=== PATIENT | male | born 1945 | race Caucasian/White ===

== ENCOUNTER 2019-04-26 12:17 | Emergency (ER) | payer MEDICARE, BC, SELFPAY ==
[2019-04-26] VITALS (32 sets, daily range): BP systolic 103–126; BP diastolic 45–65; PULSE 61–76; RESP 9–29; TEMP 36.5; O2SAT 94–97
--- NOTE | 2019-04-26 12:31 | DI.RAD_ITS ---
SYMPTOMS/DIAGNOSIS: CHILLS, FEVER, ? PNEUMONIA CHEST X-RAY, PA AND LATERAL: No priors. The heart size and pulmonary vasculature are within normal limits. The lungs appear hyperinflated with flattened diaphragms, suggesting underlying COPD. There are increased lung markings in the right mid lung suspicious for an infiltrate. The lungs are otherwise clear. No effusions or pneumothoraces are identified. Degenerative changes are seen in the spine. IMPRESSION: Increased lung markings in the right mid lung. This may represent a developing pneumonia.
--- NOTE | 2019-04-26 12:32 | ED.GENADUL_ITS ---
Discharge Plan Disposition Patient Disposition: HOME Condition: Stable Discharge Details Chief Complaint: Nausea/Vomit/Diar Clinical Impression: Nausea, Hyperglycemia, Pneumonia Primary Care Provider: DONNA MCLEAN ED Provider: Amanda Tamayo Home Meds and New Rx's Prescriptions: New ondansetron HCl [Zofran] 4 mg tablet 4 mg PO Q6H PRN (Reason: nausea and vomiting) Qty: 6 RF: 0 doxycycline hyclate 100 mg tablet 100 mg PO BID 5 Days Qty: 10 RF: 0 Continued aspirin 325 MG tablet 1 tab PO DAILY RF: 0 simvastatin [Zocor] 10 MG tablet 1 tab PO DAILY RF: 0 amlodipine 5 MG tablet 1 tab PO DAILY RF: 0 diazepam [Valium] 10 MG tablet 1 tab PO PRN PRNRF: 0 losartan 100 MG tablet 1 tab PO DAILY RF: 0 multivitamin 1 EACH capsule 1 cap PO DAILY RF: 0 insulin NPH isoph U-100 human [Humulin N NPH U-100 Insulin] 100 UNIT/ML suspension 12 unit SQ .QHS RF: 0 insulin NPH isoph U-100 human [Humulin N NPH U-100 Insulin] 100 UNIT/ML suspension 50 unit SQ .QAM RF: 0 insulin lispro [Humalog U-100 Insulin] 100 UNITS/ML solution SQ RF: 0 digoxin 250 MCG tablet 1 tab PO DAILY RF: 0 tamsulosin 0.4 MG capsule 1 tab PO DAILY RF: 0 cephalexin 500 MG capsule 500 mg PO QID Qty: 40 RF: 0 Discharge Instructions Instructions: Acute Nausea and Vomiting (ED), Pneumonia (ED), Diabetic Hyperglycemia (ED) Additional Instructions: Take the Zofran as needed and directed for any nausea or vomiting. Drink plenty of fluids and get plenty of rest. Continue to check your sugar regularly and take your insulin as directed. If you continue to develop fever or chills or develop shortness of breath or cough, start the antibiotics. Call your primary care doctor tomorrow to schedule a follow-up appointment for reevaluation. Return immediately to the emergency department if you develop any worsening or new concerning signs. Discharge Data Discharge Date/Time-TO BE ENTERED AT DEPARTURE: 04/26/19 17:28 Discharge Physician: Amanda Tamayo Medical Decision Making 73-year-old male with history of diabetes type 1, hypertension, hyperlipidemia who presents with hyperglycemia, nausea, chills, low grade fever ~ 99 and sweats for the past 3 days. Accu-Chek 369. Concern for DKA, electrolyte abnormality, other source of infection such as UTI, pneumonia. Does not appear consistent with ACS. Will place an IV, bolus IV fluids, screening labs, urinalysis, lactate, blood cultures, EKG and chest x-ray. EKG notes a rate of 66, sinus no acute ST-T wave ischemic changes. 1400 --labs reviewed. White blood cell count 3. Platelets 107, which is s lightly lower compared to baseline. Glucose 369. Normal bicarb and anion gap. Sodium 132. Lactate 0.8. Troponin negative. Lipase within normal limits. Recheck glucose 344. Will give another liter IV fluids and give 5 units insulin and recheck. UA pending. 1630 --chest x-ray notes a questionable developing pneumonia in the right midlung. Urinalysis notes trace ketones no obvious infection. Patient feels much better and is requesting to go home. He did admit to some brief chills, and temperature rechecked and within normal limits. Nurse noted possible pause on heart monitor at station, patient appeared comfortable during this, no acute complaints, repeat EKG done and no acute change. Accu-Chek 285. Patient's own Accu-Chek read 244. Will send home with a prescription for Zofran as well as doxycycline for a possible developing pneumonia. Patient would rather hold on antibiotics at this time unless symptoms do not improve or worsen. He is instructed to follow-up with his primary care doctor for reevaluation in the next 2 days and to return here anytime if worse Medical Records Medical records reviewed: Yes I reviewed the patient's medical records. Imaging Data Radiologic Study: Imaging: X-Ray Radiologist's impression: Chest x-ray: Read as possible increased markings in the right midlung, question developing pneumonia. Lab Data Lab results reviewed: Yes I reviewed the patient's lab results. Laboratory Tests Range/Units 04/26/19 04/26/19 04/26/19 12:44 12:44 12:44 WBC (4.4-10.8) k/cumm 3.04 L RBC (4.50-6.00) m/cumm 3.69 L Hgb (13.5-17.5) g/dL 11.7 L Hct (40.0-50.0) % 35.4 L MCV (80-95) fL 95.9 H MCH (27.0-33.0) pg 31.7 MCHC (32.0-36.0) g/dL 33.1 RDW (11.8-14.1) % 13.9 Plt Count (130-400) x1000/uL 107 L MPV (8.0-11.0) fL 9.9 Immature Gran % 0.3 Neutrophils % 70.5 Lymphocytes % 15.1 Monocytes % 13.8 Eosinophils % 0.0 Basophils % 0.3 Absolute Neutrophils (1.2-6.7) k/cumm 2.14 Absolute Lymphocytes (1.2-3.4) k/cumm 0.46 L Absolute Monocytes (0.11-0.7) k/cumm 0.42 Absolute Eosinophils (0.0-0.7) k/cumm 0.00 Absolute Basophils (0.0-0.2) k/cumm 0.01 Sodium (136-145) mmol/L 132 L Potassium (3.5-5.1) mmol/L 4.4 Chloride (98-107) mmol/L 100 Carbon Dioxide (21.0-32.0) mmol/L 23.9 Anion Gap (3-11) mmol/L 8.1 BUN (7-18) mg/dL 33 H Creatinine (0.70-1.30) mg/dL 1.44 H Estimated GFR/1.73 m2 (mL/min/1.73m2) 47.82 Glucose (70-100) mg/dL 369 H Lactate (0.6-1.4) mmol/l 0.8 Calcium (8.5-10.1) mg/dL 8.4 L Magnesium (1.8-2.4) mg/dL 2.1 Total Bilirubin (0.2-1.0) mg/dL 0.3 AST (15-37) U/L 28 ALT (12-78) U/L 39 Alkaline Phosphatase (46-116) U/L 131 H Troponin I (0.00-0.06) ng/mL < 0.05 Total Protein (6.4-8.2) g/dL 6.5 Albumin (3.4-5.0) g/dL 2.7 L Lipase (73-393) U/L 35 L Urine Color (Yellow) Urine Clarity (Clear) Urine pH (5-8) Ur Specific [place] (1.005-1.025) Urine Protein (Negative) mg/dL Urine Ketones (Negative) mg/dL Urine Blood (Negative) Urine Nitrite (Negative) Urine Bilirubin (Negative) Urine Urobilinogen (Up TO 0.2) EU/dL Ur Leukocyte Esterase (Negative) Urine RBC (0-2) Urine WBC (0-5) HPF Ur Epithelial Cells (Negative) HPF Urine Crystals (Negative) HPF Urine Bacteria (Negative) HPF Urine Casts (Negative) LPF Urine Mucus (Negative) Ur Culture Indicated? Urine Glucose (Negative) mg/dL Range/Units 04/26/19 15:15 WBC (4.4-10.8) k/cumm RBC (4.50-6.00) m/cumm Hgb (13.5-17.5) g/dL Hct (40.0-50.0) % MCV (80-95) fL MCH (27.0-33.0) pg MCHC (32.0-36.0) g/dL RDW (11.8-14.1) % Plt Count (130-400) x1000/uL MPV (8.0-11.0) fL Immature Gran % Neutrophils % Lymphocytes % Monocytes % Eosinophils % Basophils % Absolute Neutrophils (1.2-6.7) k/cumm Absolute Lymphocytes (1.2-3.4) k/cumm Absolute Monocytes (0.11-0.7) k/cumm Absolute Eosinophils (0.0-0.7) k/cumm Absolute Basophils (0.0-0.2) k/cumm Sodium (136-145) mmol/L Potassium (3.5-5.1) mmol/L Chloride (98-107) mmol/L Carbon Dioxide (21.0-32.0) mmol/L Anion Gap (3-11) mmol/L BUN (7-18) mg/dL Creatinine (0.70-1.30) mg/dL Estimated GFR/1.73 m2 (mL/min/1.73m2) Glucose (70-100) mg/dL Lactate (0.6-1.4) mmol/l Calcium (8.5-10.1) mg/dL Magnesium (1.8-2.4) mg/dL Total Bilirubin (0.2-1.0) mg/dL AST (15-37) U/L ALT (12-78) U/L Alkaline Phosphatase (46-116) U/L Troponin I (0.00-0.06) ng/mL Total Protein (6.4-8.2) g/dL Albumin (3.4-5.0) g/dL Lipase (73-393) U/L Urine Color (Yellow) Yellow Urine Clarity (Clear) Clear Urine pH (5-8) 5.5 Ur Specific [place] (1.005-1.025) 1.015 Urine Protein (Negative) mg/dL 30 H Urine Ketones (Negative) mg/dL Trace H Urine Blood (Negative) Moderate H Urine Nitrite (Negative) Negative Urine Bilirubin (Negative) Negative Urine Urobilinogen (Up TO 0.2) EU/dL 0.2 Ur Leukocyte Esterase (Negative) Negative Urine RBC (0-2) 3-5 H Urine WBC (0-5) HPF 0-2 Ur Epithelial Cells (Negative) HPF Rare Urine Crystals (Negative) HPF Negative Urine Bacteria (Negative) HPF Rare Urine Casts (Negative) LPF 3-5 hyaline Urine Mucus (Negative) Trace Ur Culture Indicated? No Urine Glucose (Negative) mg/dL 500 H ECG Data Attestation: I personally reviewed and interpreted this ECG (s) as follows: Interpretation: #1 -- Rate of 66, sinus, no acute ST elevation or depression. QTc 430. QRS 104. #2 -- Rate of 64, sinus, no acute ST elevation or depression, QTc 444. QRS 103. HPI General Mode of arrival: ambulatory . Date/Time Provider Initiated Documentation: 04/26/19 12:26 . Limitations to Documentation: no limitations . Information obtained by: patient . HPI Narrative: Patient is a 73-year-old male with history of diabetes type 1, hypertension, hyperlipidemia, anxiety who presents with nausea, chills, sweats and low-grade fever of 99 over the past 3 days. Also admits to mild diffuse dull headache which is 1/10. He denies any chest pain, shortness of breath, cough, sore throat, abdominal pain, urinary symptoms, recent alcohol or neck pain. He also denies any recent antibiotics, recent travel or known sick contacts. He states he usually maintains his glucose under good control, but states he has had two checks in the 350s over the past few days. Related Data Home Medications Medication Instructions Recorded Confirmed amlodipine 1 tab PO DAILY 02/17/14 02/05/17 aspirin 1 tab PO DAILY 02/17/14 02/05/17 diazepam [Valium] 1 tab PO PRN PRN 02/17/14 02/05/17 digoxin 1 tab PO DAILY 02/17/14 02/05/17 insulin NPH isoph U-100 human 12 unit SQ .QHS 02/17/14 02/05/17 [Humulin N NPH U-100 Insulin] insulin NPH isoph U-100 human 50 unit SQ .QAM 02/17/14 02/05/17 [Humulin N NPH U-100 Insulin] insulin lispro [Humalog U-100 SQ 02/17/14 02/17/14 Insulin] losartan 1 tab PO DAILY 02/17/14 02/05/17 multivitamin 1 cap PO DAILY 02/17/14 02/05/17 simvastatin [Zocor] 1 tab PO DAILY 02/17/14 02/05/17 tamsulosin 1 tab PO DAILY 02/17/14 02/05/17 cephalexin 500 mg PO QID #40 cap 02/05/17 doxycycline hyclate 100 mg PO BID 5 Days #10 tab 04/26/19 ondansetron HCl [Zofran] 4 mg PO Q6H PRN #6 tab 04/26/19 Previous Rx's Medication Instructions Recorded cephalexin 500 mg PO QID #40 cap 02/05/17 doxycycline hyclate 100 mg PO BID 5 Days #10 tab 04/26/19 ondansetron HCl [Zofran] 4 mg PO Q6H PRN #6 tab 04/26/19 Allergies Allergy/AdvReac Type Severity Reaction Status Date / Time No Known Allergies Allergy Unverified 02/05/17 09:53 General Stated Complaint: Nausea/Vomit/Diar TIANNA: 3 Review of Systems Review of Systems All systems reviewed & are unremarkable except as noted in HPI and below Constitutional Reports as per HPI, Reports chills, Reports fever(s) (low grade ~ 99) and Reports headache(s) Eyes Denies blurry vision ENT Denies dizziness, Reports headache(s), Denies sore throat and Denies throat swelling Cardiovascular Denies chest pain and Denies dyspnea Respiratory Denies cough and Denies dyspnea Gastrointestinal Denies abdominal pain, Denies diarrhea, Reports nausea and Denies vomiting Genitourinary Denies hematuria and Denies dysuria Musculoskeletal Denies back pain and Denies numbness Integumentary/Breasts Denies lesions and Denies rash Neurologic Denies dizziness, Reports headache(s), Denies focal weakness and Denies numbness Allergic/Immunologic Denies throat swelling [facility] Medical History Anxiety (Chronic) Diabetes (Chronic) HTN (hypertension) (Chronic) Hx of hyperlipidemia (Acute) Surgical History Fingertip amputation (Acute) History of cataract surgery (Chronic) History of tonsillectomy (Chronic) Social History (Updated 04/26/19 @ 12:53 by Amanda Tamayo DO) Smoking/Tobacco Use Status: Current every day Alcohol Intake: never Drug use: Never Do you feel safe in your relationship?: Yes Exam Const General: cooperative, healthy appearing and no acute distress HENMT Head: normal to inspection Ears: hearing grossly normal bilaterally and external ears normal General nose exam: external nose normal Face and sinus: normal facial exam Mouth: oral mucosae normal Throat: posterior oropharynx normal Eyes General: appearance normal, both eyes and all related structures Pupils: PERRL EOM: EOM intact bilaterally Neck Neck: normal visual inspection and No submandibular swelling Lymphatic: no lymphadenopathy noted Chest Chest: normal inspection of the chest and no tenderness Resp Effort & Inspection: normal respiratory effort and able to speak in complete sentences Auscultation: clear to auscultation bilaterally Cardio Rate: regular rate Rhythm: regular rhythm GI Inspection: normal to inspection and scar (Right upper abdomen used for left finger skin graft) Palpation: soft, not firm, not rigid and nontender Auscultation: normal bowel sounds Skin General skin exam: no rashes or lesions noted Neuro General: alert, awake and oriented x3 Cognition: normal cognition Speech: speech normal Motor: muscle tone normal throughout Sensory Exam: no sensory deficits noted Extrem General: normal to inspection, full ROM, normal capillary refill, no calf tenderness bilaterally and no edema Psych Appearance: grossly normal Mental Status: mental status grossly normal Speech and Movement: speech and movement normal Affect: normal affect Course Vital Signs Temperature 97.7 F 04/26/19 12:22 Pulse 70 04/26/19 12:22 Respiratory Rate 14 04/26/19 12:22 Blood Pressure 103/45 L 04/26/19 12:22 Pulse Oximetry 97 04/26/19 12:22 Temperature 97.7 F 04/26/19 12:22 Temperature Source Temporal Artery Scan 04/26/19 12:22 Pulse 70 04/26/19 12:22 Respiratory Rate 14 04/26/19 12:22 Blood Pressure 103/45 L 04/26/19 12:22 Pulse Oximetry 97 04/26/19 12:22 Oxygen Delivery Method Room Air 04/26/19 12:22 Oxygen Flow Rate 0 04/26/19 12:22 Pain Level 0 04/26/19 12:22
[2019-04-26] MEDS: Normal Saline 1,000 ML 1000 ML IV ×2 (13:00→14:00)
[2019-04-26 13:01] LABS: Lactate-non-spesis 0.8 mmol/l (0.6-1.4)
[2019-04-26 13:04] LABS: Abs Immature Grans 0.01 k/cumm (0.0-0.09); Absolute Basophil Count 0.01 k/cumm (0.0-0.2); Absolute Lymphocyte Count 0.46 k/cumm (1.2-3.4); Absolute Monocyte Count 0.42 k/cumm (0.11-0.7); Absolute Neutrophil Count 2.14 k/cumm (1.2-6.7); Basophils % 0.3; HCT 35.4 % (40.0-50.0); HGB 11.7 g/dL (13.5-17.5); Immature Grans % 0.3; Lymphocytes % 15.1; Mean Corp. HGB Concentration 33.1 g/dL (32.0-36.0); Mean Corpuscular Hemoglobin 31.7 pg (27.0-33.0); Mean Corpuscular Volume 95.9 fL (80-95); Mean Platelet Volume 9.9 fL (8.0-11.0); Monocytes % 13.8; Neutrophils % 70.5; Platelet Count 107 x1000/uL (130-400); RBC 3.69 m/cumm (4.50-6.00); RBC Distribution Width 13.9 % (11.8-14.1); White Blood Cell Count 3.04 k/cumm (4.4-10.8)
[2019-04-26 13:25] LABS: ALT 39 U/L (12-78); AST 28 U/L (15-37); Albumin 2.7 g/dL (3.4-5.0); Alkaline Phosphatase 131 U/L (46-116); Anion Gap 8.1 mmol/L (3-11); BUN 33 mg/dL (7-18); Bilirubin, Total 0.3 mg/dL (0.2-1.0); CO2 23.9 mmol/L (21.0-32.0); CREATININE 1.44 mg/dL (0.70-1.30); Calcium 8.4 mg/dL (8.5-10.1); Chloride 100 mmol/L (98-107); Estimated GFR 47.82 (mL/min/1.73m2); Glucose 369 mg/dL (70-100); Lipase 35 U/L (73-393); Magnesium 2.1 mg/dL (1.8-2.4); Potassium 4.4 mmol/L (3.5-5.1); Sodium 132 mmol/L (136-145); Total Protein 6.5 g/dL (6.4-8.2)
[2019-04-26 13:29] LABS: Troponin I < 0.05 ng/mL (0.00-0.06)
[2019-04-26] MEDS: Ondansetron 4 MG/2 ML VIAL IVP (13:40)
[2019-04-26] MEDS: Insulin REGULAR-Human 100 UNITS/ML UNIT IV (14:41)
[2019-04-26 15:23] LABS: Bilirubin Negative (Negative); Blood Moderate (Negative); Clarity Clear (Clear); Glucose 500 mg/dL (Negative); Ketones Trace mg/dL (Negative); Leukocyte Esterase Negative (Negative); Nitrite Negative (Negative); Specific Gravity 1.015 (1.005-1.025); Urobilinogen 0.2 EU/dL (Up TO 0.2); pH 5.5 (5-8)
[2019-04-26 15:36] LABS: Bacteria Rare HPF (Negative); Crystals Negative HPF (Negative); Epithelial Cells Rare HPF (Negative); Mucus Trace (Negative); WBC 0-2 HPF (0-5)
[2019-04-26 15:37] LABS: C & S Indicated? No; Casts 3-5 Hyaline LPF (Negative)
[2019-04-26] MEDS: Normal Saline 500 ML IV (16:00)
== END 2019-04-26 17:28 | disposition home or self-care (01) ==
PROVIDERS: Emergency Provider Physician Assistant; PCP Internal Medicine Endocrinology, Diabetes & Metabolism
DX: R11.0 Nausea (principal); E10.65 Type 1 diabetes mellitus with hyperglycemia; J18.9 Pneumonia, unspecified organism; I10 Essential (primary) hypertension
CPT/HCPCS: 36415; 36416; 80053; 82962; 83690; 87040; 93005; 96361; 96374; 96375; 99285; 71046; 81003; 81015; 83605; 83735; 84484; 85025; 93010; J2405

== ENCOUNTER 2019-06-09 02:51 | Outpatient (CLI) | payer MEDICARE, BC, SELFPAY ==
--- NOTE | 2019-06-09 11:00 | DI.RAD_ITS ---
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 There appear to be changes of COPD and pulmonary scarring. Question area of faint increased radiodensity seen in right upper lung field on recent chest film of 04/26/19 is again noted, no definite mass but the possibility of underlying persistent process is raised with mass not entirely excluded. There appears to be calcific scarring in the left upper lobe. No pleural effusion seen. No pneumothorax. CONCLUSION: Persistent radiodensities which appear to lie in right upper lobe. Additional evaluation with chest CT recommended.
== END 2019-06-09 03:11 ==
PROVIDERS: PCP Internal Medicine Endocrinology, Diabetes & Metabolism; Visit Provider Internal Medicine Endocrinology, Diabetes & Metabolism
DX: J44.9 Chronic obstructive pulmonary disease, unspecified (principal); R91.8 Other nonspecific abnormal finding of lung field; E11.9 Type 2 diabetes mellitus without complications; Z79.4 Long term (current) use of insulin
CPT/HCPCS: 71046

== ENCOUNTER 2019-11-13 11:41 | Emergency (ER) | payer MEDICARE, BC, SELFPAY ==
[2019-11-13 11:49] VITALS: BP 117/53; PULSE 77; RESP 16; TEMP 36.7; O2SAT 97
--- NOTE | 2019-11-13 12:03 | ED.GENADUL_ITS ---
Discharge Plan Disposition Patient Disposition: HOME Condition: Stable Discharge Details Chief Complaint: Nausea/Vomit/Diar Clinical Impression: Diarrhea Primary Care Provider: Marlo Wright ED Provider: Rolo Armenta Home Meds and New Rx's Prescriptions: New diphenoxylate-atropine [Lomotil] 2.5-0.025 mg tablet 1 - 2 tab PO DAILY PRN (Reason: diarrhea) Qty: 10 RF: 0 Continued aspirin 325 MG tablet 1 tab PO DAILY RF: 0 simvastatin [Zocor] 10 MG tablet 1 tab PO HS RF: 0 amlodipine 5 MG tablet 1 tab PO HS RF: 0 diazepam [Valium] 10 MG tablet 1 tab PO PRN PRNRF: 0 losartan 100 MG tablet 1 tab PO DAILY RF: 0 multivitamin 1 EACH capsule 1 cap PO DAILY RF: 0 Humulin N NPH U-100 Insulin 100 UNIT/ML suspension 7 unit SQ .QHS RF: 0 Humulin N NPH U-100 Insulin 100 UNIT/ML suspension 40 unit SQ .QAM RF: 0 insulin lispro [Humalog U-100 Insulin] 100 UNITS/ML solution SQ RF: 0 Discharge Instructions Instructions: Acute Diarrhea (ED) Additional Instructions: Continue small, frequent sips of fluids to maintain hydration. Please begin Lomotil as prescribed, 2 tablets today, then 1 to 2 tablets/day as needed for persistent diarrhea. Return if you develop bloating, vomiting, fever, bloody stool or any other acute concerns. Please follow-up with Dr. Wright in clinic for recheck if not improving in 3 to 5 days time. Medical Decision Making 74-year-old male type I diabetic with 1 week history of daily episodes of loose, watery stool. He is not had a fever, had denies recent antibiotic use. His vital signs are reassuring. He is at risk for dehydration, electrolyte abnormalities, would exclude C. difficile colitis as well. IV placed, patient given fluid bolus, referred for laboratory and stool testing. Labs reveal a white count of 5, hematocrit 36, platelets 191, chemistries with unremarkable electrolytes, BUN 22, creatinine 1.5, glucose is 180. These may represent mild dehydration. X-ray without evidence of free air or obstruction. Patient improved with fluids. His C. difficile testing is negative. Discussed with him ongoing home management and did discuss indications to return for reevaluation. Lab Data Lab results reviewed: Yes I reviewed the patient's lab results. Labs: Laboratory Results - last 24 hr 11/13/19 11/13/19 12:20 12:20 WBC 5.09 RBC 3.80 L Hgb 12.2 L Hct 36.8 L MCV 96.8 H MCH 32.1 MCHC 33.2 RDW 14.2 H Plt Count 191 MPV 9.1 Immature Gran % 1.4 Neutrophils % 59.7 Lymphocytes % 16.7 Monocytes % 21.8 Eosinophils % 0.2 Basophils % 0.2 Absolute Neutrophils 3.04 Absolute Lymphocytes 0.85 L Absolute Monocytes 1.11 H Absolute Eosinophils 0.01 Absolute Basophils 0.01 Sodium 136 Potassium 4.1 Chloride 103 Carbon Dioxide 22.0 Anion Gap 11.0 BUN 22 H Creatinine 1.54 H Estimated GFR/1.73 m2 44.14 Glucose 180 H Calcium 8.0 L Magnesium 1.8 Total Bilirubin 0.4 AST 18 ALT 14 L Alkaline Phosphatase 87 Total Protein 6.7 Albumin 2.9 L HPI General Mode of arrival: ambulatory . Date/Time Provider Initiated Documentation: 11/13/19 11:49 . Limitations to Documentation: no limitations . Information obtained by: patient . History of Present Illness 74 year old M presents to the emergency department with the chief complaint of 1 week of 2-3 times daily watery loose stool. No fever, described as moderate, Quality is described as other (Cramping), and is localized to the abdomen. Patient reports no radiation. Patient started experiencing this day(s) and it has been intermittent. No relieving factors improve symptom(s), No exacerbating factors reported . Patient notes other (No bloody stool. No recent antibiotic use.); denies fever/chills. Patient did receive the following treatments prior to arrival, none Related Data Home Medications Medication Instructions Recorded Confirmed Humulin N NPH U-100 Insulin 7 unit SQ .QHS 02/17/14 11/13/19 Humulin N NPH U-100 Insulin 40 unit SQ .QAM 02/17/14 11/13/19 amlodipine 1 tab PO HS 02/17/14 11/13/19 aspirin 1 tab PO DAILY 02/17/14 11/13/19 diazepam [Valium] 1 tab PO PRN PRN 02/17/14 11/13/19 insulin lispro [Humalog U-100 SQ 05/17/14 05/17/14 Insulin] losartan 1 tab PO DAILY 02/17/14 11/13/19 multivitamin 1 cap PO DAILY 02/17/14 11/13/19 simvastatin [Zocor] 1 tab PO HS 02/17/14 11/13/19 diphenoxylate-atropine [Lomotil] 1 - 2 tab PO DAILY PRN #10 tab 11/13/19 Previous Rx's Medication Instructions Recorded diphenoxylate-atropine [Lomotil] 1 - 2 tab PO DAILY PRN #10 tab 11/13/19 Allergies Allergy/AdvReac Type Severity Reaction Status Date / Time No Known Allergies Allergy Unverified 02/05/17 09:53 General Stated Complaint: Nausea/Vomit/Diar TIANNA: 4 Review of Systems Narrative: 6 systems reviewed and otherwise negative. Denies recent travel, no recent antibiotics. [facility] Medical History Anxiety (Chronic) Diabetes (Chronic) HTN (hypertension) (Chronic) Hx of hyperlipidemia (Acute) Social History (Updated 04/26/19 @ 12:53 by Amanda Tamayo DO) Smoking/Tobacco Use Status: Current every day Tobacco Type: cigarettes Alcohol Intake: current Alcohol Intake frequency: holidays/special occasions only Alcohol type: beer Drug use: Rarely Substance use type: marijuana Do you feel safe at home: Yes Do you feel safe in your relationship?: Yes Exam Narrative Exam Narrative: GEN: awake, alert, oriented 3. Pleasant, well groomed, interactive. HEAD: Normocephalic, atraumatic ENT: Mucous membranes moist, oropharynx unremarkable, External ear exam unremarkable EYES: PERRL, EOMI NECK: Full ROM, no JAMEY, no menigismus CHEST/RESP: Nontender, clear to auscultation bilateral, no wheeze/rhonchi/rales CARDIOVASCULAR: RRR, no murmur, rub yara. 2+ Rad pulse bilateral ABDOMEN: Soft, nontender, no mass. + Increased bowel sounds EXT: Full ROM, no edema, no rash Neuro: Grossly normal neurologic exam, conversant, interactive. Psych: Speech fluent, thoughts congruent, affect normal Course Vital Signs Vital signs: Vital Signs Temperature 36.7 C 11/13/19 11:49 Pulse 77 11/13/19 11:49 Respiratory Rate 16 11/13/19 11:49 Blood Pressure 117/53 L 11/13/19 11:49 Pulse Oximetry 97 11/13/19 11:49 Temperature 36.7 C 11/13/19 11:49 Temperature Source Skin 11/13/19 11:49 Pulse 77 11/13/19 11:49 Respiratory Rate 16 11/13/19 11:49 Blood Pressure 117/53 L 11/13/19 11:49 Blood Pressure Position Sitting 11/13/19 11:49 Pulse Oximetry 97 11/13/19 11:49 Oxygen Delivery Method Room Air 11/13/19 11:49 Oxygen Flow Rate 0 11/13/19 11:49 Pain Level 0 11/13/19 11:49
[2019-11-13] MEDS: Normal Saline 1,000 ML 1000 ML IV (12:26)
[2019-11-13] MEDS: Normal Saline Flush 10 ML SYR IVP (12:27)
[2019-11-13 12:32] LABS: Abs Immature Grans 0.07 k/cumm (0.0-0.09); Absolute Basophil Count 0.01 k/cumm (0.0-0.2); Absolute Eosinophil Count 0.01 k/cumm (0.0-0.7); Absolute Lymphocyte Count 0.85 k/cumm (1.2-3.4); Absolute Monocyte Count 1.11 k/cumm (0.11-0.7); Absolute Neutrophil Count 3.04 k/cumm (1.2-6.7); Basophils % 0.2; Eosinophils % 0.2; HCT 36.8 % (40.0-50.0); HGB 12.2 g/dL (13.5-17.5); Immature Grans % 1.4 %; Lymphocytes % 16.7; Mean Corp. HGB Concentration 33.2 g/dL (32.0-36.0); Mean Corpuscular Hemoglobin 32.1 pg (27.0-33.0); Mean Corpuscular Volume 96.8 fL (80-95); Mean Platelet Volume 9.1 fL (8.0-11.0); Monocytes % 21.8; Neutrophils % 59.7; Platelet Count 191 x1000/uL (130-400); RBC Distribution Width 14.2 % (11.8-14.1); White Blood Cell Count 5.09 k/cumm (4.4-10.8)
--- NOTE | 2019-11-13 12:44 | DI.RAD_ITS ---
EXAM: XR ABDOMEN FLAT UPRIGHT INDICATION: diarrhea, weakness. COMPARISON: No exams were available for comparison TECHNIQUE: 2D digital imaging was performed. FINDINGS: No free air is seen beneath the diaphragm. There is no abnormal bowel dilatation. There are small air-fluid levels in the colon. There is no visible urinary tract calculi or organomegaly. Degenera tive changes are seen in the spine and both hips. IMPRESSION: No acute abnormality.
[2019-11-13 13:33] LABS: ALT 14 U/L (16-63); AST 18 U/L (15-37); Albumin 2.9 g/dL (3.4-5.0); Alkaline Phosphatase 87 U/L (46-116); BUN 22 mg/dL (7-18); Bilirubin, Total 0.4 mg/dL (0.2-1.0); CREATININE 1.54 mg/dL (0.70-1.30); Chloride 103 mmol/L (98-107); Estimated GFR 44.14 (mL/min/1.73m2); Glucose 180 mg/dL (74-106); Magnesium 1.8 mg/dL (1.8-2.4); Potassium 4.1 mmol/L (3.5-5.1); Sodium 136 mmol/L (136-145); Total Protein 6.7 g/dL (6.4-8.2)
[2019-11-13 14:08] VITALS: BP 104/51; PULSE 71; RESP 15; TEMP 37; O2SAT 98
[2019-11-13 14:27] VITALS: BP 104/51; PULSE 71; RESP 16; TEMP 37; O2SAT 98
== END 2019-11-13 14:23 | disposition home or self-care (01) ==
PROVIDERS: Emergency Provider Emergency Medicine; PCP Internal Medicine Endocrinology, Diabetes & Metabolism
DX: R10.84 Generalized abdominal pain (principal); R19.7 Diarrhea, unspecified; E10.9 Type 1 diabetes mellitus without complications; I10 Essential (primary) hypertension
CPT/HCPCS: 36415; 80053; 96360; 99284; 74019; 83735; 85025; 87324

== ENCOUNTER → 2021-04-04 10:27 | Outpatient (BNVA) | payer MEDICARE, BC, SELFPAY | PROVIDERS: Referring Provider Family Medicine; Visit Provider Surgery | DX: K64.8 Other hemorrhoids (principal) | CPT/HCPCS: 46600; 99202; 99213 ==

== ENCOUNTER → 2021-04-22 13:00 | Outpatient (BNVA) | payer MEDICARE, BC, SELFPAY | PROVIDERS: Visit Provider Surgery | DX: K64.9 Unspecified hemorrhoids (principal) | CPT/HCPCS: 99212; 99213 ==

== ENCOUNTER → 2021-05-16 11:18 | Outpatient (BNVA) | payer MEDICARE, BC, SELFPAY | PROVIDERS: Visit Provider Surgery | DX: K64.8 Other hemorrhoids (principal) | CPT/HCPCS: 99212 ==

== ENCOUNTER → 2021-10-21 13:13 | Outpatient (BNVA) | payer MEDICARE, BC, SELFPAY | PROVIDERS: Visit Provider Surgery | DX: K64.8 Other hemorrhoids (principal) | CPT/HCPCS: 46221; 99213 ==

== ENCOUNTER → 2021-10-28 12:50 | Outpatient (BNVA) | payer MEDICARE, BC, SELFPAY | PROVIDERS: Visit Provider Surgery | DX: Z48.815 Encounter for surgical aftercare following surgery on the digestive system (principal); K64.8 Other hemorrhoids | CPT/HCPCS: 46221; 99212 ==

== ENCOUNTER → 2021-11-04 11:20 | Outpatient (BNVA) | payer MEDICARE, BC, SELFPAY | PROVIDERS: Visit Provider Surgery | DX: Z48.816 Encounter for surgical aftercare following surgery on the genitourinary system (principal) | CPT/HCPCS: 99212 ==

== ENCOUNTER 2022-05-21 14:08 | Outpatient (REF) | payer MEDICARE, BC, SELFPAY ==
[2022-05-21 19:16] LABS: ESR 49 mm/hr (0-20); MPV 9.5 fL (8.0-11.0)
[2022-05-21 19:24] LABS: Iron 46 ug/dL (65-175); Total Iron Binding Capacity 233 ug/dL (250-450); Transferrin Sat 20 % (20-55)
[2022-05-21 19:28] LABS: Abs Immature Grans 0.17 10^3/uL (0.0-0.06); HCT 29.3 % (40.0-50.0); HGB 9.5 g/dL (13.5-17.5); MCH 30.8 pg (27.0-33.0); MCHC 32.4 % (32.0-36.0); MCV 95 fL (80-95); Platelet Count 165 10^3/uL (130-400); RBC 3.08 10^6/uL (4.36-5.78); RDW 16.5 % (11.8-14.1); RDW-SD 57.1 fL; Reticulocyte 2.1 % (0.5-2.4); WBC 2.85 10^3/uL (4.4-10.8)
[2022-05-21 19:49] LABS: Vitamin B12 293 pg/mL (193-986)
[2022-05-21 19:57] LABS: Absolute Eosinophil Count 0.09 10^3/uL (0.0-0.7); Absolute Lymphocyte Count 0.74 10^3/uL (1.2-3.4); Absolute Monocyte Count 0.34 10^3/uL (0.1-0.8); Absolute Neutrophil Count 1.68 10^3/uL (1.2-6.7); Diff Comment Manual Differential
[2022-05-21 19:58] LABS: Anisocytosis 1+; Polychromasia Present
[2022-05-21 19:59] LABS: Poikilocytes 1+
== END 2022-05-21 14:09 | disposition home or self-care (01) ==
LOC: NCHCN 14:08
PROVIDERS: Visit Provider Internal Medicine
DX: E10.9 Type 1 diabetes mellitus without complications (principal); I10 Essential (primary) hypertension; E78.5 Hyperlipidemia, unspecified; I73.89 Other specified peripheral vascular diseases; R70.0 Elevated erythrocyte sedimentation rate
CPT/HCPCS: 85045; 85652; 82607; 83540; 83550; 85025

== ENCOUNTER → 2022-06-30 10:36 | Outpatient (BNVA) | payer MEDICARE, BC, SELFPAY | PROVIDERS: Visit Provider Surgery | DX: K64.8 Other hemorrhoids (principal); D64.9 Anemia, unspecified | CPT/HCPCS: 99212; 99214 ==

== ENCOUNTER → 2022-09-21 12:17 | Outpatient (BNVA) | payer MEDICARE, BC, SELFPAY | PROVIDERS: PCP Internal Medicine; Referring Provider Internal Medicine; Visit Provider Surgery | DX: E10.9 Type 1 diabetes mellitus without complications (principal); R19.5 Other fecal abnormalities; D50.0 Iron deficiency anemia secondary to blood loss (chronic); M54.32 Sciatica, left side; R10.32 Left lower quadrant pain; K64.8 Other hemorrhoids; I10 Essential (primary) hypertension; F17.210 Nicotine dependence, cigarettes, uncomplicated | CPT/HCPCS: 36415; 99213 ==

== ENCOUNTER 2022-09-21 13:12 | Outpatient (REF) | payer MEDICARE, BC, SELFPAY ==
[2022-09-21 13:59] LABS: Abs Immature Grans 0.04 10^3/uL (0.0-0.06); Absolute Lymphocyte Count 0.56 10^3/uL (1.2-3.4); Absolute Monocyte Count 0.38 10^3/uL (0.1-0.8); Absolute Neutrophil Count 1.37 10^3/uL (1.2-6.7); HCT 27.2 % (40.0-50.0); HGB 8.4 g/dL (13.5-17.5); Immature Grans % 1.7; Lymphocytes % 23.8; MCH 29.2 pg (27.0-33.0); MCHC 30.9 % (32.0-36.0); MCV 94 fL (80-95); MPV 9.3 fL (8.0-11.0); Monocytes % 16.2; Neutrophils % 58.3; Platelet Count 133 10^3/uL (130-400); RBC 2.88 10^6/uL (4.36-5.78); RDW 17.3 % (11.8-14.1); RDW-SD 60.2 fL; WBC 2.35 10^3/uL (4.4-10.8)
[2022-09-21 14:08] LABS: Iron 46 ug/dL (65-175); Total Iron Binding Capacity 223 ug/dL (250-450); Transferrin Sat 21 % (20-55)
[2022-09-21 14:34] LABS: ALT 19 U/L (16-63); AST 24 U/L (15-37); Albumin 2.8 g/dL (3.4-5.0); Alkaline Phosphatase 86 U/L (46-116); Anion Gap 5.3 mmol/L (3-11); BUN 25 mg/dL (7-18); Bilirubin, Total 0.3 mg/dL (0.2-1.0); CO2 27.7 mmol/L (21.0-32.0); CREATININE 1.3 mg/dL (0.70-1.30); Calcium 8.8 mg/dL (8.5-10.1); Chloride 101 mmol/L (98-107); Estimated GFR 55.88 (mL/min/1.73m2); Ferritin 153 ng/mL (26-388); Folate 11.9 ng/mL (8.6-20.0); Glucose 130 mg/dL (74-106); Potassium 4.6 mmol/L (3.5-5.1); Sodium 134 mmol/L (136-145); TSH (W/Ref FT4) 0.94 uIU/mL (0.36-3.74); Total Protein 7.1 g/dL (6.4-8.2); Vitamin B12 295 pg/mL (193-986)
== END 2022-09-21 13:13 | disposition home or self-care (01) ==
LOC: LBN 13:12
PROVIDERS: PCP Internal Medicine; Visit Provider Surgery
DX: D50.0 Iron deficiency anemia secondary to blood loss (chronic) (principal); D64.9 Anemia, unspecified; R10.32 Left lower quadrant pain; R19.5 Other fecal abnormalities; E10.9 Type 1 diabetes mellitus without complications; I10 Essential (primary) hypertension; R26.81 Unsteadiness on feet; F17.210 Nicotine dependence, cigarettes, uncomplicated; F41.8 Other specified anxiety disorders; G89.29 Other chronic pain; Z86.39 Personal history of other endocrine, nutritional and metabolic disease
CPT/HCPCS: 80053; 82607; 82728; 82746; 83540; 83550; 84443; 85025

== ENCOUNTER 2022-10-29 11:12 | Outpatient (REF) | payer MEDICARE, BC, SELFPAY ==
[2022-10-29 18:50] LABS: HCT 26.9 % (40.0-50.0); HGB 8.3 g/dL (13.5-17.5); MCH 28.8 pg (27.0-33.0); MCHC 30.9 % (32.0-36.0); MCV 93 fL (80-95); MPV 9.9 fL (8.0-11.0); Platelet Count 132 10^3/uL (130-400); RBC 2.88 10^6/uL (4.36-5.78); RDW 17.5 % (11.8-14.1); RDW-SD 59.2 fL; WBC 2.66 10^3/uL (4.4-10.8)
== END 2022-10-29 11:13 | disposition home or self-care (01) ==
LOC: NCHCN 11:12
PROVIDERS: PCP Internal Medicine; Visit Provider Internal Medicine
DX: D64.9 Anemia, unspecified (principal)
CPT/HCPCS: 85027

== ENCOUNTER 2022-12-23 17:16 | Outpatient (REF) | payer MEDICARE, BC, SELFPAY ==
[2022-12-24 11:04] LABS: ESR 37 mm/hr (0-20)
[2022-12-24 11:24] LABS: Anion Gap 4.4 mmol/L (3-11); BUN 34 mg/dL (7-18); C-Reactive Protein 4.21 mg/dL (0.0-0.3); CO2 28.6 mmol/L (21.0-32.0); CREATININE 1.3 mg/dL (0.70-1.30); Calcium 8.9 mg/dL (8.5-10.1); Chloride 103 mmol/L (98-107); Estimated GFR 55.88 (mL/min/1.73m2); Glucose 105 mg/dL (74-106); Potassium 5.6 mmol/L (3.5-5.1); Sodium 136 mmol/L (136-145)
[2022-12-24 19:42] LABS: PSA, Screening 2.9 ng/mL (<=6.5)
== END 2022-12-23 17:17 | disposition home or self-care (01) ==
LOC: NCHCN 17:16
PROVIDERS: PCP Internal Medicine; Visit Provider Internal Medicine
DX: E10.9 Type 1 diabetes mellitus without complications (principal); M35.3 Polymyalgia rheumatica; D46.9 Myelodysplastic syndrome, unspecified; I10 Essential (primary) hypertension; N40.0 Benign prostatic hyperplasia without lower urinary tract symptoms; Z12.5 Encounter for screening for malignant neoplasm of prostate
CPT/HCPCS: 80048; 84153; 85652; 86140

== ENCOUNTER 2023-01-05 16:18 | Outpatient (CLI) | payer MEDICARE, BC, SELFPAY ==
[2023-01-05 13:25] LABS: ALT 19 U/L (16-63); AST 19 U/L (15-37); Alkaline Phosphatase 72 U/L (46-116); Anion Gap 5.7 mmol/L (3-11); BUN 24 mg/dL (7-18); Bilirubin, Total 0.5 mg/dL (0.2-1.0); CO2 32.3 mmol/L (21.0-32.0); CREATININE 1.3 mg/dL (0.70-1.30); Chloride 102 mmol/L (98-107); Estimated GFR 55.88 (mL/min/1.73m2); Ferritin 125 ng/mL (26-388); Glucose 179 mg/dL (74-106); Potassium 4.2 mmol/L (3.5-5.1); Sodium 140 mmol/L (136-145); Total Protein 6.9 g/dL (6.4-8.2)
[2023-01-05 15:01] LABS: Abs Immature Grans 0.09 10^3/uL (0.0-0.06); Absolute Eosinophil Count 0.01 10^3/uL (0.0-0.7); Absolute Lymphocyte Count 0.33 10^3/uL (1.2-3.4); Absolute Monocyte Count 0.32 10^3/uL (0.1-0.8); Absolute Neutrophil Count 2.33 10^3/uL (1.2-6.7); Eosinophils % 0.3; HCT 27.8 % (40.0-50.0); HGB 8.6 g/dL (13.5-17.5); Immature Grans % 2.9; Lymphocytes % 10.7; MCHC 30.9 % (32.0-36.0); MCV 94 fL (80-95); MPV 9.6 fL (8.0-11.0); Monocytes % 10.4; Neutrophils % 75.7; Platelet Count 126 10^3/uL (130-400); RBC 2.97 10^6/uL (4.36-5.78); RDW 19.3 % (11.8-14.1); RDW-SD 63.5 fL; WBC 3.08 10^3/uL (4.4-10.8)
== END 2023-01-05 16:19 | disposition home or self-care (01) ==
LOC: LBO 16:18
PROVIDERS: PCP Internal Medicine; Visit Provider Internal Medicine Hematology & Oncology
DX: D46.9 Myelodysplastic syndrome, unspecified (principal)
CPT/HCPCS: 36415; 80053; 82728; 85025; 85045

== ENCOUNTER 2023-01-15 00:49 | Outpatient (CLI) | payer MEDICARE, BC, SELFPAY ==
--- NOTE | 2023-01-15 | DI.CT_ITS ---
Exam(s) CT CHEST/ABD/PEL W EXAM: CT CHEST/ABD/PEL W CLINICAL HISTORY: ABNL WEIGHT LOSS R63.4. TECHNIQUE: Imaging Protocol: Axial computed tomography images with coronal and sagittal reformatted images were created and reviewed CONTRAST MATERIAL: Intravenous: Omnipaque 350 Contrast volume:100 ml Oral: yes / COMPARISON: CR XR CHEST 2V PA LATERAL from 06/09/2019 CR XR ABDOMEN FLAT UPRIGHT from 11/13/2019 FINDINGS: CHEST: Tracheobronchial tree: Patent where visualized. Pulmonary parenchyma: 4.5 centimeter diameter mass in the inferolateral right upper lobe extending to the pleura. No definite chest wall extension or rib invasion. 7 millimeter nodule posterior left l hedy base. Additional 4 millimeter nodule posterior left lower.. Underlying moderate to severe emphy sematous changes and fibrosis with honeycombing. No infiltrates. Pleura: No effusion or pneumothorax. Lymph nodes: Within normal limits. Aorta: Thoracic portion non-dilated. Atherosclerotic changes. Heart: Mildly dilated. Mitral annular calcifications and coronary artery calcifications noted. Bones: Unremarkable for age. No lytic or blastic lesions.No compression fractures. ABDOMEN: Liver: Normal density. No measurable mass. Gallbladder and biliary tract: Cholelithiasis. No gallbladder wall thickening Pancreas: Normal density, no abnormal calcifications or inflammatory process. Spleen: Normal. Kidneys: Normal size, contour and axis. No radiodense stones or obstructive uropathy. No suspicious m asses seen. Adrenal glands: No masses seen. Aorta: Abdominal portion non-dilated. Severe atherosclerotic changes. Lymph nodes: Within normal limits. Soft tissues: Unremarkable. PELVIS: Bladder: Symmetric distention, no gross wall thickening. Bowel: Large quantity of stool. No obstruction or bowel wall thickening. Peritoneal cavity: No ascites, collection or mesenteric inflammatory response. Bones: Degenerative changes. Reproductive organs: Enlarged prostate. IMPRESSION: 4.5 centimeter right upper lobe mass. Underlying emphysematous and fibrotic changes. No acute abnormality in the abdomen or pelvis.. RADIATION DOSE DELIVERED: 1,231.08mGy.cm Total DLP DATA REPOSITORY: All CT scans at this facility are submitted to the National Radiology Data Registry (NRDR) Dose Index Registry (DIR) with the [employer] (ACR). RADIATION OPTIMIZATION: All CT scans at this facility use at least one of these dose optimization te chniques: automated exposure control; mA and/or kV adjustment per patient size (includes targeted exa ms where dose is matched to clinical indication); or iterative reconstruction.
[2023-01-15] MEDS: Barium Sulfate 2% W/V-Creamy Vanilla Smoothie 450 ML BTL PO (08:37)
[2023-01-15] MEDS: Omnipaque 350 MG/ML 100 ML BTL IJ (11:17)
== END 2023-01-15 01:09 ==
LOC: DI 00:50
PROVIDERS: PCP Internal Medicine; Visit Provider Internal Medicine
DX: R63.4 Abnormal weight loss (principal)
CPT/HCPCS: 74177; 71260; J3490

== ENCOUNTER 2023-01-19 13:14 | Outpatient (CLI) | payer MEDICARE, BC, SELFPAY ==
[2023-01-19 12:02] LABS: Abs Immature Grans 0.06 10^3/uL (0.0-0.06); Absolute Eosinophil Count 0.02 10^3/uL (0.0-0.7); Absolute Lymphocyte Count 0.48 10^3/uL (1.2-3.4); Absolute Monocyte Count 0.65 10^3/uL (0.1-0.8); Absolute Neutrophil Count 2.38 10^3/uL (1.2-6.7); Eosinophils % 0.6; HCT 31.5 % (40.0-50.0); HGB 9.7 g/dL (13.5-17.5); Immature Grans % 1.7; Lymphocytes % 13.4; MCH 29.3 pg (27.0-33.0); MCHC 30.8 % (32.0-36.0); MCV 95 fL (80-95); MPV 8.5 fL (8.0-11.0); Monocytes % 18.1; Neutrophils % 66.2; RBC 3.31 10^6/uL (4.36-5.78); RDW 21.2 % (11.8-14.1); RDW-SD 75.2 fL; Reticulocyte 4.8 % (0.5-2.4); WBC 3.59 10^3/uL (4.4-10.8)
[2023-01-19 12:15] LABS: PTT Activated 24.1 sec (21.5-31.9); Prothrombin Time 9.8 sec (9.3-11.0)
[2023-01-19 12:18] LABS: Anisocytosis 2+; Diff Comment Diff Reviewed; Platelet Count 89 10^3/uL (130-400)
[2023-01-19 12:29] LABS: ALT 20 U/L (16-63); AST 19 U/L (15-37); Albumin 2.9 g/dL (3.4-5.0); Alkaline Phosphatase 65 U/L (46-116); BUN 20 mg/dL (7-18); Bilirubin, Total 0.4 mg/dL (0.2-1.0); CREATININE 1.2 mg/dL (0.70-1.30); Calcium 8.6 mg/dL (8.5-10.1); Chloride 103 mmol/L (98-107); Estimated GFR 61.52 (mL/min/1.73m2); Ferritin 73 ng/mL (26-388); Glucose 54 mg/dL (74-106); Potassium 3.8 mmol/L (3.5-5.1); Sodium 138 mmol/L (136-145); Total Protein 6.6 g/dL (6.4-8.2)
== END 2023-01-19 13:15 | disposition home or self-care (01) ==
LOC: LBO 13:14
PROVIDERS: Internal Medicine Hematology & Oncology; PCP Internal Medicine; Visit Provider Internal Medicine
DX: D46.9 Myelodysplastic syndrome, unspecified (principal); R91.1 Solitary pulmonary nodule
CPT/HCPCS: 36415; 80053; 82728; 85025; 85045; 85610; 85730

== ENCOUNTER 2023-02-02 14:05 | Outpatient (CLI) | payer MEDICARE, BC, SELFPAY ==
[2023-02-02 12:52] LABS: Abs Immature Grans 0.07 10^3/uL (0.0-0.06); Absolute Lymphocyte Count 0.39 10^3/uL (1.2-3.4); Absolute Monocyte Count 0.68 10^3/uL (0.1-0.8); Absolute Neutrophil Count 1.83 10^3/uL (1.2-6.7); HCT 31.7 % (40.0-50.0); HGB 9.7 g/dL (13.5-17.5); Immature Grans % 2.4; Lymphocytes % 13.1; MCH 28.6 pg (27.0-33.0); MCHC 30.6 % (32.0-36.0); MCV 94 fL (80-95); MPV 7.9 fL (8.0-11.0); Monocytes % 22.9; Neutrophils % 61.6; Platelet Count 108 10^3/uL (130-400); RBC 3.39 10^6/uL (4.36-5.78); RDW 20.3 % (11.8-14.1); RDW-SD 70.6 fL; Reticulocyte 2.6 % (0.5-2.4); WBC 2.97 10^3/uL (4.4-10.8)
[2023-02-02 13:02] LABS: Anisocytosis 2+; Diff Comment RBC Morph Reviewed; Poikilocytes 1+
[2023-02-02 13:19] LABS: ALT 21 U/L (16-63); AST 18 U/L (15-37); Alkaline Phosphatase 65 U/L (46-116); Anion Gap 6.7 mmol/L (3-11); BUN 21 mg/dL (7-18); Bilirubin, Total 0.4 mg/dL (0.2-1.0); CO2 31.3 mmol/L (21.0-32.0); CREATININE 1.1 mg/dL (0.70-1.30); Chloride 100 mmol/L (98-107); Estimated GFR 68.29 (mL/min/1.73m2); Ferritin 110 ng/mL (26-388); Glucose 92 mg/dL (74-106); Potassium 4.2 mmol/L (3.5-5.1); Sodium 138 mmol/L (136-145)
== END 2023-02-02 14:06 | disposition home or self-care (01) ==
LOC: LBO 14:08
PROVIDERS: PCP Internal Medicine; Visit Provider Internal Medicine Hematology & Oncology
DX: D46.9 Myelodysplastic syndrome, unspecified (principal)
CPT/HCPCS: 36415; 80053; 82728; 85025; 85045

== ENCOUNTER 2023-03-02 03:50 | Outpatient (CLI) | payer MEDICARE, BC, SELFPAY ==
[2023-03-02 13:35] LABS: Abs Immature Grans 0.06 10^3/uL (0.0-0.06); Absolute Lymphocyte Count 0.46 10^3/uL (1.2-3.4); Absolute Monocyte Count 0.44 10^3/uL (0.1-0.8); Absolute Neutrophil Count 2.66 10^3/uL (1.2-6.7); HCT 29.8 % (40.0-50.0); HGB 9.1 g/dL (13.5-17.5); Immature Grans % 1.7; Lymphocytes % 12.7; MCH 28.5 pg (27.0-33.0); MCHC 30.5 % (32.0-36.0); MCV 93 fL (80-95); MPV 8.6 fL (8.0-11.0); Monocytes % 12.2; Neutrophils % 73.4; Platelet Count 138 10^3/uL (130-400); RBC 3.19 10^6/uL (4.36-5.78); RDW 19.8 % (11.8-14.1); RDW-SD 68.4 fL; Reticulocyte 2.4 % (0.5-2.4); WBC 3.62 10^3/uL (4.4-10.8)
[2023-03-02 13:54] LABS: Diff Comment RBC Morph Reviewed; Poikilocytes 1+
[2023-03-02 14:05] LABS: ALT 20 U/L (16-63); AST 21 U/L (15-37); Albumin 2.7 g/dL (3.4-5.0); Alkaline Phosphatase 65 U/L (46-116); Anion Gap 2.6 mmol/L (3-11); BUN 20 mg/dL (7-18); Bilirubin, Total 0.3 mg/dL (0.2-1.0); CO2 30.4 mmol/L (21.0-32.0); CREATININE 1.2 mg/dL (0.70-1.30); Calcium 8.5 mg/dL (8.5-10.1); Chloride 101 mmol/L (98-107); Estimated GFR 61.52 (mL/min/1.73m2); Ferritin 99 ng/mL (26-388); Glucose 130 mg/dL (74-106); Potassium 4.8 mmol/L (3.5-5.1); Sodium 134 mmol/L (136-145); Total Protein 6.5 g/dL (6.4-8.2)
== END 2023-03-02 03:51 | disposition home or self-care (01) ==
LOC: LBO 03:50
PROVIDERS: PCP Internal Medicine; Visit Provider Internal Medicine Hematology & Oncology
DX: D46.9 Myelodysplastic syndrome, unspecified (principal)
CPT/HCPCS: 36415; 80053; 82728; 85025; 85045

== ENCOUNTER 2023-03-15 05:07 | Outpatient (CLI) | payer MEDICARE, BC, SELFPAY ==
--- NOTE | 2023-03-19 12:43 | W.PFT ---
Date of service: 03/15/23 Time of Service: 13:01 Pulmonary Function Test Result Indications: Lung Mass Interpretation Diffusion Capacity: There is decreased diffusion (47%) Impression Decreased corrected diffusion. Clinical Correlation therefore is recommended.
== END 2023-03-15 05:08 | disposition home or self-care (01) ==
LOC: RT 05:07
PROVIDERS: PCP Internal Medicine; Visit Provider Internal Medicine Pulmonary Disease
DX: R91.8 Other nonspecific abnormal finding of lung field (principal)
CPT/HCPCS: 94729

== ENCOUNTER 2023-03-16 01:56 | Outpatient (CLI) | payer MEDICARE, BC, SELFPAY ==
[2023-03-16 13:08] LABS: Abs Immature Grans 0.12 10^3/uL (0.0-0.06); Absolute Basophil Count 0.01 10^3/uL (0.0-0.2); Absolute Eosinophil Count 0.01 10^3/uL (0.0-0.7); Absolute Lymphocyte Count 0.43 10^3/uL (1.2-3.4); Absolute Neutrophil Count 2.48 10^3/uL (1.2-6.7); Basophils % 0.3; Eosinophils % 0.3; HCT 32.2 % (40.0-50.0); HGB 9.9 g/dL (13.5-17.5); Immature Grans % 3.4; Lymphocytes % 12.1; MCHC 30.7 % (32.0-36.0); MCV 94 fL (80-95); MPV 8.8 fL (8.0-11.0); Monocytes % 14.1; Neutrophils % 69.8; Platelet Count 104 10^3/uL (130-400); RBC 3.41 10^6/uL (4.36-5.78); RDW 20.1 % (11.8-14.1); RDW-SD 69.4 fL; Reticulocyte 2.8 % (0.5-2.4); WBC 3.55 10^3/uL (4.4-10.8)
[2023-03-16 13:38] LABS: Anisocytosis 3+; Basophilic Stippling 1+; Diff Comment RBC Morph Reviewed; Hypochromasia 1+; Poikilocytes 1+; Polychromasia Present
[2023-03-16 13:42] LABS: ALT 18 U/L (16-63); AST 19 U/L (15-37); Albumin 2.8 g/dL (3.4-5.0); Alkaline Phosphatase 67 U/L (46-116); Anion Gap 5.7 mmol/L (3-11); BUN 22 mg/dL (7-18); Bilirubin, Total 0.4 mg/dL (0.2-1.0); CO2 28.3 mmol/L (21.0-32.0); CREATININE 1.2 mg/dL (0.70-1.30); Calcium 8.5 mg/dL (8.5-10.1); Chloride 101 mmol/L (98-107); Estimated GFR 61.52 (mL/min/1.73m2); Ferritin 80 ng/mL (26-388); Glucose 159 mg/dL (74-106); Potassium 4.7 mmol/L (3.5-5.1); Sodium 135 mmol/L (136-145); Total Protein 6.7 g/dL (6.4-8.2)
== END 2023-03-16 01:57 | disposition home or self-care (01) ==
LOC: LBO 01:56
PROVIDERS: PCP Internal Medicine; Visit Provider Internal Medicine Hematology & Oncology
DX: D46.9 Myelodysplastic syndrome, unspecified (principal)
CPT/HCPCS: 36415; 80053; 82728; 85025; 85045

== ENCOUNTER 2023-03-30 13:03 | Outpatient (CLI) | payer MEDICARE, BC, SELFPAY ==
[2023-03-30 13:23] LABS: Abs Immature Grans 0.11 10^3/uL (0.0-0.06); Absolute Basophil Count 0.01 10^3/uL (0.0-0.2); Absolute Eosinophil Count 0.01 10^3/uL (0.0-0.7); Absolute Lymphocyte Count 0.35 10^3/uL (1.2-3.4); Absolute Monocyte Count 0.39 10^3/uL (0.1-0.8); Absolute Neutrophil Count 1.52 10^3/uL (1.2-6.7); Basophils % 0.4; Eosinophils % 0.4; HCT 32.2 % (40.0-50.0); HGB 9.9 g/dL (13.5-17.5); Immature Grans % 4.6; Lymphocytes % 14.6; MCH 29.2 pg (27.0-33.0); MCHC 30.7 % (32.0-36.0); MCV 95 fL (80-95); MPV 8.7 fL (8.0-11.0); Monocytes % 16.3; Neutrophils % 63.7; Platelet Count 124 10^3/uL (130-400); RBC 3.39 10^6/uL (4.36-5.78); RDW 20.1 % (11.8-14.1); RDW-SD 70.6 fL; Reticulocyte 3.2 % (0.5-2.4); WBC 2.39 10^3/uL (4.4-10.8)
[2023-03-30 13:50] LABS: ALT 20 U/L (16-63); AST 19 U/L (15-37); Albumin 2.8 g/dL (3.4-5.0); Alkaline Phosphatase 63 U/L (46-116); BUN 18 mg/dL (7-18); Bilirubin, Total 0.4 mg/dL (0.2-1.0); CREATININE 1.1 mg/dL (0.70-1.30); Calcium 8.4 mg/dL (8.5-10.1); Chloride 100 mmol/L (98-107); Estimated GFR 68.29 (mL/min/1.73m2); Ferritin 119 ng/mL (26-388); Glucose 146 mg/dL (74-106); Potassium 4.7 mmol/L (3.5-5.1); Sodium 134 mmol/L (136-145); Total Protein 6.4 g/dL (6.4-8.2)
[2023-03-30 13:58] LABS: Anisocytosis 2+
[2023-03-30 13:59] LABS: Poikilocytes 2+
== END 2023-03-30 13:04 | disposition home or self-care (01) ==
LOC: LBO 13:04
PROVIDERS: PCP Internal Medicine; Visit Provider Internal Medicine Hematology & Oncology
DX: D46.9 Myelodysplastic syndrome, unspecified (principal)
CPT/HCPCS: 36415; 80053; 82728; 85025; 85045

== ENCOUNTER 2023-05-02 17:56 | Emergency (ER) | payer MEDICARE, BC, SELFPAY ==
[2023-05-02 18:05] VITALS: BP 141/53; PULSE 83; RESP 18; TEMP 37.1; O2SAT 97
--- NOTE | 2023-05-02 18:27 | W.ED.GENAD ---
Discharge Plan Disposition Patient Disposition: Eloped Condition: Stable Discharge Details Chief Complaint: Fever Clinical Impression: Fever Primary Care Provider: Sebastián Leach ED Provider: Bradley Mccauley Home Meds and New Rx's Prescriptions: No Action docusate sodium [Colace] 100 mg capsule 100 mg PO DAILY simvastatin 20 mg tablet 10 mg PO DAILY losartan 100 mg tablet 50 mg PO DAILY insulin lispro [Humalog U-100 Insulin] 100 unit/mL solution 6 unit subcut TID PRN (Reason: hyperglycemia) Rx Instructions: patient to use as his blood sugar requires within parameters discussed Humulin N NPH U-100 Insulin 100 unit/mL suspension 34 unit subcut .QAM Glucerna 1 Fermin 0.04-1 gram-kcal/mL liquid 237 ml PO QD-BID PRN (Reason: unintentional weight loss) Qty: 5688 3RF Gvoke HypoPen 2-Pack 1 mg/0.2 mL auto-injector 1 mg subcut ONCE Qty: 0.4 10RF Rx Instructions: as a single dose; may repeat once after 15 minutes if no response prednisone PO Rx Instructions: Per taper instructions calcium polycarbophil [Fiber (calcium polycarbophil)] See Rx Instructions .ROUTE .COMPLEX Rx Instructions: unspecified; amlodipine 10 mg tablet 10 mg PO HS Qty: 30 3RF citalopram 20 mg tablet 20 mg PO DAILY Qty: 90 0RF diazepam [Valium] 10 mg tablet 5 - 10 mg PO QHS PRN (Reason: insomnia) Qty: 30 1RF multivitamin 1 EACH capsule 1 cap PO DAILY Medical Decision Making 77-year-old male referred in for evaluation of low-grade fever in the setting of chemotherapy and radiation for primary lung cancer. Rest comfortably no acute distress lungs clear bilaterally no hypoxia no tachycardia no hypotension. Oral temp on arrival 100.4 at bedside. Consider viral illness versus bacterial infection such as pneumonia or bacteremia. No urinary symptoms. No GI symptoms. Patient adamant that he just wants the blood test no other imaging or intervention at this time. Has close follow-up this week with oncologist 18: 41 patient does not want to wait for labs. Patient has eloped HPI General Date/Time Provider Initiated Documentation: 05/02/23 18:16. HPI Narrative: 77-year-old male, currently undergoing chemotherapy and radiation for lung cancer, referred in for low-grade fever today most recently 100.4 orally, sensation of chills at home, no shortness of breath no cough no other systemic signs of illness. Related Data Home Medications Medication Instructions Recorded Confirmed multivitamin 1 cap PO DAILY 02/17/14 05/02/23 docusate sodium 100 mg capsule 100 mg PO DAILY 03/18/21 02/15/23 (Colace) insulin lispro 100 unit/mL 6 unit subcut TID PRN hyperglycemia 06/30/22 05/02/23 subcutaneous solution (Humalog U-100 Insulin) insulin NPH isoph U-100 human 100 34 unit subcut .QAM 09/14/22 05/02/23 unit/mL subcutaneous suspension (Humulin N NPH U-100 Insulin (isophane susp)) nutrition tx glu 237 ml PO QD-BID PRN unintentional 11/23/22 05/02/23 intol,lac-free,soy-fiber 0.04 weight loss #5,688 mL gram-1 kcal/mL liquid (Glucerna 1 Fermin) losartan 100 mg tablet 50 mg PO DAILY 01/08/23 05/02/23 calcium polycarbophil [Fiber See Rx Instructions .Route .COMPLEX 01/20/23 03/30/23 (calcium polycarbophil)] prednisone PO 01/20/23 02/15/23 glucagon 1 mg/0.2 mL subcutaneous 1 mg (0.2 mL) subcut ONCE #0.4 mL 02/15/23 05/02/23 auto-injector (Gvoke HypoPen 2-Pack) simvastatin 20 mg tablet 10 mg PO DAILY 02/15/23 05/02/23 amlodipine 10 mg tablet 10 mg PO HS #30 tabs 03/13/23 05/02/23 citalopram 20 mg tablet 20 mg PO DAILY #90 tabs 03/25/23 05/02/23 diazepam 10 mg tablet (Valium) 5 - 10 mg PO QHS PRN insomnia #30 03/25/23 05/02/23 tabs Previous Rx's Medication Instructions Recorded nutrition tx glu 237 ml PO QD-BID PRN unintentional 11/23/22 intol,lac-free,soy-fiber 0.04 weight loss #5,688 mL gram-1 kcal/mL liquid (Glucerna 1 Fermin) glucagon 1 mg/0.2 mL subcutaneous 1 mg (0.2 mL) subcut ONCE #0.4 mL 02/15/23 auto-injector (Gvoke HypoPen 2-Pack) amlodipine 10 mg tablet 10 mg PO HS #30 tabs 03/13/23 citalopram 20 mg tablet 20 mg PO DAILY #90 tabs 03/25/23 diazepam 10 mg tablet (Valium) 5 - 10 mg PO QHS PRN insomnia #30 03/25/23 tabs Allergies Allergy/AdvReac Type Severity Reaction Status Date / Time No Known Allergies Allergy Verified 05/02/23 18:08 General Stated Complaint: Fever TIANNA: 3 Review of Systems Narrative: Review of Systems Constitutional: Fever Eyes: negative ENT: negative Cardiovascular: negative Respiratory: negative Gastrointestinal: negative : negative Musculoskeletal: negative Skin: negative Neurologic: negative Psych: negative PFSH All Active Problems (Updated 05/02/23 @ 18:41 by Bradley Mccauley MD) Fever (Acute) Former smoker (Acute) Primary lung cancer of unknown cell type (Acute) 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) Lung mass (Acute) Tobacco use disorder (Acute) Impotence (Acute) of organic origin Constipation (Acute) Insomnia, persistent (Acute) Parotid mass (Acute) Hx of sciatica (Acute) Leg weakness (Acute) Peripheral vascular disease with claudication (Acute) Chronic leg pain (Acute) History of pathological fracture of vertebra (Acute) Depression (Chronic) Weight loss (Acute) Polymyalgia (Acute) Benign prostatic hyperplasia (Chronic) Solitary lung nodule (Acute) MDS (myelodysplastic syndrome) (Acute) Polymyalgia rheumatica (Acute) Palliative care patient (Acute) Positive colorectal cancer screening using Cologuard test (Acute) Iron deficiency anemia due to chronic blood loss (Acute) Left sided sciatica (Acute) Chronic pain of left groin (Acute) Bilateral leg pain (Acute) Right groin pain (Acute) Mild depression (Chronic) Anemia (Chronic) Sciatica of left side (Acute) Unsteady gait when walking (Acute) Internal hemorrhoids (Acute) Benzodiazepine dependence (Acute) Smoker unmotivated to quit (Acute) DNI (do not intubate) (Acute) DNR (do not resuscitate) (Acute) POLST (Physician Orders for Life-Sustaining Treatment) (Acute) signed 03/18/21 Fecal urgency (Acute) History of hemorrhoidectomy (Chronic) GI bleeding (Chronic) Palliative care patient (Acute) Type I diabetes mellitus (Acute) Medical History Anxiety Diabetes Goals of care, counseling/discussion HTN (hypertension) Hx of hyperlipidemia Surgical History Fingertip amputation History of cataract surgery History of tonsillectomy Family History Father , in his early 80s uncertain cause of No problems noted. Mother , age 77 Pancreatic cancer Sister No problems noted. Brother No problems noted. Sister Alcohol abuse Sister No problems noted. Brother Prostate cancer Sister CFIDS (chronic fatigue and immune dysfunction syndrome) Sister , of colon cancer late 50s Colon cancer Sister No problems noted. Sister No problems noted. Son Age: 36 No problems noted. Social History Smoking/Tobacco Use Status: Current every day Tobacco Type: cigarettes Tobacco: How many years used: 60 Quit status: not considering quitting Counseling given: provider counseling Smoking risk assessment performed?: Yes Alcohol Intake: current Alcohol Intake frequency: holidays/special occasions only Alcohol type: beer Drug use: Rarely Substance use type: marijuana Caregiver/Support person: Yes Household members: spouse and children Housing: house Number of Children: 1 number of grandchildren: 0 Communication Needs: Corrective Lenses Education Level: college Do you need help understanding health information?: Rarely 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, 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 Pets and animals: Yes Pets and animals: farm animals Do you think of yourself as: straight/heterosexual What is your relationship status?: How often do you talk on the phone with friends or family?: once per week How often do you get together with friends or relatives?: three or more times per week Panel score (0-1 are the most socially isolated patients): 2 What type of physical activity do you participate in: walking, irregular exercise and additional Details: used to play golf regularly; not since summer 2018 Duration: 15-30 minutes/day Frequency: 1-2 times per week Special li needs: No Seatbelt use: always Working smoke detector in home: Yes Fire extinguisher in home: Yes Do you feel safe at home: Yes Do you feel safe in your relationship?: Yes Additional Social history: Marlo lives in a house on land 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 He lives with his , Ngoc; their son, Carlton, lives downstairs. 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 He continues to smoke and is not interested in quitting. He does see Dr Casper for his recurrent hemorrhoids and GI bleeding. If he has colon cancer, he does not want any treatment. He will not have a colonoscopy. Exam Narrative Exam Narrative: Physical Examination General: alert, awake, cooperative, resting comfortably, no acute distress HEENT: normocephalic, atraumatic; PERRL, EOM intact, conjunctiva normal; no nasal discharge; moist mucous membranes, oral and pharyngeal mucosa normal, tolerating secretions Neck: supple, trachea midline; full ROM Chest: normal to inspection Respiratory: normal respiratory effort, speaking in full sentences, clear to auscultation, no wheezing, rales or rhonchi Cardiac: regular rate, regular rhythm, S1S2 intact, no murmurs rubs or gallops GI: abdomen soft, non-tender, non-distended; no palpable mass or hepatosplenomegaly Skin: no lesions, rashes or trauma appreciated Neuro: AAOx3, normal speech, moving all extremities Psych: Appropriate mood and affect Course Vital Signs Vital signs: Vital Signs Temperature 37.1 C 05/02/23 18:05 Pulse 83 05/02/23 18:05 Respiratory Rate 18 05/02/23 18:05 Blood Pressure 141/53 H 05/02/23 18:05 Pulse Oximetry 97 05/02/23 18:05 Temperature 37.1 C 05/02/23 18:05 Temperature Source Oral 05/02/23 18:05 Pulse 83 05/02/23 18:05 Respiratory Rate 18 05/02/23 18:05 Blood Pressure 141/53 H 05/02/23 18:05 Blood Pressure Position Sitting 05/02/23 18:05 Pulse Oximetry 97 05/02/23 18:05 Oxygen Delivery Method Room Air 05/02/23 18:05 Oxygen Flow Rate 0 05/02/23 18:05 Pain Level 0 05/02/23 18:05 Lab/Test Results Lab/Test Results: 05/02/23 18:24 Blood Blood Culture - Pending 05/02/23 18:24 Blood Blood Culture - Pending
== END 2023-05-02 18:35 | disposition left against medical advice (07) ==
PROVIDERS: Emergency Provider Emergency Medicine; PCP Internal Medicine
DX: R50.9 Fever, unspecified (principal); C34.90 Malignant neoplasm of unspecified part of unspecified bronchus or lung; E10.9 Type 1 diabetes mellitus without complications; Z92.21 Personal history of antineoplastic chemotherapy; Z92.3 Personal history of irradiation; Z53.29 Procedure and treatment not carried out because of patient's decision for other reasons
CPT/HCPCS: 80053; 87040; 99282; 85025

== ENCOUNTER 2023-05-05 09:32 | Inpatient (IN) | payer MEDICARE, BC, SELFPAY ==
[2023-05-05] VITALS (29 sets, daily range): BP systolic 120–171; BP diastolic 31–94; PULSE 70–94; RESP 16–32; TEMP 37.2–39.5; O2SAT 73–98
[2023-05-05 10:07] LABS: Lactate 1.3 mmol/L (0.6-1.4)
[2023-05-05 10:09] LABS: HCT 26.5 % (40.0-50.0); HGB 8.5 g/dL (13.5-17.5); MCH 28.4 pg (27.0-33.0); MCHC 32.1 % (32.0-36.0); MCV 89 fL (80-95); MPV 8.6 fL (8.0-11.0); RBC 2.99 10^6/uL (4.36-5.78); RDW 18.8 % (11.8-14.1); RDW-SD 60.6 fL
[2023-05-05 10:25] LABS: Reticulocyte 0.4 % (0.5-2.4)
[2023-05-05 10:31] LABS: ALT 23 U/L (16-63); AST 38 U/L (15-37); Albumin 2.9 g/dL (3.4-5.0); Alkaline Phosphatase 59 U/L (46-116); Anion Gap 6.8 mmol/L (3-11); BUN 28 mg/dL (7-18); Bilirubin, Total 0.7 mg/dL (0.2-1.0); CO2 28.2 mmol/L (21.0-32.0); CREATININE 1.4 mg/dL (0.70-1.30); Calcium 8.6 mg/dL (8.5-10.1); Chloride 93 mmol/L (98-107); Estimated GFR 51.13 (mL/min/1.73m2); Glucose 105 mg/dL (74-106); Potassium 4.3 mmol/L (3.5-5.1); Sodium 128 mmol/L (136-145); Total Protein 7.1 g/dL (6.4-8.2); WBC 0.28 10^3/uL (4.4-10.8)
[2023-05-05 10:37] LABS: BE (Venous) 3 mmol/L (-2-3); HCO3 (Venous) 27 mmol/L (23-28); O2 Sat (Venous) 36 %; TCO2 (Venous) 26 mmol/L (24-29); pCO2 (Venous) 38 mmHg (41-51); pH (Venous) 7.46 (7.31-7.41); pO2 (Venous) 22 mmHg
[2023-05-05] MEDS: Lactated Ringers 1,000 ML 1000 ML IV (10:42)
[2023-05-05] MEDS: Metoclopramide 10 MG/2 ML VIAL IVP (10:43)
[2023-05-05 10:44] LABS: Ferritin 762 ng/mL (26-388); Magnesium 1.6 mg/dL (1.8-2.4)
[2023-05-05] MEDS: Normal Saline Flush 10 ML SYR IVP ×3 (10:44→20:36)
[2023-05-05 10:54] LABS: Platelet Count 42 10^3/uL (130-400)
[2023-05-05 10:55] LABS: Absolute Basophil Count 0.01 10^3/uL (0.0-0.2); Absolute Lymphocyte Count 0.06 10^3/uL (1.2-3.4); Absolute Monocyte Count 0.01 10^3/uL (0.1-0.8); Bands % 12
[2023-05-05 10:56] LABS: Anisocytosis 1+; Diff Comment Manual Differential; Poikilocytes 1+
[2023-05-05 10:57] LABS: Absolute Neutrophil Count 0.21 10^3/uL (1.2-6.7)
[2023-05-05] MEDS: CEFEPIME 2 GM in Normal Saline 100 ML IVPB ×2 (11:12→20:52)
[2023-05-05 11:15] LABS: COVID-19 PCR Negative (Negative); Influenza A PCR Negative (Negative); Influenza B PCR Negative (Negative); RSV PCR Negative (Negative)
[2023-05-05 11:16] LABS: Source Nasopharynx
--- NOTE | 2023-05-05 12:11 | DI.RAD_ITS ---
Exam(s) XR PORTABLE CHEST AP EXAM: XR PORTABLE CHEST AP CLINICAL HISTORY: fever. TECHNIQUE: 2D digital imaging was performed. COMPARISON: CR XR CHEST 2V PA LATERAL from 04/26/2019 FINDINGS: Single AP portable view. Heart size is upper normal. The mediastinum is not widened. There is a prominent area of infiltrate in the right upper lobe measuring approximately 6 x 6 cm. No adjacent rib destruction. No pleural effusions. There is some interstitial disease bilaterally, mo re so than previous. Also increased markings in the left lower lobe retrocardiac region. There is a lso a 6 x 4 millimeter density in the left upper lobe which may be a granuloma. IMPRESSION: Large 6 x 6 mm peripheral infiltrate in the right upper lobe which requires imaging follow-up to reso lution to rule out malignancy.No pleural effusions. Findings are superimposed upon some bilateral interstitial disease. Recommend chest CT scan. DATA REPOSITORY: RADIATION DOSE DELIVERED:
--- NOTE | 2023-05-05 12:15 | RT.EKG_ITS ---
APPROVED REPORT Exam: Resting ECG Reason for Exam: weakness Patient Location: E HR:89 bpm ECG Measurements Heart Rate 89 AXIS FL 165 P 62 QRSd 111 QRS -8 QT 364 T 30 QTc 443 Conclusion Sinus rhythm... V-rate 60- [address]. [address] segment or T wave abnormalities to suggest occlusive LA
[2023-05-05 12:27] LABS: Lab Add On Test DONE
--- NOTE | 2023-05-05 12:27 | W.PM.HP.N ---
Date of service: 05/05/23 Time of Service: 12:27 Assessment and Plan Assessment and plan (1) Neutropenic fever: Status: Acute Assessment and plan: Treat with empiric vancomycin/cefepime. Await blood culture results. UA negative. CXR with mass, unclear if also pneumonia. Does not have a port. Filgrastim x 3 days, per oncology recommendations. (2) Hypoxia: Status: Acute Assessment and plan: Suspect this is due to underlying lung disease. Radiation pneumonitis could also be a factor. Encourage pulmonary toilet. (3) Pancytopenia: Status: Acute Assessment and plan: In setting of chemotherapy. Avoid chemical DVT ppx given thrombocytopenia. Neutropenic precautions. Monitor H/H. No indication for transfusion at this time. (4) Elevated troponin: Status: Acute Assessment and plan: In setting of hypoxia and neutropenic sepsis. Suspect this is demand ischemia Continue to trend troponins, monitor on tele. Obtain an echocardiogram in am. 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 Will consult her while in-patient if oxygen requirement persists. (6) Primary lung cancer of unknown cell type: Status: Acute Assessment and plan: On chemo/XRT. C/s palliative care and consider pulmonary consult. (7) Diabetes: Assessment and plan: Continue basal insulin; cover with SSI (8) Hyponatremia: Status: Acute Assessment and plan: ?SIADH, dehydration. Trial IVF. Recheck in am (9) Hypomagnesemia: Status: Acute Assessment and plan: Replete, recheck in am (10) DVT prophylaxis: Status: Acute Assessment and plan: SCDs Hold chemical DVT ppx in setting of thrombocytopenia (11) Discharge planning issues: Status: Acute Assessment and plan: DNR/DNI C/s palliative care, PT. History of Present Illness History of Present Illness Chief Complaint: Sent to the ER by radiation oncologist Narrative: Mr Durán is a 77 year old male with PMHx of RUL mass (inconclusive biopsy), on chemo and XRT, as well as pulmonary fibrosis and emphysema, T1DM, HTN, who was seen in the ED on 05/02/23 for a fever and left AMA, who was sent to [facility] ED today by his radiation oncologist because he was too sick to undergo his treatment today. He started chemotherapy last Wednesday. On his presentation to the ED, he is febrile to 39.1, he is neutropenic with ANC of 210, thrombocytopenic with plt count of 42, hyponatremic with a sodium of 128. His magnesium is 1.6. He is dehydrated with a Cr of 1.4. He was requiring 4 L of O2, titrated down to 2L. He does not normally require O2. He is negative for COVID-19. He was started on vancomycin and cefepime. Hospitalist admission for neutropenic fever was requested. Review of Systems Narrative: Endorses chills, denies fever, denies runny nose, sore throat, cough. Endorses nausea, denies vomiting, endorses constipation. Denies pain, denies urinary symptoms. Has been weak. No falls. All systems reviewed & are unremarkable except as noted in HPI and below PFSH All Active Problems (Updated 05/05/23 @ 19:04 by Wendy Pena MD) Elevated troponin (Acute) Discharge planning issues (Acute) DVT prophylaxis (Acute) Dehydration (Acute) Hypomagnesemia (Acute) Hyponatremia (Acute) Pancytopenia (Acute) Hypoxia (Acute) Neutropenic fever (Acute) Fever (Acute) Former smoker (Acute) Primary lung cancer of unknown cell type (Acute) 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) Lung mass (Acute) Tobacco use disorder (Acute) Impotence (Acute) of organic origin Constipation (Acute) Insomnia, persistent (Acute) Parotid mass (Acute) Hx of sciatica (Acute) Leg weakness (Acute) Peripheral vascular disease with claudication (Acute) Chronic leg pain (Acute) History of pathological fracture of vertebra (Acute) Depression (Chronic) Weight loss (Acute) Polymyalgia (Acute) Benign prostatic hyperplasia (Chronic) Solitary lung nodule (Acute) MDS (myelodysplastic syndrome) (Acute) Polymyalgia rheumatica (Acute) Palliative care patient (Acute) Positive colorectal cancer screening using Cologuard test (Acute) Iron deficiency anemia due to chronic blood loss (Acute) Left sided sciatica (Acute) Chronic pain of left groin (Acute) Bilateral leg pain (Acute) Right groin pain (Acute) Mild depression (Chronic) Anemia (Chronic) Sciatica of left side (Acute) Unsteady gait when walking (Acute) Internal hemorrhoids (Acute) Benzodiazepine dependence (Acute) Smoker unmotivated to quit (Acute) DNI (do not intubate) (Acute) DNR (do not resuscitate) (Acute) POLST (Physician Orders for Life-Sustaining Treatment) (Acute) signed 03/18/21 Fecal urgency (Acute) History of hemorrhoidectomy (Chronic) GI bleeding (Chronic) Palliative care patient (Acute) Type I diabetes mellitus (Acute) Medical History Anxiety Diabetes Goals of care, counseling/discussion HTN (hypertension) Hx of hyperlipidemia Surgical History Fingertip amputation History of cataract surgery History of tonsillectomy Family History Father , in his early 80s uncertain cause of No problems noted. Mother , age 77 Pancreatic cancer Sister No problems noted. Brother No problems noted. Sister Alcohol abuse Sister No problems noted. Brother Prostate cancer Sister CFIDS (chronic fatigue and immune dysfunction syndrome) Sister , of colon cancer late 50s Colon cancer Sister No problems noted. Sister No problems noted. Son Age: 36 No problems noted. Social History Smoking/Tobacco Use Status: Current every day Tobacco Type: cigarettes Tobacco: How many years used: 60 Quit status: not considering quitting Counseling given: provider counseling Smoking risk assessment performed?: Yes Alcohol Intake: current Alcohol Intake frequency: holidays/special occasions only Alcohol type: beer Drug use: Rarely Substance use type: marijuana Caregiver/Support person: Yes Household members: spouse and children Housing: house Number of Children: 1 number of grandchildren: 0 Communication Needs: Corrective Lenses Education Level: college Do you need help understanding health information?: Rarely 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, 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 Pets and animals: Yes Pets and animals: farm animals Do you think of yourself as: straight/heterosexual What is your relationship status?: How often do you talk on the phone with friends or family?: once per week How often do you get together with friends or relatives?: three or more times per week Panel score (0-1 are the most socially isolated patients): 2 What type of physical activity do you participate in: walking, irregular exercise and additional Details: used to play golf regularly; not since summer 2018 Duration: 15-30 minutes/day Frequency: 1-2 times per week Special li needs: No Seatbelt use: always Working smoke detector in home: Yes Fire extinguisher in home: Yes Do you feel safe at home: Yes Do you feel safe in your relationship?: Yes Additional Social history: Marlo lives in a house on land 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 He lives with his , Ngoc; their son, Carlton, lives downstairs. 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 He continues to smoke and is not interested in quitting. He does see Dr Casper for his recurrent hemorrhoids and GI bleeding. If he has colon cancer, he does not want any treatment. He will not have a colonoscopy. Meds Allergies and Home Medications Allergies Allergy/AdvReac Type Severity Reaction Status Date / Time No Known Allergies Allergy Verified 05/05/23 09:43 Home Medications Medication Instructions Recorded Confirmed Type multivitamin 1 cap PO DAILY 02/17/14 05/05/23 History docusate sodium 100 mg capsule 100 mg PO DAILY PRN 03/18/21 05/05/23 History (Colace) insulin lispro 100 unit/mL 6 unit subcut TID PRN hyperglycemia 06/30/22 05/02/23 History subcutaneous solution (Humalog U-100 Insulin) insulin NPH isoph U-100 human 100 2 - 10 unit subcut BID 09/14/22 05/05/23 History unit/mL subcutaneous suspension (Humulin N NPH U-100 Insulin (isophane susp)) nutrition tx glu 237 ml PO QD-BID PRN unintentional 11/23/22 05/02/23 Rx intol,lac-free,soy-fiber 0.04 weight loss #5,688 mL gram-1 kcal/mL liquid (Glucerna 1 Fermin) losartan 100 mg tablet 50 mg PO DAILY 01/08/23 05/05/23 History calcium polycarbophil [Fiber See Rx Instructions .Route .COMPLEX 01/20/23 03/30/23 History (calcium polycarbophil)] prednisone PO 01/20/23 02/15/23 History glucagon 1 mg/0.2 mL subcutaneous 1 mg (0.2 mL) subcut ONCE #0.4 mL 02/15/23 05/05/23 Rx auto-injector (Gvoke HypoPen 2-Pack) simvastatin 20 mg tablet 20 mg PO DAILY 02/15/23 05/05/23 History amlodipine 10 mg tablet 10 mg PO HS #30 tabs 03/13/23 05/05/23 Rx citalopram 20 mg tablet 20 mg PO DAILY #90 tabs 03/25/23 05/05/23 Rx diazepam 10 mg tablet (Valium) 5 - 10 mg PO QHS PRN insomnia #30 03/25/23 05/05/23 Rx tabs diazepam 10 mg tablet 5 - 10 mg PO HS PRN 05/05/23 05/05/23 History ibuprofen 200 mg tablet (Advil) 200 mg PO Q6H PRN 05/05/23 05/05/23 History insulin glargine 100 unit/mL 8 - 12 unit subcut BID 05/05/23 05/05/23 History subcutaneous solution Exam Narrative Exam Narrative: General: Very pleasant ill-appearing elderly male, A&Ox3, sitting up in bed, looks tired Neurological: A&Ox3, no focal deficits Psychiatric: Appropriate speech pattern/content Skin: Chronic venous stasis dermatitis HEENT: Atraumatic, normocephalic, EOMI, MMM, clear oropharynx, no submandibular or cervical lymphadenopathy, no goiter or JVD Cardiovascular: RRR, + STANTON Lungs: Diminished breath sounds B, mildly tachypneic, on 2L of O2 by NC Gastrointestinal: soft, nontender, nondistended Genitourinary: deferred Extremities: no edema BLEs, 1+ pedal pulses B Results Imaging Additional studies: CXR: Large 6 x 6 mm peripheral infiltrate in the right upper lobe which requires imaging follow-up to resolution to rule out malignancy.No pleural effusions. Findings are superimposed upon some bilateral interstitial disease. Recommend chest CT scan. (CT scan is not available in our facility for the next 48 hrs). Labs 05/05/23 10:01 05/05/23 10:01 Labs: Laboratory Results - last 24 hr 05/05/23 05/05/23 05/05/23 10:01 10:01 10:01 WBC 0.28 L* RBC 2.99 L Hgb 8.5 L Hct 26.5 L MCV 89 MCH 28.4 MCHC 32.1 RDW 18.8 H Plt Count 42 L MPV 8.6 Reticulocyte % (Auto) Immature Gran % See Differential Neutrophils % 62.0 Band Neutrophils % 12 Lymphocytes % 20.0 Monocytes % 4.0 Eosinophils % 0.0 Basophils % 2.0 Nucleated RBC % 0.0 Absolute Neutrophils 0.21 L* Absolute Lymphocytes 0.06 L Absolute Monocytes 0.01 L Absolute Eosinophils 0.00 Absolute Basophils 0.01 RBC Morphology See Below Poikilocytosis 1+ Anisocytosis 1+ VBG pH VBG pCO2 VBG pO2 VBG HCO3 VBG Total CO2 VBG O2 Saturation VBG Base Excess VBG Lactate 1.3 Sodium 128 L Potassium 4.3 Chloride 93 L Carbon Dioxide 28.2 Anion Gap 6.8 BUN 28 H Creatinine 1.4 H Est GFR (CKD-EPI 2020) 51.13 Glucose 105 Calcium 8.6 Magnesium Ferritin Total Bilirubin 0.7 AST 38 H ALT 23 Alkaline Phosphatase 59 Total Protein 7.1 Albumin 2.9 L COVID-19 Source SARS-CoV-2 (PCR) Influenza Type A (PCR) Influenza Type B (PCR) RSV (PCR) 05/05/23 05/05/23 05/05/23 10:01 10:01 10:01 WBC RBC Hgb Hct MCV MCH MCHC RDW Plt Count MPV Reticulocyte % (Auto) 0.4 L Immature Gran % Neutrophils % Band Neutrophils % Lymphocytes % Monocytes % Eosinophils % Basophils % Nucleated RBC % Absolute Neutrophils Absolute Lymphocytes Absolute Monocytes Absolute Eosinophils Absolute Basophils RBC Morphology Poikilocytosis Anisocytosis VBG pH 7.46 H VBG pCO2 38 L VBG pO2 22 VBG HCO3 27 VBG Total CO2 26 VBG O2 Saturation 36 VBG Base Excess 3 VBG Lactate Sodium Potassium Chloride Carbon Dioxide Anion Gap BUN Creatinine Est GFR (CKD-EPI 2020) Glucose Calcium Magnesium 1.6 L Ferritin 762 H Total Bilirubin AST ALT Alkaline Phosphatase Total Protein Albumin COVID-19 Source SARS-CoV-2 (PCR) Influenza Type A (PCR) Influenza Type B (PCR) RSV (PCR) 05/05/23 10:15 WBC RBC Hgb Hct MCV MCH MCHC RDW Plt Count MPV Reticulocyte % (Auto) Immature Gran % Neutrophils % Band Neutrophils % Lymphocytes % Monocytes % Eosinophils % Basophils % Nucleated RBC % Absolute Neutrophils Absolute Lymphocytes Absolute Monocytes Absolute Eosinophils Absolute Basophils RBC Morphology Poikilocytosis Anisocytosis VBG pH VBG pCO2 VBG pO2 VBG HCO3 VBG Total CO2 VBG O2 Saturation VBG Base Excess VBG Lactate Sodium Potassium Chloride Carbon Dioxide Anion Gap BUN Creatinine Est GFR (CKD-EPI 2020) Glucose Calcium Magnesium Ferritin Total Bilirubin AST ALT Alkaline Phosphatase Total Protein Albumin COVID-19 Source Nasopharynx SARS-CoV-2 (PCR) Negative Influenza Type A (PCR) Negative Influenza Type B (PCR) Negative RSV (PCR) Negative Last Vital Signs Temp 39.1 C H 05/05/23 09:36 Pulse 82 05/05/23 09:36 Resp 20 05/05/23 09:36 BP 144/31 H 05/05/23 09:36 Pulse Ox 98 05/05/23 09:36 Time Spent Time spent with Patient: 55-74 minutes Time was spent: preparing to see the patient(eg.review tests), obtaining and/or reviewing separately otained hiistory, ordering medications,tests, procedures, referring, communicating with other health chiropractic care, indepentently interpreting results, counseling the patient and care coordination
[2023-05-05 12:58] LABS: NT-proBNP 3752 pg/mL (<300)
[2023-05-05 13:05] LABS: Troponin I 54 ng/L (<or=60)
[2023-05-05] MEDS: Acetaminophen 325 MG TAB PO (14:01)
[2023-05-05] MEDS: MAGNESIUM SULFATE 2 GM/50 ML BAG IVPB (14:03)
--- NOTE | 2023-05-05 15:06 | NT_ITS ---
PT Notes Visit Reasons: Neutropenic Fever, Lung Cancer Per Nurse Brenda, patient is with 103 deg F fever and very low WBC of 0.4 thousand/microliter. Patient is also exhausted and unable to participate in assessment as of this afternoon. Dr. Pena and Nurse Brenda are aware of holding off on eval until tomorrow morning. Thank you for the opportunity to participate in the care of this patient. Nel Cisse PT, DPT, CLT [facility] [place], [place]
--- NOTE | 2023-05-05 15:45 | RT.EKG_ITS ---
APPROVED REPORT Exam: Resting ECG Reason for Exam: elevated troponin Patient Location: I HR:68 bpm ECG Measurements Heart Rate 68 AXIS LA 192 P 56 QRSd 109 QRS 19 QT 409 T 30 QTc 436 Conclusion Sinus rhythm...normal P axis, V-rate 50- 99 Incomplete right bundle branch block
[2023-05-05 15:46] LABS: Bilirubin Negative (Negative); Blood Moderate (Negative); Clarity Clear (Clear); Glucose Negative (Negative); Ketones 15 mg/dL (Negative); Leukocyte Esterase Negative (Negative); Nitrite Negative (Negative); Urobilinogen 0.2 mg/dL (Up to 0.2); pH 7.5 (5-8)
[2023-05-05 15:48] LABS: Troponin I 135 ng/L (<or=60)
[2023-05-05 15:55] LABS: Bacteria Few HPF (Negative); C & S Indicated? No; Casts 3-5 Coarse Granular LPF (Negative); Crystals Negative HPF (Negative); Epithelial Cells Rare HPF (Negative); Mucus Trace (Negative); Other Cells Negative (Negative); RBC 20-50 HPF (0-2)
[2023-05-05] MEDS: VANCOMYCIN/WATER (PEG) 1.75 GM/350 ML BAG IV (16:28)
--- NOTE | 2023-05-05 19:04 | NUR.NOTE ---
Attempted to apply ice packs to patient due to elevated temp & pt refused. Also suggested a cooling blanket as well as cooling pad & he still refused. Charge notified. Nursing Note:
[2023-05-05 20:07] LABS: Troponin I 179 ng/L (<or=60)
[2023-05-05] MEDS: Lactated Ringers 1,000 ML 75 ML IV (20:35)
[2023-05-05] MEDS: ACETAMINOPHEN 1,000 MG/100 ML BTL 400 MG IVPB (20:35)
[2023-05-05] MEDS: Docusate Sodium 100 MG CAP PO (20:36)
[2023-05-05] MEDS: amLODIPine 10 MG TAB PO (21:42)
[2023-05-05] MEDS: Insulin Glargine 300 UNITS/3 ML PEN 8 UNITS SC (21:42)
[2023-05-05] MEDS: Simvastatin 20 MG TAB PO (21:42)
[2023-05-05] MEDS: Insulin Aspart 300 UNITS/3 ML PEN SC (21:47)
[2023-05-06] VITALS (26 sets, daily range): BP systolic 111–142; BP diastolic 50–65; PULSE 65–108; RESP 1–30; TEMP 37.2–40.3; O2SAT 86–100
--- NOTE | 2023-05-06 | DI.US_ITS ---
APPROVED REPORT EXAM: Comprehensive 2D, Doppler, and color-flow Echocardiogram Patient Location: In-Patient Room/Bed: 230 Program Strategist: Kristen Moran RDCS (AE) Indications: Elevated troponin Other Information Study Quality: Good Conclusion Normal left ventricular wall thickness and chamber size. Left ventricular function is hyperdynamic w ith an ejection fraction of 65 to 70%. Wall motion is normal Normal right ventricular size and systolic function Both atria are mildly dilated Aortic valve is sclerotic and trileaflet without stenosis or regurgitation Mitral annular calcification, trace mitral regurgitation Estimated right ventricular systolic pressure is 27 mmHg Mildly dilated aortic root Wall motion Left Ventricle The left ventricle is normal size. The left ventricular systolic function is normal. The left ventric ular ejection fraction is within the normal range. There is normal left ventricular wall thickness. T here is normal LV segmental wall motion. There is no ventricular septal defect visualized. LVEF is 65 -70%. Right Ventricle Right ventricle is grossly normal in size. Right ventricular systolic function is grossly normal. The RVSP is 26.9 mmHg. Atria Left atrium is mildly dilated. Right atrium is mildly dilated. The interatrial septum is intact with no evidence for an atrial septal defect. Aortic Valve The Aortic valve is sclerotic. Aortic valve is trileaflet. There is no aortic valvular stenosis. No a ortic regurgitation is present. Mitral Valve Moderate mitral annular calcification. Trace mitral regurgitation. Tricuspid Valve The tricuspid valve is normal in structure. There is no tricuspid valve stenosis. Trace tricuspid reg urgitation. Pulmonic Valve The pulmonary valve is normal in structure. There is no pulmonic valvular stenosis. Trace pulmonic re gurgitation. Great Vessels Aortic root is mildly dilated. Ascending aorta is not well visualized. IVC is normal in size and col lapses >50% with inspiration. Pericardium There is no pericardial effusion. 2D Dimensions IVSD d PLAX 1.09 cm M: 0.6-1.2 LV Vol A2C d MOD 94.8 mL LVPW d PLAX 1.08 cm M: 0.6 - 1.2 LV Vol A4C d MOD 111.6 mL LVID d PLAX 4.82 cm M: 4.2 - 5.8 LV EF A4C MOD 66.6 % LVDs 2.95 cm M: 2.5 - 4.0 LV EF A2C MOD 70.3 % Ao Root d 3.92 cm M: 3.1 - 3.7 LV EF Biplane MOD 76.5 % LV EF Teichholz 68.1 % LVEF (Moore's) 76.53 % M: 52 - 72 LV Volume 103.46 mL M: 62 - 150 LV Volume Index 48.12 mL/m2 M: 34 - 74 LV Vol Biplane MOD 103.5 mL FS 38.00 % M-Mode TAPSE 3.40 cm (M/F) >1.7 LV Diastology MV E' medial 0.100 (>0.07 m/s) E/A Ratio 1.0 MV E' lateral 0.120 (>0.1 m/s) MV E Vmax 0.97 (0.4-1.3 m/s) MV A Vmax 1.00 (0.4-1.3 m/s) Aortic Valve LVOT Vmax 1.21 m/s LVOT Peak Grad 5.8 mmHg LVOT Mean Grad 3.1 mmHg LVOT Diam s 2.05 cm AoV Vmax 1.52 m/s Velocity Ratio 0.80 AoV Peak Grad 9.3 mmHg LVOT SV 94.90 mL AoV Mean Grad 4.7 mmHg AoV Area VTI 2.93 cm2 Mitral Valve MV DT 187 (160-240 msec) MV Vmax TIPS 1.25 m/s MV Mean Grad 2.5 (<2mmHg) MV VTI 0.380 m Pulmonary Valve PV Mean Grad 3.7 mmHg RVOT Peak Gr. 4.63 mmHg RVOT Mean Gr. 2.50 mmHg RVOT VTI 0.214 m RVOT Vmax 1.06 m/s Tricuspid Valve TR Peak Grad 23.9 mmHg TR Vmax 2.45 m/s RA Pressure 3.00 mmHg RVSP (TR) 26.9 mmHg
--- NOTE | 2023-05-06 | DI.RAD_ITS ---
Exam(s) XR CHEST 2V PA LATERAL EXAM: XR CHEST 2V PA LATERAL CLINICAL HISTORY: acute hypoxic respiratory failure TECHNIQUE: 2D digital imaging was performed. COMPARISON: CT CT CHEST/ABD/PEL W from 01/15/2023 CR XR PORTABLE CHEST AP from 05/05/2023 FINDINGS: Leads and monitoring device overlie the chest. HEART: Normal size. Aorta: Not dilated. PULMONARY VASCULATURE: Normal. LUNGS: Right upper lobe mass again noted. Underlying emphysematous and fibrotic changes. No infiltr ate visible. PLEURAL SPACE: No pleural effusion or pneumothorax. BONE:Unremarkable for age. IMPRESSION: Right upper lobe mass. Underlying emphysematous changes. No superimposed acute abnormality. DATA REPOSITORY: RADIATION DOSE DELIVERED:
[2023-05-06] MEDS: ACETAMINOPHEN 1,000 MG/100 ML BTL 200 MG IVPB ×2 (04:07→11:33)
[2023-05-06] MEDS: CEFEPIME 2 GM in Normal Saline 100 ML IVPB ×3 (04:08→21:25)
--- NOTE | 2023-05-06 04:08 | NUR.NOTE ---
Nursing Note: pt reports sob and noted 84-86% on 2 L. Increased to 3l and notified CC.
--- NOTE | 2023-05-06 04:22 | NUR.NOTE ---
Nursing Note: CC notified of continued hypoxia, dyspnea, and increase to 4L NC
[2023-05-06] MEDS: Albuterol 2.5 MG/3 ML INH SOLN VIAL UPD (04:30)
[2023-05-06 05:44] LABS: Abs Immature Grans 0.03 10^3/uL (0.0-0.06); Absolute Monocyte Count 0.03 10^3/uL (0.1-0.8); HCT 21.5 % (40.0-50.0); MCH 28.9 pg (27.0-33.0); MCHC 32.1 % (32.0-36.0); MCV 90 fL (80-95); RBC 2.39 10^6/uL (4.36-5.78); RDW 18.9 % (11.8-14.1); RDW-SD 62.7 fL
[2023-05-06 05:53] LABS: Anion Gap 8.2 mmol/L (3-11); BUN 29 mg/dL (7-18); CO2 21.8 mmol/L (21.0-32.0); CREATININE 1.4 mg/dL (0.70-1.30); Calcium 7.6 mg/dL (8.5-10.1); Chloride 95 mmol/L (98-107); Estimated GFR 51.13 (mL/min/1.73m2); Glucose 195 mg/dL (74-106); Magnesium 1.8 mg/dL (1.8-2.4); Potassium 3.6 mmol/L (3.5-5.1); Sodium 125 mmol/L (136-145)
[2023-05-06 06:01] LABS: WBC 0.73 10^3/uL (4.4-10.8)
[2023-05-06 06:02] LABS: HGB 6.9 g/dL (13.5-17.5); Platelet Count 20 10^3/uL (130-400)
[2023-05-06 06:04] LABS: Troponin I 351 ng/L (<or=60)
[2023-05-06 06:41] LABS: Absolute Lymphocyte Count 0.06 10^3/uL (1.2-3.4); Bands % 10; Myelocytes % 2
[2023-05-06 06:42] LABS: Metamyelocytes % 8
[2023-05-06 06:43] LABS: Diff Comment Manual Differential; Polychromasia Present
[2023-05-06 06:44] LABS: Poikilocytes 2+
[2023-05-06] MEDS: Multivitamin TAB 1 TAB PO (08:19)
[2023-05-06] MEDS: Citalopram 20 MG TAB PO (08:19)
[2023-05-06] MEDS: Docusate Sodium 100 MG CAP PO ×2 (08:19→19:58)
[2023-05-06] MEDS: Insulin Aspart 300 UNITS/3 ML PEN SC ×4 (08:20→21:28)
[2023-05-06] MEDS: Insulin Glargine 300 UNITS/3 ML PEN 8 UNITS SC ×2 (08:21→21:29)
--- NOTE | 2023-05-06 08:46 | ED.GENADUL_ITS ---
Discharge Plan Disposition Patient Disposition: Admit to [facility] Discharge Details Chief Complaint: Fever Clinical Impression: Neutropenic fever, Hypoxia, Pancytopenia, Hyponatremia, Hypomagnesemia, Dehydration, Type I diabetes mellitus, Primary lung cancer of unknown cell type Admit Date/Time: 05/05/23 12:08 Admit Provider: Wendy Pena Attending Provider: Wendy Pena Primary Care Provider: eSbastián Leach ED Provider: Yamileth Allsion Discharge Data Discharge Date/Time-TO BE ENTERED AT DEPARTURE: 05/05/23 13:16 Medical Decision Making Ill-appearing 77-year-old gentleman with fever and neutropenia and leukopenia, thrombocytopenia, appears weak, EKG does not show evidence of acute abnormality, vitals are initially quite stable, oxygenation 98% on room air, hyponatremia, 128, BUN elevated likely consistent with dehydration mild azotemia No abdominal tenderness, lungs clear to auscultation I did speak with patient's on-call oncologist, Dr. Chaney, [facility] and the recommendation was to administer G-CSF, for neutropenia Cefepime was administered for suspected neutropenic fever for broad-spectrum coverage Chest x-ray does not show acute change from CT which was ordered previously, he has a known right upper lobe mass, this is described as an infiltrate however he has a clearly differentiated mass on his CT from several months prior Cefepime offers broad-spectrum coverage this to be sufficient at this time He was noted to be hypoxic, 88% on room air heart rate at time of reassessment with mild tachypnea, I suspect this is secondary to patient's current illness He did receive 1 L of fluids however he is not wheezing and does not show significant evidence of volume overload, I do not think he is in acute pulmonary edema will place oxygen for comfort, 1 L of oxygen and patient 91 to 92% on room air, baseline reportedly 96% per Low suspicion for PE clinically, not endorsing chest pain or acute shortness of breath, no significant tachycardia Patient agreeable to admission at this time, wishes to be DNR/DNI status, case discussed with Dr. Pena who is agreeable to admission at this time HPI General Date/Time Provider Initiated Documentation: 05/05/23 09:37 . HPI Narrative: This complex 77-year-old gentleman with history of peripheral vascular disease, primary lung cancer, iron deficiency anemia, insulin-dependent diabetes presents with report of fever and weakness with intermittent nausea. He states his symptoms started approximately 4 days prior to arrival. He developed a fever on Wednesday evening and was assessed in this emergency department on Wednesday, the recommendation was for him to be admitted, he did leave AGAINST MEDICAL ADVICE. He states today he was too weak to ambulate and has had persistent fever. He was sent in at the request of his radiation oncologist who did assess him today and did not feel comfortable administering radiation secondary to his weakness and fever. He received chemotherapy last Wednesday and has received radiation x2 this week reportedly. He denies any falls or injuries. Related Data Home Medications Medication Instructions Recorded Confirmed multivitamin 1 cap PO DAILY 02/17/14 05/05/23 docusate sodium 100 mg capsule 100 mg PO DAILY PRN 03/18/21 05/05/23 (Colace) insulin lispro 100 unit/mL 6 unit subcut TID PRN hyperglycemia 06/30/22 05/02/23 subcutaneous solution (Humalog U-100 Insulin) insulin NPH isoph U-100 human 100 2 - 10 unit subcut BID 09/14/22 05/05/23 unit/mL subcutaneous suspension (Humulin N NPH U-100 Insulin (isophane susp)) nutrition tx glu 237 ml PO QD-BID PRN unintentional 11/23/22 05/02/23 intol,lac-free,soy-fiber 0.04 weight loss #5,688 mL gram-1 kcal/mL liquid (Glucerna 1 Fermin) losartan 100 mg tablet 50 mg PO DAILY 01/08/23 05/05/23 calcium polycarbophil [Fiber See Rx Instructions .Route .COMPLEX 01/20/23 03/30/23 (calcium polycarbophil)] prednisone PO 01/20/23 02/15/23 glucagon 1 mg/0.2 mL subcutaneous 1 mg (0.2 mL) subcut ONCE #0.4 mL 02/15/23 05/05/23 auto-injector (Gvoke HypoPen 2-Pack) simvastatin 20 mg tablet 20 mg PO DAILY 02/15/23 05/05/23 amlodipine 10 mg tablet 10 mg PO HS #30 tabs 03/13/23 05/05/23 citalopram 20 mg tablet 20 mg PO DAILY #90 tabs 03/25/23 05/05/23 diazepam 10 mg tablet (Valium) 5 - 10 mg PO QHS PRN insomnia #30 03/25/23 05/05/23 tabs diazepam 10 mg tablet 5 - 10 mg PO HS PRN 05/05/23 05/05/23 ibuprofen 200 mg tablet (Advil) 200 mg PO Q6H PRN 05/05/23 05/05/23 insulin glargine 100 unit/mL 8 - 12 unit subcut BID 05/05/23 05/05/23 subcutaneous solution Previous Rx's Medication Instructions Recorded nutrition tx glu 237 ml PO QD-BID PRN unintentional 11/23/22 intol,lac-free,soy-fiber 0.04 weight loss #5,688 mL gram-1 kcal/mL liquid (Glucerna 1 Fermin) glucagon 1 mg/0.2 mL subcutaneous 1 mg (0.2 mL) subcut ONCE #0.4 mL 02/15/23 auto-injector ([facility] HypoPen 2-Pack) amlodipine 10 mg tablet 10 mg PO HS #30 tabs 03/13/23 citalopram 20 mg tablet 20 mg PO DAILY #90 tabs 03/25/23 diazepam 10 mg tablet (Valium) 5 - 10 mg PO QHS PRN insomnia #30 03/25/23 tabs Allergies Allergy/AdvReac Type Severity Reaction Status Date / Time No Known Allergies Allergy Verified 05/05/23 09:43 General Stated Complaint: Fever TIANNA: 2 PFSH All Active Problems (Updated 05/06/23 @ 08:53 by CRISTAL Whitehead) Elevated troponin (Acute) Discharge planning issues (Acute) DVT prophylaxis (Acute) Dehydration (Acute) Hypomagnesemia (Acute) Hyponatremia (Acute) Pancytopenia (Acute) Hypoxia (Acute) Neutropenic fever (Acute) Fever (Acute) Former smoker (Acute) Primary lung cancer of unknown cell type (Acute) 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) Lung mass (Acute) Tobacco use disorder (Acute) Impotence (Acute) of organic origin Constipation (Acute) Insomnia, persistent (Acute) Parotid mass (Acute) Hx of sciatica (Acute) Leg weakness (Acute) Peripheral vascular disease with claudication (Acute) Chronic leg pain (Acute) History of pathological fracture of vertebra (Acute) Depression (Chronic) Weight loss (Acute) Polymyalgia (Acute) Benign prostatic hyperplasia (Chronic) Solitary lung nodule (Acute) MDS (myelodysplastic syndrome) (Acute) Polymyalgia rheumatica (Acute) Palliative care patient (Acute) Positive colorectal cancer screening using Cologuard test (Acute) Iron deficiency anemia due to chronic blood loss (Acute) Left sided sciatica (Acute) Chronic pain of left groin (Acute) Bilateral leg pain (Acute) Right groin pain (Acute) Mild depression (Chronic) Anemia (Chronic) Sciatica of left side (Acute) Unsteady gait when walking (Acute) Internal hemorrhoids (Acute) Benzodiazepine dependence (Acute) Smoker unmotivated to quit (Acute) DNI (do not intubate) (Acute) DNR (do not resuscitate) (Acute) POLST (Physician Orders for Life-Sustaining Treatment) (Acute) signed 03/18/21 Fecal urgency (Acute) History of hemorrhoidectomy (Chronic) GI bleeding (Chronic) Palliative care patient (Acute) Type I diabetes mellitus (Acute) Medical History Anxiety Diabetes Goals of care, counseling/discussion HTN (hypertension) Hx of hyperlipidemia Surgical History Fingertip amputation History of cataract surgery History of tonsillectomy Family History Father , in his early 80s uncertain cause of No problems noted. Mother , age 77 Pancreatic cancer Sister No problems noted. Brother No problems noted. Sister Alcohol abuse Sister No problems noted. Brother Prostate cancer Sister CFIDS (chronic fatigue and immune dysfunction syndrome) Sister , of colon cancer late 50s Colon cancer Sister No problems noted. Sister No problems noted. Son Age: 36 No problems noted. Social History Smoking/Tobacco Use Status: Current every day Tobacco Type: cigarettes Tobacco: How many years used: 60 Quit status: not considering quitting Counseling given: provider counseling Smoking risk assessment performed?: Yes Alcohol Intake: current Alcohol Intake frequency: holidays/special occasions only Alcohol type: beer Drug use: Rarely Substance use type: marijuana Caregiver/Support person: Yes Household members: spouse and children Housing: house Number of Children: 1 number of grandchildren: 0 Communication Needs: Corrective Lenses Education Level: college Do you need help understanding health information?: Rarely 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, 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 Pets and animals: Yes Pets and animals: farm animals Do you think of yourself as: straight/heterosexual What is your relationship status?: How often do you talk on the phone with friends or family?: once per week How often do you get together with friends or relatives?: three or more times per week Panel score (0-1 are the most socially isolated patients): 2 What type of physical activity do you participate in: walking, irregular exercise and additional Details: used to play golf regularly; not since summer 2018 Duration: 15-30 minutes/day Frequency: 1-2 times per week Special li needs: No Seatbelt use: always Working smoke detector in home: Yes Fire extinguisher in home: Yes Do you feel safe at home: Yes Do you feel safe in your relationship?: Yes Additional Social history: Marlo lives in a house on land owned by a commune he started in the . He lives with his , Ngoc; their son, Carlton, lives d [facility]. 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 He continues to smoke and is not interested in quitting. He does see Dr Casper for his recurrent hemorrhoids and GI bleeding. If he has colon cancer, he does not want any treatment. He will not have a colonoscopy. Course Vital Signs Vital signs: Vital Signs Temperature 39.1 C H 05/05/23 09:36 Pulse 82 05/05/23 09:36 Respiratory Rate 20 05/05/23 09:36 Blood Pressure 144/31 H 05/05/23 09:36 Pulse Oximetry 98 05/05/23 09:36 Temperature 37.7 C H 05/06/23 07:55 Temperature Source Tympanic 05/06/23 07:55 Pulse 71 05/06/23 07:55 Pulse Rhythm Regular 05/05/23 15:00 Pulse 89 05/05/23 12:40 Respiratory Rate 20 05/06/23 07:55 Respiratory Effort Normal, Non-Labored 05/05/23 20:25 Respiratory Depth Normal 05/05/23 20:25 Respiratory Pattern Normal 05/05/23 20:25 Blood Pressure 117/56 L 05/06/23 07:55 Blood Pressure Mean 71 05/05/23 13:01 Blood Pressure Position Sitting 05/05/23 09:36 Pulse Oximetry 96 05/06/23 07:55 Oxygen Delivery Method Nasal Cannula 05/06/23 07:55 Oxygen Flow Rate 4 05/06/23 07:55 Pain Level 0 05/06/23 07:55 Comment albuterol neb started 05/06/23 04:30 Lab/Test Results Lab/Test Results: 05/05/23 10:11 Blood Blood Culture - Pending 05/05/23 10:01 Blood Blood Culture - Pending Laboratory Tests Range/Units 05/05/23 05/05/23 05/05/23 10:01 10:01 10:01 WBC (4.4-10.8) 10^3/uL 0.28 L* RBC (4.36-5.78) 10^6/uL 2.99 L Hgb (13.5-17.5) g/dL 8.5 L Hct (40.0-50.0) % 26.5 L MCV (80-95) fL 89 MCH (27.0-33.0) pg 28.4 MCHC (32.0-36.0) % 32.1 RDW (11.8-14.1) % 18.8 H Plt Count (130-400) 10^3/uL 42 L MPV (8.0-11.0) fL 8.6 Reticulocyte % (Auto) (0.5-2.4) % Immature Gran % See Differential Neutrophils % 62.0 Band Neutrophils % 12 Lymphocytes % 20.0 Monocytes % 4.0 Eosinophils % 0.0 Basophils % 2.0 Nucleated RBC % (0.0-0.3) % 0.0 Absolute Neutrophils (1.2-6.7) 10^3/uL 0.21 L* Absolute Lymphocytes (1.2-3.4) 10^3/uL 0.06 L Absolute Monocytes (0.1-0.8) 10^3/uL 0.01 L Absolute Eosinophils (0.0-0.7) 10^3/uL 0.00 Absolute Basophils (0.0-0.2) 10^3/uL 0.01 RBC Morphology See Below Poikilocytosis 1+ Anisocytosis 1+ VBG pH (7.31-7.41) VBG pCO2 (41-51) mmHg VBG pO2 mmHg VBG HCO3 (23-28) mmol/L VBG Total CO2 (24-29) mmol/L VBG O2 Saturation % VBG Base Excess (-2-3) mmol/L VBG Lactate (0.6-1.4) mmol/L 1.3 Sodium (136-145) mmol/L 128 L Potassium (3.5-5.1) mmol/L 4.3 Chloride (98-107) mmol/L 93 L Carbon Dioxide (21.0-32.0) mmol/L 28.2 Anion Gap (3-11) mmol/L 6.8 BUN (7-18) mg/dL 28 H Creatinine (0.70-1.30) mg/dL 1.4 H Est GFR (CKD-EPI 2020) (mL/min/1.73m2) 51.13 Glucose (74-106) mg/dL 105 Calcium (8.5-10.1) mg/dL 8.6 Magnesium (1.8-2.4) mg/dL Ferritin (26-388) ng/mL Total Bilirubin (0.2-1.0) mg/dL 0.7 AST (15-37) U/L 38 H ALT (16-63) U/L 23 Alkaline Phosphatase (46-116) U/L 59 NT-Pro-B Natriuret Pep (<300) pg/mL Total Protein (6.4-8.2) g/dL 7.1 Albumin (3.4-5.0) g/dL 2.9 L COVID-19 Source SARS-CoV-2 (PCR) (Negative) Influenza Type A (PCR) (Negative) Influenza Type B (PCR) (Negative) RSV (PCR) (Negative) Add-On Test Request Range/Units 05/05/23 05/05/23 05/05/23 10:01 10:01 10:01 WBC (4.4-10.8) 10^3/uL RBC (4.36-5.78) 10^6/uL Hgb (13.5-17.5) g/dL Hct (40.0-50.0) % MCV (80-95) fL MCH (27.0-33.0) pg MCHC (32.0-36.0) % RDW (11.8-14.1) % Plt Count (130-400) 10^3/uL MPV (8.0-11.0) fL Reticulocyte % (Auto) (0.5-2.4) % 0.4 L Immature Gran % Neutrophils % Band Neutrophils % Lymphocytes % Monocytes % Eosinophils % Basophils % Nucleated RBC % (0.0-0.3) % Absolute Neutrophils (1.2-6.7) 10^3/uL Absolute Lymphocytes (1.2-3.4) 10^3/uL Absolute Monocytes (0.1-0.8) 10^3/uL Absolute Eosinophils (0.0-0.7) 10^3/uL Absolute Basophils (0.0-0.2) 10^3/uL RBC Morphology Poikilocytosis Anisocytosis VBG pH (7.31-7.41) 7.46 H VBG pCO2 (41-51) mmHg 38 L VBG pO2 mmHg 22 VBG HCO3 (23-28) mmol/L 27 VBG Total CO2 (24-29) mmol/L 26 VBG O2 Saturation % 36 VBG Base Excess (-2-3) mmol/L 3 VBG Lactate (0.6-1.4) mmol/L Sodium (136-145) mmol/L Potassium (3.5-5.1) mmol/L Chloride (98-107) mmol/L Carbon Dioxide (21.0-32.0) mmol/L Anion Gap (3-11) mmol/L BUN (7-18) mg/dL Creatinine (0.70-1.30) mg/dL Est GFR (CKD-EPI 2020) (mL/min/1.73m2) Glucose (74-106) mg/dL Calcium (8.5-10.1) mg/dL Magnesium (1.8-2.4) mg/dL 1.6 L Ferritin (26-388) ng/mL 762 H Total Bilirubin (0.2-1.0) mg/dL AST (15-37) U/L ALT (16-63) U/L Alkaline Phosphatase (46-116) U/L NT-Pro-B Natriuret Pep (<300) pg/mL Total Protein (6.4-8.2) g/dL Albumin (3.4-5.0) g/dL COVID-19 Source SARS-CoV-2 (PCR) (Negative) Influenza Type A (PCR) (Negative) Influenza Type B (PCR) (Negative) RSV (PCR) (Negative) Add-On Test Request Range/Units 05/05/23 05/05/23 05/05/23 10:01 10:01 10:15 WBC (4.4-10.8) 10^3/uL RBC (4.36-5.78) 10^6/uL Hgb (13.5-17.5) g/dL Hct (40.0-50.0) % MCV (80-95) fL MCH (27.0-33.0) pg MCHC (32.0-36.0) % RDW (11.8-14.1) % Plt Count (130-400) 10^3/uL MPV (8.0-11.0) fL Reticulocyte % (Auto) (0.5-2.4) % Immature Gran % Neutrophils % Band Neutrophils % Lymphocytes % Monocytes % Eosinophils % Basophils % Nucleated RBC % (0.0-0.3) % Absolute Neutrophils (1.2-6.7) 10^3/uL Absolute Lymphocytes (1.2-3.4) 10^3/uL Absolute Monocytes (0.1-0.8) 10^3/uL Absolute Eosinophils (0.0-0.7) 10^3/uL Absolute Basophils (0.0-0.2) 10^3/uL RBC Morphology Poikilocytosis Anisocytosis VBG pH (7.31-7.41) VBG pCO2 (41-51) mmHg VBG pO2 mmHg VBG HCO3 (23-28) mmol/L VBG Total CO2 (24-29) mmol/L VBG O2 Saturation % VBG Base Excess (-2-3) mmol/L VBG Lactate (0.6-1.4) mmol/L Sodium (136-145) mmol/L Potassium (3.5-5.1) mmol/L Chloride (98-107) mmol/L Carbon Dioxide (21.0-32.0) mmol/L Anion Gap (3-11) mmol/L BUN (7-18) mg/dL Creatinine (0.70-1.30) mg/dL Est GFR (CKD-EPI 2020) (mL/min/1.73m2) Glucose (74-106) mg/dL Calcium (8.5-10.1) mg/dL Magnesium (1.8-2.4) mg/dL Ferritin (26-388) ng/mL Total Bilirubin (0.2-1.0) mg/dL AST (15-37) U/L ALT (16-63) U/L Alkaline Phosphatase (46-116) U/L NT-Pro-B Natriuret Pep (<300) pg/mL 3752 H Total Protein (6.4-8.2) g/dL Albumin (3.4-5.0) g/dL COVID-19 Source Nasopharynx SARS-CoV-2 (PCR) (Negative) Negative Influenza Type A (PCR) (Negative) Negative Influenza Type B (PCR) (Negative) Negative RSV (PCR) (Negative) Negative Add-On Test Request DONE Critical Care Time Critical Care Time Attestation: Approximately 45 minutes of critical care time secondary to neutropenic fever, telemetry monitoring, magnesium supplementation, oxygen supplementation for acute respiratory failure
[2023-05-06] MEDS: Polyethylene Glycol 3350 17 GM PACKET PO (08:58)
--- NOTE | 2023-05-06 10:12 | PGE_ITS ---
Date of Service Date of service: 05/06/23 Time of Service: 10:12 Assessment and Plan Assessment and plan (1) Neutropenic fever: Status: Acute Assessment and plan: Continue empiric vancomycin/cefepime. Add doxy. Discussed with Dr Villanueva, who will see the patient. Since there is no CT availability, will get a CXR PA and lateral. May benefit from a bronchoscopy. We might have to have platelets in-house if we were to pursue it. Await blood culture results. UA negative. CXR with mass, unclear if also pneumonia. Does not have a port. Continue Filgrastim x 3 days, per oncology recommendations. (2) Hypoxia: Status: Acute Assessment and plan: Suspect this is due to underlying lung disease. Radiation pneumonitis could also be a factor. As above: could benefit from bronchoscopy. Pulmonology is consulted. Consider steroids. Encourage pulmonary toilet. (3) Pancytopenia: Status: Acute Assessment and plan: In setting of chemotherapy. Avoid chemical DVT ppx given thrombocytopenia. Neutropenic precautions. Will receive 1 unit pRBCs today. No active bleeding, but may benefit from having platelets in house if does develop bleeding, especially since we are thinking about bronchoscopy. Continue to monitor CBC. (4) Elevated troponin: Status: Acute Assessment and plan: In setting of hypoxia and neutropenic sepsis. Suspect this is demand ischemia. Repeating troponin now. Monitor on tele. Await echocardiogram read. Transfusing blood today, which will help decrease the demand. Will not give KARLA given thrombocytopenia and lack of definitive indication. 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 As above (6) Primary lung cancer of unknown cell type: Status: Acute Assessment and plan: On chemo/XRT. C/s palliative care and pulmonology (7) Diabetes: Assessment and plan: Continue basal insulin; cover with SSI (8) Hyponatremia: Status: Acute Assessment and plan: ?SIADH, dehydration. Relax salt restriction. Consider mild adrenal insufficiency as well. Hydrate IV. Recheck in am (9) Hypomagnesemia: Status: Resolved Assessment and plan: Recheck in am (10) DVT prophylaxis: Status: Acute Assessment and plan: SCDs Hold chemical DVT ppx in setting of thrombocytopenia (11) Discharge planning issues: Status: Acute Assessment and plan: DNR/DNI Palliative care, PT consulted. Discussed with Dr Villanueva. Subjective Subjective Interval history since last seen: O2 requirement up to 4L overnight. T max 40.3. Plts 20 this am - no bleeding. Agrees to a blood transfusion. We reviewed risks/benefits. Has a slight headache, denies dizziness, CP, SOB, has a slight cough, endorses slight nausea, no vomiting. States he cannot eat food without salt on it. States he had not been on steroids since starting chemo. Exam Narrative Exam Narrative: General: Very pleasant ill-appearing elderly male, A&Ox3, looks a little better, pale, having an echo at the time of my exam HEENT: EOMI, MMM Cardiovascular: RRR, - m/r/g Lungs: Diminished breath sounds B anteriorly, on 4L of O2 by NC, no dyspnea/tachypnea/cyanosis/coughing Gastrointestinal: soft, nontender, nondistended Extremities: no edema BLEs, 1+ pedal pulses B, chronic venous stasis dermatitis Objective Last Vital Signs Temp 37.7 C H 05/06/23 07:55 Pulse 71 05/06/23 07:55 Resp 20 05/06/23 07:55 BP 117/56 L 05/06/23 07:55 Pulse Ox 96 05/06/23 07:55 Laboratory Results - last 24 hr 05/05/23 05/05/23 05/05/23 10:01 10:01 10:01 WBC 0.28 L* RBC 2.99 L Hgb 8.5 L Hct 26.5 L MCV 89 MCH 28.4 MCHC 32.1 RDW 18.8 H Plt Count 42 L MPV 8.6 Reticulocyte % (Auto) Immature Gran % See Differential Neutrophils % 62.0 Band Neutrophils % 12 Lymphocytes % 20.0 Monocytes % 4.0 Eosinophils % 0.0 Basophils % 2.0 Metamyelocytes % Myelocytes % Nucleated RBC % 0.0 Absolute Neutrophils 0.21 L* Absolute Lymphocytes 0.06 L Absolute Monocytes 0.01 L Absolute Eosinophils 0.00 Absolute Basophils 0.01 RBC Morphology See Below Polychromasia Poikilocytosis 1+ Anisocytosis 1+ VBG pH VBG pCO2 VBG pO2 VBG HCO3 VBG Total CO2 VBG O2 Saturation VBG Base Excess VBG Lactate 1.3 Sodium 128 L Potassium 4.3 Chloride 93 L Carbon Dioxide 28.2 Anion Gap 6.8 BUN 28 H Creatinine 1.4 H Est GFR (CKD-EPI 2020) 51.13 Glucose 105 Calcium 8.6 Magnesium Ferritin Total Bilirubin 0.7 AST 38 H ALT 23 Alkaline Phosphatase 59 Troponin I NT-Pro-B Natriuret Pep Total Protein 7.1 Albumin 2.9 L Urine Color Urine Clarity Urine pH Ur Specific [place] Urine Protein Urine Ketones Urine Blood Urine Nitrite Urine Bilirubin Urine Urobilinogen Ur Leukocyte Esterase Urine RBC Urine WBC Ur Epithelial Cells Urine Crystals Urine Bacteria Urine Casts Urine Mucus Urine Other Ur Culture Indicated? Urine Glucose COVID-19 Source SARS-CoV-2 (PCR) Influenza Type A (PCR) Influenza Type B (PCR) RSV (PCR) Add-On Test Request Patient ABO/Rh Antibody Screen Crossmatch 05/05/23 05/05/23 05/05/23 10:01 10:01 10:01 WBC RBC Hgb Hct MCV MCH MCHC RDW Plt Count MPV Reticulocyte % (Auto) 0.4 L Immature Gran % Neutrophils % Band Neutrophils % Lymphocytes % Monocytes % Eosinophils % Basophils % Metamyelocytes % Myelocytes % Nucleated RBC % Absolute Neutrophils Absolute Lymphocytes Absolute Monocytes Absolute Eosinophils Absolute Basophils RBC Morphology Polychromasia Poikilocytosis Anisocytosis VBG pH 7.46 H VBG pCO2 38 L VBG pO2 22 VBG HCO3 27 VBG Total CO2 26 VBG O2 Saturation 36 VBG Base Excess 3 VBG Lactate Sodium Potassium Chloride Carbon Dioxide Anion Gap BUN Creatinine Est GFR (CKD-EPI 2020) Glucose Calcium Magnesium 1.6 L Ferritin 762 H Total Bilirubin AST ALT Alkaline Phosphatase Troponin I NT-Pro-B Natriuret Pep Total Protein Albumin Urine Color Urine Clarity Urine pH Ur Specific [place] Urine Protein Urine Ketones Urine Blood Urine Nitrite Urine Bilirubin Urine Urobilinogen Ur Leukocyte Esterase Urine RBC Urine WBC Ur Epithelial Cells Urine Crystals Urine Bacteria Urine Casts Urine Mucus Urine Other Ur Culture Indicated? Urine Glucose COVID-19 Source SARS-CoV-2 (PCR) Influenza Type A (PCR) Influenza Type B (PCR) RSV (PCR) Add-On Test Request Patient ABO/Rh Antibody Screen Crossmatch 05/05/23 05/05/23 05/05/23 10:01 10:01 10:15 WBC RBC Hgb Hct MCV MCH MCHC RDW Plt Count MPV Reticulocyte % (Auto) Immature Gran % Neutrophils % Band Neutrophils % Lymphocytes % Monocytes % Eosinophils % Basophils % Metamyelocytes % Myelocytes % Nucleated RBC % Absolute Neutrophils Absolute Lymphocytes Absolute Monocytes Absolute Eosinophils Absolute Basophils RBC Morphology Polychromasia Poikilocytosis Anisocytosis VBG pH VBG pCO2 VBG pO2 VBG HCO3 VBG Total CO2 VBG O2 Saturation VBG Base Excess VBG Lactate Sodium Potassium Chloride Carbon Dioxide Anion Gap BUN Creatinine Est GFR (CKD-EPI 2020) Glucose Calcium Magnesium Ferritin Total Bilirubin AST ALT Alkaline Phosphatase Troponin I NT-Pro-B Natriuret Pep 3752 H Total Protein Albumin Urine Color Urine Clarity Urine pH Ur Specific [place] Urine Protein Urine Ketones Urine Blood Urine Nitrite Urine Bilirubin Urine Urobilinogen Ur Leukocyte Esterase Urine RBC Urine WBC Ur Epithelial Cells Urine Crystals Urine Bacteria Urine Casts Urine Mucus Urine Other Ur Culture Indicated? Urine Glucose COVID-19 Source Nasopharynx SARS-CoV-2 (PCR) Negative Influenza Type A (PCR) Negative Influenza Type B (PCR) Negative RSV (PCR) Negative Add-On Test Request DONE Patient ABO/Rh Antibody Screen Crossmatch 05/05/23 05/05/23 05/05/23 12:27 14:00 15:23 WBC RBC Hgb Hct MCV MCH MCHC RDW Plt Count MPV Reticulocyte % (Auto) Immature Gran % Neutrophils % Band Neutrophils % Lymphocytes % Monocytes % Eosinophils % Basophils % Metamyelocytes % Myelocytes % Nucleated RBC % Absolute Neutrophils Absolute Lymphocytes Absolute Monocytes Absolute Eosinophils Absolute Basophils RBC Morphology Polychromasia Poikilocytosis Anisocytosis VBG pH VBG pCO2 VBG pO2 VBG HCO3 VBG Total CO2 VBG O2 Saturation VBG Base Excess VBG Lactate Sodium Potassium Chloride Carbon Dioxide Anion Gap BUN Creatinine Est GFR (CKD-EPI 2020) Glucose Calcium Magnesium Ferritin Total Bilirubin AST ALT Alkaline Phosphatase Troponin I 54 135 H* NT-Pro-B Natriuret Pep Total Protein Albumin Urine Color Yellow Urine Clarity Clear Urine pH 7.5 Ur Specific [place] 1.020 Urine Protein >=300 H Urine Ketones 15 H Urine Blood Moderate H Urine Nitrite Negative Urine Bilirubin Negative Urine Urobilinogen 0.2 Ur Leukocyte Esterase Negative Urine RBC 20-50 H Urine WBC 3-5 Ur Epithelial Cells Rare Urine Crystals Negative Urine Bacteria Few Urine Casts 3-5 Coarse Granular Urine Mucus Trace Urine Other Negative Ur Culture Indicated? No Urine Glucose Negative COVID-19 Source SARS-CoV-2 (PCR) Influenza Type A (PCR) Influenza Type B (PCR) RSV (PCR) Add-On Test Request Patient ABO/Rh Antibody Screen Crossmatch 05/05/23 05/06/23 05/06/23 19:40 05:25 05:25 WBC RBC Hgb Hct MCV MCH MCHC RDW Plt Count MPV Reticulocyte % (Auto) Immature Gran % Neutrophils % Band Neutrophils % Lymphocytes % Monocytes % Eosinophils % Basophils % Metamyelocytes % Myelocytes % Nucleated RBC % Absolute Neutrophils Absolute Lymphocytes Absolute Monocytes Absolute Eosinophils Absolute Basophils RBC Morphology Polychromasia Poikilocytosis Anisocytosis VBG pH VBG pCO2 VBG pO2 VBG HCO3 VBG Total CO2 VBG O2 Saturation VBG Base Excess VBG Lactate Sodium 125 L Potassium 3.6 Chloride 95 L Carbon Dioxide 21.8 Anion Gap 8.2 BUN 29 H Creatinine 1.4 H Est GFR (CKD-EPI 2020) 51.13 Glucose 195 H Calcium 7.6 L Magnesium 1.8 Ferritin Total Bilirubin AST ALT Alkaline Phosphatase Troponin I 179 H* 351 H* NT-Pro-B Natriuret Pep Total Protein Albumin Urine Color Urine Clarity Urine pH Ur Specific [place] Urine Protein Urine Ketones Urine Blood Urine Nitrite Urine Bilirubin Urine Urobilinogen Ur Leukocyte Esterase Urine RBC Urine WBC Ur Epithelial Cells Urine Crystals Urine Bacteria Urine Casts Urine Mucus Urine Other Ur Culture Indicated? Urine Glucose COVID-19 Source SARS-CoV-2 (PCR) Influenza Type A (PCR) Influenza Type B (PCR) RSV (PCR) Add-On Test Request Patient ABO/Rh Antibody Screen Crossmatch 05/06/23 05/06/23 05:35 08:50 WBC 0.73 L* RBC 2.39 L Hgb 6.9 L* Hct 21.5 L MCV 90 MCH 28.9 MCHC 32.1 RDW 18.9 H Plt Count 20 L* D MPV Reticulocyte % (Auto) Immature Gran % 0.0 Neutrophils % 68.0 Band Neutrophils % 10 Lymphocytes % 8.0 Monocytes % 4.0 Eosinophils % 0.0 Basophils % 0.0 Metamyelocytes % 8 Myelocytes % 2 Nucleated RBC % 4.0 H Absolute Neutrophils 0.50 L Absolute Lymphocytes 0.06 L Absolute Monocytes 0.03 L Absolute Eosinophils 0.00 Absolute Basophils 0.00 RBC Morphology See Below Polychromasia Present Poikilocytosis 2+ Anisocytosis VBG pH VBG pCO2 VBG pO2 VBG HCO3 VBG Total CO2 VBG O2 Saturation VBG Base Excess VBG Lactate Sodium Potassium Chloride Carbon Dioxide Anion Gap BUN Creatinine Est GFR (CKD-EPI 2020) Glucose Calcium Magnesium Ferritin Total Bilirubin AST ALT Alkaline Phosphatase Troponin I NT-Pro-B Natriuret Pep Total Protein Albumin Urine Color Urine Clarity Urine pH Ur Specific [place] Urine Protein Urine Ketones Urine Blood Urine Nitrite Urine Bilirubin Urine Urobilinogen Ur Leukocyte Esterase Urine RBC Urine WBC Ur Epithelial Cells Urine Crystals Urine Bacteria Urine Casts Urine Mucus Urine Other Ur Culture Indicated? Urine Glucose COVID-19 Source SARS-CoV-2 (PCR) Influenza Type A (PCR) Influenza Type B (PCR) RSV (PCR) Add-On Test Request Patient ABO/Rh O Positive Antibody Screen NEGATIVE Crossmatch See Detail Time Spent with Patient Time Spent with Patient: 35-49 minutes Time was spent: preparing to see the patient(eg.review tests), obtaining and/or reviewing separately otained hiistory, ordering medications,tests, procedures, referring, communicating with other health child day care center worker, indepentently interpreting results, counseling the patient and care coordination
--- NOTE | 2023-05-06 10:35 | W.PULMCON ---
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 He is hypoxic and is on broad spectrum antibiotics. He does not have an identifiable pneumonia or infiltrate on CXR (CT scan is down). The RUL mass does look stable, but I do not have a way to tell if there is a post obstruction infection or not. His POCUS was revealing for diffuse B-lines both anteriorly and posteriorly with no pleural effusions. I will non-invasively test for viral and fungal organisms as I do think he is too sick to perform a bronchoscopy at our facility currently. If he clinically does not improve (neutropenia, fevers) within the next 24 hours, I would recommend transfer to [facility] oncology floor for the potential for more invasive work up (bronchoscopy) that cannot be performed here. I agree with broad spectrum antibiotic coverage on him. He notes bleeding from his rectum over night that he attritbutes to hemorroids, but I did mention this to the hospitalist given his thrombocytopenia. we will have to keep an eye on the bleeding. Neutropenic fever - maintain euthermia - cefepime, doxy and vanc - blood cultures - bacterial urine cultures ordered - fungitell, expanded viral panel, urine antigens for blasto and histo added - recommend restarting prednisone Abnormal chest Xray - B-line on POCUS point to fluid versus viral pattern - recommend some Lasix with transfusion of blood products CPFE - recommend ICS/LABA/LAMA coverage as he is on Trelegy as an outpatient (ordered) History of Present Illness Narrative: This is a 77 yo whom I know from pulmonary clinic as who has combined pulmonary fibrosis and emphysema (on Trelegy) and a RUL lung cancer. He follows with [facility] radiation oncology and oncology and is receiving XRT and chemo. He is being admitted for neutropenic fever. In addition to fevers he has been found to have hypoxia, hyponatremia, DARLENE. [facility] oncology was contacted and they recommended G-CSF due to neutropenia. He was started on cefepime and today vanc and doxy were added. He had a CXR (CT is down) that finds the RUL lung cancer and interstitial infiltrates. I did ask for a CXR PA/LAT to be completed. The PA and LAT again shows some interstitial infiltrates and the RUL mass. Today, he has chills and rigors, nausea and cough. He does not feel particularly short of breath. He also had blood in his underwear this morning that he attributes to hemorrhoids. Review of Systems All systems reviewed & are unremarkable except as noted in HPI and below 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) Lung mass (Acute) Tobacco use disorder (Acute) Impotence (Acute) of organic origin Constipation (Acute) Insomnia, persistent (Acute) Parotid mass (Acute) Hx of sciatica (Acute) Leg weakness (Acute) Peripheral vascular disease with claudication (Acute) Chronic leg pain (Acute) History of pathological fracture of vertebra (Acute) Depression (Chronic) Weight loss (Acute) Polymyalgia (Acute) Benign prostatic hyperplasia (Chronic) Solitary lung nodule (Acute) MDS (myelodysplastic syndrome) (Acute) Polymyalgia rheumatica (Acute) Palliative care patient (Acute) Positive colorectal cancer screening using Cologuard test (Acute) Iron deficiency anemia due to chronic blood loss (Acute) Left sided sciatica (Acute) Chronic pain of left groin (Acute) Bilateral leg pain (Acute) Right groin pain (Acute) Mild depression (Chronic) Anemia (Chronic) Sciatica of left side (Acute) Unsteady gait when walking (Acute) Internal hemorrhoids (Acute) Benzodiazepine dependence (Acute) Smoker unmotivated to quit (Acute) DNI (do not intubate) (Acute) DNR (do not resuscitate) (Acute) POLST (Physician Orders for Life-Sustaining Treatment) (Acute) signed 03/18/21 Fecal urgency (Acute) History of hemorrhoidectomy (Chronic) GI bleeding (Chronic) Palliative care patient (Acute) Type I diabetes mellitus (Acute) Medical History Anxiety Diabetes Goals of care, counseling/discussion HTN (hypertension) Hx of hyperlipidemia Surgical History Fingertip amputation History of cataract surgery History of tonsillectomy Family History Father , in his early 80s uncertain cause of No problems noted. Mother , age 77 Pancreatic cancer Sister No problems noted. Brother No problems noted. Sister Alcohol abuse Sister No problems noted. Brother Prostate cancer Sister CFIDS (chronic fatigue and immune dysfunction syndrome) Sister , of colon cancer late 50s Colon cancer Sister No problems noted. Sister No problems noted. Son Age: 36 No problems noted. Social History Smoking/Tobacco Use Status: Current every day Tobacco Type: cigarettes Tobacco: How many years used: 60 Quit status: not considering quitting Counseling given: provider counseling Smoking risk assessment performed?: Yes Alcohol Intake: current Alcohol Intake frequency: holidays/special occasions only Alcohol type: beer Drug use: Rarely Substance use type: marijuana Caregiver/Support person: Yes Household members: spouse and children Housing: house Number of Children: 1 number of grandchildren: 0 Communication Needs: Corrective Lenses Education Level: college Do you need help understanding health information?: Rarely 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, 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 Pets and animals: Yes Pets and animals: farm animals Do you think of yourself as: straight/heterosexual What is your relationship status?: How often do you talk on the phone with friends or family?: once per week How often do you get together with friends or relatives?: three or more times per week Panel score (0-1 are the most socially isolated patients): 2 What type of physical activity do you participate in: walking, irregular exercise and additional Details: used to play golf regularly; not since summer 2018 Duration: 15-30 minutes/day Frequency: 1-2 times per week Special li needs: No Seatbelt use: always Working smoke detector in home: Yes Fire extinguisher in home: Yes Do you feel safe at home: Yes Do you feel safe in your relationship?: Yes Additional Social history: Marlo lives in a house on land 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 He lives with his , Ngoc; their son, Carlton, lives downstairs. 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 He continues to smoke and is not interested in quitting. He does see Dr Casper for his recurrent hemorrhoids and GI bleeding. If he has colon cancer, he does not want any treatment. He will not have a colonoscopy. Visit Medication and Allergies Active Medications Generic Name Dose Route Start Last Admin Trade Name Freq PRN Reason Stop Dose Admin Acetaminophen 650 mg 05/06/23 09:00 Acetaminophen 325 Mg Tab PO 05/06/23 23:59 TODAY LUIS Al Hydrox/Mg Hydrox/Simethicone 30 ml 05/05/23 12:09 Mylanta Suspension 30 Ml Cup PO Q2H PRN PRN Albuterol Sulfate 2.5 mg 05/05/23 12:09 05/06/23 04:30 Albuterol 2.5 Mg/3 Ml Inh Soln Vial UPD 2.5 mg Q2H PRN PRN Administration Amlodipine Besylate 10 mg 05/05/23 22:00 05/05/23 21:42 Amlodipine 10 Mg Tab PO 10 mg HS LUIS Administration Bisacodyl 5 mg 05/05/23 19:22 Bisacodyl 5 Mg Tabec PO DAILY PRN PRN Citalopram Hydrobromide 20 mg 05/06/23 08:30 05/06/23 08:19 Citalopram 20 Mg Tab PO 20 mg DAILY LUIS Administration Dextrose 0 gm 05/05/23 12:20 Glucose Oral Gel 15 Gm/37.5 Gm Tube PO DIRECTED PRN Dextrose/Water 0 gm 05/05/23 12:20 Dextrose 50%-Water 25 Gm/50 Ml Syr IVP DIRECTED PRN Diazepam 5 - 10 mg 05/05/23 22:00 Diazepam 5 Mg Tab PO HS PRN MAY REPEAT X1 PRN Dimethicone/Zinc Oxide 0 gm 05/05/23 12:07 Davie Protect Cream 142 Gm Tube TP PRN PRN Diphenhydramine HCl 0 mg 05/06/23 08:15 Diphenhydramine 25 Mg Cap PO 05/06/23 23:59 TODAY [facility] Docusate Sodium 100 mg 05/05/23 20:00 05/06/23 08:19 Docusate Sodium 100 Mg Cap PO 100 mg BID LUIS Administration Sodium Chloride 500 mls @ 0 mls/hr 05/05/23 09:44 Saline 500ml Bag IV PRN PRN As Directed Cefepime HCl 2 gm/ Sodium 100 mls @ 200 mls/hr 05/05/23 20:00 05/06/23 04:43 Chloride IVPB Infused Q8H [facility] Infusion Vancomycin/PEG/NADA/Lysine/Water 1 gm in 200 mls @ 100 mls/hr 05/06/23 16:00 Vancocin Injection IV Q24H [facility] Protocol Per Protocol Acetaminophen 1,000 mg in 100 mls @ 400 mls/hr 05/05/23 19:19 05/06/23 04:07 Ofirmev IVPB 200 mls/hr Q8H PRN PRN Administration Doxycycline Hyclate 100 mg/ 100 mls @ 100 mls/hr 05/06/23 10:30 Sodium Chloride IVPB Q12H [facility] IV Miscellaneous Supplies 1 each 05/05/23 09:45 Iv Access IV DIRECTED [facility] Insulin Aspart 0 units 05/05/23 17:00 05/06/23 08:20 Insulin Aspart 300 Units/3 Ml Pen SC 2 units 0800,1200,1700,2200 [facility] Administration Protocol Insulin Glargine 8 units 05/05/23 21:00 05/06/23 08:21 Insulin Glargine 300 Units/3 Ml Pen SC 8 units BID [facility] Administration Magnesium Hydroxide 30 ml 05/05/23 12:09 Milk Of Magnesia 30 Ml Cup PO DAILY PRN PRN Multivitamins 1 tab 05/06/23 08:30 05/06/23 08:19 Multivitamin Tab PO 1 tab DAILY [facility] Administration Ondansetron HCl 4 mg 05/05/23 13:58 Ondansetron 4 Mg/2 Ml Vial IVP Q6H PRN PRN Polyethylene Glycol 17 gm 05/06/23 08:30 05/06/23 08:58 Polyethylene Glycol 3350 17 Gm Packet PO 17 gm DAILY LUIS Administration Simvastatin 20 mg 05/05/23 22:00 05/05/23 21:42 Simvastatin 20 Mg Tab PO 20 mg HS LUIS Administration Sodium Chloride 0 ml 05/05/23 09:44 05/05/23 20:36 Normal Saline Flush 10 Ml Syr IVP 10 ml PRN PRN Administration Tbo-Filgrastim 480 mcg 05/07/23 12:00 Filgrastim-Sndz 480 Mcg/0.8 Ml Syr SC 05/07/23 12:01 ONCE ONE Tbo-Filgrastim 480 mcg 05/06/23 12:00 Filgrastim-Sndz 480 Mcg/0.8 Ml Syr SC 05/06/23 12:01 ONCE ONE Allergies No Known Allergies Allergy (Verified 05/05/23 09:43) Exam Narrative Exam Narrative: Gen: NAD, normal respiratory effort, well-nourished HENT: PERRL Chest: No respiratory distress, normal appearance of chest, deferred auscultation as patient on precautions with no stethescope in room. Heart: deferred as above Abdomen: Non-distended, soft, non tender Extremities: No clubbing, edema, cyanosis, rashes Neuro: AAOx3 , non focal Psych: cooperative, appropriate mental affect Results Last Vital Signs Temp 37.7 C H 05/06/23 07:55 Pulse 71 05/06/23 07:55 Resp 20 05/06/23 07:55 BP 117/56 L 05/06/23 07:55 Pulse Ox 96 05/06/23 07:55 Labs 05/06/23 05:35 05/06/23 05:25 Labs: Laboratory Results - last 24 hr 05/05/23 05/05/23 05/05/23 10:01 10:01 10:01 WBC 0.28 L* RBC 2.99 L Hgb 8.5 L Hct 26.5 L MCV 89 MCH 28.4 MCHC 32.1 RDW 18.8 H Plt Count 42 L MPV 8.6 Immature Gran % See Differential Neutrophils % 62.0 Band Neutrophils % 12 Lymphocytes % 20.0 Monocytes % 4.0 Eosinophils % 0.0 Basophils % 2.0 Metamyelocytes % Myelocytes % Nucleated RBC % 0.0 Absolute Neutrophils 0.21 L* Absolute Lymphocytes 0.06 L Absolute Monocytes 0.01 L Absolute Eosinophils 0.00 Absolute Basophils 0.01 RBC Morphology See Below Polychromasia Poikilocytosis 1+ Anisocytosis 1+ VBG pH 7.46 H VBG pCO2 38 L VBG pO2 22 VBG HCO3 27 VBG Total CO2 26 VBG O2 Saturation 36 VBG Base Excess 3 Sodium Potassium Chloride Carbon Dioxide Anion Gap BUN Creatinine Est GFR (CKD-EPI 2020) Glucose Calcium Magnesium 1.6 L Ferritin 762 H Troponin I NT-Pro-B Natriuret Pep Urine Color Urine Clarity Urine pH Ur Specific Alvo Urine Protein Urine Ketones Urine Blood Urine Nitrite Urine Bilirubin Urine Urobilinogen Ur Leukocyte Esterase Urine RBC Urine WBC Ur Epithelial Cells Urine Crystals Urine Bacteria Urine Casts Urine Mucus Urine Other Ur Culture Indicated? Urine Glucose COVID-19 Source SARS-CoV-2 (PCR) Influenza Type A (PCR) Influenza Type B (PCR) RSV (PCR) Path Cons Comment SEE COMMENT Add-On Test Request Patient ABO/Rh Antibody Screen Crossmatch 05/05/23 05/05/23 05/05/23 10:01 10:01 10:15 WBC RBC Hgb Hct MCV MCH MCHC RDW Plt Count MPV Immature Gran % Neutrophils % Band Neutrophils % Lymphocytes % Monocytes % Eosinophils % Basophils % Metamyelocytes % Myelocytes % Nucleated RBC % Absolute Neutrophils Absolute Lymphocytes Absolute Monocytes Absolute Eosinophils Absolute Basophils RBC Morphology Polychromasia Poikilocytosis Anisocytosis VBG pH VBG pCO2 VBG pO2 VBG HCO3 VBG Total CO2 VBG O2 Saturation VBG Base Excess Sodium Potassium Chloride Carbon Dioxide Anion Gap BUN Creatinine Est GFR (CKD-EPI 2020) Glucose Calcium Magnesium Ferritin Troponin I NT-Pro-B Natriuret Pep 3752 H Urine Color Urine Clarity Urine pH Ur Specific Alvo Urine Protein Urine Ketones Urine Blood Urine Nitrite Urine Bilirubin Urine Urobilinogen Ur Leukocyte Esterase Urine RBC Urine WBC Ur Epithelial Cells Urine Crystals Urine Bacteria Urine Casts Urine Mucus Urine Other Ur Culture Indicated? Urine Glucose COVID-19 Source Nasopharynx SARS-CoV-2 (PCR) Negative Influenza Type A (PCR) Negative Influenza Type B (PCR) Negative RSV (PCR) Negative Path Cons Comment Add-On Test Request DONE Patient ABO/Rh Antibody Screen Crossmatch 05/05/23 05/05/23 05/05/23 12:27 14:00 15:23 WBC RBC Hgb Hct MCV MCH MCHC RDW Plt Count MPV Immature Gran % Neutrophils % Band Neutrophils % Lymphocytes % Monocytes % Eosinophils % Basophils % Metamyelocytes % Myelocytes % Nucleated RBC % Absolute Neutrophils Absolute Lymphocytes Absolute Monocytes Absolute Eosinophils Absolute Basophils RBC Morphology Polychromasia Poikilocytosis Anisocytosis VBG pH VBG pCO2 VBG pO2 VBG HCO3 VBG Total CO2 VBG O2 Saturation VBG Base Excess Sodium Potassium Chloride Carbon Dioxide Anion Gap BUN Creatinine Est GFR (CKD-EPI 2020) Glucose Calcium Magnesium Ferritin Troponin I 54 135 H* NT-Pro-B Natriuret Pep Urine Color Yellow Urine Clarity Clear Urine pH 7.5 Ur Specific Alvo 1.020 Urine Protein >=300 H Urine Ketones 15 H Urine Blood Moderate H Urine Nitrite Negative Urine Bilirubin Negative Urine Urobilinogen 0.2 Ur Leukocyte Esterase Negative Urine RBC 20-50 H Urine WBC 3-5 Ur Epithelial Cells Rare Urine Crystals Negative Urine Bacteria Few Urine Casts 3-5 Coarse Granular Urine Mucus Trace Urine Other Negative Ur Culture Indicated? No Urine Glucose Negative COVID-19 Source SARS-CoV-2 (PCR) Influenza Type A (PCR) Influenza Type B (PCR) RSV (PCR) Path Cons Comment Add-On Test Request Patient ABO/Rh Antibody Screen Crossmatch 05/05/23 05/06/23 05/06/23 19:40 05:25 05:25 WBC RBC Hgb Hct MCV MCH MCHC RDW Plt Count MPV Immature Gran % Neutrophils % Band Neutrophils % Lymphocytes % Monocytes % Eosinophils % Basophils % Metamyelocytes % Myelocytes % Nucleated RBC % Absolute Neutrophils Absolute Lymphocytes Absolute Monocytes Absolute Eosinophils Absolute Basophils RBC Morphology Polychromasia Poikilocytosis Anisocytosis VBG pH VBG pCO2 VBG pO2 VBG HCO3 VBG Total CO2 VBG O2 Saturation VBG Base Excess Sodium 125 L Potassium 3.6 Chloride 95 L Carbon Dioxide 21.8 Anion Gap 8.2 BUN 29 H Creatinine 1.4 H Est GFR (CKD-EPI 2020) 51.13 Glucose 195 H Calcium 7.6 L Magnesium 1.8 Ferritin Troponin I 179 H* 351 H* NT-Pro-B Natriuret Pep Urine Color Urine Clarity Urine pH Ur Specific Alvo Urine Protein Urine Ketones Urine Blood Urine Nitrite Urine Bilirubin Urine Urobilinogen Ur Leukocyte Esterase Urine RBC Urine WBC Ur Epithelial Cells Urine Crystals Urine Bacteria Urine Casts Urine Mucus Urine Other Ur Culture Indicated? Urine Glucose COVID-19 Source SARS-CoV-2 (PCR) Influenza Type A (PCR) Influenza Type B (PCR) RSV (PCR) Path Cons Comment Add-On Test Request Patient ABO/Rh Antibody Screen Crossmatch 05/06/23 05/06/23 05/06/23 05:25 05:35 08:50 WBC 0.73 L* RBC 2.39 L Hgb 6.9 L* Hct 21.5 L MCV 90 MCH 28.9 MCHC 32.1 RDW 18.9 H Plt Count 20 L* D MPV Immature Gran % 0.0 Neutrophils % 68.0 Band Neutrophils % 10 Lymphocytes % 8.0 Monocytes % 4.0 Eosinophils % 0.0 Basophils % 0.0 Metamyelocytes % 8 Myelocytes % 2 Nucleated RBC % 4.0 H Absolute Neutrophils 0.50 L Absolute Lymphocytes 0.06 L Absolute Monocytes 0.03 L Absolute Eosinophils 0.00 Absolute Basophils 0.00 RBC Morphology See Below Polychromasia Present Poikilocytosis 2+ Anisocytosis VBG pH VBG pCO2 VBG pO2 VBG HCO3 VBG Total CO2 VBG O2 Saturation VBG Base Excess Sodium Potassium Chloride Carbon Dioxide Anion Gap BUN Creatinine Est GFR (CKD-EPI 2020) Glucose Calcium Magnesium Ferritin Troponin I NT-Pro-B Natriuret Pep Urine Color Urine Clarity Urine pH Ur Specific Alvo Urine Protein Urine Ketones Urine Blood Urine Nitrite Urine Bilirubin Urine Urobilinogen Ur Leukocyte Esterase Urine RBC Urine WBC Ur Epithelial Cells Urine Crystals Urine Bacteria Urine Casts Urine Mucus Urine Other Ur Culture Indicated? Urine Glucose COVID-19 Source SARS-CoV-2 (PCR) Influenza Type A (PCR) Influenza Type B (PCR) RSV (PCR) Path Cons Comment Add-On Test Request Patient ABO/Rh O Positive O Positive Antibody Screen NEGATIVE Crossmatch See Detail
--- NOTE | 2023-05-06 10:54 | W.NUTRFU ---
Date of service: 05/06/23 Time of Service: 10:54 Nutrition Note NOTE: Assessment: 77yo male pt triggering for routine diabetes consult. Admitted with complications/symptoms of his primary cancer of the lung. intake thus far has been low in the setting of acute illness however has maintained a stable weight over the last year with a normal BMI currently. PMH significant for DMII along with many other chronic conditions. Estimated needs: 1988kcals (MSJx1.2), 86.2g pro (1g/kg), and 1988mL fluid (1mL/kcal). Diagnosis: No nutrition related diagnosis at this time Intervention: will continue to support pt nutrition needs through meal service and any additional supplements as needed. Monitoring: will monitor closely for concerns with intake and weight and plan interventions with nutrition support as needed. Time Spent in Nutritional Counseling and Treatment: 0
[2023-05-06 10:57] LABS: Troponin I 377 ng/L (<or=60)
[2023-05-06] MEDS: predniSONE 20 MG TAB 40 MG PO (12:18)
[2023-05-06] MEDS: Furosemide 20 MG/2 ML VIAL IVP (12:19)
[2023-05-06] MEDS: DOXYCYCLINE 100 MG in Normal Saline 100 ML IVPB ×2 (12:20→21:33)
--- NOTE | 2023-05-06 13:30 | W.POCUS ---
Pocus Exam Limited Thoracic Lung Exam DATE OF EXAM: 05/06/23 TIME OF EXAM: 12:15 PROVIDER THAT PERFORMED THE STUDY: Symone Villanueva IS THIS A REPEAT EXAM DURING THIS ENCOUNTER: No REASON FOR EXAM: Hypoxia VISUALIZED STRUCTURES: right anterior, left anterior, right posterior and left posterior PERTINENT FINDINGS/IMPRESSION: B-lines/left side and B-lines/right side; no pleural effusion on the left and no pleural effusion on the right Exam complete
--- NOTE | 2023-05-06 13:49 | PT.INIE ---
Date of service: 05/06/23 Time of Service: 12:52 PT Notes Visit Reasons: Neutropenic Fever, Lung Cancer Physical Therapy Inpatient Initial Evaluation Date: 05/06/2023 Referring Doctor: Wendy Pena MD PT Orders: PT CONSULT: Limited ability Precautions: Fall. Protective precautions in place, immunocompromised. Activity as tolerated. Patient Profile/Admitting Diagnosis: Patient is a 77-year-old male patient admitted for management of neutropenic fever, hypoxia, pancytopenia, elevated troponin, combined pulmonary fibrosis, primary lung carcinoma of unknown cell type who recently started chemoradiation, diabetes mellitus, hyponatremia, and hypomagnesemia. 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) Lung mass (Acute) Tobacco use disorder (Acute) Impotence (Acute) of organic originConstipation (Acute) Insomnia, persistent (Acute) Parotid mass (Acute) Hx of sciatica (Acute) Leg weakness (Acute) Peripheral vascular disease with claudication (Acute) Chronic leg pain (Acute) History of pathological fracture of vertebra (Acute) Depression (Chronic) Weight loss (Acute) Polymyalgia (Acute) Benign prostatic hyperplasia (Chronic) Solitary lung nodule (Acute) MDS (myelodysplastic syndrome) (Acute) Polymyalgia rheumatica (Acute) Palliative care patient (Acute) Positive colorectal cancer screening using Cologuard test (Acute) Iron deficiency anemia due to chronic blood loss (Acute) Left sided sciatica (Acute) Chronic pain of left groin (Acute) Bilateral leg pain (Acute) Right groin pain (Acute) Mild depression (Chronic) Anemia (Chronic) Sciatica of left side (Acute) Unsteady gait when walking (Acute) Internal hemorrhoids (Acute) Benzodiazepine dependence (Acute) Smoker unmotivated to quit (Acute) DNI (do not intubate) (Acute) DNR (do not resuscitate) (Acute) POLST (Physician Orders for Life-Sustaining Treatment) (Acute) signed 03/18/21 Fecal urgency (Acute) History of hemorrhoidectomy (Chronic) GI bleeding (Chronic) Palliative care patient (Acute) Type I diabetes mellitus (Acute) Medical History? Anxiety Diabetes Goals of care, counseling/discussion HTN (hypertension) Hx of hyperlipidemia Surgical History? Fingertip amputation History of cataract surgery History of tonsillectomy Social History/Home Situation: Lives with and son in a private home. Independent with all aspects of ADLs prior to admission. Still drives. Recently started chemoradiation. 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 Equipment Owned/DME: None Subjective: Exhausted but amenable to doing manual muscle testing. Did agree to get out of bed this afternoon but when SO/ arrived, he decided to stay in bed. States that physical therapy is not his priority right now. Okay however with being checked tomorrow to see how he feels. Dr. Pena did point out that patient is still febrile at 38.2 deg C taken this morning. Objective: General Observation: Resting in bed. IV through the R UE. Oxygen supplementation via NC. /SO showed up midway through evaluation. Hemosiderin staining in B legs but no edema. Appears fatigued and withdrawn. Mental Status: Oriented as to person, place, time, and purpose. Able to pay attention, focus, and respond appropriately. Pain: Generalized Vital Signs: Closely monitored by [facility] staff ROM: Right Upper Extremity: Shoulder Flexion WFL. Shoulder abduction WFL. Elbow flexion WFL. Wrist flexion WFL. Functional opening and closing of hand WFL. Left Upper Extremity: Shoulder Flexion WFL. Shoulder abduction WFL. Elbow flexion WFL. Wrist flexion WFL. Functional opening and closing of hand WFL. Right Lower Extremity: Hip flexion WFL. Hip abduction WFL. Knee flexion WFL. Ankle dorsiflexion WFL. Ankle plantarflexion WFL. Left Lower Extremity: Hip flexion WFL. Hip abduction WFL. Knee flexion WFL. Ankle dorsiflexion WFL. Ankle plantarflexion WFL. Strength: Right Upper Extremity: Shoulder flexors 4/5. Shoulder abductors 4/5. Elbow flexors 5/5. Elbow extensors 5/5. Carousel Operator strong. Left Upper Extremity: Shoulder flexors 4/5. Shoulder abductors 4/5. Elbow flexors 5/5. Elbow extensors 5/5. Carousel Operator strong. Right Lower Extremity: Hip flexors 4-/5. Hip abductors 4-/5. Knee flexors 4/5. Knee extensors 4-/5. Ankle dorsiflexors 4-/5. Ankle plantarflexors 4-/5. Left Lower Extremity: Hip flexors 4-/5. Hip abductors 4-/5. Knee flexors 4/5. Knee extensors 4-/5. Ankle dorsiflexors 4-/5. Ankle plantarflexors 4-/5. Bed Mobility/Transfers: Refused getting out of bed Gait: Refused getting out of bed Balance: Unable to test Special Tests: Mobility Limitations Standardized Measure [facility] AM-PAC 6 clicks Basic Mobility Inpatient Short Form: Raw Score: Unable to test CMS Score: Unable to test% deficit Informed Consent/Education: Patient was instructed in purpose of PT consult and plan of care. Agreeable to being checked in ontomorrow to see if he can do anything. ASSESSMENT: Comfortable bedside recliner was prepared for patient as he was initially agreeable to trying getting out of bed but when /SO arrived, he wanted to wait until tomorrow or when he feels that he is ready. Patient does not have PT as his priority at this time. Will hold off on functional mobility progression/cancer rehabilitation as soon as patient is more ready clinically. Dr Pena agreeable to waiting until patient becomes more stabilized medically. Nurse Gonzalez agreeable to holding off PT. JOAO Mark aware of patient's sentiments. Patient presents with clinical signs and symptoms consistent with current/admitting diagnoses that have resulted to mobility limitations, gait instability, generalized weakness, and overall ADL decline as demonstrated by the following impairment level findings: 1. Decreased strength to B UE/LE major muscle groups 2. Impaired sitting/standing balance 3. Impaired activity tolerance 4. Fatigue Impairments are contributing to the following functional limitations: 1. Decline in bed mobility skills 2. Decline in transfer skills 3. Difficulty with ambulation without assistive device and physical assistance 4. Increased completion time for mobility ADL performance 5. Increased risk for falls Patient is assessed as a [id number] moderate complexity based on the following: History: 77-year-old male with past medical history as indicated above Examination: Demonstrable impairment in strength, balance, and mobility level with underlying impairments and functional limitations as exhibited above Presentation: Evolving Decision Makin moderate complexity Goals: Goals X1 week 1. Supine-Sit independent 2. Sit-Supine independent 3. Sit-Stand independent 4. Stand-Sit independent with no AD 5. Bed-Chair independent with no AD 6. Chair-Bed independent with no AD 7. Independent gait on level surface with use of no AD for at least 50 feet without report of pain nor dyspnea 8. Independent stair negotiation while holding onto B rails for at least 5 steps without report of pain nor dyspnea 9. Independent with home exercise program 10. Good static and dynamic standing balance/tolerance Plan of Care/Treatment Plan: 1x/day, 7 days/week x 1 week. Plan of care has been reviewed with the NEPHROLOGY NURSE providing the service under Physical Therapy direction. Initiate Physical Therapy intervention for pain management as needed, strengthening, bed mobility, transfers, gait, stairs, balance training, and use of assistive device. DISCHARGE RECOMMENDATIONS: [] Home with no services [] [X] Home with services. Patient will benefit from home health PT services in order to progress mobility level using least restrictive assistive ambulatory device, assess home safety, identify additional equipment needs, and establish a functional maintenance program that will increase ability of patient to remain at home. [] Home with outpatient PT [] [] SNF for continued rehabilitation [] [] [facility] Care [] [] SNF versus LTC based on ability to participate and progress [] TREATMENT CODE/TIME: 99532 x 38 minutes beginning at 12:52 PM. Thank you for the opportunity to participate in the care of this patient. Nel Cisse PT, DPT, CLT [facility] [place], [place]
--- NOTE | 2023-05-06 14:09 | PDOC.CMIN ---
Date of service: 05/06/23 Time of Service: 14:09 Care Management Initial Assmt Initial Assessment REASON FOR HOSPITALIZATION:: Neutropenic fever, hypoxia, Pancytopenia PREVIOUS FUNCTIONAL STATUS/SOCIAL/FAMILY SUPPORTS:: Marlo lives in a private home [place] with his Ngoc and son Carlton. 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 Per pt, he drives and is independent with his ADL's at baseline. He is receiving radiation and chemo for lung Cancer and also followed by Palliative Care. CURRENT FUNCTIONAL STATUS:: Marlo was lying in bed when CM met with him. He is awake, and drowsy, conversation is limited. Marlo has no questions or needs at this time. CM is awaiting a return call from his Ngoc. ADVANCE DIRECTIVES:: On file, [facility] is [facility] Has patient been provided with info about the portal/API?: Yes Did the patient sign up for the portal?: Yes (Prior to admission) CODE STATUS:: DNR/DNI (Colst on file) INSURANCE COVERAGE / FINANCIAL ISSUES:: BS Medicare CURRENT HOME/COMMUNITY SERVICES/EQUIPMENT:: None PRIMARY CARE PHYSICIAN:: Rolo Leach POTENTIAL DISCHARGE NEEDS:: Discharge plan of care, evaluations for increased home support PATIENT/FAMILY EDUCATION NEEDS:: Review discharge instructions, limitations, medications and plan to follow up with community providers. Discuss ask me three. TRANSPORTATION:: Via private vehicle with family. PLAN:: Marlo is being closely monitored and treated. Cultures are pending and further medical work up is being done. Dr. Ramon is consulted. PT consult was deferred today per pt request. Discharge plan is unclear at this time. CM will follow. 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) Lung mass (Acute) Tobacco use disorder (Acute) Impotence (Acute) of organic origin Constipation (Acute) Insomnia, persistent (Acute) Parotid mass (Acute) Hx of sciatica (Acute) Leg weakness (Acute) Peripheral vascular disease with claudication (Acute) Chronic leg pain (Acute) History of pathological fracture of vertebra (Acute) Depression (Chronic) Weight loss (Acute) Polymyalgia (Acute) Benign prostatic hyperplasia (Chronic) Solitary lung nodule (Acute) MDS (myelodysplastic syndrome) (Acute) Polymyalgia rheumatica (Acute) Palliative care patient (Acute) Positive colorectal cancer screening using Cologuard test (Acute) Iron deficiency anemia due to chronic blood loss (Acute) Left sided sciatica (Acute) Chronic pain of left groin (Acute) Bilateral leg pain (Acute) Right groin pain (Acute) Mild depression (Chronic) Anemia (Chronic) Sciatica of left side (Acute) Unsteady gait when walking (Acute) Internal hemorrhoids (Acute) Benzodiazepine dependence (Acute) Smoker unmotivated to quit (Acute) DNI (do not intubate) (Acute) DNR (do not resuscitate) (Acute) POLST (Physician Orders for Life-Sustaining Treatment) (Acute) signed 03/18/21 Fecal urgency (Acute) History of hemorrhoidectomy (Chronic) GI bleeding (Chronic) Palliative care patient (Acute) Type I diabetes mellitus (Acute) Medical History Anxiety Diabetes Goals of care, counseling/discussion HTN (hypertension) Hx of hyperlipidemia Surgical History Fingertip amputation History of cataract surgery History of tonsillectomy Family History Father , in his early 80s uncertain cause of No problems noted. Mother , age 77 Pancreatic cancer Sister No problems noted. Brother No problems noted. Sister Alcohol abuse Sister No problems noted. Brother Prostate cancer Sister CFIDS (chronic fatigue and immune dysfunction syndrome) Sister , of colon cancer late 50s Colon cancer Sister No problems noted. Sister No problems noted. Son Age: 36 No problems noted. Social History Smoking/Tobacco Use Status: Current every day Tobacco Type: cigarettes Tobacco: How many years used: 60 Quit status: not considering quitting Counseling given: provider counseling Smoking risk assessment performed?: Yes Alcohol Intake: current Alcohol Intake frequency: holidays/special occasions only Alcohol type: beer Drug use: Rarely Substance use type: marijuana Caregiver/Support person: Yes Household members: spouse and children Housing: house Number of Children: 1 number of grandchildren: 0 Communication Needs: Corrective Lenses Education Level: college Do you need help understanding health information?: Rarely 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, 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 Pets and animals: Yes Pets and animals: farm animals Do you think of yourself as: straight/heterosexual What is your relationship status?: How often do you talk on the phone with friends or family?: once per week How often do you get together with friends or relatives?: three or more times per week Panel score (0-1 are the most socially isolated patients): 2 What type of physical activity do you participate in: walking, irregular exercise and additional Details: used to play golf regularly; not since summer 2018 Duration: 15-30 minutes/day Frequency: 1-2 times per week Special li needs: No Seatbelt use: always Working smoke detector in home: Yes Fire extinguisher in home: Yes Do you feel safe at home: Yes Do you feel safe in your relationship?: Yes Additional Social history: Marlo lives in a house on land 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 He lives with his , Ngoc; their son, Carlton, lives downstairs. 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 He continues to smoke and is not interested in quitting. He does see Dr Casper for his recurrent hemorrhoids and GI bleeding. If he has colon cancer, he does not want any treatment. He will not have a colonoscopy.
--- NOTE | 2023-05-06 14:31 | CHAPLAIN ---
Marlo was resting in bed when I visited. His was with him. I introduced myself and explained my role. Marlo's told me that he's not alevism. They thanked me for checking in, but were not interested in further conversation.
--- NOTE | 2023-05-06 14:42 | NUR.NOTE ---
Nursing Note: Patient temp38.4. aware. Patient received Tylenol @ aprox 1130. Ice packs placed under arms and in groin. Patient currently receiving blood.
[2023-05-06] MEDS: VANCOMYCIN/WATER (PEG) 1 GM/200 ML BAG IV (16:48)
[2023-05-06] MEDS: Budesonide/Formoterol 80/4.5 6.9 GM 60 PUFF INH IH (19:40)
[2023-05-06] MEDS: amLODIPine 10 MG TAB PO (19:58)
[2023-05-06] MEDS: Simvastatin 20 MG TAB PO (19:58)
[2023-05-06] MEDS: diphenhydrAMINE 25 MG CAP PO (19:59)
[2023-05-06 22:16] LABS: Legionella Ag Detection Urine Negative (Negative)
[2023-05-07] VITALS (12 sets, daily range): BP systolic 103–132; BP diastolic 60–65; PULSE 59–79; RESP 16–20; TEMP 36.1–36.5; O2SAT 93–99
[2023-05-07 00:35] LABS: Adenovirus DNA Result Negative (Negative); Metapneumovirus RNA Result Negative (Negative); Parainfluenza Type1 RNA Result Negative (Negative); Parainfluenza Type2 RNA Result Negative (Negative); Parainfluenza Type3 RNA Result Negative (Negative); Parainfluenza Type4 RNA Result Negative (Negative); Rhinovirus RNA Result Negative (Negative)
[2023-05-07] MEDS: CEFEPIME 2 GM in Normal Saline 100 ML IVPB ×3 (04:44→20:12)
[2023-05-07 06:54] LABS: HCT 26.8 % (40.0-50.0); MCH 29.2 pg (27.0-33.0); MCHC 33.6 % (32.0-36.0); MCV 87 fL (80-95); RBC 3.08 10^6/uL (4.36-5.78); RDW 18.2 % (11.8-14.1); RDW-SD 58.4 fL; WBC 2.99 10^3/uL (4.4-10.8)
[2023-05-07 07:04] LABS: Platelet Count 15 10^3/uL (130-400)
[2023-05-07 07:17] LABS: Anion Gap 10.3 mmol/L (3-11); BUN 38 mg/dL (7-18); CO2 21.7 mmol/L (21.0-32.0); CREATININE 1.5 mg/dL (0.70-1.30); Calcium 7.7 mg/dL (8.5-10.1); Chloride 97 mmol/L (98-107); Estimated GFR 47.06 (mL/min/1.73m2); Glucose 281 mg/dL (74-106); Magnesium 2.2 mg/dL (1.8-2.4); Potassium 4.1 mmol/L (3.5-5.1); Sodium 129 mmol/L (136-145)
[2023-05-07 07:22] LABS: Absolute Lymphocyte Count 0.21 10^3/uL (1.2-3.4); Absolute Neutrophil Count 2.48 10^3/uL (1.2-6.7); Atypical Lymphocytes % 2; Bands % 54
[2023-05-07 07:24] LABS: RBC Morphology Normal; Troponin I 265 ng/L (<or=60)
[2023-05-07 07:26] LABS: Diff Comment Diff Reviewed
[2023-05-07] MEDS: Budesonide/Formoterol 80/4.5 6.9 GM 60 PUFF INH IH ×2 (08:14→19:09)
[2023-05-07] MEDS: Tiotropium Bromide-Respimat 10 PUFF INH 2 PUFF IH (08:14)
[2023-05-07] MEDS: predniSONE 20 MG TAB 40 MG PO (08:19)
[2023-05-07] MEDS: Multivitamin TAB 1 TAB PO (08:20)
[2023-05-07] MEDS: Polyethylene Glycol 3350 17 GM PACKET PO (08:20)
[2023-05-07] MEDS: Citalopram 20 MG TAB PO (08:20)
[2023-05-07] MEDS: Omeprazole 20 MG CAPCR PO (08:20)
[2023-05-07] MEDS: Insulin Glargine 300 UNITS/3 ML PEN 8 UNITS SC (08:21)
[2023-05-07] MEDS: Insulin Aspart 300 UNITS/3 ML PEN SC ×4 (08:21→21:18)
--- NOTE | 2023-05-07 08:28 | W.PM.PROGNOT ---
Date of Service Date of service: 05/07/23 Time of Service: 08:28 Assessment and Plan Assessment and plan (1) Neutropenic fever: Status: Acute Assessment and plan: now afebrile since yesterday afternoon. WBC up to 2.99 and ANC up to 2.48. continue Filgastrim. continue Cefepime, Doxycycline, consider dc Vancomycin particularly if MRSA screen is negative (was not done on admisssion, I have added); urine strep antigen and mycoplasma studies along w/ fungal studies are all pending. Influenza, parainfluenza, rhinovirua and metapnuemovirus all were negative. Sputm gram stain few gpc but many epithelial cells so not acceptable specimen. Clinically he feels better, not dyspneic and no longer requiring oxygen. continue current broad spectrum antibiotics for now for empiric treatment for pneumonia. I will discuss w/ Dr. Villanueva whether or not she still feels that he needs bronchoscopy. (2) Hypoxia: Status: Acute Assessment and plan: resolved. now on room air w/ SPO2 of 98%. Suspect d/t pneumonia superimposed on his COPD and pulmonary fibrosis. (3) Pancytopenia: Status: Acute Assessment and plan: improving. will give another transufsion of platelets. continue Filgastrim until ANC reaches 10,000. (4) Elevated troponin: Status: Acute Assessment and plan: suspect d/t type II demand ischemia from infection/hypoxia. LV function was normal on his echocardiogram. Patient was not candidate for DAPT anyway d/t his pancytopenia (5) Combined pulmonary fibrosis and emphysema (CPFE): Status: Chronic Assessment and plan: continue LABA/LAMA/ICS (was on Trelegy at home, now on Symbicort and Spiriva) (6) Primary lung cancer of unknown cell type: Status: Acute Assessment and plan: On chemo/XRT. C/s palliative care and pulmonology (7) Diabetes: Assessment and plan: glucose running high in the 200's to 300 range. I have increased his Lantus but will also increase his novolog scale to high dose. Also add NPH while on prednisone. (dose of 0.5 units per 1 mg prednisone) (8) Hyponatremia: Status: Acute Assessment and plan: improving since given lasix and on fluid restriction. 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 Subjective Subjective Interval history since last seen: Marlo denies any dyspnea, cough is minimal and nonproductive. He is constipated. He complains that his prednisone dose and his subsequent glucose is too high. I explained to him that the prednisone dose was increased in response to the acute pulmonary inflammation but that we would be tapering this down. As for his glucose, I have increased his Lantus and will add NPH to his regimen to cover his prednisone. As for the constipation we will get him on a good bowel regimen. He has not noticed any further bleeding other than the blood on his shorts on admission. Exam Narrative Exam Narrative: Patient is alert/ oriented, eating his breakfast, his phoned him while I was in the room and I answered his and her questions. I explained to them both that his WBC have responded to the Filgrastim and his Hb is up since his transfusion but his platelets are still low at 15,000 Lungs: clear anteriorly and in upper [place] posteriorly but w/ some bibasilar rales; no rhonchi or wheezing Heart: RRR, no appreciable murmur or rub Abdomen: soft, nontender Legs/feet: no edema or cyanosis; he has bilateral chronic venous skin changes w/ darkening pigment Objective Last Vital Signs Temp 36.2 C L 05/07/23 07:57 Pulse 66 05/07/23 07:57 Resp 20 05/07/23 07:57 BP 118/63 05/07/23 07:57 Pulse Ox 98 05/07/23 07:57 Laboratory Results - last 24 hr 05/05/23 05/05/23 05/06/23 10:01 14:00 05:25 WBC RBC Hgb Hct MCV MCH MCHC RDW Plt Count MPV Immature Gran % Neutrophils % Band Neutrophils % Lymphocytes % Atypical Lymphs % Monocytes % Eosinophils % Basophils % Nucleated RBC % Absolute Neutrophils Absolute Lymphocytes Absolute Monocytes Absolute Eosinophils Absolute Basophils RBC Morphology Sodium Potassium Chloride Carbon Dioxide Anion Gap BUN Creatinine Est GFR (CKD-EPI 2020) Glucose Calcium Magnesium Troponin I Adenovirus DNA Human Metapneumovir RNA Urine Legionella Ag Negative Parainfluenza 1 (PCR) Parainfluenza 2 (PCR) Parainfluenza 3 (PCR) Parainfluenza 4 (PCR) Resp Viral Spec Desc Rhinovirus (PCR) Path Cons Comment SEE COMMENT Patient ABO/Rh O Positive Antibody Screen Crossmatch 05/06/23 05/06/23 05/06/23 08:50 10:15 15:50 WBC RBC Hgb Hct MCV MCH MCHC RDW Plt Count MPV Immature Gran % Neutrophils % Band Neutrophils % Lymphocytes % Atypical Lymphs % Monocytes % Eosinophils % Basophils % Nucleated RBC % Absolute Neutrophils Absolute Lymphocytes Absolute Monocytes Absolute Eosinophils Absolute Basophils RBC Morphology Sodium Potassium Chloride Carbon Dioxide Anion Gap BUN Creatinine Est GFR (CKD-EPI 2020) Glucose Calcium Magnesium Troponin I 377 H* Adenovirus DNA Negative Human Metapneumovir RNA Negative Urine Legionella Ag Parainfluenza 1 (PCR) Negative Parainfluenza 2 (PCR) Negative Parainfluenza 3 (PCR) Negative Parainfluenza 4 (PCR) Negative Resp Viral Spec Desc Not Applicable Rhinovirus (PCR) Negative Path Cons Comment Patient ABO/Rh O Positive Antibody Screen NEGATIVE Crossmatch See Detail 05/07/23 05/07/23 06:40 06:40 WBC 2.99 L RBC 3.08 L Hgb 9.0 L D Hct 26.8 L MCV 87 MCH 29.2 MCHC 33.6 RDW 18.2 H Plt Count 15 L* MPV Immature Gran % 0.0 Neutrophils % 29.0 Band Neutrophils % 54 Lymphocytes % 5.0 Atypical Lymphs % 2 Monocytes % 10.0 Eosinophils % 0.0 Basophils % 0.0 Nucleated RBC % 0.0 Absolute Neutrophils 2.48 Absolute Lymphocytes 0.21 L Absolute Monocytes 0.30 Absolute Eosinophils 0.00 Absolute Basophils 0.00 RBC Morphology Normal Sodium 129 L Potassium 4.1 Chloride 97 L Carbon Dioxide 21.7 Anion Gap 10.3 BUN 38 H Creatinine 1.5 H Est GFR (CKD-EPI 2020) 47.06 Glucose 281 H Calcium 7.7 L Magnesium 2.2 Troponin I 265 H* Adenovirus DNA Human Metapneumovir RNA Urine Legionella Ag Parainfluenza 1 (PCR) Parainfluenza 2 (PCR) Parainfluenza 3 (PCR) Parainfluenza 4 (PCR) Resp Viral Spec Desc Rhinovirus (PCR) Path Cons Comment Patient ABO/Rh Antibody Screen Crossmatch Time Spent with Patient Time Spent with Patient: 35-49 minutes Time was spent: preparing to see the patient(eg.review tests), ordering medications,tests, procedures, referring, communicating with other health respiratory care faculty, indepentently interpreting results, counseling the patient (and patient's ) and care coordination
[2023-05-07] MEDS: Docusate Sodium 100 MG CAP PO ×2 (08:51→20:02)
--- NOTE | 2023-05-07 09:20 | W.PALLCONSUL ---
Date of service: 05/07/23 Time of Service: 09:05 History of Present Illness Narrative: Marlo is a 77 year old man with Lung cancer, who is currently admitted to [facility] for neurotpenic fever. He has been seen by Palliative care in the past. He saw Amanda Mason in 02/2023. During that visit, he stated that he would not want to pursue cancer directed treatment. He has since received chemo and radiation. He was quite ill and was being considered for transfer to [facility] [place] Bronch[place] yesterday, if he did not improve in the following 24 hours. Today, he is no longer febrile and his counts are improving, thus, he may not require transfer to [facility]. Palliative was consulted for continuity of care. He states he is questioning if he made the right choice when he chose to pursue chemo and radiation because of how sick he is now. We discussed the idea of going to [facility] for bronchoscopy and he is clear, at this time, that he is not interested in this. He states he would not want to go through that again. He feels he is deconditioning quickly, laying in the hospital bed for days. He wishes to get moving. PT is consulted and it appears they will be working with him. Another concern that he has is that he has not had a BM since prior to admission (4-5 days). He believes moving more would help with his bowels. He feels like he may have a BM soon. We discussed what his goals are at this point. He wishes to continue with chemo and radiation for now. He has previously established that he is a DNR/DNI. He agrees that it will be helpful to have palliative involved in his care. Assessment and Plan Assessment and plan (1) Neutropenic fever: Status: Acute Assessment and plan: Afebrile since yesterday afternoon. WBC and ANC improving. He is feeling better. (2) Hypoxia: Status: Acute Assessment and plan: Resolved. (3) Pancytopenia: Status: Acute Assessment and plan: Improving. (4) Elevated troponin: Status: Acute Assessment and plan: suspect d/t type II demand ischemia from infection/hypoxia. LV function was normal on his echocardiogram. 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 Previously established with Palliative care. (7) Diabetes: (8) Hyponatremia: Status: Acute (9) Hypomagnesemia: Status: Resolved (10) Palliative care patient: Status: Acute Assessment and plan: Previously established with Amanda Mason. He is feeling better, he is no longer afebrile, his WBC and ANC are improving. He would like to get moving. He feels he is deconditioning quickly in bed. He does not want bronchoscopy. He plans to continue with cancer directed treatment with chemo/XRT. He has previously established that he is a DNR/DNI. He will follow up with Palliative either while inpatient or after discharge. Review of Systems Narrative: Feels fatigued. Denies SOB. Denies pain. His appetite is getting better. He was able to eat a small breakfast and tolerate it this morning. PFSH All Active Problems Abnormal chest xray (Acute) Lung cancer (Chronic) Elevated troponin (Acute) Discharge planning issues (Acute) DVT prophylaxis (Acute) Dehydration (Acute) Hyponatremia (Acute) Pancytopenia (Acute) Hypoxia (Acute) Neutropenic fever (Acute) Fever (Acute) Former smoker (Acute) Primary lung cancer of unknown cell type (Acute) 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) Lung mass (Acute) Tobacco use disorder (Acute) Impotence (Acute) of organic origin Constipation (Acute) Insomnia, persistent (Acute) Parotid mass (Acute) Hx of sciatica (Acute) Leg weakness (Acute) Peripheral vascular disease with claudication (Acute) Chronic leg pain (Acute) History of pathological fracture of vertebra (Acute) Depression (Chronic) Weight loss (Acute) Polymyalgia (Acute) Benign prostatic hyperplasia (Chronic) Solitary lung nodule (Acute) MDS (myelodysplastic syndrome) (Acute) Polymyalgia rheumatica (Acute) Palliative care patient (Acute) Positive colorectal cancer screening using Cologuard test (Acute) Iron deficiency anemia due to chronic blood loss (Acute) Left sided sciatica (Acute) Chronic pain of left groin (Acute) Bilateral leg pain (Acute) Right groin pain (Acute) Mild depression (Chronic) Anemia (Chronic) Sciatica of left side (Acute) Unsteady gait when walking (Acute) Internal hemorrhoids (Acute) Benzodiazepine dependence (Acute) Smoker unmotivated to quit (Acute) DNI (do not intubate) (Acute) DNR (do not resuscitate) (Acute) POLST (Physician Orders for Life-Sustaining Treatment) (Acute) signed 03/18/21 Fecal urgency (Acute) History of hemorrhoidectomy (Chronic) GI bleeding (Chronic) Palliative care patient (Acute) Type I diabetes mellitus (Acute) Medical History Anxiety Diabetes Goals of care, counseling/discussion HTN (hypertension) Hx of hyperlipidemia Surgical History Fingertip amputation History of cataract surgery History of tonsillectomy Family History Father , in his early 80s uncertain cause of No problems noted. Mother , age 77 Pancreatic cancer Sister No problems noted. Brother No problems noted. Sister Alcohol abuse Sister No problems noted. Brother Prostate cancer Sister CFIDS (chronic fatigue and immune dysfunction syndrome) Sister , of colon cancer late 50s Colon cancer Sister No problems noted. Sister No problems noted. Son Age: 36 No problems noted. Social History Smoking/Tobacco Use Status: Current every day Tobacco Type: cigarettes Tobacco: How many years used: 60 Quit status: not considering quitting Counseling given: provider counseling Smoking risk assessment performed?: Yes Alcohol Intake: current Alcohol Intake frequency: holidays/special occasions only Alcohol type: beer Drug use: Rarely Substance use type: marijuana Caregiver/Support person: Yes Household members: spouse and children Housing: house Number of Children: 1 number of grandchildren: 0 Communication Needs: Corrective Lenses Education Level: college Do you need help understanding health information?: Rarely 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, 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 Pets and animals: Yes Pets and animals: farm animals Do you think of yourself as: straight/heterosexual What is your relationship status?: How often do you talk on the phone with friends or family?: once per week How often do you get together with friends or relatives?: three or more times per week Panel score (0-1 are the most socially isolated patients): 2 What type of physical activity do you participate in: walking, irregular exercise and additional Details: used to play golf regularly; not since summer 2018 Duration: 15-30 minutes/day Frequency: 1-2 times per week Special li needs: No Seatbelt use: always Working smoke detector in home: Yes Fire extinguisher in home: Yes Do you feel safe at home: Yes Do you feel safe in your relationship?: Yes Additional Social history: Marlo lives in a house on land 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 He lives with his , Ngoc; their son, Carlton, lives downstairs. 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 He continues to smoke and is not interested in quitting. He does see Dr Casper for his recurrent hemorrhoids and GI bleeding. If he has colon cancer, he does not want any treatment. He will not have a colonoscopy. Exam Narrative Exam Narrative: General: very pleasant, older man, sitting up in his hospital bed. Appears fatigued. He was alone at the time of the visit. He engages in the visit. His speech is clear and articulate. HEENT: normocephalic, atraumatic, EOMI, mmm. Neck: supple. Respiratory: Respirations appear even and unlabored. Extremities: Moves all 4 extremities freely. Results Last Vital Signs Temp 36.2 C L 05/07/23 07:57 Pulse 66 05/07/23 07:57 Resp 20 05/07/23 07:57 BP 118/63 05/07/23 07:57 Pulse Ox 98 05/07/23 07:57 Labs 05/09/23 13:30 05/08/23 06:14 Labs: Laboratory Results - last 24 hr 05/05/23 05/05/23 05/06/23 10:01 14:00 05:25 WBC RBC Hgb Hct MCV MCH MCHC RDW Plt Count MPV Immature Gran % Neutrophils % Band Neutrophils % Lymphocytes % Atypical Lymphs % Monocytes % Eosinophils % Basophils % Nucleated RBC % Absolute Neutrophils Absolute Lymphocytes Absolute Monocytes Absolute Eosinophils Absolute Basophils RBC Morphology Sodium Potassium Chloride Carbon Dioxide Anion Gap BUN Creatinine Est GFR (CKD-EPI 2020) Glucose Calcium Magnesium Troponin I Adenovirus DNA Human Metapneumovir RNA Urine Legionella Ag Negative Parainfluenza 1 (PCR) Parainfluenza 2 (PCR) Parainfluenza 3 (PCR) Parainfluenza 4 (PCR) Resp Viral Spec Desc Rhinovirus (PCR) Path Cons Comment SEE COMMENT Patient ABO/Rh O Positive Antibody Screen Crossmatch 05/06/23 05/06/23 05/06/23 08:50 10:15 15:50 WBC RBC Hgb Hct MCV MCH MCHC RDW Plt Count MPV Immature Gran % Neutrophils % Band Neutrophils % Lymphocytes % Atypical Lymphs % Monocytes % Eosinophils % Basophils % Nucleated RBC % Absolute Neutrophils Absolute Lymphocytes Absolute Monocytes Absolute Eosinophils Absolute Basophils RBC Morphology Sodium Potassium Chloride Carbon Dioxide Anion Gap BUN Creatinine Est GFR (CKD-EPI 2020) Glucose Calcium Magnesium Troponin I 377 H* Adenovirus DNA Negative Human Metapneumovir RNA Negative Urine Legionella Ag Parainfluenza 1 (PCR) Negative Parainfluenza 2 (PCR) Negative Parainfluenza 3 (PCR) Negative Parainfluenza 4 (PCR) Negative Resp Viral Spec Desc Not Applicable Rhinovirus (PCR) Negative Path Cons Comment Patient ABO/Rh O Positive Antibody Screen NEGATIVE Crossmatch See Detail 05/07/23 05/07/23 06:40 06:40 WBC 2.99 L RBC 3.08 L Hgb 9.0 L D Hct 26.8 L MCV 87 MCH 29.2 MCHC 33.6 RDW 18.2 H Plt Count 15 L* MPV Immature Gran % 0.0 Neutrophils % 29.0 Band Neutrophils % 54 Lymphocytes % 5.0 Atypical Lymphs % 2 Monocytes % 10.0 Eosinophils % 0.0 Basophils % 0.0 Nucleated RBC % 0.0 Absolute Neutrophils 2.48 Absolute Lymphocytes 0.21 L Absolute Monocytes 0.30 Absolute Eosinophils 0.00 Absolute Basophils 0.00 RBC Morphology Normal Sodium 129 L Potassium 4.1 Chloride 97 L Carbon Dioxide 21.7 Anion Gap 10.3 BUN 38 H Creatinine 1.5 H Est GFR (CKD-EPI 2020) 47.06 Glucose 281 H Calcium 7.7 L Magnesium 2.2 Troponin I 265 H* Adenovirus DNA Human Metapneumovir RNA Urine Legionella Ag Parainfluenza 1 (PCR) Parainfluenza 2 (PCR) Parainfluenza 3 (PCR) Parainfluenza 4 (PCR) Resp Viral Spec Desc Rhinovirus (PCR) Path Cons Comment Patient ABO/Rh Antibody Screen Crossmatch
[2023-05-07] MEDS: DOXYCYCLINE 100 MG in Normal Saline 100 ML IVPB ×2 (10:33→21:17)
[2023-05-07] MEDS: Insulin NPH-Human 300 UNITS/3 ML PEN 20 UNIT SC (10:34)
[2023-05-07] MEDS: Senna TAB 1 TAB PO ×2 (10:34→21:17)
--- NOTE | 2023-05-07 10:42 | CMPROGNOTE_ITS ---
Date of service: 05/07/23 Time of Service: 10:42 Care Management Progress Note Progress Note Text Progress Note Text: S/O: Marlo continues to require close monitoring and treatment with Cefepime and Doxycyclin. Further medical workup is required. Per provider, pt needed more platelets, insulin is being adjusted. Bronchoscopy is being considered. CM is awaiting a return call from patients . A: 77 year old male admitted to [facility] on 05/05/23 for Neutropenic fever, hypoxia, Pancytopenia P: PT recommends [facility] PT on discharge. Anticipate, Marlo will discharge home with New [facility] PT (RN if indicated) when medically ready per Hospitalist. Marlo will need close follow up with Community providers and Oncology. CM will continue to support patient and discharge plan.
[2023-05-07 13:29] LABS: Glucose 394 mg/dL (74-106)
--- NOTE | 2023-05-07 15:48 | PT.INTREAT ---
Date of service: 05/07/23 Time of Service: 14:28 PT Notes Visit Reasons: Neutropenic Fever, Lung Cancer Inpatient Physical Therapy Treatment Note [facility] Date: 05/07/23 PRECAUTIONS: Fall, standard, activity as tolerated, protective precautions, IV access with IV attached. SUBJECTIVE: Patient sitting up in chair, eager to participate in therapy, states he has got to get moving and that he thinks moving his body more will help his bowels move. OBJECTIVE: PAIN: none reported BED MOBILITY/TRANSFERS Sit-stand: SBA Stand-sit: SBA Bed-Chair: CGA Chair-bed: CGA GAIT Assistive Device: none Weight bearing: full Assist: CGA with gait belt Distance: 60 feet within room due to protective precautions in place. Deviation: 1x LOB which patient is able to recover without assistance. May have been due to IV pole. Patient touches foot of bed every time he passes it, unclear if this is for balance or simply comfort. VITALS: monitored by nursing staff. THEREX: 2x5 sit to stands, 2x10 standing heel raises with FWW for balance, 1x10 LAQ's, 1x10 quad sets x3 second hold. Patient does become short of breath with exertion, denies fatigue. Education provided on importance of rest and recovery between exercise sets. NEURO KOMAL: Balance test; patient able to hold comfortable unsupported stance, which is fairly wide, easily for 10 seconds. Narrow LORE (feet together) 10 seconds, half tandem left foot forward 10 seconds, right foot forward <10 seconds, full tandem unable, SLS unable. ASSESSMENT: Patient tolerates therapy well. Reports minimal fatigue at end of session. PLAN: Continue progressing per plan of care until patient is medically cleared for discharge. Per PT Nel Cisse, Patient may ambulate in halls provided patient wears surgical mask, nitrile gloves, gown for patient's safety. TREATMENT CODE/TIME: 53245 Gait 14 minutes, 80892 Ther Ex 14 minutes beginning at 14:28
[2023-05-07] MEDS: VANCOMYCIN/WATER (PEG) 1 GM/200 ML BAG IV (17:05)
[2023-05-07] MEDS: Simvastatin 20 MG TAB PO (20:02)
[2023-05-07] MEDS: amLODIPine 10 MG TAB PO (20:03)
[2023-05-07] MEDS: Insulin Glargine 300 UNITS/3 ML PEN 12 UNITS SC (21:17)
[2023-05-08] VITALS (12 sets, daily range): BP systolic 121–144; BP diastolic 53–71; PULSE 60–70; RESP 16–20; TEMP 35.6–36.6; O2SAT 95–98
[2023-05-08 00:49] LABS: Fungitell Qualitative Negative (Negative); Fungitell Quantitative Value <31 pg/mL (<60 pg/mL)
[2023-05-08] MEDS: CEFEPIME 2 GM in Normal Saline 100 ML IVPB ×3 (05:36→20:31)
[2023-05-08 07:11] LABS: HCT 24.8 % (40.0-50.0); HGB 8.3 g/dL (13.5-17.5); MCHC 33.5 % (32.0-36.0); MCV 87 fL (80-95); RBC 2.86 10^6/uL (4.36-5.78); RDW 18.1 % (11.8-14.1); RDW-SD 57.5 fL; WBC 5.25 10^3/uL (4.4-10.8)
[2023-05-08 07:24] LABS: BUN 50 mg/dL (7-18); CREATININE 1.8 mg/dL (0.70-1.30); Calcium 7.7 mg/dL (8.5-10.1); Chloride 100 mmol/L (98-107); Estimated GFR 37.82 (mL/min/1.73m2); Glucose 109 mg/dL (74-106); Potassium 3.5 mmol/L (3.5-5.1); Sodium 132 mmol/L (136-145)
[2023-05-08] MEDS: Multivitamin TAB 1 TAB PO (07:28)
[2023-05-08] MEDS: predniSONE 20 MG TAB 40 MG PO (07:28)
[2023-05-08] MEDS: Omeprazole 20 MG CAPCR PO (07:29)
[2023-05-08] MEDS: Citalopram 20 MG TAB PO (07:29)
[2023-05-08] MEDS: Docusate Sodium 100 MG CAP PO ×2 (07:29→20:30)
--- NOTE | 2023-05-08 07:30 | PGE_ITS ---
Date of Service Date of service: 05/08/23 Time of Service: 07:31 Assessment and Plan Assessment and plan (1) Neutropenic fever: Status: Acute Assessment and plan: Afebrile since The afternoon of 05/06/2023 Morning labs are pending at this time. However his WBCs and ANC were improving yesterday He is feeling better. I expect he will be able to be discharged later today on oral antibiotics for presumptive treatment of community quired Monia. (2) Hypoxia: Status: Acute Assessment and plan: Resolved. (3) Pancytopenia: Status: Acute Assessment and plan: Improving. (4) Elevated troponin: Status: Acute Assessment and plan: suspect d/t type II demand ischemia from infection/hypoxia. LV function was normal on his echocardiogram. 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 Continue prednisone taper. Currently on prednisone 40 mg daily. Continue this for 7 days then decrease to 30 mg daily for 5 days and 20 mg daily for 5 days then maintain on 10 mg daily and follow-up with Dr. Simeon marroquin. (6) Primary lung cancer of unknown cell type: Status: Acute Assessment and plan: On chemo/XRT. Previously established with Palliative care. (7) Diabetes: (8) Hyponatremia: Status: Acute (9) Hypomagnesemia: Status: Resolved (10) Palliative care patient: Status: Acute Assessment and plan: Previously established with Amanda Mason. He is feeling better, he is no longer afebrile, his WBC and ANC are improving. He would like to get moving. He feels he is deconditioning quickly in bed. He does not want bronchoscopy. He plans to continue with cancer directed treatment with chemo/XRT. He has previously established that he is a DNR/DNI. He will follow up with Palliative either while inpatient or after discharge. Subjective Subjective Interval history since last seen: Marlo is feeling markedly better no shortness of breath no pain. Finally had a bowel movement yesterday. SPO2 is 98% on room air. No cough. We are awaiting his morning lab work.MRSA screen is pending blood cultures remain no growth. Exam Narrative Exam Narrative: Marlo is alert and oriented sitting up in bed awaiting his breakfast. Lungs are clear to auscultation Heart regular rate and rhythm with a faint soft systolic murmur over the apex no thrill or heave or gallop Abdomen normal bowel sounds soft and nontender Objective Last Vital Signs Temp 35.8 C L 05/08/23 06:06 Pulse 65 05/08/23 06:06 Resp 18 05/08/23 06:06 BP 121/67 05/08/23 06:06 Pulse Ox 98 05/08/23 06:06 Laboratory Results - last 24 hr 05/05/23 05/06/23 05/06/23 14:00 08:50 15:50 Glucose Adenovirus DNA Negative Human Metapneumovir RNA Negative Urine Legionella Ag Negative Parainfluenza 1 (PCR) Negative Parainfluenza 2 (PCR) Negative Parainfluenza 3 (PCR) Negative Parainfluenza 4 (PCR) Negative Resp Viral Spec Desc Not Applicable Rhinovirus (PCR) Negative Patient ABO/Rh O Positive Antibody Screen NEGATIVE Crossmatch See Detail 05/07/23 13:08 Glucose 394 H Adenovirus DNA Human Metapneumovir RNA Urine Legionella Ag Parainfluenza 1 (PCR) Parainfluenza 2 (PCR) Parainfluenza 3 (PCR) Parainfluenza 4 (PCR) Resp Viral Spec Desc Rhinovirus (PCR) Patient ABO/Rh Antibody Screen Crossmatch Time Spent with Patient Time Spent with Patient: 25-34 minutes Time was spent: preparing to see the patient(eg.review tests), ordering medications,tests, procedures, indepentently interpreting results, counseling the patient and care coordination
[2023-05-08] MEDS: Insulin Glargine 300 UNITS/3 ML PEN 12 UNITS SC ×2 (07:39→20:33)
[2023-05-08 08:08] LABS: Absolute Lymphocyte Count 0.53 10^3/uL (1.2-3.4); Absolute Monocyte Count 0.21 10^3/uL (0.1-0.8); Absolute Neutrophil Count 4.52 10^3/uL (1.2-6.7); Anisocytosis 1+; Bands % 42; Diff Comment Manual Differential; Platelet Count 13 10^3/uL (130-400)
[2023-05-08 08:09] LABS: Poikilocytes 1+
[2023-05-08] MEDS: Normal Saline Flush 10 ML SYR IVP ×2 (08:44→09:32)
[2023-05-08] MEDS: DOXYCYCLINE 100 MG in Normal Saline 100 ML IVPB ×2 (09:31→20:30)
[2023-05-08] MEDS: Normal Saline 500 ML 30 ML IV (09:32)
--- NOTE | 2023-05-08 10:29 | PT.INNT ---
PT Notes Visit Reasons: Neutropenic Fever, Lung Cancer PT refused therapy services this morning, reports he has been walking inside his room by himself, looking forward to going home today and would like to save his energy for his trip going back home.
[2023-05-08] MEDS: Insulin Aspart 300 UNITS/3 ML PEN SC ×3 (11:44→20:31)
--- NOTE | 2023-05-08 15:12 | PDOC.CMDIS ---
Date of service: 05/08/23 Time of Service: 15:12 Care Management Discharge Plan Reason for Hospitalization: Neutropenic fever, hypoxia, Pancytopenia
[2023-05-08] MEDS: VANCOMYCIN/WATER (PEG) 1 GM/200 ML BAG IV (18:29)
[2023-05-08] MEDS: amLODIPine 10 MG TAB PO (20:29)
[2023-05-08] MEDS: Simvastatin 20 MG TAB PO (20:30)
[2023-05-08] MEDS: Senna TAB 1 TAB PO (20:34)
[2023-05-09] MEDS: Glucose Oral Gel 15 GM/37.5 GM TUBE PO (04:24)
[2023-05-09] MEDS: CEFEPIME 2 GM in Normal Saline 100 ML IVPB ×2 (04:25→12:52)
--- NOTE | 2023-05-09 05:05 | NUR.NOTE ---
Nursing Note: Pt put call light on @ roughly 0410. This nurse answered light and pt reported feeling that his BS was low and that his dexcom had alerted him. FS was 56. [place] juice, apple juice, and 1/2 tube of oral glucose given due to pt refusing other half. 15 minutes later recheck FS 68. Pt encouraged to take other half of oral glucose and he agreed. Recheck FS 105. Pt reported starting to feel better and wished to go back to sleep. WCTM.
[2023-05-09 07:35] VITALS: BP 121/66; PULSE 75; RESP 18; TEMP 36.5; O2SAT 95
[2023-05-09] MEDS: Polyethylene Glycol 3350 17 GM PACKET PO (07:46)
[2023-05-09] MEDS: Docusate Sodium 100 MG CAP PO (07:46)
[2023-05-09] MEDS: Citalopram 20 MG TAB PO (07:46)
[2023-05-09] MEDS: Omeprazole 20 MG CAPCR PO (07:46)
[2023-05-09] MEDS: Multivitamin TAB 1 TAB PO (07:46)
[2023-05-09] MEDS: predniSONE 20 MG TAB 40 MG PO (07:46)
[2023-05-09] MEDS: Insulin Glargine 300 UNITS/3 ML PEN 12 UNITS SC (07:49)
[2023-05-09 07:56] LABS: Abs Immature Grans 0.05 10^3/uL (0.0-0.06); Absolute Basophil Count 0.01 10^3/uL (0.0-0.2); Absolute Neutrophil Count 1.89 10^3/uL (1.2-6.7); Basophils % 0.3; HCT 22.3 % (40.0-50.0); HGB 7.3 g/dL (13.5-17.5); Immature Grans % 1.5; Lymphocytes % 15.4; MCHC 32.7 % (32.0-36.0); MCV 89 fL (80-95); Monocytes % 24.6; Neutrophils % 58.2; Nucleated RBC 0.6 % (0.0-0.3); RBC 2.52 10^6/uL (4.36-5.78); RDW 18.3 % (11.8-14.1); RDW-SD 58.7 fL; WBC 3.25 10^3/uL (4.4-10.8)
--- NOTE | 2023-05-09 08:41 | PT.INNT ---
PT Notes Visit Reasons: Neutropenic Fever, Lung Cancer Pt refused PT session, pt very disappointed that he was not able to go home yesterday, reports he walks all the time and doesn't need assistance for the duration of his stay.
[2023-05-09 08:53] LABS: Anisocytosis 1+; Diff Comment RBC Morph Reviewed; Platelet Count 19 10^3/uL (130-400)
[2023-05-09 08:54] LABS: Poikilocytes 1+
[2023-05-09] MEDS: DOXYCYCLINE 100 MG in Normal Saline 100 ML IVPB (10:05)
[2023-05-09] MEDS: Normal Saline Flush 10 ML SYR IVP (10:08)
[2023-05-09] MEDS: Insulin Aspart 300 UNITS/3 ML PEN SC (11:57)
[2023-05-09 13:37] LABS: HCT 23.6 % (40.0-50.0); HGB 7.7 g/dL (13.5-17.5)
[2023-05-09 13:37] LABS: Vancomycin, Random 12.7 ug/mL
[2023-05-09 14:43] VITALS: BP 134/58; PULSE 69; RESP 14; TEMP 35.9; O2SAT 96
--- NOTE | 2023-05-09 15:02 | CMDISCH_ITS ---
LACE Index Scoring Tool Questions: Length of Stay (in days): 4 - 6 Was the patient admitted via the E.D.?: Yes Comorbidities: Diabetes w/o Complication and Any Tumor E.D. Visits: 1 Answers: Total Score: 11 Risk of Readmission: High Risk Care Management Discharge Plan Reason for Hospitalization: Neutropenic fever, hypoxia, Pancytopenia Discharge Plan: Marlo will discharge [facility] He will follow up with his PCP, Oncology and his plan of care as prescribed. He will transport via private vehicle with family. Patient/Family Education Needs: Review of discharge instructions, discuss Ask Me Three. Services Needed at Discharge: Home Health Care Services
--- NOTE | 2023-05-09 15:44 | DSE_ITS ---
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 (6) Primary lung cancer of unknown cell type: Status: Acute (7) Diabetes: (8) Hyponatremia: Status: Acute (9) Hypomagnesemia: Status: Resolved (10) Palliative care patient: Status: Acute Discharge Plan Disposition Patient Disposition: Home W/Home Health Services Condition: Improving Discharge Details Reason For Visit: Neutropenic Fever, Lung Cancer Admit Date/Time: 05/05/23 12:08 Admit Provider: Wendy Pena Attending Provider: Wendy Pena Primary Care Provider: Sebastián Leach [facility] Hospital Course: 77-year-old male with a history of pulmonary fibrosis emphysema type 1 diabetes mellitus hypertension right upper lobe lung mass with inconclusive biopsy pos sibly neuroendocrine tumor versus lymphoma who was admitted to the hospital for neutropenic fever. He had temp to 39.1 and he was neutropenic with an ANC of 210 and thrombocytopenia with platelet count 42,000. He was also hyponatremic at sodium 128 and hypomagnesemic at 1.6. He was mildly dehydrated with elevated creatinine 1.4. He tested negative for COVID-19. He was started on cefepime and vancomycin and was admitted for presumptive treatment of pneumonia and neutropenic fever. Blood cultures were obtained and came back no growth. Culture from May 05, 2023 and May 06, 2023 came back negative. Sputum culture was ordered but then canceled as the Gram stain showed contamination with many epithelial cells rare white cells and a few gram-positive cocci. MRSA screen was negative for MRSA. Vancomycin was discontinued cefepime was continued at 2 g every 8 hours. Initially he was hypoxic down to a saturation of 73% and he required supplemental oxygen with a simple nasal cannula. Maximum oxygen requirement was 4 L/min per nasal cannula. But by 05/07/2023 he was weaned down to room air and feeling markedly better. However his hospital course was complicated by his anemia and thrombocytopenia. Platelet count reached a shila of 13,000 and he required multiple transfusions of platelets cells. On 05/06/2023 he was transfused 1 unit packed red cells and 1 unit of platelets. But he required subsequent platelet transfusions on 05/07/2023 and 05/08/2023. The time of discharge his platelet count was up to 19,000. At the time of discharge his hemoglobin was 7.7 g. His highest fever was 40.3 on 05/06/2023 but by the evening of 05/06/2023 he had become afebrile and he remained afebrile rest of his hospital course. His hypoxemia resolved. He was treated with a course of prednisone 40 mg daily which will be tapered down. He was seen in consultation by pulmonology. Dr. Symone Villanueva saw him on 05/06/2023 see her note for her recommendations. She recommended treat with cefepime doxycycline and vancomycin. She ordered Fungitell and expanded viral panel and urine antigens for blastomycosis and histoplasmosis and she was Preciado and recommend restarting his prednisone. Reena panchalnt previously been on a daily dose of prednisone 10 mg. She recommended resumption of an inhaled corticosteroid along with the long-acting beta agonist and long-acting muscarinic agent. Patient previously been on Trelegy and we substituted Symbicort and Spiriva while he was hospitalized. Albuterol aerosols ordered as needed. He was treated with IV doxycycline in addition to the vancomycin and cefepime. When his MRSA screen came back negative we will stop the vancomycin. Patient was doing markedly better was no longer dyspneic not having any fever or chills and as his blood cultures came back no growth and he was not bringing up any purulent sputum he was pretty much back to his baseline at this point so he was discharged home for completion of 7 more days of antibiotics with Augmentin 875 mg twice a day and doxycycline 100 mg twice a day. He will be placed on a taper dose of prednisone at 40 mg daily for 5 days then decrease to 30 mg daily for 5 days then 20 mg daily for 5 days and then back to his 10 mg/day. Home Meds and New Rx's Prescriptions: New amoxicillin-pot clavulanate 875-125 mg tablet 1 tab PO BID 7 Days Qty: 14 0RF doxycycline hyclate 100 mg tablet 100 mg PO BID 7 Days Qty: 14 0RF prednisone 20 mg tablet See Rx Instructions .ROUTE .COMPLEX Qty: 23 0RF Rx Instructions: 20 mg tab take 40 mg/d x 5d, 30 mg/d x 5d, 20 mg/d x 5d, then resume 10 mg daily Continued docusate sodium [Colace] 100 mg capsule 100 mg PO DAILY PRN simvastatin 20 mg tablet 20 mg PO DAILY losartan 100 mg tablet 50 mg PO DAILY insulin lispro [Humalog U-100 Insulin] 100 unit/mL solution 6 unit subcut TID PRN (Reason: hyperglycemia) Rx Instructions: patient to use as his blood sugar requires within parameters discussed Humulin N NPH U-100 Insulin 100 unit/mL suspension 2 - 10 unit subcut BID Glucerna 1 Fermin 0.04-1 gram-kcal/mL liquid 237 ml PO QD-BID PRN (Reason: unintentional weight loss) Qty: 5688 3RF Patient Comments: not on med list Gvoke HypoPen 2-Pack 1 mg/0.2 mL auto-injector 1 mg subcut ONCE Qty: 0.4 10RF Rx Instructions: as a single dose; may repeat once after 15 minutes if no response calcium polycarbophil [Fiber (calcium polycarbophil)] See Rx Instructions .ROUTE .COMPLEX Patient Comments: not on med list Rx Instructions: unspecified; amlodipine 10 mg tablet 10 mg PO HS Qty: 30 3RF citalopram 20 mg tablet 20 mg PO DAILY Qty: 90 0RF multivitamin 1 EACH capsule 1 cap PO DAILY insulin glargine 100 unit/mL solution 8 - 12 unit SUBCUT BID Patient Comments: INJECT 8 TO 12 UNITS UNDER THE SKIN TWO TIMES A DAY DIRECTED BY PROVIDER diazepam 10 mg tablet 5 - 10 mg PO HS PRN Patient Comments: TAKE 1/2 TO 1 TABLET BY MOUTH AT BEDTIME NEEDED FOR INSOMNIA Discontinued prednisone PO Patient Comments: not on med list Rx Instructions: Per taper instructions diazepam [Valium] 10 mg tablet 5 - 10 mg PO QHS PRN (Reason: insomnia) Qty: 30 1RF ibuprofen [Advil] 200 mg Tablet 200 mg PO Q6H PRN Discharge Instructions Instructions: Bacterial Pneumonia (DC) Additional Instructions: You were treated for neutropenic fevers. Your blood cultures came back no growth, indicating that there was no blood stream infection. Your sputum culture just showed normal mouth edilberto. Your xray showed mass in the right upper mass and emphysema. You were treated w/ broad spectrum antibiotics including Vancomycin and Cefepime and doxycycline. Your nasal swab for MRSA was negative and therefore vancomycin was not needed. You are being discharged on 7 more days of antibiotics including Augmentin and doxycycline. You were also put on prednisone and should continue on a prednisone taper until you are back down to your usual dose of prednisone 10 mg daily. Start on prednisone 40 mg (two 20 mg) daily for another 5 days then decrease to 30 mg (1 1/2 tabs 20 mg tabs) x 5 days, then 20 mg one tab x 5 days then resume 10 mg daily. You may need to adjust your insulin dosing to cover elevated blood sugars due to your prednisone. Stand Alone Forms: Nursing Discharge Form Referrals: Symone Villanueva MD [ [facility] STAFF PHYSICIAN] - (call the office for follow up in 3 to 4 weeks) Sebastián Leach [Primary Care Provider] - (call the office on Wednesday for follow up in next week) Activity:: Activity as Tolerated Equipment/Supplies:: No Equipment Needed Diet:: Carb Counting Discharge Orders Discharge Orders: Discharge Order (Routine); Ordered 05/09/23 Ordered By: Joo Gagnon Discharge Data Discharge Date/Time-TO BE ENTERED AT DEPARTURE: 05/09/23 16:01 DS: Summary Time Spent with Patient providing and/or coordinating discharge services: Greater than 30 minutes Status at Discharge Functional status at discharge: independent ambulation Overall status at discharge: patient is back to baseline Mental Status: mental status grossly normal Speech and Movement: speech and movement normal Mood: congruent mood Affect: normal affect Exam Narrative Exam Narrative: Marlo states he feels fine he is ready to return home. He denies any dyspnea cough is minimally productive of saliva no purulent sputum. Denies any chest pain. He is ambulating around the room without any supplemental oxygen. I went over the results of his morning labs with him and his son. Platelets counts now up to 19,000. His hemoglobin this morning was down to 7.3 from 8.3 yesterday but we rechecked it at 7.7 this afternoon. I discussed with him and his son to have further conversation with his oncologist about going on iron supplementation. Lungs are clear anteriorly has a prolonged expiratory phase no rhonchi or wheezing Heart is regular rate and rhythm with soft systolic murmur over the apex no thrill heave or gallop Extremities without peripheral cyanosis or edema Psych Mental Status: mental status grossly normal Speech and Movement: speech and movement normal Mood: congruent mood Affect: normal affect DS: Data Vitals/I&O Vitals and I&O: Vital Signs Temperature 35.9 C L 05/09/23 14:43 Temperature Source Tympanic 05/09/23 14:43 Pulse 69 05/09/23 14:43 Pulse Rhythm Regular 05/09/23 08:59 Pulse 89 05/05/23 12:40 Respiratory Rate 14 05/09/23 14:43 Respiratory Effort Normal, Non-Labored 05/09/23 08:59 Respiratory Depth Normal 05/09/23 08:59 Respiratory Pattern Normal 05/09/23 08:59 Blood Pressure 134/58 L 05/09/23 14:43 Blood Pressure Mean 71 05/05/23 13:01 Blood Pressure Position Sitting 05/05/23 09:36 Pulse Oximetry 96 05/09/23 14:43 Oxygen Delivery Method Room Air 05/09/23 14:43 Oxygen Flow Rate 0 05/09/23 14:43 Pain Level 0 05/09/23 14:43 Comment RN notified 05/07/23 03:30 Intake & Output 05/08/23 05/09/23 05/09/23 23:59 11:59 23:59 Intake Total 1770 / 2455.5 680 / 1020 340 / 1020 Balance 1770 / 2055.5 680 / 1020 340 / 1020 Intake: IV 500 / 945.5 200 / 300 100 / 300 Oral 970 / 1210 480 / 720 240 / 720 Blood Product 300 / 300 Apheresis Platelets Unit 300 / 300 [id number] Other: Urine Color Yellow Urine Appearance Clear Clear Urine Odor Normal Comment Pt voiding independently in BR. No issues with GI/ reported. Voiding Methods Toilet Data Completed and Pending Labs on day of discharge: Labs from last 24 hours 05/09/23 05/09/23 05/09/23 13:30 13:00 06:39 WBC 3.25 L RBC 2.52 L Hgb 7.7 L 7.3 L Hct 23.6 L 22.3 L MCV 89 MCH 29.0 MCHC 32.7 RDW 18.3 H Plt Count 19 L* MPV Immature Gran % 1.5 Neutrophils % 58.2 Lymphocytes % 15.4 Monocytes % 24.6 Eosinophils % 0.0 Basophils % 0.3 Nucleated RBC % 0.6 H Absolute Neutrophils 1.89 Absolute Lymphocytes 0.50 L Absolute Monocytes 0.80 Absolute Eosinophils 0.00 Absolute Basophils 0.01 RBC Morphology See Below Poikilocytosis 1+ Anisocytosis 1+ Random Vancomycin 12.7 B-(1,3)-D-Glucan Quant B-(1,3)-D-Glucan Qual 05/06/23 14:35 WBC RBC Hgb Hct MCV MCH MCHC RDW Plt Count MPV Immature Gran % Neutrophils % Lymphocytes % Monocytes % Eosinophils % Basophils % Nucleated RBC % Absolute Neutrophils Absolute Lymphocytes Absolute Monocytes Absolute Eosinophils Absolute Basophils RBC Morphology Poikilocytosis Anisocytosis Random Vancomycin B-(1,3)-D-Glucan Quant <31 B-(1,3)-D-Glucan Qual Negative Preliminary micro results at discharge 05/05/23 10:11 Blood Culture - Preliminary Blood NO GROWTH 96 HOURS 05/05/23 10:01 Blood Culture - Preliminary Blood NO GROWTH 96 HOURS 05/06/23 05:35 Blood Culture - Preliminary Blood NO GROWTH 72 HOURS 05/06/23 05:25 Blood Culture - Preliminary Blood NO GROWTH 72 HOURS PFSH All Active Problems Abnormal chest xray (Acute) Lung cancer (Chronic) Elevated troponin (Acute) Discharge planning issues (Acute) DVT prophylaxis (Acute) Dehydration (Acute) Hyponatremia (Acute) Pancytopenia (Acute) Hypoxia (Acute) Neutropenic fever (Acute) Fever (Acute) Former smoker (Acute) Primary lung cancer of unknown cell type (Acute) 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) Lung mass (Acute) Tobacco use disorder (Acute) Impotence (Acute) of organic origin Constipation (Acute) Insomnia, persistent (Acute) Parotid mass (Acute) Hx of sciatica (Acute) Leg weakness (Acute) Peripheral vascular disease with claudication (Acute) Chronic leg pain (Acute) History of pathological fracture of vertebra (Acute) Depression (Chronic) Weight loss (Acute) Polymyalgia (Acute) Benign prostatic hyperplasia (Chronic) Solitary lung nodule (Acute) MDS (myelodysplastic syndrome) (Acute) Polymyalgia rheumatica (Acute) Palliative care patient (Acute) Positive colorectal cancer screening using Cologuard test (Acute) Iron deficiency anemia due to chronic blood loss (Acute) Left sided sciatica (Acute) Chronic pain of left groin (Acute) Bilateral leg pain (Acute) Right groin pain (Acute) Mild depression (Chronic) Anemia (Chronic) Sciatica of left side (Acute) Unsteady gait when walking (Acute) Internal hemorrhoids (Acute) Benzodiazepine dependence (Acute) Smoker unmotivated to quit (Acute) DNI (do not intubate) (Acute) DNR (do not resuscitate) (Acute) POLST (Physician Orders for Life-Sustaining Treatment) (Acute) signed 03/18/21 Fecal urgency (Acute) History of hemorrhoidectomy (Chronic) GI bleeding (Chronic) Palliative care patient (Acute) Type I diabetes mellitus (Acute) Medical History Anxiety Diabetes Goals of care, counseling/discussion HTN (hypertension) Hx of hyperlipidemia Surgical History Fingertip amputation History of cataract surgery History of tonsillectomy Family History Father , in his early 80s uncertain cause of No problems noted. Mother , age 77 Pancreatic cancer Sister No problems noted. Brother No problems noted. Sister Alcohol abuse Sister No problems noted. Brother Prostate cancer Sister CFIDS (chronic fatigue and immune dysfunction syndrome) Sister , of colon cancer late 50s Colon cancer Sister No problems noted. Sister No problems noted. Son Age: 36 No problems noted. Social History Smoking/Tobacco Use Status: Current every day Tobacco Type: cigarettes Tobacco: How many years used: 60 Quit status: not considering quitting Counseling given: provider counseling Smoking risk assessment performed?: Yes Alcohol Intake: current Alcohol Intake frequency: holidays/special occasions only Alcohol type: beer Drug use: Rarely Substance use type: marijuana Caregiver/Support person: Yes Household members: spouse and children Housing: house Number of Children: 1 number of grandchildren: 0 Communication Needs: Corrective Lenses Education Level: college Do you need help understanding health information?: Rarely 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, 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 Pets and animals: Yes Pets and animals: farm animals Do you think of yourself as: straight/heterosexual What is your relationship status?: How often do you talk on the phone with friends or family?: once per week How often do you get together with friends or relatives?: three or more times per week Panel score (0-1 are the most socially isolated patients): 2 What type of physical activity do you participate in: walking, irregular exercise and additional Details: used to play golf regularly; not since summer 2018 Duration: 15-30 minutes/day Frequency: 1-2 times per week Special li needs: No Seatbelt use: always Working smoke detector in home: Yes Fire extinguisher in home: Yes Do you feel safe at home: Yes Do you feel safe in your relationship?: Yes Additional Social history: Marlo lives in a house on land 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 He lives with his , Ngoc; their son, Carlton, lives downstairs. 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 He continues to smoke and is not interested in quitting. He does see Dr Casper for his recurrent hemorrhoids and GI bleeding. If he has colon cancer, he does not want any treatment. He will not have a colonoscopy. Time Spent with Patient Time Spent with Patient: <45 minutes Time was spent: preparing to see the patient(eg.review tests), ordering medications,tests, procedures, referring, communicating with other health memory care director, indepentently interpreting results, counseling the patient and care coordination
--- NOTE | 2023-05-09 15:46 | PDOC.HHF2F ---
Home Health Referral Home Health Orders Clinical synopsis of why skilled professionals are needed: Home nursing to monitor his anemia as well as his response to treatment for his pneumonia. Nursing to coordinate medication changes with his PCP, his tractor mechanic, and his oncologist. Home nursing to draw follow-up labs including repeat CBC next week. Home physical therapy as needed to improve patient's deconditioning and amatory status. Medical diagnosis necessitation home health referral: Lung cancer, pancytopenia, COPD/ILD Registered Nurse: Check all that apply Instruct on new or changed medication(s)/assess compliance: Ordered Physical Therapist: Check all that apply Increase strength & endurance for safe mobility at home: Ordered To design/establish home maintenance program: Ordered Elementary School Teacher: Assist with community resources: Ordered Home Bound Status Requires the aid of supportive device (check all that apply): Walker Patient has a condition such that leaving home is medically contraindicated (Describe): COPD, interstitial lung disease and lung cancer causing significant dyspnea w/ prolonged trips outside of home Describe why leaving home would require a considerable and taxing effort: Requires frequent rest periods Encounter Date and Reason: I certify that a FTF encounter for this patient was performed on May 09, 2023 and that such encounter was related to the primary reason the patient requires home health services. The encounter was conducted in the following manner: By me as the certifying physician, HEALTH AND WELLNESS DIRECTOR, PA or By an inpatient physician, HEALTH AND WELLNESS DIRECTOR or PA during an inpatient stay who communicated findings to me, Certification And Authentication I certify that I composed the above information based on my clinical judgment relating to this patient's medical condition and, if applicable, clinical findings communicated to me by the NPP or inpatient physician who performed the FTF encounter. Name of Provider that will be monitoring home health services: Sebastián Leach
[2023-05-10 08:06] LABS: Streptococcus Pneumoniae Ag, U Negative (Negative)
[2023-05-10 15:32] LABS: Mycoplasma Pneumoniae PCR Negative; Specimen source sputum
[2023-05-10 21:19] LABS: Blastomyces Ag Result Not Detected; Blastomyces Ag Value Not Detected
--- NOTE | 2023-05-12 15:20 | INDS_ITS ---
Date of service: 05/12/23 PT Notes Visit Reasons: Neutropenic Fever, Lung Cancer Physical Therapy Inpatient Discharge Summary Date: 05/10/2023 Service: 05/06/2023 through 05/09/2023 (Refused PT on 05/08/2023 and 05/09/2023) This is a clinical summary of care provided for the duration of dates listed above. No charge was made in the completion of this documentation. Referring Doctor:? Wendy Pena,? PT Orders: PT CONSULT: Limited ability Precautions: Fall. Protective precautions in place,? immunocompromised.? Activity as tolerated. Patient Profile/Admitting Diagnosis:? Patient is a 77-year-old male patient admitted for management of neutropenic fever,? hypoxia,? pancytopenia,? elevated troponin,? combined pulmonary fibrosis,? primary lung carcinoma of unknown cell type who recently started chemoradiation,? diabetes mellitus,? hyponatremia,? and hypomagnesemia. He was discharged on 05/09/2023 with referrral made for PT for continued rehabilitation efforts to minimize effects of chemotherapy on strength, mobility, and activity tolerance. 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) Lung mass (Acute) Tobacco use disorder (Acute) Impotence (Acute) of organic originConstipation (Acute) Insomnia, persistent (Acute) Parotid mass (Acute) Hx of sciatica (Acute) Leg weakness (Acute) Peripheral vascular disease with claudication (Acute) Chronic leg pain (Acute) History of pathological fracture of vertebra (Acute) Depression (Chronic) Weight loss (Acute) Polymyalgia (Acute) Benign prostatic hyperplasia (Chronic) Solitary lung nodule (Acute) MDS (myelodysplastic syndrome) (Acute) Polymyalgia rheumatica (Acute) Palliative care patient (Acute) Positive colorectal cancer screening using Cologuard test (Acute) Iron deficiency anemia due to chronic blood loss (Acute) Left sided sciatica (Acute) Chronic pain of left groin (Acute) Bilateral leg pain (Acute) Right groin pain (Acute) Mild depression (Chronic) Anemia (Chronic) Sciatica of left side (Acute) Unsteady gait when walking (Acute) Internal hemorrhoids (Acute) Benzodiazepine dependence (Acute) Smoker unmotivated to quit (Acute) DNI (do not intubate) (Acute) DNR (do not resuscitate) (Acute) POLST (Physician Orders for Life-Sustaining Treatment) (Acute) signed 03/18/21 Fecal urgency (Acute) History of hemorrhoidectomy (Chronic) GI bleeding (Chronic) Palliative care patient (Acute) Type I diabetes mellitus (Acute) Medical History? Anxiety Diabetes Goals of care, counseling/discussion HTN (hypertension) Hx of hyperlipidemia Surgical History? Fingertip amputation History of cataract surgery History of tonsillectomy Social History/Home Situation: Lives with and son in a private home.? Independent with all aspects of ADLs prior to admission.? Still drives.? Recently started chemoradiation.? 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 Equipment Owned/DME: None Subjective: NT. See most recent LINK WIRE FABRIC MACHINE TENDER notes. Objective: General Observation: NT. See most recent LINK WIRE FABRIC MACHINE TENDER notes.Hemosiderin staining in B legs but no edema.? Appears fatigued and withdrawn. Mental Status: NT. See most recent LINK WIRE FABRIC MACHINE TENDER notes. Pain: NT. See most recent LINK WIRE FABRIC MACHINE TENDER notes. Vital Signs: NT. See most recent LINK WIRE FABRIC MACHINE TENDER notes. ROM: Right Upper Extremity: ? Shoulder Flexion WFL. Shoulder abduction WFL. Elbow flexion WFL. Wrist flexion WFL. Functional opening and closing of hand WFL. Left Upper Extremity:? Shoulder Flexion WFL. Shoulder abduction WFL. Elbow flexion WFL. Wrist flexion WFL. Functional opening and closing of hand WFL. Right Lower Extremity: Hip flexion WFL. Hip abduction WFL. Knee flexion WFL. Ankle dorsiflexion WFL. Ankle plantarflexion WFL. Left Lower Extremity: Hip flexion WFL. Hip abduction WFL. Knee flexion WFL. Ankle dorsiflexion WFL. Ankle plantarflexion WFL. Strength: Right Upper Extremity: Shoulder flexors 4/5. Shoulder abductors 4/5. Elbow flexors 5/5. Elbow extensors 5/5. Electrical Research Engineer strong. Left Upper Extremity: Shoulder flexors 4/5. Shoulder abductors 4/5. Elbow flexors 5/5. Elbow extensors 5/5. Electrical Research Engineer strong. Right Lower Extremity: Hip flexors 4-/5. Hip abductors 4-/5. Knee flexors 4/5. Knee extensors 4-/5. Ankle dorsiflexors 4-/5. Ankle plantarflexors 4-/5. Left Lower Extremity: Hip flexors 4-/5. Hip abductors 4-/5. Knee flexors 4/5. Knee extensors 4-/5. Ankle dorsiflexors 4-/5. Ankle plantarflexors 4-/5. BED MOBILITY/TRANSFERS? Sit-stand: SBA? Stand-sit: SBA ? Bed-Chair: CGA ? Chair-bed: CGA ? GAIT? Assistive Device: none? Weight bearing: full Assist: CGA with gait belt ? Distance:? 60 feet within room due to protective precautions in place. ? Deviation: 1x LOB which patient is able to recover without assistance. May have been due to IV pole. Patient touches foot of bed every time he passes it, unclear if this is for balance or simply comfort.? VITALS:? monitored by nursing staff. Balance: Unable to test Special Tests: Mobility Limitations Standardized Measure [facility] 6 clicks Basic Mobility Inpatient Short Form: Raw Score: 23 ? CMS Score: 11% deficit? ? ? ASSESSMENT: Patient has agreed to services on days he was up to it as his primary goals was to really rest and recover. He continues to require conditioning program that will minimize the adverse effects of continued chemotherapy at least 2-3 days a week. Patient presents with clinical signs and symptoms consistent with current/admitting diagnoses that have resulted to mobility limitations, gait instability, generalized weakness, and overall ADL decline as demonstrated by the following impairment level findings: 1.? Decreased strength to B UE/LE major muscle groups 2.? Impaired sitting/standing balance 3.? Impaired activity tolerance 4.? Fatigue Impairments are contributing to the following functional limitations: 1.? Decline in bed mobility skills 2.? Decline in transfer skills 3.? Difficulty with ambulation without assistive device and physical assistance 4.? Increased completion time for mobility ADL performance 5.? Increased risk for falls Goals: Goals X1 week 1. Supine-Sit independent NOT MET 2. Sit-Supine independent NOT MET 3. Sit-Stand independent NOT MET 4. Stand-Sit independent with no AD NOT MET 5. Bed-Chair independent with no AD NOT MET 6. Chair-Bed independent with no AD NOT MET 7. Independent gait on level surface with use of no AD for at least 50 feet without report of pain nor dyspnea NOT MET 8. Independent stair negotiation while holding onto B rails for at least 5 steps without report of pain nor dyspnea NOT MET 9. Independent with home exercise program NOT MET 10. Good static and dynamic standing balance/tolerance NOT MET DISCHARGE RECOMMENDATIONS: [] ? Home with no services [] [X] ? Home with services.? Patient will benefit from home health PT services in order to progress mobility level using least restrictive assistive ambulatory device, assess home safety, identify additional equipment needs, and establish a functional maintenance program that will increase ability of patient to remain at home. [] ? Home with outpatient PT [] [] ? SNF for continued rehabilitation [] [] ? Custodial Care [] [] ? SNF versus LTC based on ability to participate and progress [] TREATMENT CODE/TIME: GA Thank you for the opportunity to participate in the care of this patient. Nel Cisse PT, DPT, CLT [facility] [place], [place]
== END 2023-05-09 16:01 | disposition home health service (06) | DRG 809 ==
LOC: ER 12:54 → MS 13:19
PROVIDERS: Hospitalist; Internal Medicine; Nurse Practitioner Family; Student in an Organized Health Care Education/Training Program; Admitting Provider Internal Medicine; Emergency Provider Physician Assistant; PCP Internal Medicine; Visit Provider Internal Medicine
DX: D70.1 Agranulocytosis secondary to cancer chemotherapy (principal); C34.11 Malignant neoplasm of upper lobe, right bronchus or lung; I24.8 Other forms of acute ischemic heart disease; E87.1 Hypo-osmolality and hyponatremia; N17.9 Acute kidney failure, unspecified; D61.810 Antineoplastic chemotherapy induced pancytopenia; T45.1X5A Adverse effect of antineoplastic and immunosuppressive drugs, initial encounter; R50.81 Fever presenting with conditions classified elsewhere; R09.02 Hypoxemia; J43.9 Emphysema, unspecified; J84.10 Pulmonary fibrosis, unspecified; E83.42 Hypomagnesemia; Z66 Do not resuscitate; E86.0 Dehydration; D69.6 Thrombocytopenia, unspecified; K59.00 Constipation, unspecified; G47.09 Other insomnia; F32.A Depression, unspecified; R63.4 Abnormal weight loss; Z68.23 Body mass index [BMI] 23.0-23.9, adult; D64.9 Anemia, unspecified; M54.32 Sciatica, left side; I10 Essential (primary) hypertension; E78.5 Hyperlipidemia, unspecified; F17.210 Nicotine dependence, cigarettes, uncomplicated; E10.9 Type 1 diabetes mellitus without complications
CPT/HCPCS: 36415; 36416; 76604; 80048; 80053; 82805; 82947; 82962; 86850; 86900; 86901; 86920; 86945; 87040; 87081; 87449; 87632; 87637; 93005; 94640; 96365; 96372; 96375; 97110; 97162; 99291; P9073; 71045; 71046; 80202; 81003; 81015; 82728; 83605; 83735; 83880; 84484; 85014; 85018; 85025; 85045; 86644; 87070; 87205; 87385; 87581; 87899; 93010; 93306; 94664; 94668; 94760; 99223; 99232; 99233; 99239; J0131; J1941; J2765; J7512; J7613; P9016; P9035

== ENCOUNTER 2023-05-24 05:01 | Outpatient (CLI) | payer MEDICARE, BC, SELFPAY ==
[2023-05-24 11:26] LABS: ALT 22 U/L (16-63); AST 17 U/L (15-37); Albumin 2.7 g/dL (3.4-5.0); Alkaline Phosphatase 51 U/L (46-116); Anion Gap 6.5 mmol/L (3-11); BUN 25 mg/dL (7-18); Bilirubin, Total 0.5 mg/dL (0.2-1.0); CO2 29.5 mmol/L (21.0-32.0); CREATININE 1.3 mg/dL (0.70-1.30); Calcium 8.6 mg/dL (8.5-10.1); Chloride 98 mmol/L (98-107); Estimated GFR 55.88 (mL/min/1.73m2); Glucose 124 mg/dL (74-106); Magnesium 1.7 mg/dL (1.8-2.4); Potassium 3.8 mmol/L (3.5-5.1); Sodium 134 mmol/L (136-145); Total Protein 5.9 g/dL (6.4-8.2)
== END 2023-05-24 05:02 | disposition home or self-care (01) ==
LOC: LBO 05:01 → LBN 11:13
PROVIDERS: PCP Internal Medicine; Visit Provider Nurse Practitioner Family
DX: C34.11 Malignant neoplasm of upper lobe, right bronchus or lung (principal)
CPT/HCPCS: 80053; 83735

== ENCOUNTER 2023-05-31 10:30 | Outpatient (RCR) | payer MEDICARE, BC, SELFPAY ==
[2023-05-12 08:29] LABS: Abs Immature Grans 0.14 10^3/uL (0.0-0.06); Absolute Basophil Count 0.01 10^3/uL (0.0-0.2); Absolute Lymphocyte Count 0.91 10^3/uL (1.2-3.4); Absolute Monocyte Count 1.01 10^3/uL (0.1-0.8); Absolute Neutrophil Count 1.81 10^3/uL (1.2-6.7); Basophils % 0.3; HCT 24.2 % (40.0-50.0); HGB 7.7 g/dL (13.5-17.5); Immature Grans % 3.6; Lymphocytes % 23.5; MCH 28.5 pg (27.0-33.0); MCHC 31.8 % (32.0-36.0); MCV 90 fL (80-95); Neutrophils % 46.6; Nucleated RBC 0.5 % (0.0-0.3); RDW 17.8 % (11.8-14.1); RDW-SD 58.1 fL; WBC 3.88 10^3/uL (4.4-10.8)
[2023-05-12 08:42] LABS: Diff Comment Diff Reviewed; RBC Morphology Normal
[2023-05-12 08:43] LABS: Platelet Count 22 10^3/uL (130-400)
[2023-05-12 11:13] VITALS: BP 147/67; PULSE 66; RESP 17; TEMP 36.5; O2SAT 97
[2023-05-12 11:30] VITALS: BP 145/63; PULSE 63; RESP 17; TEMP 36.9; O2SAT 98
[2023-05-12 11:49] VITALS: BP 146/65; PULSE 62; RESP 17; TEMP 36.6; O2SAT 98
[2023-05-12 12:20] VITALS: BP 151/72; PULSE 57; RESP 17; TEMP 36.3; O2SAT 99
[2023-05-12 13:20] VITALS: BP 151/69; PULSE 63; RESP 17; TEMP 36.6; O2SAT 99
[2023-05-17 09:05] LABS: HCT 25.8 % (40.0-50.0); HGB 8.2 g/dL (13.5-17.5); MCH 29.1 pg (27.0-33.0); MCHC 31.8 % (32.0-36.0); MCV 92 fL (80-95); RBC 2.82 10^6/uL (4.36-5.78); RDW 17.6 % (11.8-14.1); RDW-SD 57.6 fL; WBC 3.34 10^3/uL (4.4-10.8)
[2023-05-17 09:19] LABS: Absolute Neutrophil Count 1.37 10^3/uL (1.2-6.7); Platelet Count 57 10^3/uL (130-400)
[2023-05-17 09:20] LABS: Absolute Monocyte Count 0.57 10^3/uL (0.1-0.8); Diff Comment Manual Differential; Metamyelocytes % 2; Myelocytes % 1; Other Cells % 3; RBC Morphology Normal
[2023-05-24 10:25] LABS: Abs Immature Grans 0.03 10^3/uL (0.0-0.06); Absolute Eosinophil Count 0.01 10^3/uL (0.0-0.7); Absolute Lymphocyte Count 0.97 10^3/uL (1.2-3.4); Absolute Monocyte Count 0.59 10^3/uL (0.1-0.8); Absolute Neutrophil Count 1.26 10^3/uL (1.2-6.7); Eosinophils % 0.3; HCT 25.4 % (40.0-50.0); HGB 8.1 g/dL (13.5-17.5); Lymphocytes % 33.9; MCH 29.7 pg (27.0-33.0); MCHC 31.9 % (32.0-36.0); MCV 93 fL (80-95); MPV 9.6 fL (8.0-11.0); Monocytes % 20.6; Neutrophils % 44.2; Nucleated RBC 0.7 % (0.0-0.3); Platelet Count 105 10^3/uL (130-400); RBC 2.73 10^6/uL (4.36-5.78); RDW 17.8 % (11.8-14.1); RDW-SD 56.8 fL; WBC 2.86 10^3/uL (4.4-10.8)
[2023-05-31 09:22] LABS: Abs Immature Grans 0.09 10^3/uL (0.0-0.06); Absolute Eosinophil Count 0.01 10^3/uL (0.0-0.7); Absolute Neutrophil Count 1.39 10^3/uL (1.2-6.7); Eosinophils % 0.5; HCT 22.5 % (40.0-50.0); HGB 7.2 g/dL (13.5-17.5); Immature Grans % 4.8; Lymphocytes % 10.6; MCH 29.9 pg (27.0-33.0); MCV 93 fL (80-95); MPV 9.4 fL (8.0-11.0); Monocytes % 10.6; Neutrophils % 73.5; RBC 2.41 10^6/uL (4.36-5.78); RDW 18.5 % (11.8-14.1); RDW-SD 58.8 fL
[2023-05-31 10:02] LABS: Diff Comment Agrees w/ Instrument; Hypochromasia 3+; Polychromasia Present
[2023-05-31 10:03] LABS: Poikilocytes 2+
[2023-05-31 10:04] LABS: Platelet Count 90 10^3/uL (130-400)
[2023-05-31 10:10] LABS: WBC 1.89 10^3/uL (4.4-10.8)
[2023-05-31 10:30] VITALS: BP 121/69; PULSE 69; RESP 17; TEMP 36.2; O2SAT 100
[2023-05-31 11:50] VITALS: BP 125/60; PULSE 57; RESP 17; TEMP 36.7; O2SAT 96
[2023-05-31 12:05] VITALS: BP 119/64; PULSE 56; RESP 17; TEMP 36.5; O2SAT 99
[2023-05-31 12:35] VITALS: BP 128/57; PULSE 56; RESP 16; TEMP 36.7; O2SAT 99
[2023-05-31 13:15] VITALS: BP 146/69; PULSE 60; RESP 17; TEMP 36.7; O2SAT 100
[2023-05-31] MEDS: Normal Saline Flush 10 ML SYR IVP (13:31)
== END 2023-06-03 23:59 | disposition home or self-care (01) ==
LOC: INF 10:30
PROVIDERS: PCP Internal Medicine; Visit Provider Internal Medicine Medical Oncology
DX: C34.11 Malignant neoplasm of upper lobe, right bronchus or lung (principal); D46.9 Myelodysplastic syndrome, unspecified
CPT/HCPCS: 36415; 36430; 86850; 86900; 86901; 86920; 86945; 85025; 86644; P9016

== ENCOUNTER 2023-06-14 13:09 | Outpatient (REF) | payer MEDICARE, BC, SELFPAY ==
[2023-06-14 09:10] LABS: ALT 20 U/L (16-63); AST 19 U/L (15-37); Albumin 2.9 g/dL (3.4-5.0); Alkaline Phosphatase 78 U/L (46-116); Anion Gap 3.7 mmol/L (3-11); BUN 18 mg/dL (7-18); Bilirubin, Total 0.4 mg/dL (0.2-1.0); CO2 29.3 mmol/L (21.0-32.0); CREATININE 1.2 mg/dL (0.70-1.30); Calcium 8.9 mg/dL (8.5-10.1); Chloride 99 mmol/L (98-107); Estimated GFR 61.52 (mL/min/1.73m2); Glucose 182 mg/dL (74-106); Potassium 4.9 mmol/L (3.5-5.1); Sodium 132 mmol/L (136-145); Total Protein 6.4 g/dL (6.4-8.2)
== END 2023-06-14 13:10 | disposition home or self-care (01) ==
LOC: LBN 13:09
PROVIDERS: PCP Internal Medicine; Visit Provider Nurse Practitioner Family
DX: C34.11 Malignant neoplasm of upper lobe, right bronchus or lung (principal)
CPT/HCPCS: 80053; 83735

== ENCOUNTER 2023-06-28 09:00 | Outpatient (RCR) | payer MEDICARE, BC, SELFPAY ==
[2023-06-04 00:09] VITALS: BP 146/69; PULSE 60; RESP 17; TEMP 36.7
[2023-06-08 08:57] LABS: Abs Immature Grans 0.05 10^3/uL (0.0-0.06); Absolute Basophil Count 0.01 10^3/uL (0.0-0.2); Absolute Eosinophil Count 0.03 10^3/uL (0.0-0.7); Absolute Monocyte Count 0.52 10^3/uL (0.1-0.8); Absolute Neutrophil Count 1.72 10^3/uL (1.2-6.7); Basophils % 0.4; Eosinophils % 1.1; HCT 24.9 % (40.0-50.0); HGB 7.8 g/dL (13.5-17.5); Immature Grans % 1.8; Lymphocytes % 14.7; MCH 29.9 pg (27.0-33.0); MCHC 31.3 % (32.0-36.0); MCV 95 fL (80-95); MPV 9.8 fL (8.0-11.0); RBC 2.61 10^6/uL (4.36-5.78); RDW 19.5 % (11.8-14.1); RDW-SD 63.7 fL; WBC 2.73 10^3/uL (4.4-10.8)
[2023-06-08 09:34] LABS: Diff Comment Diff Reviewed; Platelet Count 57 10^3/uL (130-400); RBC Morphology Normal
[2023-06-09] MEDS: Normal Saline Flush 10 ML SYR IVP (07:59)
[2023-06-09 08:07] VITALS: BP 122/69; PULSE 62; RESP 17; TEMP 37.1; O2SAT 100
[2023-06-09 08:22] VITALS: BP 113/68; PULSE 60; RESP 17; TEMP 36.4; O2SAT 99
[2023-06-09 08:37] VITALS: BP 123/51; PULSE 60; RESP 17; TEMP 36.4; O2SAT 99
[2023-06-09 09:07] VITALS: BP 118/46; PULSE 59; RESP 17; TEMP 36.6; O2SAT 99
[2023-06-09 09:52] VITALS: BP 112/52; PULSE 60; RESP 17; TEMP 36.6; O2SAT 99
[2023-06-14 08:23] LABS: Abs Immature Grans 0.07 10^3/uL (0.0-0.06); Absolute Eosinophil Count 0.02 10^3/uL (0.0-0.7); Absolute Lymphocyte Count 0.35 10^3/uL (1.2-3.4); Absolute Monocyte Count 0.54 10^3/uL (0.1-0.8); Absolute Neutrophil Count 1.16 10^3/uL (1.2-6.7); Eosinophils % 0.9; HCT 24.4 % (40.0-50.0); HGB 7.9 g/dL (13.5-17.5); Immature Grans % 3.3; Lymphocytes % 16.4; MCH 30.9 pg (27.0-33.0); MCHC 32.4 % (32.0-36.0); MCV 95 fL (80-95); MPV 10.3 fL (8.0-11.0); Monocytes % 25.2; Neutrophils % 54.2; RBC 2.56 10^6/uL (4.36-5.78); RDW-SD 66.1 fL; WBC 2.14 10^3/uL (4.4-10.8)
[2023-06-14 08:38] LABS: Basophilic Stippling Present; Diff Comment Diff Reviewed; Hypochromasia 2+; Platelet Count 83 10^3/uL (130-400)
[2023-06-14 08:39] LABS: Poikilocytes 2+
[2023-06-14 10:01] VITALS: BP 120/56; PULSE 58; RESP 18; TEMP 36.4; O2SAT 99
[2023-06-14 10:15] VITALS: BP 134/69; PULSE 56; RESP 17; TEMP 36.6; O2SAT 99
[2023-06-14 10:33] VITALS: BP 138/63; PULSE 55; RESP 17; TEMP 36.3; O2SAT 100
[2023-06-14 11:03] VITALS: BP 138/77; PULSE 57; RESP 16; TEMP 36.2; O2SAT 100
[2023-06-14 11:40] VITALS: BP 162/75; PULSE 55; RESP 16; TEMP 36.2; O2SAT 98
[2023-06-14] MEDS: Normal Saline Flush 10 ML SYR IVP (12:21)
[2023-06-23 09:26] LABS: Abs Immature Grans 0.12 10^3/uL (0.0-0.06); Absolute Basophil Count 0.01 10^3/uL (0.0-0.2); Absolute Eosinophil Count 0.04 10^3/uL (0.0-0.7); Absolute Lymphocyte Count 0.31 10^3/uL (1.2-3.4); Absolute Neutrophil Count 1.47 10^3/uL (1.2-6.7); Basophils % 0.4; Eosinophils % 1.6; HCT 26.9 % (40.0-50.0); HGB 8.7 g/dL (13.5-17.5); Immature Grans % 4.9; Lymphocytes % 12.7; MCH 31.1 pg (27.0-33.0); MCHC 32.3 % (32.0-36.0); MCV 96 fL (80-95); Monocytes % 20.4; Platelet Count 104 10^3/uL (130-400); RDW 19.9 % (11.8-14.1); RDW-SD 69.6 fL; WBC 2.45 10^3/uL (4.4-10.8)
[2023-06-23 09:38] LABS: ALT 21 U/L (16-63); AST 21 U/L (15-37); Albumin 2.8 g/dL (3.4-5.0); Alkaline Phosphatase 78 U/L (46-116); Anion Gap 1.7 mmol/L (3-11); BUN 21 mg/dL (7-18); Bilirubin, Total 0.3 mg/dL (0.2-1.0); CO2 30.3 mmol/L (21.0-32.0); CREATININE 1.2 mg/dL (0.70-1.30); Chloride 102 mmol/L (98-107); Estimated GFR 61.13 (mL/min/1.73m2); Glucose 186 mg/dL (74-106); Sodium 134 mmol/L (136-145); Total Protein 6.3 g/dL (6.4-8.2)
[2023-06-23 09:43] LABS: Potassium 5.1 mmol/L (3.5-5.1)
[2023-06-28 11:13] LABS: HCT 25.2 % (40.0-50.0); HGB 8.1 g/dL (13.5-17.5); MCHC 32.1 % (32.0-36.0); MCV 97 fL (80-95); RBC 2.61 10^6/uL (4.36-5.78); RDW 20.1 % (11.8-14.1); RDW-SD 70.3 fL; WBC 2.28 10^3/uL (4.4-10.8)
[2023-06-28 11:25] LABS: Anisocytosis 2+; Platelet Count 93 10^3/uL (130-400)
[2023-06-28 11:26] LABS: Absolute Eosinophil Count 0.02 10^3/uL (0.0-0.7); Absolute Lymphocyte Count 0.27 10^3/uL (1.2-3.4); Absolute Monocyte Count 0.16 10^3/uL (0.1-0.8); Absolute Neutrophil Count 1.82 10^3/uL (1.2-6.7); Diff Comment Manual Differential
== END 2023-07-03 23:59 | disposition home or self-care (01) ==
LOC: INF 09:00
PROVIDERS: Nurse Practitioner Family; PCP Internal Medicine; Visit Provider Internal Medicine Medical Oncology
DX: C34.11 Malignant neoplasm of upper lobe, right bronchus or lung (principal); D46.9 Myelodysplastic syndrome, unspecified
CPT/HCPCS: 36415; 36430; 80053; 86850; 86900; 86901; 86920; 86945; 85025; 86644; P9016

== ENCOUNTER → 2023-07-26 03:08 | Outpatient (CLI) | payer MEDICARE, BC, SELFPAY ==
--- NOTE | 2023-07-26 | DI.CT_ITS ---
Exam(s) CT CHEST W EXAM: CT CHEST W CLINICAL HISTORY: RUL LUNG CANCER C34.11 ASSESS TREATMENT RESPONSE. TECHNIQUE: Multi planar reconstructions were performed. CONTRAST MATERIAL: Omnipaque 350; 75 cc COMPARISON: CT CT CHEST/ABD/PEL W from 01/15/2023 FINDINGS: CHEST: LUNGS: Again noted is the spiculated mass in the right upper lobe. This has decreased in size from January 2023 study. It presently measures 3.5 cm wide by 2.4 cm AP by 3.4 cm cephalocaudal. This m ass exhibits spiculations extending out to the pleural surface and towards the hilum and the subjacen t minor fissure. Underlying COPD emphysematous changes are again noted as is a honeycomb pattern wit hin the lung below the level of the mass. There are no new lesions in the right lung and no pleural effusion. In the opposite-left lung there are no new nodules. A pleural based nodule in the lateral basal segment of the left lower lobe is unchanged, measuring approximately 5 mm size. No pleural ef fusions on either side. No new findings in the trachea and mainstem bronchi. MEDIASTINUM: There is no obvious hilar adenopathy. No mediastinal for adenopathy. No subcarinal jennifer nopathy. Visualized thyroid appears unremarkable. CARDIAC: Heart size is normal. There is no pericardial effusion.Caliber of the thoracic aorta is wit hin normal limits. VISUALIZED UPPER ABDOMEN:There are no significant adrenal masses. Benign cysts in left kidney noted. Cholelithiasis noted. Atherosclerotic abdominal aorta noted. OSSEOUS: No significant osseous lesions.. IMPRESSION: 1. There is a non cavitated malignant appearing spiculated mass in the lateral aspect of the right up per lobe with approximate measurements as above. Measurements are of the main mass component, exclud ing the spiculations. The mass appears to have somewhat decreased in size when compared to 3. 2. Stable appearance of 5 millimeter pleural base nodule in the left lower lobe. 3. No new nodules nor pleural effusions nor intrathoracic adenopathy. Other findings as above. RADIATION DOSE DELIVERED: Total DLP DATA REPOSITORY: All CT scans at this facility are submitted to the National Radiology Data Registry (NRDR) Dose Index Registry (DIR) with the [employer] (A[employer]). RADIATION OPTIMIZATION: All CT scans at this facility use at least one of these dose optimization te chniques: automated exposure control; mA and/or kV adjustment per patient size (includes targeted exa ms where dose is matched to clinical indication); or iterative reconstruction.
[2023-07-26] MEDS: Normal Saline - Diluent 50 ML VIAL IJ (13:38)
[2023-07-26] MEDS: Omnipaque 350 MG/ML 500 ML BTL-Imaging package 100 ML IJ (13:39)
== END ==
PROVIDERS: PCP Internal Medicine; Visit Provider Nurse Practitioner Family
DX: C34.11 Malignant neoplasm of upper lobe, right bronchus or lung (principal); Z08 Encounter for follow-up examination after completed treatment for malignant neoplasm
CPT/HCPCS: 36415; 36430; 86850; 86900; 86901; 86920; 86945; 71260; 85025; 86644; P9016

== ENCOUNTER 2023-08-02 02:56 | Outpatient (RCR) | payer MEDICARE, BC, SELFPAY ==
[2023-07-04 00:04] VITALS: BP 162/75; PULSE 55; RESP 16; TEMP 36.2
[2023-07-05 10:06] LABS: HCT 24.5 % (40.0-50.0); MCH 31.9 pg (27.0-33.0); MCHC 32.7 % (32.0-36.0); MCV 98 fL (80-95); MPV 10.2 fL (8.0-11.0); RBC 2.51 10^6/uL (4.36-5.78); RDW 20.7 % (11.8-14.1); RDW-SD 71.4 fL
[2023-07-05 10:13] LABS: WBC 1.73 10^3/uL (4.4-10.8)
[2023-07-05 10:42] LABS: Absolute Lymphocyte Count 0.29 10^3/uL (1.2-3.4); Absolute Neutrophil Count 1.04 10^3/uL (1.2-6.7); Platelet Count 67 10^3/uL (130-400)
[2023-07-05 10:43] LABS: Anisocytosis 1+; Diff Comment Diff Reviewed; Hypochromasia 2+
[2023-07-12 09:46] LABS: Abs Immature Grans 0.12 10^3/uL (0.0-0.06); HCT 25.6 % (40.0-50.0); HGB 8.3 g/dL (13.5-17.5); MCH 32.3 pg (27.0-33.0); MCHC 32.4 % (32.0-36.0); MCV 100 fL (80-95); MPV 9.5 fL (8.0-11.0); RBC 2.57 10^6/uL (4.36-5.78); RDW-SD 77.1 fL
[2023-07-12 10:00] LABS: ALT 21 U/L (16-63); AST 22 U/L (15-37); Albumin 2.9 g/dL (3.4-5.0); Alkaline Phosphatase 82 U/L (46-116); BUN 22 mg/dL (7-18); Bilirubin, Total 0.3 mg/dL (0.2-1.0); CREATININE 1.3 mg/dL (0.70-1.30); Chloride 102 mmol/L (98-107); Estimated GFR 55.53 (mL/min/1.73m2); Glucose 63 mg/dL (74-106); Magnesium 1.9 mg/dL (1.8-2.4); Potassium 4.4 mmol/L (3.5-5.1); Sodium 137 mmol/L (136-145); Total Protein 6.5 g/dL (6.4-8.2)
[2023-07-12 10:14] LABS: Absolute Lymphocyte Count 0.67 10^3/uL (1.2-3.4); Absolute Neutrophil Count 0.69 10^3/uL (1.2-6.7); Atypical Lymphocytes % 4; Bands % 0; Platelet Count 82 10^3/uL (130-400)
[2023-07-12 10:15] LABS: Absolute Eosinophil Count 0.02 10^3/uL (0.0-0.7); Anisocytosis 1+; Diff Comment Manual Differential; Metamyelocytes % 3; Myelocytes % 1; Polychromasia Present
[2023-07-12 10:16] LABS: Other Cells % 1
[2023-07-12 10:23] LABS: WBC 1.98 10^3/uL (4.4-10.8)
[2023-07-19 09:45] LABS: Abs Immature Grans 0.26 10^3/uL (0.0-0.06); Absolute Basophil Count 0.01 10^3/uL (0.0-0.2); Absolute Eosinophil Count 0.03 10^3/uL (0.0-0.7); Absolute Lymphocyte Count 0.23 10^3/uL (1.2-3.4); Absolute Monocyte Count 0.49 10^3/uL (0.1-0.8); Basophils % 0.4; Eosinophils % 1.1; HCT 24.6 % (40.0-50.0); Immature Grans % 9.2; Lymphocytes % 8.1; MCH 32.9 pg (27.0-33.0); MCHC 32.5 % (32.0-36.0); MCV 101 fL (80-95); MPV 9.3 fL (8.0-11.0); Monocytes % 17.3; Neutrophils % 63.9; RBC 2.43 10^6/uL (4.36-5.78); RDW 21.9 % (11.8-14.1); RDW-SD 79.5 fL; WBC 2.84 10^3/uL (4.4-10.8)
[2023-07-19 09:56] LABS: Absolute Neutrophil Count 1.81 10^3/uL (1.2-6.7)
[2023-07-19 10:02] LABS: ALT 18 U/L (16-63); AST 18 U/L (15-37); Albumin 2.9 g/dL (3.4-5.0); Alkaline Phosphatase 82 U/L (46-116); Anion Gap 6.8 mmol/L (3-11); BUN 23 mg/dL (7-18); Bilirubin, Total 0.4 mg/dL (0.2-1.0); CO2 26.2 mmol/L (21.0-32.0); CREATININE 1.3 mg/dL (0.70-1.30); Calcium 8.9 mg/dL (8.5-10.1); Chloride 101 mmol/L (98-107); Estimated GFR 55.53 (mL/min/1.73m2); Glucose 261 mg/dL (74-106); Magnesium 1.9 mg/dL (1.8-2.4); Potassium 4.6 mmol/L (3.5-5.1); Sodium 134 mmol/L (136-145); Total Protein 6.3 g/dL (6.4-8.2)
[2023-07-19 10:18] LABS: Anisocytosis 2+; Diff Comment Diff Reviewed; Platelet Count 84 10^3/uL (130-400)
[2023-07-26 10:11] LABS: Abs Immature Grans 0.24 10^3/uL (0.0-0.06); Absolute Eosinophil Count 0.04 10^3/uL (0.0-0.7); Absolute Lymphocyte Count 0.18 10^3/uL (1.2-3.4); Absolute Monocyte Count 0.12 10^3/uL (0.1-0.8); Absolute Neutrophil Count 2.05 10^3/uL (1.2-6.7); Eosinophils % 1.5; HCT 23.5 % (40.0-50.0); HGB 7.6 g/dL (13.5-17.5); Immature Grans % 9.1; Lymphocytes % 6.8; MCH 32.9 pg (27.0-33.0); MCHC 32.3 % (32.0-36.0); MCV 102 fL (80-95); MPV 9.9 fL (8.0-11.0); Monocytes % 4.6; RBC 2.31 10^6/uL (4.36-5.78); WBC 2.63 10^3/uL (4.4-10.8)
[2023-07-26 10:32] LABS: Diff Comment Agrees w/ Instrument; Platelet Count 98 10^3/uL (130-400)
[2023-07-26 10:33] LABS: Anisocytosis 2+; Hypochromasia 2+; Poikilocytes 2+; Polychromasia Present
[2023-07-26 11:00] VITALS: BP 146/68; PULSE 60; RESP 17; TEMP 36.3; O2SAT 100
[2023-07-26 11:16] VITALS: BP 129/61; PULSE 61; RESP 17; TEMP 36.3; O2SAT 100
[2023-07-26 11:31] VITALS: BP 135/65; PULSE 59; RESP 17; TEMP 36.4; O2SAT 99
[2023-07-26 12:17] VITALS: BP 150/66; PULSE 55; RESP 17; TEMP 36.4; O2SAT 100
[2023-07-26 13:02] VITALS: BP 153/64; PULSE 63; RESP 17; TEMP 36.7; O2SAT 100
[2023-08-02 11:04] LABS: Abs Immature Grans 0.15 10^3/uL (0.0-0.06); Absolute Basophil Count 0.01 10^3/uL (0.0-0.2); Absolute Eosinophil Count 0.03 10^3/uL (0.0-0.7); Absolute Lymphocyte Count 0.28 10^3/uL (1.2-3.4); Absolute Monocyte Count 0.55 10^3/uL (0.1-0.8); Absolute Neutrophil Count 1.53 10^3/uL (1.2-6.7); Basophils % 0.4; Eosinophils % 1.2; HCT 25.1 % (40.0-50.0); HGB 8.1 g/dL (13.5-17.5); Immature Grans % 5.9; MCH 32.8 pg (27.0-33.0); MCHC 32.3 % (32.0-36.0); MCV 102 fL (80-95); MPV 9.4 fL (8.0-11.0); Monocytes % 21.6; Neutrophils % 59.9; RBC 2.47 10^6/uL (4.36-5.78); RDW 20.2 % (11.8-14.1); WBC 2.55 10^3/uL (4.4-10.8)
[2023-08-02 11:20] LABS: Anisocytosis 2+; Diff Comment Diff Reviewed; Platelet Count 70 10^3/uL (130-400)
[2023-08-02 11:28] LABS: ALT 20 U/L (16-63); AST 20 U/L (15-37); Alkaline Phosphatase 77 U/L (46-116); Anion Gap 9.2 mmol/L (3-11); BUN 20 mg/dL (7-18); Bilirubin, Total 0.3 mg/dL (0.2-1.0); CO2 25.8 mmol/L (21.0-32.0); CREATININE 1.4 mg/dL (0.70-1.30); Calcium 8.9 mg/dL (8.5-10.1); Chloride 103 mmol/L (98-107); Estimated GFR 50.81 (mL/min/1.73m2); Glucose 82 mg/dL (74-106); Magnesium 1.9 mg/dL (1.8-2.4); Potassium 4.4 mmol/L (3.5-5.1); Sodium 138 mmol/L (136-145); Total Protein 6.3 g/dL (6.4-8.2)
== END 2023-08-03 23:59 | disposition home or self-care (01) ==
LOC: INF 02:56
PROVIDERS: Nurse Practitioner Family; PCP Internal Medicine; Visit Provider Internal Medicine Medical Oncology
DX: C34.11 Malignant neoplasm of upper lobe, right bronchus or lung (principal)
CPT/HCPCS: 36415; 36430; 80053; 86850; 86900; 86901; 86920; 86945; 83735; 85025; 86644; P9016

== ENCOUNTER 2023-08-23 09:05 | Outpatient (RCR) | payer MEDICARE, BC, SELFPAY ==
[2023-08-04 00:05] VITALS: BP 162/75; PULSE 55; RESP 16; TEMP 36.2
[2023-08-09 10:10] LABS: HCT 26.2 % (40.0-50.0); HGB 8.5 g/dL (13.5-17.5); MCH 33.2 pg (27.0-33.0); MCHC 32.4 % (32.0-36.0); MCV 102 fL (80-95); MPV 10.1 fL (8.0-11.0); RBC 2.56 10^6/uL (4.36-5.78); RDW 19.9 % (11.8-14.1); RDW-SD 73.7 fL
[2023-08-09 10:17] LABS: WBC 1.88 10^3/uL (4.4-10.8)
[2023-08-09 10:28] LABS: Absolute Monocyte Count 0.34 10^3/uL (0.1-0.8); Absolute Neutrophil Count 1.24 10^3/uL (1.2-6.7); Atypical Lymphocytes % 1; Bands % 1; Diff Comment Manual Differential; Platelet Count 70 10^3/uL (130-400); RBC Morphology Normal
[2023-08-16 09:27] LABS: Abs Immature Grans 0.24 10^3/uL (0.0-0.06); Absolute Eosinophil Count 0.09 10^3/uL (0.0-0.7); HCT 25.7 % (40.0-50.0); HGB 8.3 g/dL (13.5-17.5); MCH 32.9 pg (27.0-33.0); MCHC 32.3 % (32.0-36.0); MCV 102 fL (80-95); MPV 10.6 fL (8.0-11.0); RBC 2.52 10^6/uL (4.36-5.78); RDW 19.3 % (11.8-14.1); RDW-SD 72.7 fL; WBC 2.92 10^3/uL (4.4-10.8)
[2023-08-16 09:51] LABS: Absolute Neutrophil Count 2.07 10^3/uL (1.2-6.7); Bands % 2; Platelet Count 76 10^3/uL (130-400)
[2023-08-16 09:52] LABS: Absolute Lymphocyte Count 0.38 10^3/uL (1.2-3.4); Absolute Monocyte Count 0.38 10^3/uL (0.1-0.8); Anisocytosis 1+; Atypical Lymphocytes % 1; Diff Comment Manual Differential
[2023-08-16 09:53] LABS: Macrocytosis 2+; Poikilocytes 1+
[2023-08-23 09:34] LABS: Abs Immature Grans 0.23 10^3/uL (0.0-0.06); Absolute Basophil Count 0.01 10^3/uL (0.0-0.2); Absolute Eosinophil Count 0.12 10^3/uL (0.0-0.7); Absolute Lymphocyte Count 0.41 10^3/uL (1.2-3.4); Absolute Monocyte Count 0.53 10^3/uL (0.1-0.8); Absolute Neutrophil Count 1.91 10^3/uL (1.2-6.7); Basophils % 0.3; Eosinophils % 3.7; HCT 28.4 % (40.0-50.0); HGB 9.1 g/dL (13.5-17.5); Immature Grans % 7.2; Lymphocytes % 12.8; MCH 33.2 pg (27.0-33.0); MCV 104 fL (80-95); MPV 10.3 fL (8.0-11.0); Monocytes % 16.5; Neutrophils % 59.5; Platelet Count 108 10^3/uL (130-400); RBC 2.74 10^6/uL (4.36-5.78); RDW 18.4 % (11.8-14.1); RDW-SD 69.6 fL; WBC 3.21 10^3/uL (4.4-10.8)
[2023-08-23 09:46] LABS: Diff Comment Diff Reviewed; RBC Morphology Normal
== END 2023-09-02 23:59 | disposition home or self-care (01) ==
LOC: INF 09:05
PROVIDERS: Nurse Practitioner Family; PCP Internal Medicine; Visit Provider Internal Medicine Medical Oncology
DX: C34.11 Malignant neoplasm of upper lobe, right bronchus or lung (principal); D46.9 Myelodysplastic syndrome, unspecified
CPT/HCPCS: 36415; 86900; 86901; 85025

== ENCOUNTER → 2023-09-08 02:07 | Outpatient (CLI) | payer MEDICARE, BC, SELFPAY ==
--- NOTE | 2023-09-08 | DI.MRI_ITS ---
Exam(s) MR BRAIN WO/W EXAM: MR BRAIN WO/W CLINICAL HISTORY: LUNG CANCER C34.11RESTAGING TECHNIQUE: Multiplanar multisequence MRI of the brain was performed. Both noninfused and contrast i nfused sequences were performed. IV Contrast injected was 18 cc Dotarem. COMPARISON: No exams were available for comparison FINDINGS: CEREBRAL PARENCHYMA: No evidence of intracranial hemorrhage, mass effect nor shift of midline structu re. No extraaxial fluid collections. Ventricles are not enlarged nor shifted. There is no significant focal signal abnormality in the cerebellar hemispheres nor within the rico, m idbrain, and thalami. There is no significant signal abnormality in the periventricular white matter. DWI: No areas of restricted diffusion to suggest acute ischemic event. SWI: No microhemorrhages evident. There are no ring enhancing lesions in the brain. There is no abnormal meningeal enhancement. PITUITARY GLAND: No mass nor parasellar abnormality. No obvious abnormality in the cavernous sinuses. FLOW VOIDS: The expected flow void are noted. No evidence of obvious aneurysm nor obvious vascular ma lformation. PARANASAL SINUSES: The visualized paranasal sinuses appear unremarkable. ORBITS: No obvious abnormal findings. IMPRESSION: 1. No significant intracranial findings on this MRI scan of the brain. No evidence of metastatic int racranial disease. 2. No abnormal enhancing intracranial findings. There are no ring enhancing lesions in the brain and there is no abnormal meningeal enhancement. DATA REPOSITORY:
--- NOTE | 2023-09-08 | DI.CT_ITS ---
Exam(s) CT CHEST W EXAM: CT CHEST W CLINICAL HISTORY: LUNG CANCER C34.11 RESTAGING. TECHNIQUE: Multi planar reconstructions were performed. CONTRAST MATERIAL: Omnipaque 350; 75 cc COMPARISON: CT CT CHEST W from 07/26/2023 FINDINGS: CHEST: LUNGS: COPD emphysematous lung valencia again noted. The previously described spiculated malignant rig ht upper lobe mass is essentially unchanged from 07/26/2023 as is the honeycomb interstitial disease around and subjacent to this mass. In addition, there is a new nodular infiltrate in the lateral bas al segment of the right lower lobe which measures approximately 2 x 2 cm and was not evident on the p rior study of 07/26/2023. No other new right lung findings nor pleural effusions. In the opposite-l eft lung the previously described pleural based 5 millimeter nodule in the lateral basal segment are of the left lower lobe is unchanged. No new focal left lung findings. No pleural effusions on eithe r side. MEDIASTINUM: There is no hilar nor mediastinal adenopathy. Visualized thyroid unremarkable. CARDIAC: Heart size is normal. There is no pericardial effusion.Caliber of the thoracic aorta is wit hin normal limits. VISUALIZED UPPER ABDOMEN:There are no significant adrenal masses. Cholelithiasis noted. OSSEOUS: No significant osseous lesions.No fractures. IMPRESSION: 1. The primary lesion in the right upper lobe is unchanged from the CT scan of 07/26/2023. In additi on, there is a new nodular infiltrate in the right lower lobe measuring approximately 2 x 2 cm, not e vident on the prior study. The diffuse honeycomb pattern in the right lung is again noted. Stable p leural based 5 millimeter nodule in the left lung-lower lobe. 2. No pleural effusions. No new intrathoracic adenopathy. 3. Cholelithiasis incidentally noted. RADIATION DOSE DELIVERED: Total DLP DATA REPOSITORY: All CT scans at this facility are submitted to the National Radiology Data Registry (NRDR) Dose Index Registry (DIR) with the [employer] (ACR). RADIATION OPTIMIZATION: All CT scans at this facility use at least one of these dose optimization te chniques: automated exposure control; mA and/or kV adjustment per patient size (includes targeted exa ms where dose is matched to clinical indication); or iterative reconstruction.
[2023-09-08] MEDS: Normal Saline Flush 10 ML SYR IVP (13:19)
[2023-09-08] MEDS: Gadoterate meglumine 20 ML SYRINGE 18 ML IVP (13:20)
[2023-09-08 13:28] LABS: Reticulocyte 3.1 % (0.5-2.4)
[2023-09-08 13:54] LABS: ALT 19 U/L (16-63); AST 21 U/L (15-37); Alkaline Phosphatase 89 U/L (46-116); Anion Gap 7.1 mmol/L (3-11); BUN 21 mg/dL (7-18); Bilirubin, Total 0.4 mg/dL (0.2-1.0); CO2 27.9 mmol/L (21.0-32.0); CREATININE 1.5 mg/dL (0.70-1.30); Chloride 103 mmol/L (98-107); Estimated GFR 46.77 (mL/min/1.73m2); Ferritin 423 ng/mL (26-388); Glucose 139 mg/dL (74-106); Potassium 4.6 mmol/L (3.5-5.1); Sodium 138 mmol/L (136-145); Total Protein 6.5 g/dL (6.4-8.2)
[2023-09-08] MEDS: Omnipaque 350 MG/ML 100 ML BTL IJ (13:58)
[2023-09-08] MEDS: Normal Saline - Diluent 50 ML VIAL IJ (14:00)
[2023-09-08 14:17] LABS: Abs Immature Grans 0.03 10^3/uL (0.0-0.06); Absolute Lymphocyte Count 0.24 10^3/uL (1.2-3.4); HCT 26.4 % (40.0-50.0); HGB 8.4 g/dL (13.5-17.5); MCH 32.9 pg (27.0-33.0); MCHC 31.8 % (32.0-36.0); MCV 104 fL (80-95); MPV 9.4 fL (8.0-11.0); RBC 2.55 10^6/uL (4.36-5.78); RDW 17.3 % (11.8-14.1); RDW-SD 64.9 fL
[2023-09-08 14:19] LABS: Absolute Neutrophil Count 1.21 10^3/uL (1.2-6.7)
[2023-09-08 14:20] LABS: Absolute Eosinophil Count 0.06 10^3/uL (0.0-0.7); Absolute Monocyte Count 0.29 10^3/uL (0.1-0.8)
[2023-09-08 14:22] LABS: Diff Comment Manual Differential; Hypochromasia 2+; Platelet Count 76 10^3/uL (130-400)
[2023-09-08 14:25] LABS: Metamyelocytes % 1; Myelocytes % 1
[2023-09-08 14:28] LABS: WBC 1.84 10^3/uL (4.4-10.8)
== END ==
PROVIDERS: PCP Internal Medicine; Visit Provider Internal Medicine Medical Oncology
DX: D46.9 Myelodysplastic syndrome, unspecified (principal); C34.11 Malignant neoplasm of upper lobe, right bronchus or lung; K80.00 Calculus of gallbladder with acute cholecystitis without obstruction
CPT/HCPCS: 70553; 80053; 86850; 86900; 86901; 71260; 82728; 83735; 85025; 85045; J3490

== ENCOUNTER → 2023-11-08 04:37 | Outpatient (CLI) | payer MEDICARE, BC, SELFPAY ==
--- NOTE | 2023-11-08 | DI.CT_ITS ---
Exam(s) CT CHEST W EXAM: CT CHEST W CLINICAL HISTORY: RUL LUNG CA,C34.11,S/P RX,RESTAGING EXAM,. TECHNIQUE: Multi planar reconstructions were performed. CONTRAST MATERIAL: Omnipaque 350; 75 cc COMPARISON: CT CT CHEST W from 09/08/2023 FINDINGS: CHEST: LUNGS: In the right lung the previously described spiculated malignant appearing right upper lobe mas s remains unchanged from 07/26/2023 and 09/08/2023 CT scans. The honeycomb interstitial pattern in t he right lung is also unchanged. The nodular density described lower down in the lateral basal segme nt of the right lower lobe has significantly decreased-resolved. However slightly higher up below th e primary lesion there is an area of infiltrate now evident which was not previously present (series 2/image 32). No new additional right lung findings and there is no pleural effusion. In the opposite-left lung there is again noted a solitary pleural based nodular density in the latera l basal segment of the left lower lobe which remains 5 mm size, again unchanged. No new focal left l hedy findings and there are no pleural effusions on either side. No new findings in the trachea and m ainstem bronchi. MEDIASTINUM: There is no hilar nor mediastinal adenopathy. Visualized thyroid unremarkable. CARDIAC: Heart size is normal. There is no pericardial effusion.Caliber of the thoracic aorta is wit hin normal limits. VISUALIZED UPPER ABDOMEN:There are no significant adrenal masses. Cholelithiasis again noted.. No a drenal masses.. Benign cyst lateral aspect of the left kidney is unchanged and does not require imag ing follow-up. OSSEOUS: No significant osseous lesions.No fractures.. IMPRESSION: 1. Unchanged stable appearance of the spiculated malignant-appearing mass in the right upper lobe. N o significant lymphadenopathy evident. No pleural effusion. 2. Resolution of previously described right lower lobe infiltrate with some increased markings now ev ident higher up in the right lung below the primary lesion, probably infectious. 3. Solitary 5 millimeter pleural based left lower lobe nodule remains unchanged. No new left lung fi ndings. Other findings as above. RADIATION DOSE DELIVERED: 448.91mGy.cm Total DLP DATA REPOSITORY: All CT scans at this facility are submitted to the National Radiology Data Registry (NRDR) Dose Index Registry (DIR) with the [employer] (A[employer]). RADIATION OPTIMIZATION: All CT scans at this facility use at least one of these dose optimization te chniques: automated exposure control; mA and/or kV adjustment per patient size (includes targeted exa ms where dose is matched to clinical indication); or iterative reconstruction.
[2023-11-08] MEDS: Normal Saline - Diluent 50 ML VIAL IJ (12:40)
[2023-11-08] MEDS: Omnipaque 350 MG/ML 100 ML BTL IJ (12:41)
== END ==
PROVIDERS: PCP Internal Medicine; Visit Provider Internal Medicine Medical Oncology
DX: R91.1 Solitary pulmonary nodule (principal)
CPT/HCPCS: 80053; 71260; 83735; 85025; J3490

== ENCOUNTER 2023-11-08 11:15 | Outpatient (REF) | payer MEDICARE, BC, SELFPAY ==
[2023-11-08 12:13] LABS: Abs Immature Grans 0.08 10^3/uL (0.0-0.06); Absolute Basophil Count 0.01 10^3/uL (0.0-0.2); Absolute Eosinophil Count 0.02 10^3/uL (0.0-0.7); Absolute Lymphocyte Count 0.21 10^3/uL (1.2-3.4); Absolute Monocyte Count 0.44 10^3/uL (0.1-0.8); Absolute Neutrophil Count 2.18 10^3/uL (1.2-6.7); Basophils % 0.3; Eosinophils % 0.7; HCT 25.1 % (40.0-50.0); HGB 7.9 g/dL (13.5-17.5); Immature Grans % 2.7; Lymphocytes % 7.1; MCH 30.2 pg (27.0-33.0); MCHC 31.5 % (32.0-36.0); MCV 96 fL (80-95); MPV 9.4 fL (8.0-11.0); Neutrophils % 74.2; RBC 2.62 10^6/uL (4.36-5.78); RDW 16.5 % (11.8-14.1); RDW-SD 57.8 fL; WBC 2.94 10^3/uL (4.4-10.8)
[2023-11-08 12:26] LABS: ALT 29 U/L (16-63); AST 24 U/L (15-37); Albumin 2.8 g/dL (3.4-5.0); Alkaline Phosphatase 87 U/L (46-116); Anion Gap 6.4 mmol/L (3-11); BUN 28 mg/dL (7-18); Bilirubin, Total 0.5 mg/dL (0.2-1.0); CO2 26.6 mmol/L (21.0-32.0); CREATININE 1.5 mg/dL (0.70-1.30); Calcium 8.8 mg/dL (8.5-10.1); Chloride 101 mmol/L (98-107); Estimated GFR 46.77 (mL/min/1.73m2); Glucose 178 mg/dL (74-106); Magnesium 1.9 mg/dL (1.8-2.4); Potassium 4.7 mmol/L (3.5-5.1); Sodium 134 mmol/L (136-145); Total Protein 6.6 g/dL (6.4-8.2)
[2023-11-08 12:30] LABS: Diff Comment Diff Reviewed; Platelet Count 40 10^3/uL (130-400); RBC Morphology Normal
== END 2023-11-08 11:16 | disposition home or self-care (01) ==
LOC: LBN 11:15
PROVIDERS: Internal Medicine Medical Oncology; PCP Internal Medicine; Visit Provider Nurse Practitioner Family
DX: C34.11 Malignant neoplasm of upper lobe, right bronchus or lung (principal)
CPT/HCPCS: 80053; 83735; 85025

== ENCOUNTER 2023-11-08 12:56 | Emergency (ER) | payer MEDICARE, BC, SELFPAY ==
[2023-11-08 13:00] VITALS: BP 162/73; PULSE 68; RESP 18; O2SAT 95
--- NOTE | 2023-11-08 13:53 | W.ED.GENAD ---
HPI General Mode of arrival: ambulatory. Date/Time Provider Initiated Documentation: 11/08/23 13:18. Limitations to Documentation: no limitations. Information obtained by: patient and RN notes reviewed. History of Present Illness 78 year old M presents to the emergency department with the chief complaint of Left leg laceration, described as moderate, Patient started experiencing this hour(s) (1) and it has been constant. No relieving factors improve symptom(s), No exacerbating factors reported . Patient notes no other symptoms.. Patient did receive the following treatments prior to arrival, none Related Data Home Medications Medication Instructions Recorded Confirmed multivitamin 1 cap PO DAILY 02/17/14 11/08/23 docusate sodium 100 mg capsule 100 mg PO DAILY PRN 03/18/21 11/08/23 (Colace) insulin lispro 100 unit/mL 6 unit subcut TID PRN hyperglycemia 06/30/22 11/08/23 subcutaneous solution (Humalog U-100 Insulin) losartan 100 mg tablet 50 mg PO DAILY 01/08/23 11/08/23 glucagon 1 mg/0.2 mL subcutaneous 1 mg (0.2 mL) subcut ONCE #0.4 mL 02/15/23 08/16/23 auto-injector (Gvoke HypoPen 2-Pack) simvastatin 20 mg tablet 20 mg PO DAILY 02/15/23 11/08/23 amlodipine 10 mg tablet 10 mg PO HS #30 tabs 03/13/23 11/08/23 insulin glargine 100 unit/mL 8 - 12 unit subcut BID 05/05/23 11/08/23 subcutaneous solution nutrition tx glu 237 ml PO QD-BID PRN unintentional 06/09/23 11/08/23 intol,lac-free,soy-fiber 0.04 weight loss #5,688 mL gram-1 kcal/mL liquid (Glucerna 1 Fermin) citalopram 20 mg tablet 20 mg PO DAILY #90 tabs 07/05/23 11/08/23 diazepam 10 mg tablet 5 - 10 mg (0.5 - 1 x 10 mg) PO HS 08/16/23 11/08/23 PRN sleep #30 tabs prednisone 5 mg tablet 5 mg PO DAILY 08/16/23 11/08/23 bupropion HCl 150 mg tablet,12 hr 150 mg PO BID #60 tabs 10/13/23 11/08/23 sustained-release Previous Rx's Medication Instructions Recorded glucagon 1 mg/0.2 mL subcutaneous 1 mg (0.2 mL) subcut ONCE #0.4 mL 02/15/23 auto-injector (Gvoke HypoPen 2-Pack) amlodipine 10 mg tablet 10 mg PO HS #30 tabs 03/13/23 nutrition tx glu 237 ml PO QD-BID PRN unintentional 06/09/23 intol,lac-free,soy-fiber 0.04 weight loss #5,688 mL gram-1 kcal/mL liquid (Glucerna 1 Fermin) citalopram 20 mg tablet 20 mg PO DAILY #90 tabs 07/05/23 diazepam 10 mg tablet 5 - 10 mg (0.5 - 1 x 10 mg) PO HS 08/16/23 PRN sleep #30 tabs bupropion HCl 150 mg tablet,12 hr 150 mg PO BID #60 tabs 10/13/23 sustained-release Allergies Allergy/AdvReac Type Severity Reaction Status Date / Time No Known Allergies Allergy Verified 11/08/23 13:02 General Stated Complaint: Laceration TIANNA: 4 Review of Systems Integumentary/Breasts Skin/Breast: Reports as per HPI and Reports wounds Exam Const General: cooperative and no acute distress Orientation: alert, awake and oriented x3 Limitations: mental status not altered Resp Effort & Inspection: normal respiratory effort and able to speak in complete sentences Neuro General: patient alert, patient awake, patient oriented x3, gait normal, tone normal and moves all extremities Extrem General: normal exam except as noted Left lower extremity: lower leg Details: laceration (4 cm as noted below in picture) Upper/lower leg/hip images: 1. 4 cm skin tear Course Vital Signs Vital signs: Vital Signs Pulse 68 11/08/23 13:00 Respiratory Rate 18 11/08/23 13:00 Blood Pressure 162/73 H 11/08/23 13:00 Pulse Oximetry 95 11/08/23 13:00 Pulse 68 11/08/23 13:00 Respiratory Rate 18 11/08/23 13:00 Respiratory Effort Normal, Non-Labored 11/08/23 13:11 Blood Pressure 162/73 H 11/08/23 13:00 Blood Pressure Position Sitting 11/08/23 13:00 Pulse Oximetry 95 11/08/23 13:00 Oxygen Delivery Method Room Air 11/08/23 13:00 Oxygen Flow Rate 0 11/08/23 13:00 Pain Level 2 11/08/23 13:11 Medical Decision Making 4 cm skin laceration/skin tear to left lower leg to the anterior surface. No other injury or trauma. Wound was thoroughly rinsed and irrigated, approximated with Steri-Strips and skin adhesive. Patient's tetanus updated. Patient advised to monitor for signs of infection and return immediately if these occur otherwise acute wound care was discussed. After discussion of diagnosis and plan of care patient has no further needs, questions, or concerns and states clear understanding to return to the emergency department for any worsening symptoms. This documentation was generated using [employer] system, please disregard any oddities of phrase or misspellings. 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) Lung mass (Acute) Tobacco use disorder (Acute) Impotence (Acute) of organic origin Constipation (Acute) Insomnia, persistent (Acute) Parotid mass (Acute) Hx of sciatica (Acute) Leg weakness (Acute) Peripheral vascular disease with claudication (Acute) Chronic leg pain (Acute) History of pathological fracture of vertebra (Acute) Depression (Chronic) Weight loss (Acute) Polymyalgia (Acute) Benign prostatic hyperplasia (Chronic) Solitary lung nodule (Acute) MDS (myelodysplastic syndrome) (Acute) Polymyalgia rheumatica (Acute) Palliative care patient (Acute) Positive colorectal cancer screening using Cologuard test (Acute) Iron deficiency anemia due to chronic blood loss (Acute) Left sided sciatica (Acute) Chronic pain of left groin (Acute) Bilateral leg pain (Acute) Right groin pain (Acute) Mild depression (Chronic) Anemia (Chronic) Sciatica of left side (Acute) Unsteady gait when walking (Acute) Internal hemorrhoids (Acute) Benzodiazepine dependence (Acute) Smoker unmotivated to quit (Acute) DNI (do not intubate) (Acute) DNR (do not resuscitate) (Acute) POLST (Physician Orders for Life-Sustaining Treatment) (Acute) signed 03/18/21 Fecal urgency (Acute) History of hemorrhoidectomy (Chronic) GI bleeding (Chronic) Palliative care patient (Acute) Type I diabetes mellitus (Acute) Medical History Goals of care, counseling/discussion Hx of hyperlipidemia HTN (hypertension) Diabetes Anxiety Surgical History Fingertip amputation History of tonsillectomy History of cataract surgery Family History Father , in his early 80s uncertain cause of No problems noted. Mother , age 77 Pancreatic cancer Sister No problems noted. Brother No problems noted. Sister Alcohol abuse Sister No problems noted. Brother Prostate cancer Sister CFIDS (chronic fatigue and immune dysfunction syndrome) Sister , of colon cancer late 50s Colon cancer Sister No problems noted. Sister No problems noted. Son Age: 37 No problems noted. Social History Smoking/Tobacco Use Status: Current every day Tobacco Type: cigarettes Tobacco: How many years used: 60 Quit status: not considering quitting Counseling given: provider counseling Smoking risk assessment performed?: Yes Alcohol Intake: current Alcohol Intake frequency: holidays/special occasions only Alcohol type: beer Drug use: Rarely Substance use type: marijuana Caregiver/Support person: Yes Household members: spouse and children Housing: house Number of Children: 1 number of grandchildren: 0 Communication Needs: Corrective Lenses Education Level: college Do you need help understanding health information?: Rarely 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, 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 Pets and animals: Yes Pets and animals: farm animals Do you think of yourself as: straight/heterosexual What is your relationship status?: How often do you talk on the phone with friends or family?: once per week How often do you get together with friends or relatives?: three or more times per week Panel score (0-1 are the most socially isolated patients): 2 What type of physical activity do you participate in: walking, irregular exercise and additional Details: used to play golf regularly; not since summer 2018 Duration: 15-30 minutes/day Frequency: 1-2 times per week Special li needs: No Seatbelt use: always Working smoke detector in home: Yes Fire extinguisher in home: Yes Do you feel safe at home: Yes Do you feel safe in your relationship?: Yes Additional Social history: Marlo lives in a house on land 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 He lives with his , Ngoc; their son, Carlton, lives downstairs. 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 He continues to smoke and is not interested in quitting. He does see Dr Casper for his recurrent hemorrhoids and GI bleeding. If he has colon cancer, he does not want any treatment. He will not have a colonoscopy. PAWSS Have you Been Recently Intoxicated or Drunk Within the Last 30 days?: No Have you Ever Experienced Previous Episodes of Alcohol Withdrawal?: No Have you ever Experienced Withdrawal Seizures?: No Have you ever Experienced Delirium Tremens(DT)s?: No Have you ever undergone Alcohol Rehabilitation Treatment (i.e, inpt ot outpatient treatment programs)?: No Have you ever Experienced Blackouts?: No Have you ever Combined Alcohol with other Downers within the last 90 days?: No Have you ever Combined Alcohol with any other Substance of Abuse during the last 90 days?: No Positive Blood Alcohol level on Presentation? [PCS.BAL]: No Evidence of Increased Autonomic Activity (i.e. HR>120, tremor, sweating, agitation, nausea)?: No Result: 0 Discharge Plan Discharge Details Chief Complaint: Laceration Clinical Impression: Skin tear of left lower leg without complication Primary Care Provider: Sebastián Leach ED Provider: Kwame Mixon Home Meds and New Rx's Prescriptions: No Action docusate sodium [Colace] 100 mg capsule 100 mg PO DAILY PRN simvastatin 20 mg tablet 20 mg PO DAILY losartan 100 mg tablet 50 mg PO DAILY insulin lispro [Humalog U-100 Insulin] 100 unit/mL solution 6 unit subcut TID PRN (Reason: hyperglycemia) Rx Instructions: patient to use as his blood sugar requires within parameters discussed Gvoke HypoPen 2-Pack 1 mg/0.2 mL auto-injector 1 mg subcut ONCE Qty: 0.4 10RF Rx Instructions: as a single dose; may repeat once after 15 minutes if no response diazepam 10 mg tablet 5 - 10 mg PO HS PRN (Reason: sleep) Qty: 30 2RF prednisone 5 mg tablet 5 mg PO DAILY amlodipine 10 mg tablet 10 mg PO HS Qty: 30 3RF Glucerna 1 Fermin 0.04-1 gram-kcal/mL liquid 237 ml PO QD-BID PRN (Reason: unintentional weight loss) Qty: 5688 3RF Patient Comments: not on med list citalopram 20 mg tablet 20 mg PO DAILY Qty: 90 2RF bupropion HCl 150 mg tablet sustained-release 12 hr 150 mg PO BID Qty: 60 1RF Rx Instructions: take 1 tablet once daily for 3 days, if tolerated, increase to 1 tablet twice daily multivitamin 1 EACH capsule 1 cap PO DAILY insulin glargine 100 unit/mL solution 8 - 12 unit SUBCUT BID Patient Comments: INJECT 8 TO 12 UNITS UNDER THE SKIN TWO TIMES A DAY DIRECTED BY PROVIDER Discharge Instructions Instructions: Skin Tear (ED) Additional Instructions: Watch for any signs of infection and return immediately to the emergency department if these occur. Otherwise please keep Steri-Strips in place and clip edges and do not pull these off as this may reopen the wound. Keep wound clean and dry. Follow-up with primary care provider as needed for reassessment Referrals: Sebastián Leach [Primary Care Provider] - (As needed for reassessment) Discharge Data Discharge Date/Time-TO BE ENTERED AT DEPARTURE: 11/08/23 14:03
[2023-11-08 14:01] VITALS: PULSE 65; RESP 16; O2SAT 100
== END 2023-11-08 14:03 ==
LOC: ER 13:22
PROVIDERS: Emergency Provider Nurse Practitioner Family; PCP Internal Medicine
DX: S81.812A Laceration without foreign body, left lower leg, initial encounter (principal); W22.8XXA Striking against or struck by other objects, initial encounter
CPT/HCPCS: 90471; 90715; 99283; 71260; J3490

== ENCOUNTER 2023-11-29 14:00 | Outpatient (RCR) | payer MEDICARE, BC, SELFPAY ==
[2023-11-25 11:14] LABS: Abs Immature Grans 0.07 10^3/uL (0.0-0.06); Absolute Basophil Count 0.01 10^3/uL (0.0-0.2); Absolute Eosinophil Count 0.04 10^3/uL (0.0-0.7); Absolute Lymphocyte Count 0.22 10^3/uL (1.2-3.4); Absolute Monocyte Count 0.48 10^3/uL (0.1-0.8); Absolute Neutrophil Count 1.75 10^3/uL (1.2-6.7); Basophils % 0.4; Eosinophils % 1.6; HCT 26.8 % (40.0-50.0); HGB 8.1 g/dL (13.5-17.5); Immature Grans % 2.7; Lymphocytes % 8.6; MCH 29.3 pg (27.0-33.0); MCHC 30.2 % (32.0-36.0); MCV 97 fL (80-95); MPV 10.7 fL (8.0-11.0); Monocytes % 18.7; RBC 2.76 10^6/uL (4.36-5.78); RDW 17.8 % (11.8-14.1); RDW-SD 61.8 fL; Reticulocyte 4.5 % (0.5-2.4); WBC 2.57 10^3/uL (4.4-10.8)
[2023-11-25 11:39] LABS: Anisocytosis 1+; Diff Comment Diff Reviewed; Platelet Count 35 10^3/uL (130-400)
[2023-11-25 11:40] LABS: Hypochromasia 2+
[2023-11-25 11:47] LABS: ALT 26 U/L (16-63); AST 25 U/L (15-37); Albumin 2.9 g/dL (3.4-5.0); Alkaline Phosphatase 102 U/L (46-116); Anion Gap 4.9 mmol/L (3-11); BUN 29 mg/dL (7-18); Bilirubin, Total 0.5 mg/dL (0.2-1.0); CO2 28.1 mmol/L (21.0-32.0); CREATININE 1.6 mg/dL (0.70-1.30); Chloride 104 mmol/L (98-107); Estimated GFR 43.29 (mL/min/1.73m2); Ferritin 459 ng/mL (26-388); Glucose 84 mg/dL (74-106); Potassium 4.7 mmol/L (3.5-5.1); Sodium 137 mmol/L (136-145); Total Protein 6.9 g/dL (6.4-8.2)
[2023-11-29 14:30] LABS: Absolute Eosinophil Count 0.03 10^3/uL (0.0-0.7); Absolute Lymphocyte Count 0.27 10^3/uL (1.2-3.4); Absolute Monocyte Count 0.39 10^3/uL (0.1-0.8); Absolute Neutrophil Count 1.71 10^3/uL (1.2-6.7); Eosinophils % 1.2; HCT 27.3 % (40.0-50.0); HGB 8.2 g/dL (13.5-17.5); Lymphocytes % 10.8; MCH 29.1 pg (27.0-33.0); MCV 97 fL (80-95); MPV 9.7 fL (8.0-11.0); Monocytes % 15.6; Neutrophils % 68.4; RBC 2.82 10^6/uL (4.36-5.78); RDW 17.8 % (11.8-14.1); RDW-SD 62.2 fL
[2023-11-29 14:45] LABS: Platelet Count 33 10^3/uL (130-400)
== END 2023-12-02 23:59 | disposition home or self-care (01) ==
LOC: INF 14:00
PROVIDERS: Nurse Practitioner Family; PCP Internal Medicine; Visit Provider Internal Medicine Hematology & Oncology
DX: C34.11 Malignant neoplasm of upper lobe, right bronchus or lung (principal); D46.9 Myelodysplastic syndrome, unspecified
CPT/HCPCS: 36415; 80053; 86850; 86900; 86901; 82728; 85025; 85045

== ENCOUNTER → 2023-12-20 11:13 | Outpatient (BNVA) | payer MEDICARE, BC, SELFPAY | PROVIDERS: PCP Internal Medicine; Referring Provider Internal Medicine; Visit Provider Podiatrist | DX: E10.9 Type 1 diabetes mellitus without complications (principal); B35.1 Tinea unguium; L60.3 Nail dystrophy; I87.2 Venous insufficiency (chronic) (peripheral); I73.9 Peripheral vascular disease, unspecified; C34.90 Malignant neoplasm of unspecified part of unspecified bronchus or lung; D50.9 Iron deficiency anemia, unspecified; M35.3 Polymyalgia rheumatica; R09.89 Other specified symptoms and signs involving the circulatory and respiratory systems; R60.0 Localized edema; R23.4 Changes in skin texture | CPT/HCPCS: 11721; 99213 ==

== ENCOUNTER 2023-12-27 04:33 | Outpatient (RCR) | payer MEDICARE, BC, SELFPAY ==
[2023-12-13 14:24] LABS: Abs Immature Grans 0.07 10^3/uL (0.0-0.06); Absolute Basophil Count 0.01 10^3/uL (0.0-0.2); Absolute Eosinophil Count 0.01 10^3/uL (0.0-0.7); Absolute Lymphocyte Count 0.29 10^3/uL (1.2-3.4); Absolute Monocyte Count 0.61 10^3/uL (0.1-0.8); Absolute Neutrophil Count 1.78 10^3/uL (1.2-6.7); Basophils % 0.4; Eosinophils % 0.4; HCT 29.9 % (40.0-50.0); Immature Grans % 2.5; Lymphocytes % 10.5; MCH 28.7 pg (27.0-33.0); MCHC 30.1 % (32.0-36.0); MCV 95 fL (80-95); MPV 8.6 fL (8.0-11.0); Neutrophils % 64.2; RBC 3.14 10^6/uL (4.36-5.78); RDW 18.3 % (11.8-14.1); RDW-SD 63.5 fL; WBC 2.77 10^3/uL (4.4-10.8)
[2023-12-13 14:41] LABS: Diff Comment Diff Reviewed; Platelet Count 52 10^3/uL (130-400); RBC Morphology Normal
[2023-12-13 14:48] LABS: Ferritin 469 ng/mL (26-388)
[2023-12-27 12:50] LABS: Abs Immature Grans 0.07 10^3/uL (0.0-0.06); Absolute Basophil Count 0.01 10^3/uL (0.0-0.2); Absolute Eosinophil Count 0.05 10^3/uL (0.0-0.7); Absolute Lymphocyte Count 0.33 10^3/uL (1.2-3.4); Absolute Monocyte Count 0.66 10^3/uL (0.1-0.8); Absolute Neutrophil Count 2.38 10^3/uL (1.2-6.7); Basophils % 0.3; Eosinophils % 1.4; HCT 30.9 % (40.0-50.0); Lymphocytes % 9.4; MCH 28.2 pg (27.0-33.0); MCHC 29.1 % (32.0-36.0); MCV 97 fL (80-95); MPV 9.8 fL (8.0-11.0); Monocytes % 18.9; RBC 3.19 10^6/uL (4.36-5.78); RDW 18.2 % (11.8-14.1); RDW-SD 64.2 fL
[2023-12-27 12:58] LABS: Diff Comment Diff Reviewed; Platelet Count 52 10^3/uL (130-400); RBC Morphology Normal
== END 2024-01-02 23:59 | disposition home or self-care (01) ==
LOC: INF 04:33
PROVIDERS: Nurse Practitioner Adult Health; Nurse Practitioner Family; PCP Internal Medicine; Visit Provider Internal Medicine Hematology & Oncology
DX: D63.0 Anemia in neoplastic disease (principal); C34.11 Malignant neoplasm of upper lobe, right bronchus or lung
CPT/HCPCS: 36415; 82728; 85025

== ENCOUNTER 2024-01-26 04:49 | Outpatient (RCR) | payer MEDICARE, BC, SELFPAY ==
[2024-01-10 12:24] LABS: Abs Immature Grans 0.09 10^3/uL (0.0-0.06); Absolute Eosinophil Count 0.03 10^3/uL (0.0-0.7); Absolute Lymphocyte Count 0.29 10^3/uL (1.2-3.4); Absolute Neutrophil Count 2.46 10^3/uL (1.2-6.7); Eosinophils % 0.8; HGB 8.9 g/dL (13.5-17.5); Immature Grans % 2.5; Lymphocytes % 8.1; MCH 28.2 pg (27.0-33.0); MCHC 29.7 % (32.0-36.0); MCV 95 fL (80-95); MPV 9.6 fL (8.0-11.0); Monocytes % 19.6; RBC 3.16 10^6/uL (4.36-5.78); RDW 18.2 % (11.8-14.1); RDW-SD 63.3 fL; WBC 3.57 10^3/uL (4.4-10.8)
[2024-01-10 13:10] LABS: Diff Comment Diff Reviewed; Hypochromasia 2+; Platelet Count 65 10^3/uL (130-400)
[2024-01-26 14:18] LABS: Abs Immature Grans 0.08 10^3/uL (0.0-0.06); Absolute Basophil Count 0.01 10^3/uL (0.0-0.2); Absolute Eosinophil Count 0.06 10^3/uL (0.0-0.7); Absolute Monocyte Count 0.58 10^3/uL (0.1-0.8); Absolute Neutrophil Count 2.39 10^3/uL (1.2-6.7); Basophils % 0.3; Eosinophils % 1.8; HCT 32.1 % (40.0-50.0); HGB 9.4 g/dL (13.5-17.5); Immature Grans % 2.3; Lymphocytes % 8.8; MCH 27.4 pg (27.0-33.0); MCHC 29.3 % (32.0-36.0); MCV 94 fL (80-95); MPV 9.6 fL (8.0-11.0); Neutrophils % 69.8; RBC 3.43 10^6/uL (4.36-5.78); RDW 18.1 % (11.8-14.1); RDW-SD 61.9 fL; WBC 3.42 10^3/uL (4.4-10.8)
[2024-01-26 14:38] LABS: Diff Comment Diff Reviewed; Platelet Count 74 10^3/uL (130-400); RBC Morphology Normal
== END 2024-02-01 23:59 | disposition home or self-care (01) ==
LOC: INF 04:49
PROVIDERS: Nurse Practitioner Family; PCP Internal Medicine; Visit Provider Internal Medicine Hematology & Oncology
DX: C34.11 Malignant neoplasm of upper lobe, right bronchus or lung (principal); Z45.2 Encounter for adjustment and management of vascular access device
CPT/HCPCS: 36415; 85025

== ENCOUNTER → 2024-02-22 04:39 | Outpatient (CLI) | payer MEDICARE, BC, SELFPAY ==
[2024-02-22 10:02] LABS: CREATININE 1.5 mg/dL (0.70-1.30); Estimated GFR 46.77 (mL/min/1.73m2)
[2024-02-22] MEDS: Omnipaque 350 MG/ML 100 ML BTL IJ (10:12)
[2024-02-22] MEDS: Normal Saline - Diluent 50 ML VIAL IJ (10:14)
--- NOTE | 2024-02-22 10:30 | DI.CT_ITS ---
Exam(s) CT CHEST PE CTA EXAM: CT CHEST PE CTA CLINICAL HISTORY: PLEURISY,R09.1,DYSPNEA,H/O LUNG CA,ABNL PET SHOWING SAMIR,? PE. TECHNIQUE: Imaging Protocol: Axial CT angiography was performed with multi-slice acquisition and mu lti-planar reconstructions as well as axial, coronal and sagittal MIP reconstructions. CONTRAST MATERIAL: Intravenous: Omnipaque 350 Contrast volume:100 ml COMPARISON: CT CT CHEST W from 11/08/2023 FINDINGS: Pulmonary Arteries: No evidence of filling defect to suggest pulmonary emboli. Tracheobronchial tree: No mucous plugging. Mediastinum and Miley: No dominant adenopathy or fluid collection. Pulmonary parenchyma: Moderate underlying emphysematous and fibrotic changes. Interval worsening of area of right upper lobe consolidation. Right upper and lower lobe interstitial thickening, worsenin g from prior. Stable nodules peripheral left lung base. Pleura: No effusion or pneumothorax. Heart: The heart is mildly dilated. coronary artery calcifications are seen. Aorta: Thoracic aorta non-dilated. No dissection. Moderate to severe atherosclerotic changes. Upper abdomen: No acute findings. Bones: No aggressive lesions. Degenerative changes. Tubes, Catheters, and Lines: None Soft tissues: Unremarkable. IMPRESSION: No evidence of pulmonary embolism. Interval worsening of right upper lobe consolidation and interstitial thickening when compared to Nov. Most recent prior PET CT images from 28 January 2024 are not available. RADIATION DOSE DELIVERED: 421.51mGy.cm Total DLP DATA REPOSITORY: All CT scans at this facility are submitted to the National Radiology Data Registry (NRDR) Dose Index Registry (DIR) with the [employer] (ACR). RADIATION OPTIMIZATION: All CT scans at this facility use at least one of these dose optimization te chniques: automated exposure control; mA and/or kV adjustment per patient size (includes targeted exa ms where dose is matched to clinical indication); or iterative reconstruction.
== END ==
PROVIDERS: PCP Internal Medicine; Visit Provider Internal Medicine
DX: R09.1 Pleurisy (principal)
CPT/HCPCS: 71275; 82565; J3490

== ENCOUNTER 2024-02-23 04:56 | Outpatient (RCR) | payer MEDICARE, BC, SELFPAY ==
[2024-02-09 13:50] LABS: Abs Immature Grans 0.09 10^3/uL (0.0-0.06); Absolute Basophil Count 0.01 10^3/uL (0.0-0.2); Absolute Eosinophil Count 0.04 10^3/uL (0.0-0.7); Absolute Neutrophil Count 2.49 10^3/uL (1.2-6.7); Basophils % 0.3 %; Eosinophils % 1.1 %; HCT 31.6 % (40.0-50.0); HGB 9.5 g/dL (13.5-17.5); Immature Grans % 2.5 %; Lymphocytes % 8.3 %; MCH 27.8 pg (27.0-33.0); MCHC 30.1 % (32.0-36.0); MCV 92 fL (80-95); MPV 9.6 fL (8.0-11.0); Monocytes % 19.3 %; Neutrophils % 68.5 %; RBC 3.42 10^6/uL (4.36-5.78); RDW 17.7 % (11.8-14.1); RDW-SD 59.9 fL; WBC 3.63 10^3/uL (4.4-10.8)
[2024-02-09 14:07] LABS: Diff Comment Diff Reviewed; Platelet Count 82 10^3/uL (130-400); RBC Morphology Normal
[2024-02-23 11:45] LABS: Abs Immature Grans 0.12 10^3/uL (0.0-0.06); Absolute Basophil Count 0.01 10^3/uL (0.0-0.2); Absolute Eosinophil Count 0.05 10^3/uL (0.0-0.7); Absolute Lymphocyte Count 0.36 10^3/uL (1.2-3.4); Absolute Monocyte Count 0.67 10^3/uL (0.1-0.8); Absolute Neutrophil Count 2.11 10^3/uL (1.2-6.7); Basophils % 0.3 %; Eosinophils % 1.5 %; HCT 30.2 % (40.0-50.0); Immature Grans % 3.6 %; Lymphocytes % 10.8 %; MCH 26.7 pg (27.0-33.0); MCHC 29.8 % (32.0-36.0); MCV 90 fL (80-95); MPV 9.6 fL (8.0-11.0); Monocytes % 20.2 %; Neutrophils % 63.6 %; RBC 3.37 10^6/uL (4.36-5.78); RDW 18.1 % (11.8-14.1); RDW-SD 58.9 fL; WBC 3.32 10^3/uL (4.4-10.8)
[2024-02-23 12:45] LABS: Platelet Count 97 10^3/uL (130-400)
== END 2024-03-03 23:59 | disposition home or self-care (01) ==
LOC: INF 04:56
PROVIDERS: PCP Internal Medicine; Visit Provider Internal Medicine Hematology & Oncology
DX: D46.9 Myelodysplastic syndrome, unspecified (principal); C34.11 Malignant neoplasm of upper lobe, right bronchus or lung
CPT/HCPCS: 36415; 85025

== ENCOUNTER 2024-03-22 12:00 | Outpatient (RCR) | payer MEDICARE, BC, SELFPAY ==
[2024-03-08 13:38] LABS: Abs Immature Grans 0.08 10^3/uL (0.0-0.06); Absolute Eosinophil Count 0.02 10^3/uL (0.0-0.7); Absolute Lymphocyte Count 0.42 10^3/uL (1.2-3.4); Absolute Monocyte Count 0.74 10^3/uL (0.1-0.8); Absolute Neutrophil Count 2.87 10^3/uL (1.2-6.7); Eosinophils % 0.5 %; HCT 31.8 % (40.0-50.0); HGB 9.3 g/dL (13.5-17.5); Immature Grans % 1.9 %; Lymphocytes % 10.2 %; MCH 26.1 pg (27.0-33.0); MCHC 29.2 % (32.0-36.0); MCV 89 fL (80-95); MPV 8.8 fL (8.0-11.0); Monocytes % 17.9 %; Neutrophils % 69.5 %; Platelet Count 106 10^3/uL (130-400); RBC 3.56 10^6/uL (4.36-5.78); RDW 18.3 % (11.8-14.1); RDW-SD 59.5 fL; WBC 4.13 10^3/uL (4.4-10.8)
[2024-03-22 12:19] LABS: Abs Immature Grans 0.25 10^3/uL (0.0-0.06); Absolute Basophil Count 0.01 10^3/uL (0.0-0.2); Absolute Eosinophil Count 0.01 10^3/uL (0.0-0.7); Absolute Lymphocyte Count 0.35 10^3/uL (1.2-3.4); Absolute Monocyte Count 0.77 10^3/uL (0.1-0.8); Basophils % 0.2 %; Eosinophils % 0.2 %; HCT 32.7 % (40.0-50.0); HGB 9.3 g/dL (13.5-17.5); Lymphocytes % 5.6 %; MCHC 28.4 % (32.0-36.0); MCV 91 fL (80-95); MPV 9.4 fL (8.0-11.0); Monocytes % 12.2 %; Neutrophils % 77.8 %; Platelet Count 122 10^3/uL (130-400); RBC 3.58 10^6/uL (4.36-5.78); RDW 19.3 % (11.8-14.1); RDW-SD 63.2 fL; WBC 6.29 10^3/uL (4.4-10.8)
== END 2024-04-02 23:59 | disposition home or self-care (01) ==
LOC: INF 12:00
PROVIDERS: Nurse Practitioner Family; PCP Internal Medicine; Visit Provider Internal Medicine Hematology & Oncology
DX: C34.11 Malignant neoplasm of upper lobe, right bronchus or lung (principal)
CPT/HCPCS: 36415; 85025

== ENCOUNTER 2024-04-19 02:36 | Outpatient (RCR) | payer MEDICARE, BC, SELFPAY ==
[2024-04-05 12:10] LABS: Abs Immature Grans 0.09 10^3/uL (0.0-0.06); Absolute Basophil Count 0.01 10^3/uL (0.0-0.2); Absolute Eosinophil Count 0.02 10^3/uL (0.0-0.7); Absolute Lymphocyte Count 0.25 10^3/uL (1.2-3.4); Absolute Monocyte Count 0.63 10^3/uL (0.1-0.8); Absolute Neutrophil Count 4.47 10^3/uL (1.2-6.7); Basophils % 0.2 %; Eosinophils % 0.4 %; HCT 32.4 % (40.0-50.0); HGB 9.4 g/dL (13.5-17.5); Immature Grans % 1.6 %; Lymphocytes % 4.6 %; MCH 26.5 pg (27.0-33.0); MCV 91 fL (80-95); Monocytes % 11.5 %; Neutrophils % 81.7 %; Platelet Count 105 10^3/uL (130-400); RBC 3.55 10^6/uL (4.36-5.78); RDW 20.7 % (11.8-14.1); RDW-SD 69.4 fL; WBC 5.47 10^3/uL (4.4-10.8)
[2024-04-19 11:43] LABS: Absolute Eosinophil Count 0.01 10^3/uL (0.0-0.7); Absolute Lymphocyte Count 0.39 10^3/uL (1.2-3.4); Absolute Monocyte Count 1.19 10^3/uL (0.1-0.8); Absolute Neutrophil Count 4.13 10^3/uL (1.2-6.7); Eosinophils % 0.2 %; HCT 30.9 % (40.0-50.0); HGB 9.3 g/dL (13.5-17.5); Immature Grans % 1.7 %; Lymphocytes % 6.7 %; MCHC 30.1 % (32.0-36.0); MCV 90 fL (80-95); MPV 9.5 fL (8.0-11.0); Monocytes % 20.4 %; Platelet Count 109 10^3/uL (130-400); RBC 3.45 10^6/uL (4.36-5.78); RDW-SD 65.4 fL; WBC 5.82 10^3/uL (4.4-10.8)
== END 2024-05-03 23:59 | disposition home or self-care (01) ==
LOC: INF 02:36
PROVIDERS: Nurse Practitioner Family; PCP Internal Medicine; Visit Provider Internal Medicine Hematology & Oncology
DX: C34.11 Malignant neoplasm of upper lobe, right bronchus or lung (principal)
CPT/HCPCS: 36415; 85025

== ENCOUNTER → 2024-04-24 10:51 | Outpatient (BNVA) | payer MEDICARE, BC, SELFPAY | PROVIDERS: PCP Internal Medicine; Referring Provider Internal Medicine; Visit Provider Podiatrist | DX: B35.1 Tinea unguium (principal); L60.3 Nail dystrophy; I87.2 Venous insufficiency (chronic) (peripheral); E10.9 Type 1 diabetes mellitus without complications; D50.9 Iron deficiency anemia, unspecified; I73.89 Other specified peripheral vascular diseases; M35.3 Polymyalgia rheumatica | CPT/HCPCS: 11719 ==

== ENCOUNTER → 2024-05-03 01:12 | Outpatient (CLI) | payer MEDICARE, BC, SELFPAY ==
--- OUTSIDE RECORDS SUMMARY | 2024-05-03 01:14 | XMS_ITS | Encounter Summary ---
Author Organization [facility] Address [address] [place] [address] Care Team Providers Care Transmission And Coordination Engineer Name Role Phone Unavailable Primary Care Provider Unavailabl e Encounter Details Date Type Department Care Team (Late st Contact Info) Description 12/28/2022 Lab Requisition [facility] Pathology & Laboratory Medicine - [facility] [address] [place] [address] Outr Resulting Lab, Provider Social History Tobacco Use Types Packs/Day Years Used Date Smoking Tobacco: Never Assessed Sex and Gender Information Value Date Recorded Sex Assigned at Not on file Gender Identity Not on file Sexual Orientation Not on file documented as of this encounter Plan of Treatment Not on file documented as of this encounter Procedures Procedure Name Priority Date/Time Associated Diagnosis Comments CORTISOL Routine 12/28/2022 8:30 EDT documented in this encounter Results * CORTISOL (12/28/2022 8:30 EDT) Cortisol 20 See Note ug/dL 12/28/2022 22:53 EDT [facility] Comment: NOTE: Reference Ranges (from [facility] IFU): Collected Before 10:00 AM: ??4 - 23 ug/dL Collected After 5:00 PM: ?2 - 14 ug/dL The results of this assay can be falsely elevated due to the consumption of Biotin. Blood VENOUS BLOOD / Unknown 12/28/2022 8:30 EDT 12/28/2022 21:52 EDT Provider Outr Resulting Lab CHEMISTRY & BLOOD GAS ORDERABLES [facility] [address] [place] [address] documented in this encounter Visit Diagnoses Not on filedocumented in this encounter
--- OUTSIDE RECORDS SUMMARY | 2024-05-03 01:14 | XMS_ITS | Continuity of Care Document ---
Author Organization [place] - [facility], [facility], [facility] Address [address] [place] [address] Care Team Providers Care Steak Tenderizer Machine Name Role Phone ONESIMO WHITLEY Primary Care Provider [phone] Assessment No assessment recorded. Plan of Treatment Reminders Order Date Submit Date Provider Last Modified By Organization Details Last Modified Time Details Appointments Follow Up 30 2023 01:30P M ONESIMO WHITLEY Not available Not available Not available Lab None recorded. Referral None recorded. Procedures None recorded. Surgeries None recorded. Imaging CT, angiogram , chest, w/ contrast - URGENT: for right -sided pleurisy and dyspnea in lung cancer patient. Recent PET showed SAMIR -- Please call with a CPT Code if PA is being requested 2023 024 [facility] (Radiology), [address] [place] [address] , [place], [address], 02/22/2024 10:55:47 electroca rdiogram 2023 024 [facility], [address] [facility], [place], [address], 02/21/2024 18:22:31 Medication Orders doxycycli ne hyclate 100 mg capsule [address], [address], [place], [place], [id number], 03/15/2024 14:12:58 Eliquis 5 mg tablet [address], [address] , [place], [place], [id number], 03/15/2024 14:13:05 Patient TargetsNo targets recorded. Patient Instructions Encounter Date Encounter Id Patient Instructions Last Modified By Organization Details Last Modified Time 02/21/2024 [id number] 1. Get blood devin t at [facility] when you go for CT scan - you have a yellow order sheet 2. You can start the antibiotics, doxycycline 100 mg twice daily for one week taken with food but not with milk 3. Hold on taking blood thinner (Eliquis) until you hear from me. 4. Call me from home with the name of the inhaled medicine, as well as your cell number 5. If you have worsening shortness of breathe or lightheadedness, go to the hospital. Not available 02/21/2024 14:45:19 Reason for Referral Lightout Examiner Referral for Hea ring loss Referring Physician: Emmie Mendez, Family Medicine, Encounter Date: 02/29/2024 Results Created Date Observation Date Name Description Value Unit Range Abnormal Flag LastModifiedBy Organization Detail LastModifiedTime 02/21/20 24 02/22/2024 elect rocar diogr am No observ ation record ed. [email or web address] [facility] [address] [address], [place], [address], 02/23/2024 09:07:48 02/21/20 elect rocar diogr am No observ ation record ed. [email or web address] Not Available 02/22/2024 11:33:11 02/22/20 24 02/22/2024 imagi ng inter preta tion No observ ation record ed. [email or web address] Not Available 02/22/2024 13:45:06 02/22/20 24 02/22/2024 CT, angio gram, chest , w/ contr ast No observ ation record ed. [email or web address] [facility] (Radiology) [address] [facility] , [place], [address], 02/23/2024 09:07:49 02/22/20 24 02/22/2024 CT imagi ng repor t Patien t Name: Marlo Hernandez Unit #: [id number] Loc: DI Orderi ng Provid er: Primea u,Joele rt E Accoun t #: [id number] Status : REG CLI Primar y Care Provid er: Primea u,Robe rt E Date of Exam: Sex: M : 1944 Age: 78 Exam(s ) a CT:CT chest PE CTA Exam(s ) CT CHEST PE CTA EXAM: CT CHEST PE CTA CLINIC AL HISTOR Y: PLEURI SY,R09 .1,DYS PNEA,H /O LUNG CA,ABN L PET SHOWIN G SAMIR,? PE. TECHNI QUE: Imagin g Protoc ol: Axial CT angiog vicki was perfor med with multi- slice acquis ition and multi- planar recons tructi ons as well as axial, badillo l and sagitt al MIP recons tructi ons. CONTRA ST MATERI AL: Intrav enous: Omnipa que [address] volume :100 ml COMPAR DOUG: CT CT CHEST W from 2023 FINDIN GS: Pulmon bert Arteri es: No eviden ce of fillin g defect to sugges t pulmon bert emboli . Trache obronc hial tree: No mucous pluggi ng. Medias tinum and Miley: No domina nt adenop athy or fluid collec tion. Pulmon bert parenc hyma: Modera te underl wilber emphys ematou s and fibrot ic change s. Interv al worsen ing of area of right upper lobe consol idatio n. Right upper and lower lobe inters titial thicke lily, worsen ing from prior. Stable nodule s periph eral left lung base. Pleura : No effusi on or pneumo thorax . Heart: The heart is mildly dilate d. badillo ry artery calcif icatio ns are seen. Aorta: Thorac ic aorta non-di lated. No dissec tion. Modera te to severe athero sclero tic change s. Upper abdome n: No acute findin gs. Bones: No aggres sive lesion s. Degene rative change s. Tubes, Cathet ers, and Lines: None Soft tissue s: Unrema rkable . IMPRES QUAN: No eviden ce of pulmon bert emboli sm. Interv al worsen ing of right upper lobe consol idatio n and inters titial thicke lily when compar ed to 2023. Most recent prior PET CT images from 28 January 2024 are not availa ble. RADIAT ION DOSE DELIVE RED: 421.51 mGy.cm Total DLP DATA REPOSI TORY: All CT scans at this facili ty are submit katelin to the Nation al Radiol ogy Data Regist ry (NRDR) Dose Index Regist ry (DIR) with the [place] of Radiol ogy (ACR). RADIAT ION OPTIMI ZATION : All CT scans at this facili ty use at least one of these dose optimi zation techni ques: automa katelin exposu re contro l; mA and/or kV adjust ment per patien t size (inclu vinay target ed exams where dose is matche d to clinic al indica tion); or iterat jeff recons tructi on. 009: Total DLP = 0.00 mGy-cm Ordere d By: Sergei Yancey rt E CC: ------ ------ ------ ------ ------ ------ ------ ------ ------ ------ ------ ------ ---- Dictat ed By: Daja Brar [id number] Transc ribed By: Janet Freitas 1039 This is privil eged, confid ential inform ation intend ed only for the provid er named. Any use or distri bution by any person other than this provid er is strict ly prohib ited. If you receiv e this report in error, please notify us immedi valentinaly at and return the origin al report to us at the addres s above. Thank- you. [email or web address] [facility] [address] [facility] [address], [address] 02/22/2024 13:46:47 Result Notes None recorded. Problems Name Status Onset Date Resolution Date Notes Provider Name and Address Organization Details Recorded Time Type 1 diabetes mellitus without complication Active 200909/24/2022 - Comments only - Onesimo Whitley MD - Marlo notes that his sugars seem to be a little more labile he has had more lows. I urged him to back off a little more, reduce his Lantus to 32 units and get used to sugars that are little bit higher. A1c of 6.4 is more ambitious than it should be. Problem Code: E10.9; Problem Code Type: ICD-10; Not Available [facility] 3 05:28:34 Nicotine dependence Active 200911/29/2019 - Comments only - Vanda BEE - - pt doesnt want to quit Problem Code: F17.209; Problem Code Type: ICD-10; Not Available [facility] 3 05:28:34 Hyperlipidemi a Active 200905/21/2022 - Comments only - Onesimo Whitley MD - If we come up with no other explanation for his elevated inflammatory markers I will have him stop simvastatin. Problem Code: E78.5; Problem Code Type: ICD-10; Not Available [facility] 3 05:28:34 Essential hypertension Active 200905/21/2022 - Comments only - Onesimo Whitley MD - Good control Problem Code: I10; Problem Code Type: ICD-10; Not Available [facility] 3 05:28:35 Erectile dysfunction Active 2009 Problem Code: N52.9; Problem Code Type: ICD-10; Not Available [facility] 3 05:28:35 Constipation Active 2009 Problem Code: K59.00; Problem Code Type: ICD-10; Not Available [facility] 3 05:28:35 Insomnia Active 200911/29/2019 - Comments only - Vanda BEE - - pt takes diazepam every night for this. has been well controlled for many years Problem Code: F51.09; Problem Code Type: ICD-10; Not Available [facility] 3 05:28:35 Not for resuscitation Active 2011 Problem Code: Z66; Problem Code Type: ICD-10; Not Available [facility] 3 05:28:35 Disorder of salivary gland Active 2012 Problem Code: K11.8; Problem Code Type: ICD-10; Not Available [facility] 3 05:28:35 Cellulitis Completed 201604/09/2017 Problem Code: L03.90; Problem Code Type: ICD-10; Not Available [facility] 3 05:28:36 Adult health examination Active 201906/26/2022 - Comments only - Onesimo Whitley MD - He can get the COVID-vaccine and flu shot in mid July Problem Code: Z00.00; Problem Code Type: ICD-10; Not Available [facility] 3 05:28:36 Nasal congestion Completed 202102/01/2022 Problem Code: R09.81; Problem Code Type: ICD-10; Not Available [facility] 3 05:28:36 Acute frontal sinusitis Completed 202102/27/2022 01/30/2022 - Comments only - Onesimo Whitley MD - Head congestion now present more than 3 weeks with a dull persistent frontal headache and some minor sinus findings. Flu and COVID-negativ e. Because of the duration headache I am going to give him a trial of amoxicillin for a week. His sugar control remains good, he has no signs of pneumonia. Problem Code: J01.10; Problem Code Type: ICD-10; Not Available [facility] 3 05:28:36 Nervous system and sense organ diseases Active 202109/24/2022 - Comments only - Onesimo Whitley MD - Marlo is a mix of referred and localized pain in the RLE. Is bad have to keep them up so I urged him to consider additional remedies. Treating his depression may help with the sleep some and is not eager to start a new med. Discussed gabapentin. He does not want to use opioids. Discussed alternative methods like CBD oil and/or acupuncture. He is ambivalent about any of this and it is hard to get him to move forward with any decision. Not Available [facility] 3 05:28:36 Monoplegia of lower limb Active 202104/16/2022 - Comments only - Vanda BEE - /hx of sciatica - referral to [facility] PT for strengthening /inc mobility - pt declines imaging at this time Problem Code: G83.10; Problem Code Type: ICD-10; Not Available [facility] 3 05:28:36 Peripheral vascular disease Active 2021 Problem Code: I73.9; Problem Code Type: ICD-10; Not Available [facility] 3 05:28:37 Pain in right lower limb Active 202106/26/2022 - Comments only - Onesimo Whitley MD - Improved as long as he does not do the wrong thing. I reviewed the issues regarding his marked increase in inflammatory markers. This could represent PMR which would be a diagnosis of exclusion. He does not have the typical widespread myalgia however. With his diabetes I would be reluctant to do an empiric course of steroids. We will do what ever cancer work-up he is comfortable with. Problem Code: M79.604; Problem Code Type: ICD-10; Not Available [facility] 3 05:28:37 Follow-up orthopedic assessment Active 202105/21/2022 - Comments only - Onesimo Whitley MD - Marlo I had a long discussion regarding appropriatene ss of fall work-up. He is quite clear that he wants end-of-life care to be palliative based without any extraordinary measures or keeping him alive after he is independent. Has pointed out that he is really not at that situation now, and there is clearly something more going on than we have uncovered. Explained why I think she has lumbar compression fractures unlikely to be pathological and why we are focusing on that as the next step. His markedly elevated inflammatory markers and anemia are not explained by any obvious disease process. If MRI is unrevealing next steps could include monitored watching, further imaging, specialist referral. He should consider all of these options. His IEP was negative for. Proteins and PSA was not elevated. Problem Code: Z47.89; Problem Code Type: ICD-10; Not Available [facility] 3 05:28:37 Anemia Active 202109/24/2022 - Comments only - Onesimo Whitley MD - We had a direct discussion about goals. Marlo's goal is not to detect cancer or live longer, therefore the CAT scan recommendatio n makes very little sense. The whole reason for colonoscopy is to try to improve our understanding of the underlying causes so that we can improve treatment. He certainly could have this done without anesthesia if he so chooses and he will let me know if he wants me to refer him for a different provider. In the meantime he should get cracking with iron, response to iron can help us know whether that is the main issue. Pointed out that he can be little more liberal with the instructions, it just means he might not absorb it quite as well. We will plan to check a CBC and recheck in 5 weeks to see if he is responding to the iron. Problem Code: D64.9; Problem Code Type: ICD-10; Not Available [facility] 3 05:28:37 Major depression, single episode Active 202109/24/2022 - Comments only - Onesimo Whitley MD - I do think Marlo is somewhat depressed and it may be bad enough to impair his concentration somewhat, so I think a trial of SSRI is worthwhile. Reviewed side effects with him again. There is a good chance he will need a dose increase and if he does not notice anything within a month he should call myself or the palliative doctor. On the other hand, some of his affect is likely characterolog ical and so it is hard to predict how well he will will respond. 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 Problem Code: D46.9; Problem Code Type: ICD-10; Not Available [facility] 3 05:28:38 Polymyalgia rheumatica Active 202201/18/2023 - Comments only - Onesimo Whitley MD - Dramatic response to moderate dose prednisone. Still feels great on 15 mg. We will recheck inflammatory markers tomorrow, as long as these are coming down significantly I am going to reduce further to 12.5 mg. Problem Code: M35.3; Problem Code Type: ICD-10; Not Available [facility] 3 05:28:38 Benign prostatic hyperplasia Active 2022 Problem Code: N40.0; Problem Code Type: ICD-10; Not Available [facility] 3 05:28:38 Solitary nodule of lung Completed 202210/13/2023 01/18/2023 - Comments only - Onesimo Whitley MD - Because Marlo's quality life has improved so much, he now feels ready to proceed with staging work-up and possibly treatment. We had a long discussion about neck steps and also what potential treatments might look like, including surgery radiation , cytotoxic and targeted therapies as possibilities . I doubt that this peripheral lesion will be adequately accessed by bronchoscopy and I am referring to [facility] at [facility]. We will get brain MRI, PFTs, coags, and refer to Dr. Villanueva as well. Problem Code: R91.1; Problem Code Type: ICD-10; Removal Reason: [facility] ONESIMO WHITLEY MD [address], [place], [address] , [facility] 4 16:13:37 Adrenal cortical hypofunction Completed 202201/13/2023 Problem Code: E27.40; Problem Code Type: ICD-10; Not Available [facility] 3 05:28:44 Angina pectoris Completed 200906/30/2023 Problem Code: 413.9; Problem Code Type: ICD-9; Not Available [facility] 3 05:28:45 Acute upper respiratory infection Completed 201604/16/2022 Problem Code: J06.9; Problem Code Type: ICD-10; Not Available [facility] 3 05:28:45 Impotence of organic origin Completed 200906/30/2023 Problem Code: 607.84; Problem Code Type: ICD-9; Not Available [facility] 3 05:28:46 Tobacco dependence syndrome Completed 200906/30/2023 Problem Code: 305.1; Problem Code Type: ICD-9; Not Available [facility] 3 05:28:46 Mass of parotid gland Completed 201206/30/2023 Not Available [facility] 3 05:28:46 Type 1 diabetes mellitus Completed 200906/30/2023 Problem Code: 250.01; Problem Code Type: ICD-9; Not Available [facility] 3 05:28:48 Persistent insomnia Completed 200906/30/2023 Problem Code: 307.42; Problem Code Type: ICD-9; Not Available [facility] 3 05:28:50 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, good response to Taxol[facility]platinu [facility] [address], [facility] [phone] [place] [address] 4 16:14:18 Pleurisy Active [address], [place] [id number] [place] [address] 4 14:34:26 Hearing loss Active [address], [facility] [address] [place] [address] 4 13:25:44 Dyspnea on exertion Active [address], [facility] [address] [place] [address] 4 16:38:58 Chronic obstructive pulmonary disease Active [address], [facility] [address] [place] [address] 4 16:44:25 Notes:*Problem Name: Dni *IC D-10 Codes: *Problem Status: inactive *Comments: *Note Date: 08/18/2012 *Problem Name: Dni *ICD-10 Codes: *Problem Status: inactive *Comments: *Problem Code Type: CPT *Note Date: 08/18/2012 Problem Notes None recorded. Procedures Surgical History None recorded. Imaging Results Imaging Date Name Status LastModified by Organization Details LastModified Time 02/22/2024 electrocardiogram completed [email or web address] [facility] [address], [place], [address], 02/23/2024 09:07:48 Procedure Notes None recorded. Medical Equipment None Reported. Allergies No known drug allergies Medications Name Sig Start Date Stop Date Status Note LastModified by Organization Details LastModified Time losartan 50 mg tablet TAKE ONE TABLET BY MOUTH DAILY DOSE REDUCTIO N active Not Available Not Available No t Available celecoxib 200 mg capsule TAKE ONE CAPSULE BY MOUTH EVERY DAY active Not Available Not Available No t Available amoxicill in 500 mg capsule Take 2 capsule by mouth twice a day as directed takes 4 tablets prior to dental appointm ent and 4 tablets after dental procedur e for a total of eight tablets 02/06 completed Not Available Not Available Not Available bupropion HCl SR 150 mg tablet,12 hr sustained -release TAKE ONE TABLET BY MOUTH EVERY DAY FOR 3 DAYS IF TOLERATE D INCREASE TO 1 TABLET TWICE DAILY 03/15 completed Not Available Not Available Not Available prednison e 10 mg tablet TAKE ONE TABLET BY MOUTH EVERY DAY 03/15 completed Not Available Not Available Not Available doxycycli ne hyclate 100 mg capsule Take 1 capsule twice a day by oral route for 7 days. 03/15 completed Not Available Not Available Not Available azithromy sunday 250 mg tablet Take 2 by mouth now, then take 1 by mouth daily x 4 days 08/28 completed Not Available Not Available Not Available aspirin 325 mg tablet 1 qd 2009 active Not Available Not Available Not Avai lable Glucagon Emergency Kit 1 mg solution for injection Inject 1 mg subcutan eously single dose as directed E10.90 active Not Available Not Available No t Available citalopra m 10 mg tablet TAKE ONE TABLET BY MOUTH ONCE DAILY 10/13 completed dose change Not Available Not Available Not Available Keflex 500 mg capsule Take 1 tab by mouth four times daily 08/23 completed Not Available Not Available Not Available methylphe nidate 5 mg tablet TAKE ONE TABLET BY MOUTH TWICE A DAY NEEDED DO NOTE TAKE DOSE AFTER 2 IN THE EVENING 03/15 completed Not Available Not Available Not Available prednison e 20 mg tablet Take 1 tablet every day by oral route. 2023 active Not Available Not Available Not Avai lable prednison e 5 mg tablet TAKE ONE TABLET BY MOUTH EVERY DAY, TITRATE DIRECTED active Not Available Not Available No t Available Lantus U-100 Insulin 100 unit/mL subcutane ous solution inject 8-12 units under the skin two times a day as directed by provider . 2023 active Not Available Not Available Not Avyuni aponte Klor-Con 20 mEq oral packet Take 1 tablet by mouth daily 02/15 completed Not Available Not Available Not Available amlodipin e 5 mg tablet 1 TAB daily 2011 active Not Available Not Available Not Avai labdee prochlorp erazine maleate 10 mg tablet TAKE 1 TABLET BY MOUTH EVERY 6 HOURS NEEDED FOR NAUSEA 10/13 completed has not needed Not Available Not Available Not Available Nicotrol 10 mg inhalatio n cartridge INHALE CONTENTS OF 1 CARTRIDG E BY MOUTH NEEDED FOR SMOKING CESSION FOR UP TO 30 DAYS MAXIMUM DAILY DOSE = 16 CARTRIDG E 10/13 completed Not Available Not Available Not Available bupropion HCl 100 mg tablet TAKE ONE TABLET BY MOUTH EVERY DAY 10/13 completed dose change Not Available Not Available Not Available citalopra m 20 mg tablet TAKE ONE HALF TABLET BY MOUTH EVERY DAY 03/15 completed pt decrease d to 10 mg around 01/22/20 24 Not Available Not Available Not Available tamsulosi n 0.4 mg capsule TAKE ONE CAPSULE BY MOUTH EVERY EVENING active Not Available Not Available No t Available prednison e 1 mg tablet TAKE FOUR TABLETS BY MOUTH EVERY DAY 03/15 completed Not Available Not Available Not Available Humalog U-100 Insulin 100 unit/mL subcutane ous solution INJECT SUBCUTAN EOUSLY THREE TIMES A DAY PER SLIDING SCALE, MAXIMUM DAILY DOSE = 30 UNITS active Not Available Not Available No t Available amlodipin e 10 mg tablet TAKE ONE TABLET BY MOUTH AT BEDTIME active Not Available Not Available No t Available simvastat in 20 mg tablet TAKE ONE TABLET BY MOUTH EVERY DAY active Not Available Not Available No t Available Humulin N NPH U-100 Insulin (isophane susp) 100 unit/mL subcutane ous INJECT 42 UNITS SUBCUTAN EOUSLY EVERY MORNING 10/13 completed med change Not Available Not Available Not Available Glucerna Shake oral liquid DRINK 240ML TWO TIMES A DAY active Not Available Not Available No t Available aspirin 81 mg chewable tablet Take 2 tablet by mouth once a day 12/23 completed Not Available Not Available Not Available diazepam 10 mg tablet TAKE 1/2 TO 1 BY MOUTH AT BEDTIME NEEDED FOR SLEEP active Not Available Not Available No t Available Percocet 5 mg-325 mg tablet 1-2 tabs, three times per day for severe sciatic pain 06/26 completed Not Available Not Available Not Available ketoconaz ole 2 % topical cream APPLY TO TOENAILS ONCE A DAY active Not Available Not Available No t Available losartan 100 mg tablet TAKE ONE-HALF TABLET BY MOUTH EVERY DAY 02/20 completed dose decrease d to 50 mg Not Available Not Available Not Available doxycycli ne hyclate 100 mg tablet TAKE 1 TABLET BY MOUTH TWO TIMES A DAY FOR 7 DAYS 10/13 completed Not Available Not Available Not Available diazepam 5 mg tablet 1 every evening 02/15 completed Not Available Not Available Not Available amoxicill in 875 mg-potass ium clavulana te 125 mg tablet TAKE ONE TABLET BY MOUTH TWICE A DAY FOR 7 DAYS 10/13 completed Not Available Not Available Not Available Augmentin 875 mg tablet 1 tab twice daily 04/05 completed Not Available Not Available Not Available Tylenol 650 mg tablet,ex tended release tab q 4 hr 04/05 completed Not Available Not Available Not Available Humalog U-100 Insulin 100 unit/mL subcutane ous cartridge sliding scale TID AC 2009 active Not Available Not Available Not Avai lable Levitra 20 mg tablet 1 05/01 completed Not Available Not Available Not Available Fiber (psyllium husk) 0.52 gram capsule Take 1 tablet by mouth daily 2016 active Not Available Not Available Not Avai lable oxycodone 5-15 mg q4h 04/05 completed Not Available Not Available Not Available Multivita mins 1 qd 2009 active Not Available Not Available Not Avai lable BD Insulin Syringe Ultra-Fin e 0.5 mL 30 gauge x 1/2 USE ONCE NIGHTLY 03/15 completed Not Available Not Available Not Available insulin glargine (U-100) 100 unit/mL (3 mL) subcutane ous pen INJECT 12 UNITS UNDER THE SKIN TWICE DAILY active per pt BID Not Available Not Available Not Available Fiber (calcium polycarbo zeyad) 625 mg tablet stool softner daily 03/15 completed Not Available Not Available Not Available Novofine 32 32 gauge x 1/4 needle USE ONE NEEDLE NEEDED TWO TIMES A DAY 03/15 completed Not Available Not Available Not Available Xarelto 15 mg tablet Take 1 tablet by mouth twice a day For five days 05/29 completed Not Available Not Available Not Available Eliquis 5 mg tablet Take 2 tablets twice a day by oral route for 3 days. 03/15 completed Not Available Not Available Not Available BD Insulin Syringe Ultra-Fin e 0.5 mL 31 gauge x 5/16 USE ONE SYRINGE FOUR TIMES A DAY active Not Available Not Available No t Available Glucerna 1 Fermin 0.04 gram-1 kcal/mL oral liquid Take 240 mL twice a day by oral route. 2023 active Not Available Not Available Not Avai lable Daily Multivita min 200 mcg-100 mcg-500 mcg capsule Take 1 tablet by mouth daily 2009 active Not Available Not Available Not Avai lable Trelegy Ellipta 100 mcg-62.5 mcg-25 mcg powder for inhalatio n Inhale 1 puff every day by inhalati on route. 03/15 completed per other prescrib er Not Available Not Available Not Available Gvoke HypoPen 2-Pack 1 mg/0.2 mL subcutane ous auto-inje ctor INJECT 0.2 ML SUBCUTAN EOUSLY ONCE A SINGLE DOSE, REPEAT ONCE AFTER 15 MINUTES IF NO RESPONSE active Not Available Not Available No t Available Vitals Date Recorded Body height Body mass index (BMI) Body weight Oxygen saturation Oxygen saturation in Arterial blood by Pulse oximetry Heart rate Body temperature Systolic blood pressure Diastolic blood pressure Provider Name and Address Organization Details Last Updated DateTime 187.325 cm 25 kg/m2 09892.7 3 g 93 % 93 % 72 /min 98.6 [degF] 118 mm[Hg] 46 mm[Hg] GUERDA LARA RN [facility] 14:06:58 Social History Question Answer Notes LastModified by Organizat ion Details LastModified Time Tobacco Smoking Status Former Smoker WU DUNN LPN null, [facility] 02/29/2024 13:04:55 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 1-5yearssinc elastcigaret te Information not available 02/29/2024 1) Date Of Last VPMS Check? 04/04/2024 [email or web address] Information not available 04/04/2024 2) VPMS Findings No Concerns [email or web address] Information not available 04/04/2024 3) Date Of Last Contract: 05/25/2022 Informed C: 05/25/24 Needs Uds. [email or web address] Information not available 04/04/2024 What Was The Date Of Your Most Recent Tobacco Screening? 02/29/2024 Information not available 02/29/2024 Sex: Male Functional Status None recorded. Mental Status None recorded. Family History Relationship Description Onset Age of this Age Resolved Age Notes Sister Family history of ca ncer of colon Notes:*Problem: Mother: Dece ased age 75 pancreatic cancer Father: age 85 fell, subdural hemorrhage, retired Sisters: 7 sisters, all alive but one age 54 from colon cancer metastatic, oldest sister age 83 Brothers: 2 brothers, one healthy, one with prostate cancer Children: one son , healthy, born in 1985, sound effects technician, Family History of: Hypertension: Yes Hyperlipidemia: Yes siblings Coronary heart disease: No Diabetes mellitus: No just Marlo, no relatives Breast cancer: No Colorectal cancer: Yes Prostate cancer: Yes Alcoholism: No Mental illness: No Medical History No medical history recorded. Immunizations Vaccine Type Date Status Provider Name and Address Organization Details Recorded Time COVID-19, mRNA, LNP-S, PF, 100 mcg/0.5mL dose or 50 mcg/0.25mL dose 11/29/2020 completed Not Available [facility] 08/13/20 05:27:52 COVID-19, mRNA, LNP-S, PF, 100 mcg/0.5mL dose or 50 mcg/0.25mL dose 08/17/2021 completed Not Available [facility] 08/13/20 05:27:52 SARS-COV-2 (COVID-19) vaccine, UNSPECIFIED 11/01/2020 completed Not Available [facility] 08/13/2023 05:27:52 influenza, unspecified formulation 07/04/2019 completed Not Available [facility] 08/13/2023 05:27:53 influenza, unspecified formulation 09/20/2012 completed Not Available [facility] 08/13/2023 05:27:53 Past Encounters Encounter ID Performer Location Encounter Start Date Encounter Closed Date Diagnosis/Indication Diagnosis SNOMED-CT Code [id number] ONESIMO WHITLEY MD [address] [address] 02/21/2024 13:59:55 02/21/2024 15:15:08 Pleurisy [id number] Health Concerns Section Related Observation LastModified by Organization Detai ls LastModified Time None Recorded Concern Status LastModified by Organization Details LastModified Time None Recorded Payers Encounter Date Sequence Insurance Name Policy Number Policy Cochran Covered Member ID Cochran Member ID Guarantor Name 02/21/2024 2 [place] [facility] [id number] Marlo Durán [id number] Marlo Durán 02/21/2024 1 [place] [employer] Marlo Mol[place]aw [id number] Marlo Durán Notes Date Note Type Note Provider Name and Address Organization Details Recorded Time 02/21/2024 text/html HPI Notes: Les s here with 3 to 4 days of increased dyspnea as well as pleuritic right-sided chest pain. He recalls having somewhat similar pain with an episode of pneumonia in the past, and that is his main concern. He has not had fever and does not have any increase in cough. Appetite not great but that is chronic, there is no recent worsening, no nausea vomiting or diarrhea. Denies having lightheadedness or syncope, palpitations. Denies having increased pedal edema or lower extremity pain. He is not very active due to the fatigue from his cancer treatments, but no recent travel or specific episodes of inactivity. No history of DVT. Completed his fourth cycle of chemo last month, with recent PET scan showing SAMIR. The oncologist have some concern about the possibility of brain metastases, but Marlo does not want to pursue MRI and would not consider treatment of that. He continues to be followed closely by palliative care and he continues to carefully define his limits. No URI, no rhinitis or pharyngitis. ONESIMO WHITLEY MD [address], [place], [address], [facility]. 02/21/2024 17:56:11
--- OUTSIDE RECORDS SUMMARY | 2024-05-03 01:14 | XMS_ITS | Continuity of Care Document ---
Author Organization [facility] Address [address] [place] [address] Care Team Providers Care Cadastral Surveyor Name Role Phone ONESIMO WHITLEY Primary Care Provider Assessment Encounter Date Assessment Date Assessment LastModified by Organization Details LastModified Time 03/15/2024 03/15/2024 78-year-old diabetic man has for the most part done remarkably well with chemotherapy for small cell lung cancer. Despite clinical response he has some advancing dyspnea and asthenia. Marlo has always been very clearheaded about. Of care being his #1 priority. More than 55 minutes spent in today's visit interviewing patient, reviewing records and formulating plan. Not available 03/15/2024 16:47:33 Plan of Treatment Reminders Order Date Submit Date Provider Last Modified By Organization Details Last Modified Time Details Appointments Follow Up 30 2023 01:30P M ONESIMO WHITLEY Not available Not available Not available Lab None recorded. Referral None recorded. Procedures None recorded. Surgeries None recorded. Imaging None recorded. Medication Orders prednison e 5 mg tablet 2023 024 [facility], [address] [place], [address], 03/15/2024 16:35:25 diazepam 10 mg tablet 2023 024 [facility], [address] [place], [address], 03/15/2024 16:35:25 Glucerna 1 Fermin 0.04 gram-1 kcal/mL oral liquid 2023 024 [facility], [address] [place], [address], 03/15/2024 16:35:25 prednison e 20 mg tablet 2023 024 [facility], [address] [place], [address], 03/15/2024 16:35:25 celecoxib 200 mg capsule 2023 024 [facility], [address] [place], [address], 03/15/2024 16:35:25 Patient TargetsNo targets recorded. Patient Instructions Encounter Date Encounter Id Patient Instructions Last Modified By Organization Details Last Modified Time 03/15/2024 [id number] 1. Prednisone 20 mg once daily for 5 days, then resume 5 mg daily 2. Celecoxib is celebrex, 200 mg once per day for pain. 3. Try a flutter valve, called acapella , 10 times in a row , twice per day Not available 03/15/2024 14:58:28 Reason for Referral Transportation Agent Referral for Hea ring loss Referring Physician: Emmie Mendez, Family Medicine, Encounter Date: 02/29/2024 Results Created Date Observation Date Name Description Value Unit Range Abnormal Flag LastModifiedBy Organization Detail LastModifiedTime 02/21/2002/22/2024 elect beth cevallosgr am No observ ation record ed. [email or web address] [facility] [address], [place], [address], 02/23/2024 09:07:48 02/21/20 elect rocjaspal diogr am No observ ation record ed. [email or web address] Not Available 02/22/2024 11:33:11 02/22/20 24 02/22/2024 imagi ng inter preta tion No observ ation record ed. [email or web address] Not Available 02/22/2024 13:45:06 02/22/20 24 02/22/2024 CT, angio gram, chest , w/ contr ast No observ ation record ed. [email or web address] [facility] (Radiology) [address] [place], [address], 02/23/2024 09:07:49 02/22/20 24 02/22/2024 CT imagi ng repor t Patien t Name: Marlo Hernandez Unit #: [id number] Loc: DI Orderi ng Provid er: Primea u,Robe rt E Accoun t #: [id number] Status : REG CLI Primar y Care [...] tion); or iterat jeff recons tructi on. 0521-0 009: Total DLP = 0.00 mGy-cm Ordere [...] this report in error, please notify us immwhitney christie at and return the origin al report to us at the addres s above. Thank- you. [email or web address] [facility] [address] [place], [address] 02/22/2024 13:46:47 Result Notes None recorded. Problems [...] E10.9; Problem Code Type: ICD-10; Not Available [facility] 3 05:28:34 Nicotine dependence Active 200911/29/2019 - Comments only - Vanda BEE - - pt doesnt want to quit Problem Code: F17.209; Problem Code Type: ICD-10; Not Available [facility] 3 05:28:34 Hyperlipidemi a Active 200905/21/2022 - Comments only - Onesimo Whitley MD - If we come up with no other explanation for his elevated inflammatory markers I will have him stop simvastatin. Problem Code: E78.5; Problem Code Type: ICD-10; Not Available [facility] 3 05:28:34 Essential hypertension Active 200905/21/2022 - Comments only - Onesimo Whitley MD - Good control Problem Code: I10; Problem Code Type: ICD-10; Not Available [facility] 3 05:28:35 Erectile dysfunction Active 2009 Problem Code: N52.9; Problem Code Type: ICD-10; Not Available [facility] 3 05:28:35 Constipation Active 2009 Problem Code: K59.00; Problem Code Type: ICD-10; Not Available [facility] 3 05:28:35 Insomnia Active 200911/29/2019 - Comments only - Vanda BEE - - pt takes diazepam every night for this. has been well controlled for many years Problem Code: F51.09; Problem Code Type: ICD-10; Not Available [facility] 3 05:28:35 Not for resuscitation Active 2011 Problem Code: Z66; Problem Code Type: ICD-10; Not Available [facility] 3 05:28:35 Disorder of salivary gland Active 2012 Problem Code: K11.8; Problem Code Type: ICD-10; Not Available [facility] 3 05:28:35 Cellulitis Completed 201604/09/2017 Problem Code: L03.90; Problem Code Type: ICD-10; Not Available [facility] 3 05:28:36 Adult health examination Active 201906/26/2022 - Comments only - Onesimo Whitley MD - He can get the COVID-vaccine and flu shot in mid July Problem Code: Z00.00; Problem Code Type: ICD-10; Not Available [facility] 3 05:28:36 Nasal congestion Completed 202102/01/2022 Problem Code: R09.81; Problem Code Type: ICD-10; Not Available [facility] 3 05:28:36 Acute frontal sinusitis Completed 202102/27/2022 [...] J01.10; Problem Code Type: ICD-10; Not Available [facility] 3 05:28:36 Nervous system and sense organ [...] move forward with any decision. Not Available [facility] 3 05:28:36 Monoplegia of lower limb Active 202104/16/2022 - Comments only - Vanda BEE - /hx of sciatica - referral to [facility] PT for strengthening /inc mobility - pt declines imaging at this time Problem Code: G83.10; Problem Code Type: ICD-10; Not Available [facility] 3 05:28:36 Peripheral vascular disease Active 2021 Problem Code: I73.9; Problem Code Type: ICD-10; Not Available [facility] 3 05:28:37 Pain in right lower limb [...] M79.604; Problem Code Type: ICD-10; Not Available [facility] 3 05:28:37 Follow-up orthopedic assessment Active 202105/21/2022 - Comments only - Onesimo Sellers I had a long discussion regarding appropriatene [...] Z47.89; Problem Code Type: ICD-10; Not Available [facility] 3 05:28:37 Anemia Active 202109/24/2022 - Comments [...] D64.9; Problem Code Type: ICD-10; Not Available [facility] 3 05:28:37 Major depression, single episode Active [...] D46.9; Problem Code Type: ICD-10; Not Available [facility] 3 05:28:38 Polymyalgia rheumatica Active 202201/18/2023 - Comments only - Onesimo Whitley MD - Dramatic response to moderate dose prednisone. Still feels great on 15 mg. We will recheck inflammatory markers tomorrow, as long as these are coming down significantly I am going to reduce further to 12.5 mg. Problem Code: M35.3; Problem Code Type: ICD-10; Not Available [facility] 05:28:38 Benign prostatic hyperplasia Active 2022 Problem Code: N40.0; Problem Code Type: ICD-10; Not Available [facility] 05:28:38 Solitary nodule of lung Completed 202210/13/2023 [...] by bronchoscopy and I am referring to [facility]. We will get brain MRI, PFTs, coags, and refer to Dr. Villanueva as well. Problem Code: R91.1; Problem Code Type: ICD-10; Removal Reason: [facility] ONESIMO WHITLEY MD [address], [place], [address] , [facility] 4 16:13:37 Adrenal cortical hypofunction Completed 202201/13/2023 Problem Code: E27.40; Problem Code Type: ICD-10; Not Available [facility] 3 05:28:44 Angina pectoris Completed 200906/30/2023 Problem Code: 413.9; Problem Code Type: ICD-9; Not Available [facility] 3 05:28:45 Acute upper respiratory infection Completed 201604/16/2022 Problem Code: J06.9; Problem Code Type: ICD-10; Not Available [facility] 3 05:28:45 Impotence of organic origin Completed 200906/30/2023 Problem Code: 607.84; Problem Code Type: ICD-9; Not Available [facility] 3 05:28:46 Tobacco dependence syndrome Completed 200906/30/2023 Problem Code: 305.1; Problem Code Type: ICD-9; Not Available [facility] 3 05:28:46 Mass of parotid gland Completed 201206/30/2023 Not Available [facility] 3 05:28:46 Type 1 diabetes mellitus Completed 200906/30/2023 Problem Code: 250.01; Problem Code Type: ICD-9; Not Available [facility] 3 05:28:48 Persistent insomnia Completed 200906/30/2023 Problem Code: 307.42; Problem Code Type: ICD-9; Not Available [facility] 3 05:28:50 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, good response to Taxol[facility]platinu , [facility] [address], [place], [address] , [facility] 4 16:14:18 Pleurisy Active [address], [facility] [address] , [facility] 4 14:34:26 Hearing loss Active [address] [facility] [address] , [facility] 4 13:25:44 Dyspnea on exertion Active [address] [facility] [address] , [facility] 4 16:38:58 Chronic obstructive pulmonary disease Active 2023 ONESIMO WHITLEY MD [address], [place], [address] , [facility] 4 16:44:25 Notes:*Problem Name: Dni *IC D-10 Codes: *Problem Status: inactive *Comments: *Note Date: 08/18/2012 *Problem Name: Dni *ICD-10 Codes: *Problem Status: inactive *Comments: *Problem Code Type: CPT *Note Date: 08/18/2012 Problem Notes None recorded. Medical Equipment None Reported. [...] Not Available Not Available Not Avai lable Klor-Con 20 mEq oral packet Take 1 tablet by mouth daily 02/15 completed Not Available Not Available Not Available amlodipin e 5 mg tablet 1 TAB daily 2011 active Not Available Not Available Not Avai lable prochlorp erazine maleate 10 mg tablet TAKE [...] height Body mass index (BMI) Body weight Body temperature Oxygen saturation Oxygen saturation in Arterial blood by Pulse oximetry Heart rate Respiratory rate Systolic blood pressure Diastolic blood pressure Provider Name and Address Organization Details Last Updated DateTime 4 187.33 cm 25.1 kg/m2 45937.9 2 g 97.8 [degF] 98 % 98 % 68 /min 18 /min 112 mm[Hg] 60 mm[Hg] WU DUNN LPN [facility] 14:10:47 Social History Question Answer Notes LastModified by Organizat ion Details LastModified Time Tobacco Smoking Status Former Smoker WU DUNN LPN [facility], [facility] 02/29/2024 13:04:55 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 1-5yearssinc elastcigaret te Information not available 02/29/2024 1) Date Of Last VPMS Check? 04/04/2024 [email or web address] Information not available 04/04/2024 2) VPMS Findings No Concerns [email or web address] Information not available 04/04/2024 3) Date Of Last Contract: 05/25/2022 Informed C: 05/25/24 Needs Uds. [email or web address] Information not available 04/04/2024 What Was The [...] Father: age 85 fell, subdural hemorrhage, retired MD Sisters: 7 sisters, all alive but one age 54 from colon cancer metastatic, oldest sister age 83 Brothers: 2 brothers, one healthy, one with prostate cancer Children: one son , healthy, born in 1985, logistics engineer, Family History of: Hypertension: Yes Hyperlipidemia: Yes siblings Coronary heart disease: No Diabetes mellitus: No hilda Sellers, no relatives Breast cancer: No Colorectal cancer: Yes Prostate cancer: Yes Alcoholism: No Mental illness: No Medical History No medical history recorded. Immunizations Vaccine Type Date Status Provider Name and Address Organization Details Recorded Time COVID-19, mRNA, LNP-S, PF, 100 mcg/0.5mL dose or 50 mcg/0.25mL dose 11/29/2020 completed Not Available [facility] 08/13/20 05:27:52 COVID-19, mRNA, LNP-S, PF, 100 mcg/0.5mL dose or 50 mcg/0.25mL dose 08/17/2021 completed Not Available [facility] 08/13/20 05:27:52 SARS-COV-2 (COVID-19) vaccine, UNSPECIFIED 11/01/2020 completed Not Available [facility] 08/13/2023 05:27:52 influenza, unspecified formulation 07/04/2019 completed Not Available [facility] 08/13/2023 05:27:53 influenza, unspecified formulation 09/20/2012 completed Not Available [facility] 08/13/2023 05:27:53 Past Encounters Encounter ID Performer Location Encounter Start Date Encounter Closed Date Diagnosis/Indication Diagnosis SNOMED-CT Code [id number] ONESIMO WHITLEY MD [address] [address] 02/21/2024 13:59:55 02/21/2024 15:15:08 Pleurisy [id number] ONESIMO WHITLEY MD [address] [address] 02/29/2024 12:56:26 02/29/2024 13:34:27 Hearing loss 57641925 Pleurisy 871221204 [id number] ONESIMO WHITLEY MD [address] [address] 03/15/2024 13:55:39 03/15/2024 15:04:48 Pleurisy [id number] Insomnia 780885542 Essential hypertension 97184209 Myelodyspl astic syndrome (clinical) 552262557 Polymyalgi a rheumatica 60207765 Type 1 federico betes mellitus without complication 015488477 Small cell carcinoma of lung 442224037 Chronic ob structive pulmonary disease 69366698 Health Concerns Section Related Observation LastModified by Organization Detai ls LastModified Time None Recorded Concern Status LastModified by Organization Details LastModified Time None Recorded Payers Encounter Date Sequence Insurance Name Policy Number Policy Cochran Covered Member ID Cochran Member ID Guarantor Name 03/15/2024 2 [place] [facility] [id number] Marlo Durán [id number] Marlo Durán 03/15/2024 1 [place] [id number] Marlo Durán [id number] Marlo Durán Notes Date Note Type Note Provider Name and Address Organization Details Recorded Time 03/15/2024 text/html HPI Notes: Follow-up for right-sided pleuritic chest pain Marlo's pleuritic pain did not resolve after course of antibiotics. His CT showed some consolidative changes distal to the cancer; this was worse than his prior CT and [facility] but not worse than his last CT at [facility]. He never developed fever. He still has a little more dyspnea on exertion than usual, and he cannot do ambitious chores such as gardening. He is not short of breath at rest. He finds that if he puts a lot of pressure with his hand on the chest wall pain around the right nipple, this alleviates some of the pain with taking a deep breath. The pain is not severe, but is bad enough to interfere sometimes with concentration or sleep. No hemoptysis. No wheezing. A prior trial of Trelegy inhaler did not help his dyspnea. He has not seen a zigzag appliquer recently. His blood counts have improved a bit on Aranesp but he is still mildly to moderately anemic. He was having some increasing generalized aches and pains including the right hip pain. He increased his prednisone back to 5 mg and that has helped just a little. He is not having headache, shoulder girdle pain or vision change. No night sweats. Appetite improved on the higher dose of prednisone. Does not feel that he is significantly depressed at this time. ONESIMO WHITLEY MD [address], [place], [address], [facility]. 03/15/2024 16:47:38
--- OUTSIDE RECORDS SUMMARY | 2024-05-03 01:14 | XMS_ITS | Clinical Summary ---
Author Organization [facility] Address [address] [place] [address] Care Team Providers Care Copra Sampler Name Role Phone Unavailable Primary Care Provider Unavailabl e Social History Tobacco Use Types Packs/Day Years Used Date Smoking Tobacco: Never Assessed Sex and Gender Information Value Date Recorded Sex Assigned at Not on file Gender Identity Not on file Sexual Orientation Not on file Plan of Treatment Health Maintenance Due Date Last Done Comments RSV Immunization ( o r 60+ Years) (1 - 1-dose 60+ series) 2003 Fall Risk Screening 2008 COVID-19 Vaccine ( season) 2023
--- OUTSIDE RECORDS SUMMARY | 2024-05-03 01:14 | XMS_ITS | Data Portability ---
Author Organization [place] - [facility], [facility] Address [address] [place] [address] Care Team Providers Care Emergency Crew Supervisor Name Role Phone ONESIMO WHITLEY Primary Care [...] Details Appointments Follow Up 30 2023 01:30P Cory WHITLEY Not available Not available Not available Lab None recorded. Referral audiologi st referral [address]23 [email or web address] [facility], [address] [place], [address], 04/03/2024 16:51:20 Procedures None recorded. Surgeries None recorded. Imaging CT, angiogram , chest, w/ contrast - URGENT: for right -sided pleurisy and dyspnea in lung cancer patient. Recent PET showed JACQUE -- Please call with a CPT Code if PA is being requested [address] [facility] (Radiology), [address] [facility] [place], [address], 02/22/2024 10:55:47 electroca rdiogram 2023 024 [facility], [address] [facility], [facility], [place], [address], 02/21/2024 18:22:31 Medication Orders prednison e 1 mg tablet 2023 024 [email or web address] [facility], [address] [place] [address], [address], 03/15/2024 14:14:01 doxycycli ne hyclate 100 mg capsule [address], [address], [place], [place], [id number], 03/15/2024 14:12:58 Eliquis 5 mg tablet [address], [address], [place], [place], [id number], 03/15/2024 14:13:05 prednison e 5 mg tablet 2023 024 [email or web address] [facility], [address] [place] [address], [address], 03/15/2024 16:35:25 diazepam 10 mg tablet 2023 024 [email or web address] [facility], [address] [place] [address], [address], 03/15/2024 16:35:25 Glucerna 1 Tamara 0.04 gram-1 kcal/mL oral liquid 2023 024 [facility], [address] [place] [address], [address], 03/15/2024 16:35:25 prednison e 20 mg tablet 2023 024 [facility], [address] [place], [address], 03/15/2024 16:35:25 celecoxib 200 mg capsule 2023 024 [facility], [address] [place], [address], 03/15/2024 16:35:25 Patient TargetsNo targets recorded. Patient Instructions Encounter Date Encounter Id Patient Instructions Last Modified By Organization Details Last Modified Time 02/21/2024 [id number] 1. Get blood devin t at [facility] when you go for CT scan - [...] to the hospital. Not available 02/21/2024 14:45:19 02/29/2024 [id number] Continue your doxycyline x [address] Whitley disagrees I will let you know. I referred you to audiology that will be in [facility] or [place] [address] Not available 02/29/2024 13:28:38 03/15/2024 [id number] 1. Prednisone 20 mg once daily for 5 days, then resume 5 mg daily 2. Celecoxib is celebrex, 200 mg once per day for pain. 3. 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 Referring Physician: Emmie Mendez, Family Medicine, Encounter Date: 02/29/2024 Results Created Date Observation Date Name Description Value Unit Range Abnormal Flag LastModifiedBy Organization Detail LastModifiedTime 11/08/19 24 11/08/2023 COMPR EHENS ODELL METAB OLIC PANEL calcium 8.8 mg/dL 8.5-10 .1 normal Not Available [address] [place], [address] 11/08/2023 12:28:05 11/08/19 24 11/08/2023 COMPR EHENS ODELL METAB OLIC PANEL glucose 178 mg/dL 74-106 high Not Available [address] [place], [address] 11/08/2023 12:28:05 11/08/19 24 11/08/2023 COMPR EHENS ODELL METAB OLIC PANEL BUN 28 mg/dL 7-18 high Not Available [address] [place], [address] 11/08/2023 12:28:11/08/19 24 11/08/2023 COMPR EHENS ODELL METAB OLIC PANEL creatinine 1.5 mg/dL 0.70-1 .30 high Not Available [address] [place], [address] 11/08/2023 12:28:05 11/08/19 24 11/08/2023 COMPR EHENS ODELL METAB OLIC PANEL estimated GFR 46.77 mL/min /1.73m 2 Not Available [address] [place], [address] 11/08/2023 12:28:05 11/08/19 24 11/08/2023 COMPR EHENS ODELL METAB OLIC PANEL total protein 6.6 g/dL 6.4-8. 2 normal Not Available [address] [place], [address] 11/08/2023 12:28:05 11/08/19 24 11/08/2023 COMPR EHENS ODELL METAB OLIC PANEL albumin 2.8 g/dL 3.4-5. 0 low Not Available [address] [place], [address] 11/08/2023 12:28:05 11/08/19 24 11/08/2023 COMPR EHENS ODELL METAB OLIC PANEL bilirubin, total 0.5 mg/dL 0.2-1. 0 normal Not Available [address] [place], [address] 11/08/2023 12:28:05 11/08/19 24 11/08/2023 COMPR EHENS ODELL METAB OLIC PANEL alk phos 87 U/L 46-116 normal Not Available [address] [place], [address] 11/08/2023 12:28:05 11/08/19 24 11/08/2023 COMPR EHENS ODELL METAB OLIC PANEL sodium 134 mmol/ L 136-14 5 low Not Available [address] [place], [address] 11/08/2023 12:28:05 11/08/19 24 11/08/2023 COMPR EHENS ODELL METAB OLIC PANEL potassium 4.7 mmol/ L 3.5-5. 1 normal Not Available [address] [place], [address] 11/08/2023 12:28:05 11/08/19 24 11/08/2023 COMPR EHENS ODELL METAB OLIC PANEL chloride 101 mmol/ L 98-107 normal Not Available [address] [place], [address] 11/08/2023 12:28:05 11/08/19 24 11/08/2023 COMPR EHENS ODELL METAB OLIC PANEL CO2 26.6 mmol/ L 21.0-3 2.0 normal Not Available [address] [place], [address] 11/08/2023 12:28:05 11/08/19 24 11/08/2023 COMPR EHENS ODELL METAB OLIC PANEL anion gap 6.4 mmol/ L 3-11 normal Not Available [address] [place], [address] 11/08/2023 12:28:05 11/08/19 24 11/08/2023 COMPR EHENS ODELL METAB OLIC PANEL AST 24 U/L 15-37 normal Not Available [address] [place], [address] 11/08/2023 12:28:05 11/08/19 24 11/08/2023 COMPR EHENS ODELL METAB OLIC PANEL ALT 29 U/L 16-63 normal Not Available [address] [place], [address] 11/08/2023 12:28:05 11/08/19 24 11/08/2023 MAGNE SIUM magnesium 1.9 mg/dL 1.8-2. 4 normal Not Available [address] [place], [address] 11/08/2023 12:28:06 11/08/19 24 11/08/2023 COMPL ETE BLOOD COUNT W/DIF F WBC 2.94 10_3/ uL 4.4-10 .8 low Not Available [address] [place], [address] 11/08/2023 12:32:05 11/08/19 24 11/08/2023 COMPL ETE BLOOD COUNT W/DIF F RBC 2.62 10_6/ uL 4.36-5 .78 low Not Available [address] [place], [address] 11/08/2023 12:32:05 11/08/19 24 11/08/2023 COMPL ETE BLOOD COUNT W/DIF F HGB 7.9 g/dL 13.5-1 7.5 low Not Available [address] [place], [address] 11/08/2023 12:32:05 11/08/19 24 11/08/2023 COMPL ETE BLOOD COUNT W/DIF F HCT 25.1 % 40.0-5 0.0 low Not Available [address] [place], [address] 11/08/2023 12:32:05 11/08/19 24 11/08/2023 COMPL ETE BLOOD COUNT W/DIF F MCV 96 fL 80-95 high Not Available [facility] [address] [place], [address] 11/08/2023 12:32:05 11/08/19 24 11/08/2023 COMPL ETE BLOOD COUNT W/DIF F MCH 30.2 pg 27.0-3 3.0 normal Not Available [address] [place], [address] 11/08/2023 12:32:05 11/08/19 24 11/08/2023 COMPL ETE BLOOD COUNT W/DIF F MCHC 31.5 % 32.0-3 6.0 low Not Available [address] [place], [address] 11/08/2023 12:32:05 11/08/19 24 11/08/2023 COMPL ETE BLOOD COUNT W/DIF F RDW 16.5 % 11.8-1 4.1 high Not Available [address] [place], [address] 11/08/2023 12:32:05 11/08/19 24 11/08/2023 COMPL ETE BLOOD COUNT W/DIF F platelet count 40 10_3/ uL 130-40 0 low Not Available [address] [place], [address] 11/08/2023 12:32:05 11/08/19 24 11/08/2023 COMPL ETE BLOOD COUNT W/DIF F MPV 9.4 fL 8.0-11 .0 normal Not Available [address] [place], [address] 11/08/2023 12:32:05 11/08/19 24 11/08/2023 COMPL ETE BLOOD COUNT W/DIF F neutrophils % 74.2 Not Available [address] [place], [address] 11/08/2023 12:32:05 11/08/19 24 11/08/2023 COMPL ETE BLOOD COUNT W/DIF F lymphocytes % 7.1 Not Available [address] [place], [address] 11/08/2023 12:32:05 11/08/19 24 11/08/2023 COMPL ETE BLOOD COUNT W/DIF F monocytes % 15.0 Not Available [address] [place], [address] 11/08/2023 12:32:05 11/08/19 24 11/08/2023 COMPL ETE BLOOD COUNT W/DIF F eosinophils % 0.7 Not Available [address] [place], [address] 11/08/2023 12:32:05 11/08/19 24 11/08/2023 COMPL ETE BLOOD COUNT W/DIF F basophils % 0.3 Not Available [email or web address] [place], [address] 11/08/2023 12:32:05 11/08/19 24 11/08/2023 COMPL ETE BLOOD COUNT W/DIF F immature grans % 2.7 Not Available [address] [place], [address] 11/08/2023 12:32:05 11/08/19 24 11/08/2023 COMPL ETE BLOOD COUNT W/DIF F nucleated RBC 0.0 % 0.0-0. 3 normal Not Available [address] [place], [address] 11/08/2023 12:32:05 11/08/19 24 11/08/2023 COMPL ETE BLOOD COUNT W/DIF F absolute neutrophil count 2.18 10_3/ uL 1.2-6. 7 normal Not Available [address] [place], [address] 11/08/2023 12:32:05 11/08/19 24 11/08/2023 COMPL ETE BLOOD COUNT W/DIF F absolute lymphocyte count 0.21 10_3/ uL 1.2-3. 4 low Not Available [address] [place], [address] 11/08/2023 12:32:05 11/08/19 24 11/08/2023 COMPL ETE BLOOD COUNT W/DIF F absolute monocyte count 0.44 10_3/ uL 0.1-0. 8 normal Not Available [address] [place], [address] 11/08/2023 12:32:05 11/08/19 24 11/08/2023 COMPL ETE BLOOD COUNT W/DIF F absolute eosinophil count 0.02 10_3/ uL 0.0-0. 7 normal Not Available [address] [place], [address] 11/08/2023 12:32:05 11/08/19 24 11/08/2023 COMPL ETE BLOOD COUNT W/DIF F absolute basophil count 0.01 10_3/ uL 0.0-0. 2 normal Not Available [address] [place], [address] 11/08/2023 12:32:05 11/08/19 24 11/08/2023 COMPL ETE BLOOD COUNT W/DIF F diff comment Diff Review ed Not Available [address] [place], [address] 11/08/2023 12:32:05 11/08/19 24 11/08/2023 COMPL ETE BLOOD COUNT W/DIF F RBC morphology Normal Not Available [address] [place], [address] 11/08/2023 12:32:05 11/08/19 24 11/08/2023 COMPR EHENS ODELL METAB OLIC PANEL calcium 8.8 mg/dL 8.5-10 .1 normal Not Available [address] [place], [address] 11/09/2023 12:39:06 11/08/19 24 11/08/2023 COMPR EHENS ODELL METAB OLIC PANEL glucose 178 mg/dL 74-106 high Not Available [address] [place], [address] 11/09/2023 12:39:06 11/08/19 24 11/08/2023 COMPR EHENS ODELL METAB OLIC PANEL BUN 28 mg/dL 7-18 high Not Available [address] [place], [address] 11/09/2023 12:39:06 11/08/19 24 11/08/2023 COMPR EHENS ODELL METAB OLIC PANEL creatinine 1.5 mg/dL 0.70-1 .30 high Not Available [address] [place], [address] 11/09/2023 12:39:06 11/08/19 24 11/08/2023 COMPR EHENS ODELL METAB OLIC PANEL estimated GFR 46.77 mL/min /1.73m 2 Not Available [address] [place], [address] 11/09/2023 12:39:06 11/08/19 24 11/08/2023 COMPR EHENS ODELL METAB OLIC PANEL total protein 6.6 g/dL 6.4-8. 2 normal Not Available [address] [place], [address] 11/09/2023 12:39:06 11/08/19 24 11/08/2023 COMPR EHENS ODELL METAB OLIC PANEL albumin 2.8 g/dL 3.4-5. 0 low Not Available [address] [place], [address] 11/09/2023 12:39:06 11/08/19 24 11/08/2023 COMPR EHENS ODELL METAB OLIC PANEL bilirubin, total 0.5 mg/dL 0.2-1. 0 normal Not Available [address] [place], [address] 11/09/2023 12:39:06 11/08/19 24 11/08/2023 COMPR EHENS ODELL METAB OLIC PANEL alk phos 87 U/L 46-116 normal Not Available [address] [place], [address] 11/09/2023 12:39:06 11/08/19 24 11/08/2023 COMPR EHENS ODELL METAB OLIC PANEL sodium 134 mmol/ L 136-14 5 low Not Available [address] [place], [address] 11/09/2023 12:39:06 11/08/19 24 11/08/2023 COMPR EHENS ODELL METAB OLIC PANEL potassium 4.7 mmol/ L 3.5-5. 1 normal Not Available [address] [place], [address] 11/09/2023 12:39:06 11/08/19 24 11/08/2023 COMPR EHENS ODELL METAB OLIC PANEL chloride 101 mmol/ L 98-107 normal Not Available [address] [place], [address] 11/09/2023 12:39:06 11/08/19 24 11/08/2023 COMPR EHENS ODELL METAB OLIC PANEL CO2 26.6 mmol/ L 21.0-3 2.0 normal Not Available [address] [place], [address] 11/09/2023 12:39:06 11/08/19 24 11/08/2023 COMPR EHENS ODELL METAB OLIC PANEL anion gap 6.4 mmol/ L 3-11 normal Not Available [address] [place], [address] 11/09/2023 12:39:06 11/08/19 24 11/08/2023 COMPR EHENS ODELL METAB OLIC PANEL AST 24 U/L 15-37 normal Not Available [address] [place], [address] 11/09/2023 12:39:06 11/08/19 24 11/08/2023 COMPR EHENS ODELL METAB OLIC PANEL ALT 29 U/L 16-63 normal Not Available [address] [place], [address] 11/09/2023 12:39:06 11/08/19 24 11/08/2023 MAGNE SIUM magnesium 1.9 mg/dL 1.8-2. 4 normal Not Available [address] [place], [address] 11/09/2023 12:39:07 11/08/19 24 11/08/2023 COMPL ETE BLOOD COUNT W/DIF F WBC 2.94 10_3/ uL 4.4-10 .8 low Not Available [address] [place], [address] 11/09/2023 12:39:09 11/08/19 24 11/08/2023 COMPL ETE BLOOD COUNT W/DIF F RBC 2.62 10_6/ uL 4.36-5 .78 low Not Available [address] [place], [address] 11/09/2023 12:39:09 11/08/19 24 11/08/2023 COMPL ETE BLOOD COUNT W/DIF F HGB 7.9 g/dL 13.5-1 7.5 low Not Available [address] [place], [address] 11/09/2023 12:39:09 11/08/19 24 11/08/2023 COMPL ETE BLOOD COUNT W/DIF F HCT 25.1 % 40.0-5 0.0 low Not Available [address] [place], [address] 11/09/2023 12:39:09 11/08/19 24 11/08/2023 COMPL ETE BLOOD COUNT W/DIF F MCV 96 fL 80-95 high Not Available [address] [place], [address] 11/09/2023 12:39:09 11/08/19 24 11/08/2023 COMPL ETE BLOOD COUNT W/DIF F MCH 30.2 pg 27.0-3 3.0 normal Not Available [address] [place], [address] 11/09/2023 12:39:09 11/08/19 24 11/08/2023 COMPL ETE BLOOD COUNT W/DIF F MCHC 31.5 % 32.0-3 6.0 low Not Available [address] [place], [address] 11/09/2023 12:39:09 11/08/19 24 11/08/2023 COMPL ETE BLOOD COUNT W/DIF F RDW 16.5 % 11.8-1 4.1 high Not Available [address] [place], [address] 11/09/2023 12:39:09 11/08/19 24 11/08/2023 COMPL ETE BLOOD COUNT W/DIF F platelet count 40 10_3/ uL 130-40 0 low Not Available [address] [place], [address] 11/09/2023 12:39:09 11/08/19 24 11/08/2023 COMPL ETE BLOOD COUNT W/DIF F MPV 9.4 fL 8.0-11 .0 normal Not Available [address] [place], [address] 11/09/2023 12:39:09 11/08/19 24 11/08/2023 COMPL ETE BLOOD COUNT W/DIF F neutrophils % 74.2 Not Available [address] [place], [address] 11/09/2023 12:39:09 11/08/19 24 11/08/2023 COMPL ETE BLOOD COUNT W/DIF F lymphocytes % 7.1 Not Available [address] [place], [address] 11/09/2023 12:39:09 11/08/19 24 11/08/2023 COMPL ETE BLOOD COUNT W/DIF F monocytes % 15.0 Not Available [address] [place], [address] 11/09/2023 12:39:09 11/08/19 24 11/08/2023 COMPL ETE BLOOD COUNT W/DIF F eosinophils % 0.7 Not Available [address] [place], [address] 11/09/2023 12:39:09 11/08/19 24 11/08/2023 COMPL ETE BLOOD COUNT W/DIF F basophils % 0.3 Not Available [address] [place], [address] 11/09/2023 12:39:09 11/08/19 24 11/08/2023 COMPL ETE BLOOD COUNT W/DIF F immature grans % 2.7 Not Available [address] [place], [address] 11/09/2023 12:39:09 11/08/19 24 11/08/2023 COMPL ETE BLOOD COUNT W/DIF F nucleated RBC 0.0 % 0.0-0. 3 normal Not Available [address] [place], [address] 11/09/2023 12:39:09 11/08/19 24 11/08/2023 COMPL ETE BLOOD COUNT W/DIF F absolute neutrophil count 2.18 10_3/ uL 1.2-6. 7 normal Not Available [address] [place], [address] 11/09/2023 12:39:09 11/08/19 24 11/08/2023 COMPL ETE BLOOD COUNT W/DIF F absolute lymphocyte count 0.21 10_3/ uL 1.2-3. 4 low Not Available [address] [place], [address] 11/09/2023 12:39:09 11/08/19 24 11/08/2023 COMPL ETE BLOOD COUNT W/DIF F absolute monocyte count 0.44 10_3/ uL 0.1-0. 8 normal Not Available [address] [place], [address] 11/09/2023 12:39:09 11/08/19 24 11/08/2023 COMPL ETE BLOOD COUNT W/DIF F absolute eosinophil count 0.02 10_3/ uL 0.0-0. 7 normal Not Available [address] [place], [address] 11/09/2023 12:39:09 11/08/19 24 11/08/2023 COMPL ETE BLOOD COUNT W/DIF F absolute basophil count 0.01 10_3/ uL 0.0-0. 2 normal Not Available [address] [place], [address] 11/09/2023 12:39:09 11/08/19 24 11/08/2023 COMPL ETE BLOOD COUNT W/DIF F diff comment Diff Review ed Not Available [address] [place], [address] 11/09/2023 12:39:09 11/08/19 24 11/08/2023 COMPL ETE BLOOD COUNT W/DIF F RBC morphology Normal Not Available [address] [place], [address] 11/09/2023 12:39:09 11/25/19 24 11/25/2023 COMPL ETE BLOOD COUNT W/DIF F WBC 2.57 10_3/ uL 4.4-10 .8 low Not Available [address] [place], [address] 11/25/2023 11:42:17 11/25/19 24 11/25/2023 COMPL ETE BLOOD COUNT W/DIF F RBC 2.76 10_6/ uL 4.36-5 .78 low Not Available [address] [place], [address] 11/25/2023 11:42:17 11/25/19 24 11/25/2023 COMPL ETE BLOOD COUNT W/DIF F HGB 8.1 g/dL 13.5-1 7.5 low Not Available [address] [place], [address] 11/25/2023 11:42:17 11/25/19 24 11/25/2023 COMPL ETE BLOOD COUNT W/DIF F HCT 26.8 % 40.0-5 0.0 low Not Available [address] [place], [address] 11/25/2023 11:42:17 11/25/19 24 11/25/2023 COMPL ETE BLOOD COUNT W/DIF F MCV 97 fL 80-95 high Not Available [address] [place], [address] 11/25/2023 11:42:17 11/25/19 24 11/25/2023 COMPL ETE BLOOD COUNT W/DIF F MCH 29.3 pg 27.0-3 3.0 normal Not Available [address] [place], [address] 11/25/2023 11:42:17 11/25/19 24 11/25/2023 COMPL ETE BLOOD COUNT W/DIF F MCHC 30.2 % 32.0-3 6.0 low Not Available [address] [place], [address] 11/25/2023 11:42:17 11/25/19 24 11/25/2023 COMPL ETE BLOOD COUNT W/DIF F RDW 17.8 % 11.8-1 4.1 high Not Available [address] [place], [address] 11/25/2023 11:42:17 11/25/19 24 11/25/2023 COMPL ETE BLOOD COUNT W/DIF F platelet count 35 10_3/ uL 130-40 0 low Not Available [address] [place], [address] 11/25/2023 11:42:17 11/25/19 24 11/25/2023 COMPL ETE BLOOD COUNT W/DIF F MPV 10.7 fL 8.0-11 .0 normal Not Available [address] [place], [address] 11/25/2023 11:42:17 11/25/19 24 11/25/2023 COMPL ETE BLOOD COUNT W/DIF F neutrophils % 68.0 Not Available [address] [place], [address] 11/25/2023 11:42:17 11/25/19 24 11/25/2023 COMPL ETE BLOOD COUNT W/DIF F lymphocytes % 8.6 Not Available [address] [place], [address] 11/25/2023 11:42:17 11/25/19 24 11/25/2023 COMPL ETE BLOOD COUNT W/DIF F monocytes % 18.7 Not Available [address] [place], [address] 11/25/2023 11:42:17 11/25/19 24 11/25/2023 COMPL ETE BLOOD COUNT W/DIF F eosinophils % 1.6 Not Available [address] [place], [address] 11/25/2023 11:42:17 11/25/19 24 11/25/2023 COMPL ETE BLOOD COUNT W/DIF F basophils % 0.4 Not Available [address] [place], [address] 11/25/2023 11:42:17 11/25/19 24 11/25/2023 COMPL ETE BLOOD COUNT W/DIF F immature grans % 2.7 Not Available [address] [place], [address] 11/25/2023 11:42:17 11/25/19 24 11/25/2023 COMPL ETE BLOOD COUNT W/DIF F nucleated RBC 0.0 % 0.0-0. 3 normal Not Available [address] [place], [address] 11/25/2023 11:42:17 11/25/19 24 11/25/2023 COMPL ETE BLOOD COUNT W/DIF F absolute neutrophil count 1.75 10_3/ uL 1.2-6. 7 normal Not Available [address] [place], [address] 11/25/2023 11:42:17 11/25/19 24 11/25/2023 COMPL ETE BLOOD COUNT W/DIF F absolute lymphocyte count 0.22 10_3/ uL 1.2-3. 4 low Not Available [address] [place], [address] 11/25/2023 11:42:17 11/25/19 24 11/25/2023 COMPL ETE BLOOD COUNT W/DIF F absolute monocyte count 0.48 10_3/ uL 0.1-0. 8 normal Not Available [address] [place], [address] 11/25/2023 11:42:17 11/25/19 24 11/25/2023 COMPL ETE BLOOD COUNT W/DIF F absolute eosinophil count 0.04 10_3/ uL 0.0-0. 7 normal Not Available [address] [place], [address] 11/25/2023 11:42:17 11/25/19 24 11/25/2023 COMPL ETE BLOOD COUNT W/DIF F absolute basophil count 0.01 10_3/ uL 0.0-0. 2 normal Not Available [address] [place], [address] 11/25/2023 11:42:17 11/25/19 24 11/25/2023 COMPL ETE BLOOD COUNT W/DIF F diff comment Diff Review ed Not Available [address] [place], [address] 11/25/2023 11:42:17 11/25/19 24 11/25/2023 COMPL ETE BLOOD COUNT W/DIF F RBC morphology See Below Not Available [address] [place], [address] 11/25/2023 11:42:17 11/25/19 24 11/25/2023 COMPL ETE BLOOD COUNT W/DIF F anisocytosis 1+ Not Available [address] [place], [address] 11/25/2023 11:42:17 11/25/19 24 11/25/2023 COMPL ETE BLOOD COUNT W/DIF F hypochromasi a 2+ Not Available [address] [place], [address] 11/25/2023 11:42:17 11/25/19 24 11/25/2023 RETIC ULOCY TE reticulocyte 4.5 % 0.5-2. 4 high Not Available [address] [place], [address] 11/25/2023 11:42:18 11/25/19 24 11/25/2023 COMPR EHENS ODELL METAB OLIC PANEL calcium 9.0 mg/dL 8.5-10 .1 normal Not Available [address] [place], [address] 11/25/2023 11:50:18 11/25/19 24 11/25/2023 COMPR EHENS ODELL METAB OLIC PANEL glucose 84 mg/dL 74-106 normal Not Available [address] [place], [address] 11/25/2023 11:50:18 11/25/19 24 11/25/2023 COMPR EHENS ODELL METAB OLIC PANEL BUN 29 mg/dL 7-18 high Not Available [address] [place], [address] 11/25/2023 11:50:18 11/25/19 24 11/25/2023 COMPR EHENS ODELL METAB OLIC PANEL creatinine 1.6 mg/dL 0.70-1 .30 high Not Available [address] [place], [address] 11/25/2023 11:50:18 11/25/19 24 11/25/2023 COMPR EHENS ODELL METAB OLIC PANEL estimated GFR 43.29 mL/min /1.73m 2 Not Available [address] [place], [address] 11/25/2023 11:50:18 11/25/19 24 11/25/2023 COMPR EHENS ODELL METAB OLIC PANEL total protein 6.9 g/dL 6.4-8. 2 normal Not Available [address] [place], [address] 11/25/2023 11:50:18 11/25/19 24 11/25/2023 COMPR EHENS ODELL METAB OLIC PANEL albumin 2.9 g/dL 3.4-5. 0 low Not Available [address] [place], [address] 11/25/2023 11:50:18 11/25/19 24 11/25/2023 COMPR EHENS ODELL METAB OLIC PANEL bilirubin, total 0.5 mg/dL 0.2-1. 0 normal Not Available [address] [place], [address] 11/25/2023 11:50:18 11/25/19 24 11/25/2023 COMPR EHENS ODELL METAB OLIC PANEL alk phos 102 U/L 46-116 normal Not Available [address] [place], [address] 11/25/2023 11:50:18 11/25/19 24 11/25/2023 COMPR EHENS ODELL METAB OLIC PANEL sodium 137 mmol/ L 136-14 5 normal Not Available [address] [place], [address] 11/25/2023 11:50:18 11/25/19 24 11/25/2023 COMPR EHENS ODELL METAB OLIC PANEL potassium 4.7 mmol/ L 3.5-5. 1 normal Not Available [address] [place], [address] 11/25/2023 11:50:18 11/25/19 24 11/25/2023 COMPR EHENS ODELL METAB OLIC PANEL chloride 104 mmol/ L 98-107 normal Not Available [address] [place], [address] 11/25/2023 11:50:18 11/25/19 24 11/25/2023 COMPR EHENS ODELL METAB OLIC PANEL CO2 28.1 mmol/ L 21.0-3 2.0 normal Not Available [address] [place], [address] 11/25/2023 11:50:18 11/25/19 24 11/25/2023 COMPR EHENS ODELL METAB OLIC PANEL anion gap 4.9 mmol/ L 3-11 normal Not Available [address] [place], [address] 11/25/2023 11:50:18 11/25/19 24 11/25/2023 COMPR EHENS ODELL METAB OLIC PANEL AST 25 U/L 15-37 normal Not Available [address] [place], [address] 11/25/2023 11:50:18 11/25/19 24 11/25/2023 COMPR EHENS ODELL METAB OLIC PANEL ALT 26 U/L 16-63 normal Not Available [address] [place], [address] 11/25/2023 11:50:18 11/25/19 24 11/25/2023 GIL TIN ferritin 459 NG/mL 26-388 high Not Available [address] [place], [address] 11/25/2023 11:50:19 11/29/19 24 11/29/2023 COMPL ETE BLOOD COUNT W/DIF F WBC 2.50 10_3/ uL 4.4-10 .8 low Not Available [address] [place], [address] 11/29/2023 14:48:51 11/29/19 24 11/29/2023 COMPL ETE BLOOD COUNT W/DIF F RBC 2.82 10_6/ uL 4.36-5 .78 low Not Available [address] [place], [address] 11/29/2023 14:48:51 11/29/19 24 11/29/2023 COMPL ETE BLOOD COUNT W/DIF F HGB 8.2 g/dL 13.5-1 7.5 low Not Available [address] [place], [address] 11/29/2023 14:48:51 11/29/19 24 11/29/2023 COMPL ETE BLOOD COUNT W/DIF F HCT 27.3 % 40.0-5 0.0 low Not Available [address] [place], [address] 11/29/2023 14:48:51 11/29/19 24 11/29/2023 COMPL ETE BLOOD COUNT W/DIF F MCV 97 fL 80-95 high Not Available [address] [place], [address] 11/29/2023 14:48:51 11/29/19 24 11/29/2023 COMPL ETE BLOOD COUNT W/DIF F MCH 29.1 pg 27.0-3 3.0 normal Not Available [address] [place], [address] 11/29/2023 14:48:51 11/29/19 24 11/29/2023 COMPL ETE BLOOD COUNT W/DIF F MCHC 30.0 % 32.0-3 6.0 low Not Available [address] [place], [address] 11/29/2023 14:48:51 11/29/19 24 11/29/2023 COMPL ETE BLOOD COUNT W/DIF F RDW 17.8 % 11.8-1 4.1 high Not Available [address] [place], [address] 11/29/2023 14:48:51 11/29/19 24 11/29/2023 COMPL ETE BLOOD COUNT W/DIF F platelet count 33 10_3/ uL 130-40 0 low Not Available [address] [place], [address] 11/29/2023 14:48:51 11/29/19 24 11/29/2023 COMPL ETE BLOOD COUNT W/DIF F MPV 9.7 fL 8.0-11 .0 normal Not Available [address] [place], [address] 11/29/2023 14:48:51 11/29/19 24 11/29/2023 COMPL ETE BLOOD COUNT W/DIF F neutrophils % 68.4 Not Available [address] [place], [address] 11/29/2023 14:48:51 11/29/19 24 11/29/2023 COMPL ETE BLOOD COUNT W/DIF F lymphocytes % 10.8 Not Available [address] [place], [address] 11/29/2023 14:48:51 11/29/19 24 11/29/2023 COMPL ETE BLOOD COUNT W/DIF F monocytes % 15.6 Not Available [address] [place], [address] 11/29/2023 14:48:51 11/29/19 24 11/29/2023 COMPL ETE BLOOD COUNT W/DIF F eosinophils % 1.2 Not Available [address] [place], [address] 11/29/2023 14:48:51 11/29/19 24 11/29/2023 COMPL ETE BLOOD COUNT W/DIF F basophils % 0.0 Not Available [address] [place], [address] 11/29/2023 14:48:51 11/29/19 24 11/29/2023 COMPL ETE BLOOD COUNT W/DIF F immature grans % 4.0 Not Available [address] [place], [address] 11/29/2023 14:48:51 11/29/19 24 11/29/2023 COMPL ETE BLOOD COUNT W/DIF F nucleated RBC 0.0 % 0.0-0. 3 normal Not Available [address] [place], [address] 11/29/2023 14:48:51 11/29/19 24 11/29/2023 COMPL ETE BLOOD COUNT W/DIF F absolute neutrophil count 1.71 10_3/ uL 1.2-6. 7 normal Not Available [address] [place], [address] 11/29/2023 14:48:51 11/29/19 24 11/29/2023 COMPL ETE BLOOD COUNT W/DIF F absolute lymphocyte count 0.27 10_3/ uL 1.2-3. 4 low Not Available [address] [place], [address] 11/29/2023 14:48:51 11/29/19 24 11/29/2023 COMPL ETE BLOOD COUNT W/DIF F absolute monocyte count 0.39 10_3/ uL 0.1-0. 8 normal Not Available [address] [place], [address] 11/29/2023 14:48:51 11/29/19 24 11/29/2023 COMPL ETE BLOOD COUNT W/DIF F absolute eosinophil count 0.03 10_3/ uL 0.0-0. 7 normal Not Available [address] [place], [address] 11/29/2023 14:48:51 11/29/19 24 11/29/2023 COMPL ETE BLOOD COUNT W/DIF F absolute basophil count 0.00 10_3/ uL 0.0-0. 2 normal Not Available [address] [place], [address] 11/29/2023 14:48:51 12/13/19 24 12/13/2023 COMPL ETE BLOOD COUNT W/DIF F WBC 2.77 10_3/ uL 4.4-10 .8 low Not Available [address] [place], [address] 12/13/2023 14:42:44 12/13/19 24 12/13/2023 COMPL ETE BLOOD COUNT W/DIF F RBC 3.14 10_6/ uL 4.36-5 .78 low Not Available [address] [place], [address] 12/13/2023 14:42:44 12/13/19 24 12/13/2023 COMPL ETE BLOOD COUNT W/DIF F HGB 9.0 g/dL 13.5-1 7.5 low Not Available [address] [place], [address] 12/13/2023 14:42:44 12/13/19 24 12/13/2023 COMPL ETE BLOOD COUNT W/DIF F HCT 29.9 % 40.0-5 0.0 low Not Available [address] [place], [address] 12/13/2023 14:42:44 12/13/19 24 12/13/2023 COMPL ETE BLOOD COUNT W/DIF F MCV 95 fL 80-95 normal Not Available [address] [place], [address] 12/13/2023 14:42:44 12/13/19 24 12/13/2023 COMPL ETE BLOOD COUNT W/DIF F MCH 28.7 pg 27.0-3 3.0 normal Not Available [address] [place], [address] 12/13/2023 14:42:44 12/13/19 24 12/13/2023 COMPL ETE BLOOD COUNT W/DIF F MCHC 30.1 % 32.0-3 6.0 low Not Available [address] [place], [address] 12/13/2023 14:42:44 12/13/19 24 12/13/2023 COMPL ETE BLOOD COUNT W/DIF F RDW 18.3 % 11.8-1 4.1 high Not Available [address] [place], [address] 12/13/2023 14:42:44 12/13/19 24 12/13/2023 COMPL ETE BLOOD COUNT W/DIF F platelet count 52 10_3/ uL 130-40 0 low Not Available [address] [place], [address] 12/13/2023 14:42:44 12/13/19 24 12/13/2023 COMPL ETE BLOOD COUNT W/DIF F MPV 8.6 fL 8.0-11 .0 normal Not Available [address] [place], [address] 12/13/2023 14:42:44 12/13/19 24 12/13/2023 COMPL ETE BLOOD COUNT W/DIF F neutrophils % 64.2 Not Available [address] [place], [address] 12/13/2023 14:42:44 12/13/19 24 12/13/2023 COMPL ETE BLOOD COUNT W/DIF F lymphocytes % 10.5 Not Available [address] [place], [address] 12/13/2023 14:42:44 12/13/19 24 12/13/2023 COMPL ETE BLOOD COUNT W/DIF F monocytes % 22.0 Not Available [address] [place], [address] 12/13/2023 14:42:44 12/13/19 24 12/13/2023 COMPL ETE BLOOD COUNT W/DIF F eosinophils % 0.4 Not Available [address] [place], [address] 12/13/2023 14:42:44 12/13/19 24 12/13/2023 COMPL ETE BLOOD COUNT W/DIF F basophils % 0.4 Not Available [address] [place], [address] 12/13/2023 14:42:44 12/13/19 24 12/13/2023 COMPL ETE BLOOD COUNT W/DIF F immature grans % 2.5 Not Available [address] [place], [address] 12/13/2023 14:42:44 12/13/19 24 12/13/2023 COMPL ETE BLOOD COUNT W/DIF F nucleated RBC 0.0 % 0.0-0. 3 normal Not Available [address] [place], [address] 12/13/2023 14:42:44 12/13/19 24 12/13/2023 COMPL ETE BLOOD COUNT W/DIF F absolute neutrophil count 1.78 10_3/ uL 1.2-6. 7 normal Not Available [address] [place], [address] 12/13/2023 14:42:44 12/13/19 24 12/13/2023 COMPL ETE BLOOD COUNT W/DIF F absolute lymphocyte count 0.29 10_3/ uL 1.2-3. 4 low Not Available [address] [place], [address] 12/13/2023 14:42:44 12/13/19 24 12/13/2023 COMPL ETE BLOOD COUNT W/DIF F absolute monocyte count 0.61 10_3/ uL 0.1-0. 8 normal Not Available [address] [place], [address] 12/13/2023 14:42:44 12/13/19 24 12/13/2023 COMPL ETE BLOOD COUNT W/DIF F absolute eosinophil count 0.01 10_3/ uL 0.0-0. 7 normal Not Available [address] [place], [address] 12/13/2023 14:42:44 12/13/19 24 12/13/2023 COMPL ETE BLOOD COUNT W/DIF F absolute basophil count 0.01 10_3/ uL 0.0-0. 2 normal Not Available [address] [place], [address] 12/13/2023 14:42:44 12/13/19 24 12/13/2023 COMPL ETE BLOOD COUNT W/DIF F diff comment Diff Review ed Not Available [address] [place], [address] 12/13/2023 14:42:44 12/13/19 24 12/13/2023 COMPL ETE BLOOD COUNT W/DIF F RBC morphology Normal Not Available [address] [place], [address] 12/13/2023 14:42:44 12/13/19 24 12/13/2023 GIL TIN ferritin 469 NG/mL 26-388 high Not Available [address] [place], [address] 12/13/2023 14:51:44 12/27/19 24 12/27/2023 COMPL ETE BLOOD COUNT W/DIF F WBC 3.50 10_3/ uL 4.4-10 .8 low Not Available [address] [place], [address] 12/27/2023 13:00:25 12/27/19 24 12/27/2023 COMPL ETE BLOOD COUNT W/DIF F RBC 3.19 10_6/ uL 4.36-5 .78 low Not Available [address] [place], [address] 12/27/2023 13:00:25 12/27/19 24 12/27/2023 COMPL ETE BLOOD COUNT W/DIF F HGB 9.0 g/dL 13.5-1 7.5 low Not Available [address] [place], [address] 12/27/2023 13:00:25 12/27/19 24 12/27/2023 COMPL ETE BLOOD COUNT W/DIF F HCT 30.9 % 40.0-5 0.0 low Not Available [address] [place], [address] 12/27/2023 13:00:25 12/27/19 24 12/27/2023 COMPL ETE BLOOD COUNT W/DIF F MCV 97 fL 80-95 high Not Available [address] [place], [address] 12/27/2023 13:00:25 12/27/19 24 12/27/2023 COMPL ETE BLOOD COUNT W/DIF F MCH 28.2 pg 27.0-3 3.0 normal Not Available [address] [place], [address] 12/27/2023 13:00:25 12/27/19 24 12/27/2023 COMPL ETE BLOOD COUNT W/DIF F MCHC 29.1 % 32.0-3 6.0 low Not Available [address] [place], [address] 12/27/2023 13:00:25 12/27/19 24 12/27/2023 COMPL ETE BLOOD COUNT W/DIF F RDW 18.2 % 11.8-1 4.1 high Not Available [address] [place], [address] 12/27/2023 13:00:25 12/27/19 24 12/27/2023 COMPL ETE BLOOD COUNT W/DIF F platelet count 52 10_3/ uL 130-40 0 low Not Available [address] [place], [address] 12/27/2023 13:00:25 12/27/19 24 12/27/2023 COMPL ETE BLOOD COUNT W/DIF F MPV 9.8 fL 8.0-11 .0 normal Not Available [address] [place], [address] 12/27/2023 13:00:25 12/27/19 24 12/27/2023 COMPL ETE BLOOD COUNT W/DIF F neutrophils % 68.0 Not Available [address] [place], [address] 12/27/2023 13:00:25 12/27/19 24 12/27/2023 COMPL ETE BLOOD COUNT W/DIF F lymphocytes % 9.4 Not Available [address] [place], [address] 12/27/2023 13:00:25 12/27/19 24 12/27/2023 COMPL ETE BLOOD COUNT W/DIF F monocytes % 18.9 Not Available [address] [place], [address] 12/27/2023 13:00:25 12/27/19 24 12/27/2023 COMPL ETE BLOOD COUNT W/DIF F eosinophils % 1.4 Not Available [address] [place], [address] 12/27/2023 13:00:25 12/27/19 24 12/27/2023 COMPL ETE BLOOD COUNT W/DIF F basophils % 0.3 Not Available [address] [place], [address] 12/27/2023 13:00:25 12/27/19 24 12/27/2023 COMPL ETE BLOOD COUNT W/DIF F immature grans % 2.0 Not Available [address] [place], [address] 12/27/2023 13:00:25 12/27/19 24 12/27/2023 COMPL ETE BLOOD COUNT W/DIF F nucleated RBC 0.0 % 0.0-0. 3 normal Not Available [address] [place], [address] 12/27/2023 13:00:25 12/27/19 24 12/27/2023 COMPL ETE BLOOD COUNT W/DIF F absolute neutrophil count 2.38 10_3/ uL 1.2-6. 7 normal Not Available [address] [place], [address] 12/27/2023 13:00:25 12/27/19 24 12/27/2023 COMPL ETE BLOOD COUNT W/DIF F absolute lymphocyte count 0.33 10_3/ uL 1.2-3. 4 low Not Available [address] [place], [address] 12/27/2023 13:00:25 12/27/19 24 12/27/2023 COMPL ETE BLOOD COUNT W/DIF F absolute monocyte count 0.66 10_3/ uL 0.1-0. 8 normal Not Available [address] [place], [address] 12/27/2023 13:00:25 12/27/19 24 12/27/2023 COMPL ETE BLOOD COUNT W/DIF F absolute eosinophil count 0.05 10_3/ uL 0.0-0. 7 normal Not Available [address] [place], [address] 12/27/2023 13:00:25 12/27/19 24 12/27/2023 COMPL ETE BLOOD COUNT W/DIF F absolute basophil count 0.01 10_3/ uL 0.0-0. 2 normal Not Available [address] [place], [address] 12/27/2023 13:00:25 12/27/19 24 12/27/2023 COMPL ETE BLOOD COUNT W/DIF F diff comment Diff Review ed Not Available [address] [place], [address] 12/27/2023 13:00:25 12/27/19 24 12/27/2023 COMPL ETE BLOOD COUNT W/DIF F RBC morphology Normal Not Available [address] [place], [address] 12/27/2023 13:00:25 04/08/01/10/2024 COMPL ETE BLOOD COUNT W/DIF F WBC 3.57 10_3/ uL 4.4-10 .8 low Not Available [address] [place], [address] 01/10/2024 13:12:10 01/10/20 24 01/10/2024 COMPL ETE BLOOD COUNT W/DIF F RBC 3.16 10_6/ uL 4.36-5 .78 low Not Available [address] [place], [address] 01/10/2024 13:12:10 01/10/20 24 01/10/2024 COMPL ETE BLOOD COUNT W/DIF F HGB 8.9 g/dL 13.5-1 7.5 low Not Available [address] [place], [address] 01/10/2024 13:12:10 01/10/20 24 01/10/2024 COMPL ETE BLOOD COUNT W/DIF F HCT 30.0 % 40.0-5 0.0 low Not Available [address] [place], [address] 01/10/2024 13:12:10 01/10/20 24 01/10/2024 COMPL ETE BLOOD COUNT W/DIF F MCV 95 fL 80-95 normal Not Available [address] [place], [address] 01/10/2024 13:12:10 01/10/20 24 01/10/2024 COMPL ETE BLOOD COUNT W/DIF F MCH 28.2 pg 27.0-3 3.0 normal Not Available [address] [place], [address] 01/10/2024 13:12:10 01/10/20 24 01/10/2024 COMPL ETE BLOOD COUNT W/DIF F MCHC 29.7 % 32.0-3 6.0 low Not Available [address] [place], [address] 01/10/2024 13:12:10 01/10/20 24 01/10/2024 COMPL ETE BLOOD COUNT W/DIF F RDW 18.2 % 11.8-1 4.1 high Not Available [address] [place], [address] 01/10/2024 13:12:10 01/10/20 24 01/10/2024 COMPL ETE BLOOD COUNT W/DIF F platelet count 65 10_3/ uL 130-40 0 low Not Available [address] [place], [address] 01/10/2024 13:12:10 01/10/20 24 01/10/2024 COMPL ETE BLOOD COUNT W/DIF F MPV 9.6 fL 8.0-11 .0 normal Not Available [address] [place], [address] 01/10/2024 13:12:10 01/10/20 24 01/10/2024 COMPL ETE BLOOD COUNT W/DIF F neutrophils % 69.0 Not Available [address] [place], [address] 01/10/2024 13:12:10 01/10/20 24 01/10/2024 COMPL ETE BLOOD COUNT W/DIF F lymphocytes % 8.1 Not Available [address] [place], [address] 01/10/2024 13:12:10 01/10/20 24 01/10/2024 COMPL ETE BLOOD COUNT W/DIF F monocytes % 19.6 Not Available [address] [place], [address] 01/10/2024 13:12:10 01/10/20 24 01/10/2024 COMPL ETE BLOOD COUNT W/DIF F eosinophils % 0.8 Not Available [address] [place], [address] 01/10/2024 13:12:10 01/10/20 24 01/10/2024 COMPL ETE BLOOD COUNT W/DIF F basophils % 0.0 Not Available [address] [place], [address] 01/10/2024 13:12:10 01/10/20 24 01/10/2024 COMPL ETE BLOOD COUNT W/DIF F immature grans % 2.5 Not Available [address] [place], [address] 01/10/2024 13:12:10 01/10/20 24 01/10/2024 COMPL ETE BLOOD COUNT W/DIF F nucleated RBC 0.0 % 0.0-0. 3 normal Not Available [address] [place], [address] 01/10/2024 13:12:10 01/10/20 24 01/10/2024 COMPL ETE BLOOD COUNT W/DIF F absolute neutrophil count 2.46 10_3/ uL 1.2-6. 7 normal Not Available [address] [place], [address] 01/10/2024 13:12:10 01/10/20 24 01/10/2024 COMPL ETE BLOOD COUNT W/DIF F absolute lymphocyte count 0.29 10_3/ uL 1.2-3. 4 low Not Available [address] [place], [address] 01/10/2024 13:12:10 01/10/20 24 01/10/2024 COMPL ETE BLOOD COUNT W/DIF F absolute monocyte count 0.70 10_3/ uL 0.1-0. 8 normal Not Available [address] [place], [address] 01/10/2024 13:12:10 01/10/20 24 01/10/2024 COMPL ETE BLOOD COUNT W/DIF F absolute eosinophil count 0.03 10_3/ uL 0.0-0. 7 normal Not Available [address] [place], [address] 01/10/2024 13:12:10 01/10/20 24 01/10/2024 COMPL ETE BLOOD COUNT W/DIF F absolute basophil count 0.00 10_3/ uL 0.0-0. 2 normal Not Available [address] [place], [address] 01/10/2024 13:12:10 01/10/20 24 01/10/2024 COMPL ETE BLOOD COUNT W/DIF F diff comment Diff Review ed Not Available [address] [place], [address] 01/10/2024 13:12:10 01/10/20 24 01/10/2024 COMPL ETE BLOOD COUNT W/DIF F RBC morphology See Below Not Available [address] [place], [address] 01/10/2024 13:12:10 01/10/20 24 01/10/2024 COMPL ETE BLOOD COUNT W/DIF F hypochromasi a 2+ Not Available [address] [place], [address] 01/10/2024 13:12:10 01/26/20 24 01/26/2024 COMPL ETE BLOOD COUNT W/DIF F WBC 3.42 10_3/ uL 4.4-10 .8 low Not Available [address] [place], [address] 01/26/2024 14:40:56 01/26/20 24 01/26/2024 COMPL ETE BLOOD COUNT W/DIF F RBC 3.43 10_6/ uL 4.36-5 .78 low Not Available [address] [place], [address] 01/26/2024 14:40:56 01/26/20 24 01/26/2024 COMPL ETE BLOOD COUNT W/DIF F HGB 9.4 g/dL 13.5-1 7.5 low Not Available [address] [place], [address] 01/26/2024 14:40:56 01/26/20 24 01/26/2024 COMPL ETE BLOOD COUNT W/DIF F HCT 32.1 % 40.0-5 0.0 low Not Available [address] [place], [address] 01/26/2024 14:40:56 01/26/20 24 01/26/2024 COMPL ETE BLOOD COUNT W/DIF F MCV 94 fL 80-95 normal Not Available [address] [place], [address] 01/26/2024 14:40:56 01/26/20 24 01/26/2024 COMPL ETE BLOOD COUNT W/DIF F MCH 27.4 pg 27.0-3 3.0 normal Not Available [address] [place], [address] 01/26/2024 14:40:56 01/26/2001/26/2024 COMPL ETE BLOOD COUNT W/DIF F MCHC 29.3 % 32.0-3 6.0 low Not Available [address] [place], [address] 01/26/2024 14:40:56 01/26/20 24 01/26/2024 COMPL ETE BLOOD COUNT W/DIF F RDW 18.1 % 11.8-1 4.1 high Not Available [address] [place], [address] 01/26/2024 14:40:56 01/26/20 24 01/26/2024 COMPL ETE BLOOD COUNT W/DIF F platelet count 74 10_3/ uL 130-40 0 low Not Available [address] [place], [address] 01/26/2024 14:40:56 01/26/20 24 01/26/2024 COMPL ETE BLOOD COUNT W/DIF F MPV 9.6 fL 8.0-11 .0 normal Not Available [address] [place], [address] 01/26/2024 14:40:56 01/26/20 24 01/26/2024 COMPL ETE BLOOD COUNT W/DIF F neutrophils % 69.8 Not Available [address] [place], [address] 01/26/2024 14:40:56 01/26/2001/26/2024 COMPL ETE BLOOD COUNT W/DIF F lymphocytes % 8.8 Not Available [address] [place], [address] 01/26/2024 14:40:56 01/26/2001/26/2024 COMPL ETE BLOOD COUNT W/DIF F monocytes % 17.0 Not Available Adam felix [address] [place], [address] 01/26/2024 14:40:56 01/26/20 24 01/26/2024 COMPL ETE BLOOD COUNT W/DIF F eosinophils % 1.8 Not Available [address] [place], [address] 01/26/2024 14:40:56 01/26/20 24 01/26/2024 COMPL ETE BLOOD COUNT W/DIF F basophils % 0.3 Not Available Abbyibrahima jaylamay [address] [place], [address] 01/26/2024 14:40:56 01/26/20 24 01/26/2024 COMPL ETE BLOOD COUNT W/DIF F immature grans % 2.3 Not Available [address] [place], [address] 01/26/2024 14:40:56 01/26/20 24 01/26/2024 COMPL ETE BLOOD COUNT W/DIF F nucleated RBC 0.0 % 0.0-0. 3 normal Not Available [address] [place], [address] 01/26/2024 14:40:56 01/26/20 24 01/26/2024 COMPL ETE BLOOD COUNT W/DIF F absolute neutrophil count 2.39 10_3/ uL 1.2-6. 7 normal Not Available [address] [place], [address] 01/26/2024 14:40:56 01/26/20 24 01/26/2024 COMPL ETE BLOOD COUNT W/DIF F absolute lymphocyte count 0.30 10_3/ uL 1.2-3. 4 low Not Available [address] [place], [address] 01/26/2024 14:40:56 01/26/20 24 01/26/2024 COMPL ETE BLOOD COUNT W/DIF F absolute monocyte count 0.58 10_3/ uL 0.1-0. 8 normal Not Available [address] [place], [address] 01/26/2024 14:40:56 01/26/20 24 01/26/2024 COMPL ETE BLOOD COUNT W/DIF F absolute eosinophil count 0.06 10_3/ uL 0.0-0. 7 normal Not Available [address] [place], [address] 01/26/2024 14:40:56 01/26/20 24 01/26/2024 COMPL ETE BLOOD COUNT W/DIF F absolute basophil count 0.01 10_3/ uL 0.0-0. 2 normal Not Available [address] [place], [address] 01/26/2024 14:40:56 01/26/20 24 01/26/2024 COMPL ETE BLOOD COUNT W/DIF F diff comment Diff Review ed Not Available [address] [place], [address] 01/26/2024 14:40:56 01/26/2001/26/2024 COMPL ETE BLOOD COUNT W/DIF F RBC morphology Normal Not Available [address] [place], [address] 01/26/2024 14:40:56 02/09/20 24 02/09/2024 COMPL ETE BLOOD COUNT W/DIF F WBC 3.63 10_3/ uL 4.4-10 .8 low Not Available [address] [place], [address] 02/09/2024 14:11:16 02/09/2002/09/2024 COMPL ETE BLOOD COUNT W/DIF F RBC 3.42 10_6/ uL 4.36-5 .78 low Not Available [address] [place], [address] 02/09/2024 14:11:16 02/09/20 24 02/09/2024 COMPL ETE BLOOD COUNT W/DIF F HGB 9.5 g/dL 13.5-1 7.5 low Not Available [address] [place], [address] 02/09/2024 14:11:16 02/09/20 24 02/09/2024 COMPL ETE BLOOD COUNT W/DIF F HCT 31.6 % 40.0-5 0.0 low Not Available [address] [place], [address] 02/09/2024 14:11:16 02/09/20 02/09/2024 COMPL ETE BLOOD COUNT W/DIF F MCV 92 fL 80-95 normal Not Available [address] [place], [address] 02/09/2024 14:11:16 02/09/20 24 02/09/2024 COMPL ETE BLOOD COUNT W/DIF F MCH 27.8 pg 27.0-3 3.0 normal Not Available [address] [place], [address] 02/09/2024 14:11:16 02/09/20 24 02/09/2024 COMPL ETE BLOOD COUNT W/DIF F MCHC 30.1 % 32.0-3 6.0 low Not Available [address] [place], [address] 02/09/2024 14:11:16 02/09/20 24 02/09/2024 COMPL ETE BLOOD COUNT W/DIF F RDW 17.7 % 11.8-1 4.1 high Not Available [address] [place], [address] 02/09/2024 14:11:16 02/09/20 24 02/09/2024 COMPL ETE BLOOD COUNT W/DIF F platelet count 82 10_3/ uL 130-40 0 low Not Available [address] [place], [address] 02/09/2024 14:11:16 02/09/20 24 02/09/2024 COMPL ETE BLOOD COUNT W/DIF F MPV 9.6 fL 8.0-11 .0 normal Not Available [address] [place], [address] 02/09/2024 14:11:16 02/09/20 24 02/09/2024 COMPL ETE BLOOD COUNT W/DIF F neutrophils % 68.5 % Not Available [address] [place], [address] 02/09/2024 14:11:16 02/09/20 24 02/09/2024 COMPL ETE BLOOD COUNT W/DIF F lymphocytes % 8.3 % Not Available [address] [place], [address] 02/09/2024 14:11:16 02/09/20 24 02/09/2024 COMPL ETE BLOOD COUNT W/DIF F monocytes % 19.3 % Not Available [address] [place], [address] 02/09/2024 14:11:16 02/09/20 24 02/09/2024 COMPL ETE BLOOD COUNT W/DIF F eosinophils % 1.1 % Not Available [address] [place], [address] 02/09/2024 14:11:16 02/09/20 24 02/09/2024 COMPL ETE BLOOD COUNT W/DIF F basophils % 0.3 % Not Available [address] [place], [address] 02/09/2024 14:11:16 02/09/20 24 02/09/2024 COMPL ETE BLOOD COUNT W/DIF F immature grans % 2.5 % Not Available [address] [place], [address] 02/09/2024 14:11:16 02/09/20 24 02/09/2024 COMPL ETE BLOOD COUNT W/DIF F nucleated RBC 0.0 % 0.0-0. 3 normal Not Available [address] [place], [address] 02/09/2024 14:11:16 02/09/20 24 02/09/2024 COMPL ETE BLOOD COUNT W/DIF F absolute neutrophil count 2.49 10_3/ uL 1.2-6. 7 normal Not Available [address] [address] [place], [address] 02/09/2024 14:11:16 02/09/20 24 02/09/2024 COMPL ETE BLOOD COUNT W/DIF F absolute lymphocyte count 0.30 10_3/ uL 1.2-3. 4 low Not Available [address] [place], [address] 02/09/2024 14:11:16 02/09/20 24 02/09/2024 COMPL ETE BLOOD COUNT W/DIF F absolute monocyte count 0.70 10_3/ uL 0.1-0. 8 normal Not Available [address] [place], [address] 02/09/2024 14:11:16 02/09/20 24 02/09/2024 COMPL ETE BLOOD COUNT W/DIF F absolute eosinophil count 0.04 10_3/ uL 0.0-0. 7 normal Not Available [address] [place], [address] 02/09/2024 14:11:16 02/09/20 24 02/09/2024 COMPL ETE BLOOD COUNT W/DIF F absolute basophil count 0.01 10_3/ uL 0.0-0. 2 normal Not Available [address] [place], [address] 02/09/2024 14:11:16 02/09/20 24 02/09/2024 COMPL ETE BLOOD COUNT W/DIF F diff comment Diff Review ed Not Available [address] [place], [address] 02/09/2024 14:11:16 02/09/20 24 02/09/2024 COMPL ETE BLOOD COUNT W/DIF F RBC morphology Normal Not Available [address] [place], [address] 02/09/2024 14:11:16 02/22/20 24 02/22/2024 CREAT ININE creatinine 1.5 mg/dL 0.70-1 .30 high Not Available [address] [place], [address] 02/22/2024 12:43:50 02/22/20 24 02/22/2024 CREAT ININE estimated GFR 46.77 mL/min /1.73m 2 Not Available [address] [place], [address] 02/22/2024 12:43:50 02/23/20 24 02/23/2024 COMPL ETE BLOOD COUNT W/DIF F WBC 3.32 10_3/ uL 4.4-10 .8 low Not Available [address] [place], [address] 02/23/2024 12:47:08 02/23/20 24 02/23/2024 COMPL ETE BLOOD COUNT W/DIF F RBC 3.37 10_6/ uL 4.36-5 .78 low Not Available [address] [place], [address] 02/23/2024 12:47:08 02/23/20 24 02/23/2024 COMPL ETE BLOOD COUNT W/DIF F HGB 9.0 g/dL 13.5-1 7.5 low Not Available [address] [place], [address] 02/23/2024 12:47:08 02/23/20 24 02/23/2024 COMPL ETE BLOOD COUNT W/DIF F HCT 30.2 % 40.0-5 0.0 low Not Available [address] [place], [address] 02/23/2024 12:47:08 02/23/20 24 02/23/2024 COMPL ETE BLOOD COUNT W/DIF F MCV 90 fL 80-95 normal Not Available [address] [place], [address] 02/23/2024 12:47:08 02/23/20 24 02/23/2024 COMPL ETE BLOOD COUNT W/DIF F MCH 26.7 pg 27.0-3 3.0 low Not Available [address] [place], [address] 02/23/2024 12:47:08 02/23/20 24 02/23/2024 COMPL ETE BLOOD COUNT W/DIF F MCHC 29.8 % 32.0-3 6.0 low Not Available [address] [place], [address] 02/23/2024 12:47:08 02/23/20 24 02/23/2024 COMPL ETE BLOOD COUNT W/DIF F RDW 18.1 % 11.8-1 4.1 high Not Available [address] [place], [address] 02/23/2024 12:47:08 02/23/20 24 02/23/2024 COMPL ETE BLOOD COUNT W/DIF F platelet count 97 10_3/ uL 130-40 0 low Not Available [address] [place], [address] 02/23/2024 12:47:08 02/23/20 24 02/23/2024 COMPL ETE BLOOD COUNT W/DIF F MPV 9.6 fL 8.0-11 .0 normal Not Available [address] [place], [address] 02/23/2024 12:47:08 02/23/20 24 02/23/2024 COMPL ETE BLOOD COUNT W/DIF F neutrophils % 63.6 % Not Available [address] [place], [address] 02/23/2024 12:47:08 02/23/20 24 02/23/2024 COMPL ETE BLOOD COUNT W/DIF F lymphocytes % 10.8 % Not Available [address] [place], [address] 02/23/2024 12:47:08 02/23/20 24 02/23/2024 COMPL ETE BLOOD COUNT W/DIF F monocytes % 20.2 % Not Available [address] [place], [address] 02/23/2024 12:47:08 02/23/20 24 02/23/2024 COMPL ETE BLOOD COUNT W/DIF F eosinophils % 1.5 % Not Available [address] [place], [address] 02/23/2024 12:47:08 02/23/20 24 02/23/2024 COMPL ETE BLOOD COUNT W/DIF F basophils % 0.3 % Not Available [address] [place], [address] 02/23/2024 12:47:08 02/23/20 24 02/23/2024 COMPL ETE BLOOD COUNT W/DIF F immature grans % 3.6 % Not Available [address] [place], [address] 02/23/2024 12:47:08 02/23/20 24 02/23/2024 COMPL ETE BLOOD COUNT W/DIF F nucleated RBC 0.0 % 0.0-0. 3 normal Not Available [address] [place], [address] 02/23/2024 12:47:08 02/23/20 24 02/23/2024 COMPL ETE BLOOD COUNT W/DIF F absolute neutrophil count 2.11 10_3/ uL 1.2-6. 7 normal Not Available [address] [place], [address] 02/23/2024 12:47:08 02/23/20 24 02/23/2024 COMPL ETE BLOOD COUNT W/DIF F absolute lymphocyte count 0.36 10_3/ uL 1.2-3. 4 low Not Available [address] [place], [address] 02/23/2024 12:47:08 02/23/20 24 02/23/2024 COMPL ETE BLOOD COUNT W/DIF F absolute monocyte count 0.67 10_3/ uL 0.1-0. 8 normal Not Available [address] [place], [address] 02/23/2024 12:47:08 02/23/20 24 02/23/2024 COMPL ETE BLOOD COUNT W/DIF F absolute eosinophil count 0.05 10_3/ uL 0.0-0. 7 normal Not Available [address] [place], [address] 02/23/2024 12:47:08 02/23/20 24 02/23/2024 COMPL ETE BLOOD COUNT W/DIF F absolute basophil count 0.01 10_3/ uL 0.0-0. 2 normal Not Available [address] [place], [address] 02/23/2024 12:47:08 03/08/20 24 03/08/2024 COMPL ETE BLOOD COUNT W/DIF F WBC 4.13 10_3/ uL 4.4-10 .8 low Not Available [address] [place], [address] 03/08/2024 13:40:56 03/08/20 24 03/08/2024 COMPL ETE BLOOD COUNT W/DIF F RBC 3.56 10_6/ uL 4.36-5 .78 low Not Available [address] [place], [address] 03/08/2024 13:40:56 03/08/20 24 03/08/2024 COMPL ETE BLOOD COUNT W/DIF F HGB 9.3 g/dL 13.5-1 7.5 low Not Available [address] [place], [address] 03/08/2024 13:40:56 03/08/20 24 03/08/2024 COMPL ETE BLOOD COUNT W/DIF F HCT 31.8 % 40.0-5 0.0 low Not Available [address] [place], [address] 03/08/2024 13:40:56 03/08/20 24 03/08/2024 COMPL ETE BLOOD COUNT W/DIF F MCV 89 fL 80-95 normal Not Available [address] [place], [address] 03/08/2024 13:40:56 03/08/20 24 03/08/2024 COMPL ETE BLOOD COUNT W/DIF F MCH 26.1 pg 27.0-3 3.0 low Not Available [address] [place], [address] 03/08/2024 13:40:56 03/08/20 24 03/08/2024 COMPL ETE BLOOD COUNT W/DIF F MCHC 29.2 % 32.0-3 6.0 low Not Available [address] [place], [address] 03/08/2024 13:40:56 03/08/20 24 03/08/2024 COMPL ETE BLOOD COUNT W/DIF F RDW 18.3 % 11.8-1 4.1 high Not Available [address] [place], [address] 03/08/2024 13:40:56 03/08/20 24 03/08/2024 COMPL ETE BLOOD COUNT W/DIF F platelet count 106 10_3/ uL 130-40 0 low Not Available [address] [place], [address] 03/08/2024 13:40:56 03/08/20 24 03/08/2024 COMPL ETE BLOOD COUNT W/DIF F MPV 8.8 fL 8.0-11 .0 normal Not Available [address] [place], [address] 03/08/2024 13:40:56 03/08/20 24 03/08/2024 COMPL ETE BLOOD COUNT W/DIF F neutrophils % 69.5 % Not Available [address] [place], [address] 03/08/2024 13:40:56 03/08/20 24 03/08/2024 COMPL ETE BLOOD COUNT W/DIF F lymphocytes % 10.2 % Not Available [address] [place], [address] 03/08/2024 13:40:56 03/08/20 24 03/08/2024 COMPL ETE BLOOD COUNT W/DIF F monocytes % 17.9 % Not Available [address] [place], [address] 03/08/2024 13:40:56 03/08/20 24 03/08/2024 COMPL ETE BLOOD COUNT W/DIF F eosinophils % 0.5 % Not Available [address] [place], [address] 03/08/2024 13:40:56 03/08/20 24 03/08/2024 COMPL ETE BLOOD COUNT W/DIF F basophils % 0.0 % Not Available [address] [place], [address] 03/08/2024 13:40:56 03/08/20 24 03/08/2024 COMPL ETE BLOOD COUNT W/DIF F immature grans % 1.9 % Not Available [address] [place], [address] 03/08/2024 13:40:56 03/08/20 24 03/08/2024 COMPL ETE BLOOD COUNT W/DIF F nucleated RBC 0.0 % 0.0-0. 3 normal Not Available [address] [place], [address] 03/08/2024 13:40:56 03/08/20 24 03/08/2024 COMPL ETE BLOOD COUNT W/DIF F absolute neutrophil count 2.87 10_3/ uL 1.2-6. 7 normal Not Available [address] [place], [address] 03/08/2024 13:40:56 03/08/20 24 03/08/2024 COMPL ETE BLOOD COUNT W/DIF F absolute lymphocyte count 0.42 10_3/ uL 1.2-3. 4 low Not Available [address] [place], [address] 03/08/2024 13:40:56 03/08/20 24 03/08/2024 COMPL ETE BLOOD COUNT W/DIF F absolute monocyte count 0.74 10_3/ uL 0.1-0. 8 normal Not Available [address] [place], [address] 03/08/2024 13:40:56 03/08/20 24 03/08/2024 COMPL ETE BLOOD COUNT W/DIF F absolute eosinophil count 0.02 10_3/ uL 0.0-0. 7 normal Not Available [address] [place], [address] 03/08/2024 13:40:56 03/08/20 24 03/08/2024 COMPL ETE BLOOD COUNT W/DIF F absolute basophil count 0.00 10_3/ uL 0.0-0. 2 normal Not Available [address] [place], [address] 03/08/2024 13:40:56 03/22/20 24 03/22/2024 COMPL ETE BLOOD COUNT W/DIF F WBC 6.29 10_3/ uL 4.4-10 .8 normal Not Available [address] [place], [address] 03/22/2024 12:22:12 03/22/20 24 03/22/2024 COMPL ETE BLOOD COUNT W/DIF F RBC 3.58 10_6/ uL 4.36-5 .78 low Not Available [address] [place], [address] 03/22/2024 12:22:12 03/22/20 24 03/22/2024 COMPL ETE BLOOD COUNT W/DIF F HGB 9.3 g/dL 13.5-1 7.5 low Not Available [address] [place], [address] 03/22/2024 12:22:12 03/22/20 24 03/22/2024 COMPL ETE BLOOD COUNT W/DIF F HCT 32.7 % 40.0-5 0.0 low Not Available [address] [place], [address] 03/22/2024 12:22:12 03/22/20 24 03/22/2024 COMPL ETE BLOOD COUNT W/DIF F MCV 91 fL 80-95 normal Not Available [address] [place], [address] 03/22/2024 12:22:12 03/22/20 24 03/22/2024 COMPL ETE BLOOD COUNT W/DIF F MCH 26.0 pg 27.0-3 3.0 low Not Available [address] [place], [address] 03/22/2024 12:22:12 03/22/20 24 03/22/2024 COMPL ETE BLOOD COUNT W/DIF F MCHC 28.4 % 32.0-3 6.0 low Not Available [address] [place], [address] 03/22/2024 12:22:12 03/22/20 24 03/22/2024 COMPL ETE BLOOD COUNT W/DIF F RDW 19.3 % 11.8-1 4.1 high Not Available [address] [place], [address] 03/22/2024 12:22:12 03/22/20 24 03/22/2024 COMPL ETE BLOOD COUNT W/DIF F platelet count 122 10_3/ uL 130-40 0 low Not Available [address] [place], [address] 03/22/2024 12:22:12 03/22/20 24 03/22/2024 COMPL ETE BLOOD COUNT W/DIF F MPV 9.4 fL 8.0-11 .0 normal Not Available [address] [place], [address] 03/22/2024 12:22:12 03/22/20 24 03/22/2024 COMPL ETE BLOOD COUNT W/DIF F neutrophils % 77.8 % Not Available [address] [place], [address] 03/22/2024 12:22:12 03/22/20 24 03/22/2024 COMPL ETE BLOOD COUNT W/DIF F lymphocytes % 5.6 % Not Available [address] [place], [address] 03/22/2024 12:22:12 03/22/20 24 03/22/2024 COMPL ETE BLOOD COUNT W/DIF F monocytes % 12.2 % Not Available [address] [place], [address] 03/22/2024 12:22:12 03/22/20 24 03/22/2024 COMPL ETE BLOOD COUNT W/DIF F eosinophils % 0.2 % Not Available [address] [place], [address] 03/22/2024 12:22:12 03/22/20 24 03/22/2024 COMPL ETE BLOOD COUNT W/DIF F basophils % 0.2 % Not Available [address] [place], [address] 03/22/2024 12:22:12 03/22/20 24 03/22/2024 COMPL ETE BLOOD COUNT W/DIF F immature grans % 4.0 % Not Available [address] [place], [address] 03/22/2024 12:22:12 03/22/20 24 03/22/2024 COMPL ETE BLOOD COUNT W/DIF F nucleated RBC 0.0 % 0.0-0. 3 normal Not Available [address] [place], [address] 03/22/2024 12:22:12 03/22/20 24 03/22/2024 COMPL ETE BLOOD COUNT W/DIF F absolute neutrophil count 4.90 10_3/ uL 1.2-6. 7 normal Not Available [address] [place], [address] 03/22/2024 12:22:12 03/22/20 24 03/22/2024 COMPL ETE BLOOD COUNT W/DIF F absolute lymphocyte count 0.35 10_3/ uL 1.2-3. 4 low Not Available [address] [place], [address] 03/22/2024 12:22:12 03/22/20 24 03/22/2024 COMPL ETE BLOOD COUNT W/DIF F absolute monocyte count 0.77 10_3/ uL 0.1-0. 8 normal Not Available [address] [place], [address] 03/22/2024 12:22:12 03/22/20 24 03/22/2024 COMPL ETE BLOOD COUNT W/DIF F absolute eosinophil count 0.01 10_3/ uL 0.0-0. 7 normal Not Available [address] [place], [address] 03/22/2024 12:22:12 03/22/20 24 03/22/2024 COMPL ETE BLOOD COUNT W/DIF F absolute basophil count 0.01 10_3/ uL 0.0-0. 2 normal Not Available [address] [place], [address] 03/22/2024 12:22:12 04/05/20 24 04/05/2024 COMPL ETE BLOOD COUNT W/DIF F WBC 5.47 10_3/ uL 4.4-10 .8 normal Not Available [address] [place], [address] 04/05/2024 12:13:59 04/05/20 24 04/05/2024 COMPL ETE BLOOD COUNT W/DIF F RBC 3.55 10_6/ uL 4.36-5 .78 low Not Available [address] [place], [address] 04/05/2024 12:13:59 04/05/20 24 04/05/2024 COMPL ETE BLOOD COUNT W/DIF F HGB 9.4 g/dL 13.5-1 7.5 low Not Available [address] [place], [address] 04/05/2024 12:13:59 04/05/20 24 04/05/2024 COMPL ETE BLOOD COUNT W/DIF F HCT 32.4 % 40.0-5 0.0 low Not Available [address] [place], [address] 04/05/2024 12:13:59 04/05/20 24 04/05/2024 COMPL ETE BLOOD COUNT W/DIF F MCV 91 fL 80-95 normal Not Available [address] [place], [address] 04/05/2024 12:13:59 04/05/20 24 04/05/2024 COMPL ETE BLOOD COUNT W/DIF F MCH 26.5 pg 27.0-3 3.0 low Not Available [address] [place], [address] 04/05/2024 12:13:59 04/05/20 24 04/05/2024 COMPL ETE BLOOD COUNT W/DIF F MCHC 29.0 % 32.0-3 6.0 low Not Available [address] [place], [address] 04/05/2024 12:13:59 04/05/20 24 04/05/2024 COMPL ETE BLOOD COUNT W/DIF F RDW 20.7 % 11.8-1 4.1 high Not Available [address] [place], [address] 04/05/2024 12:13:59 04/05/20 24 04/05/2024 COMPL ETE BLOOD COUNT W/DIF F platelet count 105 10_3/ uL 130-40 0 low Not Available [address] [place], [address] 04/05/2024 12:13:59 04/05/20 24 04/05/2024 COMPL ETE BLOOD COUNT W/DIF F MPV 9.0 fL 8.0-11 .0 normal Not Available [address] [place], [address] 04/05/2024 12:13:59 04/05/20 24 04/05/2024 COMPL ETE BLOOD COUNT W/DIF F neutrophils % 81.7 % Not Available [address] [place], [address] 04/05/2024 12:13:59 04/05/20 24 04/05/2024 COMPL ETE BLOOD COUNT W/DIF F lymphocytes % 4.6 % Not Available [address] [place], [address] 04/05/2024 12:13:59 04/05/20 24 04/05/2024 COMPL ETE BLOOD COUNT W/DIF F monocytes % 11.5 % Not Available [address] [place], [address] 04/05/2024 12:13:59 04/05/20 24 04/05/2024 COMPL ETE BLOOD COUNT W/DIF F eosinophils % 0.4 % Not Available [address] [place], [address] 04/05/2024 12:13:59 04/05/20 24 04/05/2024 COMPL ETE BLOOD COUNT W/DIF F basophils % 0.2 % Not Available [address] [place], [address] 04/05/2024 12:13:59 04/05/20 24 04/05/2024 COMPL ETE BLOOD COUNT W/DIF F immature grans % 1.6 % Not Available [address] [place], [address] 04/05/2024 12:13:59 04/05/20 24 04/05/2024 COMPL ETE BLOOD COUNT W/DIF F nucleated RBC 0.0 % 0.0-0. 3 normal Not Available [address] [place], [address] 04/05/2024 12:13:59 04/05/20 24 04/05/2024 COMPL ETE BLOOD COUNT W/DIF F absolute neutrophil count 4.47 10_3/ uL 1.2-6. 7 normal Not Available [address] [place], [address] 04/05/2024 12:13:59 04/05/20 24 04/05/2024 COMPL ETE BLOOD COUNT W/DIF F absolute lymphocyte count 0.25 10_3/ uL 1.2-3. 4 low Not Available [address] [place], [address] 04/05/2024 12:13:59 04/05/20 24 04/05/2024 COMPL ETE BLOOD COUNT W/DIF F absolute monocyte count 0.63 10_3/ uL 0.1-0. 8 normal Not Available [address] [place], [address] 04/05/2024 12:13:59 04/05/20 24 04/05/2024 COMPL ETE BLOOD COUNT W/DIF F absolute eosinophil count 0.02 10_3/ uL 0.0-0. 7 normal Not Available [address] [place], [address] 04/05/2024 12:13:59 04/05/20 24 04/05/2024 COMPL ETE BLOOD COUNT W/DIF F absolute basophil count 0.01 10_3/ uL 0.0-0. 2 normal Not Available [address] [place], [address] 04/05/2024 12:13:59 04/19/20 24 04/19/2024 COMPL ETE BLOOD COUNT W/DIF F WBC 5.82 10_3/ uL 4.4-10 .8 normal Not Available [address] [place], [address] 04/19/2024 11:48:37 04/19/20 24 04/19/2024 COMPL ETE BLOOD COUNT W/DIF F RBC 3.45 10_6/ uL 4.36-5 .78 low Not Available [address] [place], [address] 04/19/2024 11:48:37 04/19/20 24 04/19/2024 COMPL ETE BLOOD COUNT W/DIF F HGB 9.3 g/dL 13.5-1 7.5 low Not Available [address] [place], [address] 04/19/2024 11:48:37 04/19/20 24 04/19/2024 COMPL ETE BLOOD COUNT W/DIF F HCT 30.9 % 40.0-5 0.0 low Not Available [address] [place], [address] 04/19/2024 11:48:37 04/19/20 24 04/19/2024 COMPL ETE BLOOD COUNT W/DIF F MCV 90 fL 80-95 normal Not Available [address] [place], [address] 04/19/2024 11:48:37 04/19/20 24 04/19/2024 COMPL ETE BLOOD COUNT W/DIF F MCH 27.0 pg 27.0-3 3.0 normal Not Available [address] [place], [address] 04/19/2024 11:48:37 04/19/20 24 04/19/2024 COMPL ETE BLOOD COUNT W/DIF F MCHC 30.1 % 32.0-3 6.0 low Not Available [address] [place], [address] 04/19/2024 11:48:37 04/19/20 24 04/19/2024 COMPL ETE BLOOD COUNT W/DIF F RDW 20.0 % 11.8-1 4.1 high Not Available [address] [place], [address] 04/19/2024 11:48:37 04/19/20 24 04/19/2024 COMPL ETE BLOOD COUNT W/DIF F platelet count 109 10_3/ uL 130-40 0 low Not Available [address] [place], [address] 04/19/2024 11:48:37 04/19/20 24 04/19/2024 COMPL ETE BLOOD COUNT W/DIF F MPV 9.5 fL 8.0-11 .0 normal Not Available [address] [place], [address] 04/19/2024 11:48:37 04/19/20 24 04/19/2024 COMPL ETE BLOOD COUNT W/DIF F neutrophils % 71.0 % Not Available [address] [place], [address] 04/19/2024 11:48:37 04/19/20 24 04/19/2024 COMPL ETE BLOOD COUNT W/DIF F lymphocytes % 6.7 % Not Available [address] [place], [address] 04/19/2024 11:48:37 04/19/20 24 04/19/2024 COMPL ETE BLOOD COUNT W/DIF F monocytes % 20.4 % Not Available [address] [place], [address] 04/19/2024 11:48:37 04/19/20 24 04/19/2024 COMPL ETE BLOOD COUNT W/DIF F eosinophils % 0.2 % Not Available [address] [place], [address] 04/19/2024 11:48:37 04/19/20 24 04/19/2024 COMPL ETE BLOOD COUNT W/DIF F basophils % 0.0 % Not Available [address] [place], [address] 04/19/2024 11:48:37 04/19/20 24 04/19/2024 COMPL ETE BLOOD COUNT W/DIF F immature grans % 1.7 % Not Available [address] [place], [address] 04/19/2024 11:48:37 04/19/20 24 04/19/2024 COMPL ETE BLOOD COUNT W/DIF F nucleated RBC 0.0 % 0.0-0. 3 normal Not Available [address] [place], [address] 04/19/2024 11:48:37 04/19/20 24 04/19/2024 COMPL ETE BLOOD COUNT W/DIF F absolute neutrophil count 4.13 10_3/ uL 1.2-6. 7 normal Not Available [address] [place], [address] 04/19/2024 11:48:37 04/19/20 24 04/19/2024 COMPL ETE BLOOD COUNT W/DIF F absolute lymphocyte count 0.39 10_3/ uL 1.2-3. 4 low Not Available [address] [place], [address] 04/19/2024 11:48:37 04/19/20 24 04/19/2024 COMPL ETE BLOOD COUNT W/DIF F absolute monocyte count 1.19 10_3/ uL 0.1-0. 8 high Not Available [address] [place], [address] 04/19/2024 11:48:37 04/19/20 24 04/19/2024 COMPL ETE BLOOD COUNT W/DIF F absolute eosinophil count 0.01 10_3/ uL 0.0-0. 7 normal Not Available [address] [place], [address] 04/19/2024 11:48:37 04/19/20 24 04/19/2024 COMPL ETE BLOOD COUNT W/DIF F absolute basophil count 0.00 10_3/ uL 0.0-0. 2 normal Not Available [address] [place], [address] 04/19/2024 11:48:37 11/08/19 24 11/08/2023 CT imagi ng repor t Genaro t Name: Marlo Hernandez Unit #: [id number] Loc: DI Orderi ng Provid er: Nichol Newsome er O Accoun t #: [id number] Status : REG CLI Primar y Care Provid er: Primea u,Robe rt E Date of Exam: Sex: M : 1944 Age: 78 Exam(s ) a CT:CT chest w Exam(s ) CT CHEST W EXAM: CT CHEST W CLINIC AL HISTOR Y: RUL LUNG CA,C34 .11,S/ P RX,RES TAGING EXAM,. TECHNI QUE: Multi planar recons tructi ons were perfor med. 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 The honeyc omb inters titial patter n in the right lung is also unchan ged. The nodula r densit y descri bed lower down in the latera l basal segmen t of the right lower lobe has signif icantl y decrea sed-re solved . Howeve r slight ly higher up below the primar y lesion there is an area of infilt rate now eviden t which was not previo usly presen t (serie s imag e 32). No new additi onal right lung findin gs and there is no pleura l effusi on. In the opposi te-lef t lung there is again noted a solita ry pleura l based nodula r densit y in the latera l basal segmen t of the left lower lobe which remain s 5 mm size, again unchan ged. No new focal left lung findin gs and there are no pleura l effusi ons on either side. No new findin gs in the trache a and mainst em bronch i. MEDIAS TINUM: There is no hilar nor medias tinal adenop athy. Visual ized thyroi d unrema rkable . CARDIA C: Heart size is normal . There is no perica rdial effusi on.Tamara iber of the thorac ic aorta is within normal limits . VISUAL IZED UPPER ABDOME N:Ther e are no signif icant adrena l masses . Cholel ithias is again noted. . No adrena l masses .. Benign cyst latera l aspect of the left kidney is unchan ged and does not requir e imagin g follow -up. OSSEOU S: No signif icant osseou s lesion s.No fractu res.. IMPRES PATRICK: 1. Unchan ged stable appear ance of the spicul ated malign ant-ap pearin g mass in the right upper lobe. No signif icant lympha denopa thy eviden t. No pleura l effusi on. 2. Resolu tion of previo usly descri bed right lower lobe infilt rate with some increa sed markin gs now eviden t higher up in the right lung below the primar y lesion , probab ly infect ious. 3. Solita ry 5 millim eter pleura l based left lower lobe nodule remain s unchan ged. No new left lung findin gs. Other findin gs as above. RADIAT ION DOSE DELIVE RED: 448.91 mGy.cm Total DLP DATA REPOSI TORY: [facility] submit katelin to the [facility] al Radiol ogy Data Regist ry (NRDR) Dose Index Regist ry (DIR) with the [employer] [facility] of Radiol ogy (ACR). RADIAT ION OPTIMI ZATION : All CT scans at this [facility] use at least one of these dose optimi zation techni ques: automa katelin exposu re contro l; mA and/or kV adjust ment per patien t size (inclu vinay target ed exams where dose is matche d to clinic al indica tion); or iterat odell recons tructi on. 0205-0 003: Total DLP = 0.00 mGy-cm Ordere d By: Nichol Newsome er O CC: ------ ------ ------ ------ ------ ------ ------ ------ ------ ------ ------ ------ ---- Dictat ed By: Isaac Montoya M.D. [id number] Transc ribed By: Lindsay FUENTES,Ellis smith 1314 This is privil eged, confid ential inform ation intend ed only for the provid er named. Any use or distri bution by any person other than this provid er is strict ly prohib ited. If you receiv e this report in error, please notify us immwhitney christie at and return the origin al report to us at the addres s above. Thank- you. [address], [place], [address] 11/08/2023 16:22:47 11/08/19 24 11/08/2023 ED visit note ED Visit Note GENARO Alexandra NAME: Marlo Hernandez UNIT #: [id number] ADMITT ING PROVID ER: Alexus razoNiko veronique COMMUNITY HEALTH EDUCATION COORDINATOR ACCOUN T #: [id number] PRIMAR Y CARE PROVID ER: TAMI Estrella MD,LOUISE ERT E DATE OF ADMIT : : 1944 HPI Genera l Mode of arriva l: ambula tory . Date/T estrellita Provid er Initia katelin Docume ntatio n: 13:18 . Limita tions to Docume ntatio n: no limita tions . Inform ation obtain ed by: genaro alexandra and RN notes review ed . Histor y of Nigel Fernandezeran s 78 year old M nigel ts to the [facility] with the chief compla int of Left leg lacera tion, descri bed as modera te, Genaro alexandra starte d experi encing this hour(s ) (1) and it has been consta nt. No reliev ing factor s improv e sympto m(s), No exacer bating factor s report ed . Genaro alexandra notes no other sympto ms.. Genaro alexandra did receiv e the follow ing treatm ents prior to arriva l, none Relate d Data Home Medica tions Medica tion Instru ctions Record ed Confir med multiv itamin 1 cap PO DAILY docusa te sodium 100 mg capsul e 100 mg PO DAILY PRN (Colac e) insuli n lispro 100 unit/m L 6 unit subcut TID PRN hyperg lycemi a subcut aneous soluti on (Humal og U-100 Insuli n) losart an 100 mg tablet 50 mg PO DAILY glucag on 1 mg/0.2 mL subcut aneous 1 mg (0.2 mL) subcut ONCE #0.4 mL auto-i njecto r (Gvoke HypoPe n 2-Pack ) simvas tatin 20 mg tablet 20 mg PO DAILY amlodi pine 10 mg tablet 10 mg PO HS #30 tabs insuli n glargi ne 100 unit/m L 8 - 12 unit subcut BID subcut aneous soluti on nutrit ion tx glu 237 ml PO QD-BID PRN uninte ntiona l intol, lac-fr ee,soy -fiber 0.04 weight loss #5,688 mL gram-1 kcal/m L liquid (Gluce rna 1 Tamara) citalo pram 20 mg tablet 20 mg PO DAILY #90 tabs diazep am 10 mg tablet 5 - 10 mg (0.5 - 1 x 10 mg) PO HS PRN sleep #30 tabs predni sone 5 mg tablet 5 mg PO DAILY buprop ion HCl 150 mg tablet ,12 hr 150 mg PO BID #60 tabs sustai jacque-re lease Previo us Rx's Medica tion Instru ctions Record ed glucag on 1 mg/0.2 mL subcut aneous 1 mg (0.2 mL) subcut ONCE #0.4 mL auto-i njecto r (Gvoke HypoPe n 2-Pack ) amlodi pine 10 mg tablet 10 mg PO HS #30 tabs nutrit ion tx glu 237 ml PO QD-BID PRN uninte ntiona l intol, lac-fr ee,soy -fiber 0.04 weight loss #5,688 mL gram-1 kcal/m L liquid (Gluce rna 1 Tamara) citalo pram 20 mg tablet 20 mg PO DAILY #90 tabs diazep am 10 mg tablet 5 - 10 mg (0.5 - 1 x 10 mg) PO HS PRN sleep #30 tabs buprop ion HCl 150 mg tablet ,12 hr 150 mg PO BID #60 tabs sustai jacque-re lease Allerg ies Allerg y/AdvR eac Type Severi ty Reacti on Status Date / Time No Known Allerg ies Allerg y Verifi ed 13:02 Genera l Stated Compla int: Lacera tion TIANNA: 4 Review of System s Integu mentar y/Falcon sts Skin/B reast: Report s as per HPI and Report s wounds Exam Const Genera l: gem ative and no acute distre ss Union ation: alert, awake and orient ed x3 Limita tions: mental status not altere d Resp Effort Inspec tion: normal respir atory effort and able to speak in comple te senten helder Neuro Genera l: patien t alert, patien t awake, patien t orient ed x3, gait normal , tone normal and moves all extrem ities Extrem Genera l: normal exam except as noted Left lower extrem ity: lower leg Detail s: lacera tion (4 cm as noted below in pictur e) Upper/ lower leg/hi p images : 2 1. 4 cm skin tear Course Vital Signs Vital signs: Vital Signs Pulse 68 13:00 Respir atory Rate 18 13:00 Blood Pressu re 162/73 H 13:00 Pulse Oximet ry 95 13:00 Pulse 68 13:00 Respir atory Rate 18 13:00 Respir atory Effort Normal , Non-La bored 13:11 Blood Pressu re 162/73 H 13:00 Blood Pressu re Positi on Sittin g 13:00 Pulse Oximet ry 95 13:00 Oxygen Delive ry Method Room Air 13:00 Oxygen Flow Rate 0 13:00 Pain Level 2 13:11 Medica l Decisi on Making 4 cm skin lacera tion/s kin tear to left lower leg to the anteri or surfac e. No other injury or trauma . Wound was thorou ghly rinsed and irriga katelin, approx imated with Steri- Strips and skin adhesi ve. Genaro alexandra's tetanu s update d. Genaro alexandra advise d to monito r for signs of infect ion and return immedi ately if these occur otherw ise acute wound care was discus sed. After discus patrick of diagno sis and plan of care genaro alexandra has no furthe r needs, questi ons, or concer ns and states clear unders tandin g to return to the emerge ncy depart ment for any worsen ing sympto ms. This docume ntatio n was genera katelin using c3 creations ion system , please disreg luis any odditi es of phrase or misspe llings . 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) Lung mass (Acute ) Tobacc o use disord er (Acute ) Impote nce (Acute ) of organi c origin Consti pation (Acute ) Insomn ia, persis tent (Acute ) Paroti d mass (Acute ) Hx of sciati ca (Acute ) Leg weakne ss (Acute ) 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 ) Chroni c leg pain (Acute ) 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 (Acute ) Depres patrick (Chron ic) Weight loss (Acute ) Polymy algia (Acute ) Benign prosta tic hyperp lasia (Chron ic) Solita ry lung nodule (Acute ) 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 ) Pallia tive care patien t (Acute ) Positi ve colore ctal cancer screen ing using Cologu luis test (Acute ) Iron defici ency anemia due to chroni c blood loss (Acute ) Left sided sciati ca (Acute ) Chroni c pain of left groin (Acute ) Bilate ral leg pain (Acute ) Right groin pain (Acute ) Mild depres patrick (Chron ic) Anemia (Chron ic) Sciati ca of left side (Acute ) Unstea dy gait when walkin g (Acute ) [employer] Manager al hemorr hoids (Acute ) Benzod iazepi ne depend ence (Acute ) Smoker unmoti vated to quit (Acute ) DNI (do not intuba te) (Acute ) DNR (do not resusc itate) (Acute ) POLST (Physi aj Orders for Life-S ustain ing Treatm ent) (Acute ) signed 1 Fecal urgenc y (Acute ) Histor y of hemorr hoidec ben (Chron ic) GI bleedi ng (Chron ic) Pallia tive care patien t (Acute ) Type I diabet es mellit us (Acute ) Medica l Histor y (Revie wed @ 16:55 by Jaclyn Stallworth, COMMUNITY HEALTH EDUCATION COORDINATOR) Goals of care, gucci herron/joanie iscuss ion Hx of hyperl ipidem ia HTN (hyper tensio n) Diabet es Anxiet y Surgic al Histor y (Revie wed @ 16:55 by Jaclyn Stallworth, COMMUNITY HEALTH EDUCATION COORDINATOR) Finger tip amputa tion Histor y of tonsil lectom y Histor y of catara ct surger y Family Histor y (Revwed @ 16:55 by Jaclyn Stallworth, COMMUNITY HEALTH EDUCATION COORDINATOR) Father Deceas ed, in his early 80s uncert ain cause of No proble ms noted. Mother Deceas ed, age 77 Pancre atic cancer Sister No proble ms noted. Brothe r No proble ms noted. Sister Alcoho l abuse Sister No proble ms noted. Brothe r Prosta te cancer Sister CFIDS (chron ic fatigu e and immune dysfun ction syndro me) Sister Deceas ed, of colon cancer late 50s Colon cancer Sister No proble ms noted. Sister No proble ms noted. Son Age: 37 No proble ms noted. 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 Use Status : Curren t every day Tobacc o Type: cigare ttes Tobacc o: How many years used: 60 Quit status : not consid ering quitti favian herron given: provid er counse germaine barboza risk assess ment perfor med?: Yes Alcoho l Intake : curren ibrahima Alcoho l Intake freque ncy: holida ys/spe cial occasi ons only Alcoho l type: beer Drug use: Rarely Substa nce use type: mariju eduardo Caregi navarro/Kelley pport person : Yes Househ old member s: spouse and childr en Housin g: house Number of Childr en: 1 number of grandc hildre n: 0 Commun icatio n Needs: Correc tive Lenses Educat ion Level: colleg e Do you need help unders kendra barboza health inform ation? 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 Pets and animal s: Yes Pets and animal s: farm animal s Do you think of yourse lf as: straig ht/het erosex ual What is your relati onship status ?: yonatan nair How often do you talk on the phone with friend s or family ?: once per week How often do you get togeth er with friend s or relati ves?: three or more times per week Panel score (0-1 are the most social ly isolat ed patiron ts): 2 What type of physic al activi ty do you partic ipate in: walkin g, irregu lar exerci se and additi onal Detail s: used to play golf regula rly; not since summer 2018 Durati on: 15-30 minute s/day Freque ncy: 1-2 times per week Specia l li needs: No Seatbe lt use: always Workin tamra smoke detect or in home: Yes Fire exting uisher in home: Yes Do you feel safe at home: Yes Do you feel safe in your relati onship ?: Yes Additi onal Social histor y: Marlo lives in a house on land owned by a commun e he starte d in the 60s. He lives with his , Ngoc; their son, Carlton , lives [facility]. 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 He contin ues to smoke and is not intere sted in quitti ng. He does see Dr Mattie fuentes for his recurr ent hemorr hoids and GI bleedi . If he has colon cancer , he does not want any treatm ent. He will not have a colono scopy. PAWSS Have you Been Recent ly Intoxi cated or Drunk Within the Last 30 days?: No Have you Ever Experi enced Previo us Episod es of Alcoho l Withdr awal?: No Have you ever Experi enced Withdr awal Seizur es?: No Have you ever Experi enced Deliri um Tremen s(DT)s ?: No Have you ever underg one Alcoho l Rehabi litati on Treatm ent (i.e, inpt ot outpat ient treatm ent progra ms)?: No Have you ever Experi enced Blacko uts?: No Have you ever Combin ed Alcoho l with other Downer s within the last 90 days?: No Have you ever Combin ed Alcoho l with any other Substa nce of Abuse during the last 90 days?: No Positi ve Blood Alcoho l level on Presen tation ? [PCS.B AL]: No Eviden ce of Increa sed Autono jennifer Activi ty (i.e. HR>120 , tremor , sweati ng, agitat ion, nausea )?: No Result : 0 Discha rge Plan Discha rge Detail s Chief Compla int: Lacera tion Clinic al Impres patrick: Skin tear of left lower leg withou t compli cation Primar y Care Provid er: Sergei Yancey rt E ED Provid er: Niko Stallworth Home Meds and New Rx's Prescr iption s: No Action docusa te sodium [Colac e] 100 mg capsul e 100 mg PO DAILY PRN simvas tatin 20 mg tablet 20 mg PO DAILY losart an 100 mg tablet 50 mg PO DAILY insuli n lispro [Humal og U-100 Insuli n] 100 unit/m L soluti on 6 unit subcut TID PRN (Reaso n: hyperg lycemi a) Rx Instru ctions : patien t to use as his blood sugar requir es within parame ters discus sed Gvoke HypoPe n 2-Pack 1 mg/0.2 mL auto-i njecto r 1 mg subcut ONCE Qty: 0.4 10RF Rx Instru ctions : as a single dose; may repeat once after 15 minute s if no respon se diazep am 10 mg tablet 5 - 10 mg PO HS PRN (Reaso n: sleep) Qty: 30 2RF predni sone 5 mg tablet 5 mg PO DAILY amlodi pine 10 mg tablet 10 mg PO HS Qty: 30 3RF Glucer na 1 Tamara 0.04-1 gram-k tamara/mL liquid 237 ml PO QD-BID PRN (Reaso n: uninte ntiona l weight loss) Qty: 5688 3RF Patien t Commen ts: not on med list citalo pram 20 mg tablet 20 mg PO DAILY Qty: 90 2RF buprop ion HCl 150 mg tablet sustai jacque-re lease 12 hr 150 mg PO BID Qty: 60 1RF Rx Instru ctions : take 1 tablet once daily for 3 days, if tolera katelin, increa se to 1 tablet twice daily multiv itamin 1 EACH capsul e 1 cap PO DAILY insuli n glargi ne 100 unit/m L soluti on 8 - 12 unit SUBCUT BID Patien t Commen ts: INJECT 8 TO 12 UNITS UNDER THE SKIN TWO TIMES A DAY DIRECT ED BY PROVID ER Discha rge Instru ctions Instru ctions : Skin Tear (ED) Additi onal Instru ctions : Watch for any signs of infect ion and return immedi ately to the emerge ncy depart ment if these occur. Otherw ise please keep Steri- Strips in place and clip edges and do not pull these off as this may reopen the wound. Keep wound clean and dry. Follow -up with primar y care provid er as needed for reasse ssment Referr als: Sergei Yancey rt E [Prima ry Care Provid er] - (As needed for reasse ssment ) Dhruv wilson Data Dhruv wilson Date/T estrellita-TO BE ENTERE D AT DEPART URE: 14:03 cc: LOUISE YANCEY MD E ------ ------ ------ ------ ------ ------ ------ ------ ------ ------ ------ --- Dictat ed by: ALEXUS Razo NP, JACLYN Dictat ed: Time: 135 Date: 1657 Date: Date: Transc ribed Date: Transc ribed Time: 1352 By: CARMELO This is privil eged, confid ential inform ation, intend ed only for the provid er named. Any use or distri bution by any person other than this provid er is strict ly prohib ited. If you receiv e this report in error, please notify us immedi ately at [phone] and return the origin al report to us at the addres s above. Thank you. [address] , [place], [address] 11/08/2023 18:04:05 02/21/20 24 02/22/2024 elect rocar diogr am No observ ation record ed. [email or web address] [facility] [address], [place], [address], 02/23/2024 09:07:48 02/21/20 elect rocar diogr am No observ ation record ed. [email or web address] Not Available 02/22/2024 11:33:11 02/22/20 24 02/22/2024 imagi ng inter preta tion No observ ation record ed. [email or web address] Not Available 02/22/2024 13:45:06 02/22/20 24 02/22/2024 CT, angio gram, chest , w/ contr ast No observ ation record ed. [email or web address] (Radiology) [address] [place] [address] [place], [address], 02/23/2024 09:07:49 02/22/20 24 02/22/2024 CT imagi ng repor t Patiron t Name: Marlo Hernandez Unit #: [id number] Loc: DI Orderi ng Provid er: Primea u,Robe rt E Accoun t #: [id number] Status : REG CLI Primar y Care Provid er: Primea u,Robe rt E Date of Exam: Sex: M : 1944 Age: 78 Exam(s ) a CT:CT chest PE CTA Exam(s ) CT CHEST PE CTA EXAM: CT CHEST PE CTA CLINIC AL HISTOR Y: PLEURI SY,R09 .1,DYS PNEA,H /O LUNG CA,ABN L PET SHOWIN G JACQUE,? PE. TECHNI QUE: Imagin g Protoc ol: [...] Soft tissue s: Unrema rkable . IMPRES PATRICK: No eviden ce of pulmon bert emboli sm. Interv al worsen ing of right upper lobe consol idatio n and inters titial thicke lily when compar ed to ry 2023. Most recent prior PET CT images from 28 January 2024 are not availa ble. RADIAT ION DOSE DELIVE RED: 421.51 mGy.cm Total DLP DATA REPOSI TORY: All CT scans at this [facility] are submit katelin to the Nation al Radiol ogy Data Regist ry (NRDR) Dose Index Regist ry (DIR) with the [place] isabella albert of Radiol ogy (ACR). RADIAT ION OPTIMI ZATION : All CT scans at this [facility] use at least one of these dose optimi zation techni ques: automa katelin exposu re contro l; mA and/or kV adjust ment per patien t size (inclu vinay target ed exams where dose is matche d to clinic al indica tion); or iterat odell recons tructi on. 009: Total DLP = [...] bution by any person other than this [facility] er is strict ly prohib ited. If you receiv e this report in error, please notify us immedi ately at [phone] and return the origin al report to us at the addres s above. Thank- you. [email or web address] [address] [place], [address] 02/22/2024 13:46:47 Result Notes None recorded. Problems [...] E10.9; Problem Code Type: ICD-10; Not Available [facility] 3 05:28:34 Nicotine dependence Active 200911/29/2019 - [...] Z66; Problem Code Type: ICD-10; Not Available [facility] 3 05:28:35 Disorder of salivary gland Active 2012 Problem Code: K11.8; Problem Code Type: ICD-10; Not Available [facility] 3 05:28:35 Cellulitis Completed 201604/09/2017 Problem Code: L03.90; Problem Code Type: ICD-10; Not Available [facility] 3 05:28:36 Adult health examination Active 201906/26/2022 - Comments only - Onesimo Whitley MD - He can get the COVID-vaccine and flu shot in mid July Problem Code: Z00.00; Problem Code Type: ICD-10; Not Available [facility] 3 05:28:36 Nasal congestion Completed 202102/01/2022 Problem Code: R09.81; Problem Code Type: ICD-10; Not Available [facility] 3 05:28:36 Acute frontal sinusitis Completed [...] Problem Code Type: ICD-10; Not Available [facility] 3 05:28:36 Nervous system and sense [...] forward with any decision. Not Available [facility] 3 05:28:36 Monoplegia of lower limb Active 202104/16/2022 - Comments only - Vanda BEE - /hx of sciatica - referral to [facility] PT for strengthening /inc mobility - pt declines imaging at this time Problem Code: G83.10; Problem Code Type: ICD-10; Not Available [facility] 3 05:28:36 Peripheral vascular disease Active 2021 Problem Code: I73.9; Problem Code Type: ICD-10; Not Available [facility] 3 05:28:37 Pain in right lower [...] Problem Code Type: ICD-10; Not Available [facility] 3 05:28:37 Follow-up orthopedic assessment Active [...] Problem Code Type: ICD-10; Not Available [facility] 3 05:28:37 Anemia Active 202109/24/2022 - [...] Problem Code Type: ICD-10; Not Available [facility] 3 05:28:37 Major depression, single episode Active [...] F32.9; Problem Code Type: ICD-10; Not Available [facility] 3 05:28:37 Abnormal weight loss Active 2022 Problem Code: R63.4; Problem Code Type: ICD-10; Not Available [facility] 05:28:37 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 Problem Code: D46.9; Problem Code Type: ICD-10; Not Available [facility] 05:28:38 Polymyalgia rheumatica Active 202201/18/2023 - Comments only - Onesimo Whitley MD - Dramatic response to moderate dose prednisone. Still feels great on 15 mg. We will recheck inflammatory markers tomorrow, as long as these are coming down significantly I am going to reduce further to 12.5 mg. Problem Code: M35.3; Problem Code Type: ICD-10; Not Available [facility] 3 05:28:38 Benign prostatic hyperplasia Active 2022 Problem Code: N40.0; Problem Code Type: ICD-10; Not Available [facility] 3 05:28:38 Solitary nodule of lung [...] by bronchoscopy and I am referring to [facility] radiology at [facility]. We will get brain MRI, PFTs, coags, and refer to Dr. Villanueva as well. Problem Code: R91.1; Problem Code Type: ICD-10; Removal Reason: [facility] ONESIMO WHITLEY MD [address], [place], [address] , [facility] 4 16:13:37 Adrenal cortical hypofunction Completed 202201/13/2023 Problem Code: E27.40; Problem Code Type: ICD-10; Not Available [facility] 3 05:28:44 Angina pectoris Completed 200906/30/2023 Problem Code: 413.9; Problem Code Type: ICD-9; Not Available [facility] 3 05:28:45 Acute upper respiratory infection Completed 201604/16/2022 Problem Code: J06.9; Problem Code Type: ICD-10; Not Available [facility] 3 05:28:45 Impotence of organic origin Completed 200906/30/2023 Problem Code: 607.84; Problem Code Type: ICD-9; Not Available [facility] 3 05:28:46 Tobacco dependence syndrome Completed 200906/30/2023 Problem Code: 305.1; Problem Code Type: ICD-9; Not Available [facility] 3 05:28:46 Mass of parotid gland Completed 201206/30/2023 Not Available [facility] 3 05:28:46 Type 1 diabetes mellitus Completed 200906/30/2023 Problem Code: 250.01; Problem Code Type: ICD-9; Not Available [facility] 3 05:28:48 Persistent insomnia Completed 200906/30/2023 Problem Code: 307.42; Problem Code Type: ICD-9; Not Available [facility] 3 05:28:50 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, good response to Taxol/platinu cory [facility] [place] Michael [address], [address] 4 16:14:18 Pleurisy Active [address], [address] 4 14:34:26 Hearing loss Active [address], [address] 4 13:25:44 Dyspnea on exertion Active [address], [address] 4 16:38:58 Chronic obstructive pulmonary disease Active [address], [address] 4 16:44:25 Notes:*Problem Name: Dni *IC D-10 Codes: *Problem Status: inactive *Comments: *Note Date: 08/18/2012 *Problem Name: Dni *ICD-10 Codes: *Problem Status: inactive *Comments: *Problem Code Type: CPT *Note Date: 08/18/2012 Problem Notes None recorded. Procedures Surgical History None recorded. Imaging Results Imaging Date Name Status LastModified by Organization Details LastModified Time 11/08/2023 CT imaging report completed [address] [place], [address] 11/08/2023 16:22:47 11/08/2023 ED visit note completed [email or web address] [place], [address] 11/08/2023 18:04:05 02/22/2024 electrocardiogram completed [email or web address] [place] [address] & [facility] [address] [facility] [address], [place], [address], 02/23/2024 09:07:48 02/21/2024 electrocardiogram completed Informa tion not available 02/22/2024 11:33:11 02/22/2024 imaging interpretation [email or web address] Information not available 02/22/2024 13:45:06 02/22/2024 CT, angiogram, chest, w/ contrast completed [email or web address] (Radiology) [address] [place] [address] [place], [address], 02/23/2024 09:07:49 02/22/2024 CT imaging report completed [email or web address] [place], [address] 02/22/2024 13:46:47 Procedure Notes None recorded. Medical Equipment None [...] Ultra-Fin e 0.5 mL 31 gauge x 02/16 USE ONE SYRINGE FOUR TIMES A DAY active Not Available Not Available No t Available Glucerna 1 Tamara 0.04 gram-1 kcal/mL oral liquid Take 240 [...] Address Organization Details Last Updated DateTime 4 187.325 cm 25.4 kg/m2 03159.9 g 96 % 96 % 68 /min 16 /min 128 mm[Hg] 74 mm[Hg] ABDULLAHI ESTRELLA RN [facility] 4 13:32:03 Date Recorded Body height Body mass index (BMI) Body weight Oxygen saturation Oxygen saturation in Arterial blood by Pulse oximetry Heart rate Body temperature Systolic blood pressure Diastolic blood pressure Provider Name and Address Organization Details Last Updated DateTime 4 187.325 cm 25 kg/m2 64407.7 3 g 93 % 93 % 72 /min 98.6 [degF] 118 mm[Hg] 46 mm[Hg] GUERDA LARA RN [facility] 4 14:06:58 Date Recorded Body height Body mass index (BMI) Body weight Body temperature Oxygen saturation Oxygen saturation in Arterial blood by Pulse oximetry Heart rate Respiratory rate Systolic blood pressure Diastolic blood pressure Provider Name and Address Organization Details Last Updated DateTime 4 187.33 cm 24.8 kg/m2 30319.9 4 g 97 [degF] 95 % 95 % 90 /min 18 /min 118 mm[Hg] 60 mm[Hg] WU DUNN LPN [facility] 13:04:21 Date Recorded Body height Body mass index (BMI) Body weight Body temperature Oxygen saturation Oxygen saturation in Arterial blood by Pulse oximetry Heart rate Respiratory rate Systolic blood pressure Diastolic blood pressure Provider Name and Address Organization Details Last Updated DateTime 187.33 cm 25.1 kg/m2 54274.9 2 g 97.8 [degF] 98 % 98 % 68 /min 18 /min 112 mm[Hg] 60 mm[Hg] WU DUNN LPN [facility] 14:10:47 Social History Question Answer Notes LastModified by Organizat ion Details LastModified Time Tobacco Smoking Status Former Smoker WU DUNN LPN [facility] 02/29/2024 13:04:55 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 1-5yearssinc elastcigaret te Information not available 02/29/2024 1) Date Of Last VPMS Check? 04/04/2024 [email or web address] Information not available 04/04/2024 2) VPMS Findings No Concerns [email or web address] Information not available 04/04/2024 3) Date Of Last Contract: 05/25/2022 Informed C: 05/25/24 Needs Uds. 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, Family History of: Hypertension: Yes Hyperlipidemia: Yes [...] 50 mcg/0.25mL dose 11/29/2020 completed Not Available [facility] 08/13/20 05:27:52 COVID-19, mRNA, LNP-S, PF, 100 mcg/0.5mL dose or 50 mcg/0.25mL dose 08/17/2021 completed Not Available [facility] 08/13/20 05:27:52 SARS-COV-2 (COVID-19) vaccine, UNSPECIFIED 11/01/2020 completed Not Available [facility] 08/13/2023 05:27:52 influenza, unspecified formulation 07/04/2019 completed Not Available [facility] 08/13/2023 05:27:53 influenza, unspecified formulation 09/20/2012 completed Not Available [facility] 08/13/2023 05:27:53 Past Encounters Encounter ID Performer Location Encounter Start Date Encounter Closed Date Diagnosis/Indication Diagnosis SNOMED-CT Code [id number] ONESIMO WHITLEY MD [address] [address] 10/13/2023 13:17:29 10/13/2023 15:07:37 Major depression, single episode 51824153 Polymyalgi a rheumatica 67477553 Type 1 federico betes mellitus without complication 087791088 Small cell carcinoma of lung 881321590 Inguinal pain 993100688 [id number] ONESIMO WHITLEY MD [address] [address] 02/21/2024 13:59:55 02/21/2024 15:15:08 Pleurisy [id number] ONESIMO WHITLEY MD [address] [address] 02/29/2024 12:56:26 02/29/2024 13:34:27 Hearing loss 87954664 Pleurisy [id number] ONESIMO WHITLEY MD [address] [address] 03/15/2024 13:55:39 03/15/2024 15:04:48 Pleurisy 461240508 Insomnia 740720786 Essential hypertension 84258466 Myelodyspl astic syndrome (clinical) 272773401 Polymyalgi a rheumatica 56311233 Type 1 federico betes mellitus without complication 178552840 Small cell carcinoma of lung 243141135 Chronic ob structive pulmonary disease 31922450 Health Concerns Section Related Observation LastModified by Organization Detai ls LastModified Time None Recorded Concern Status LastModified by Organization Details LastModified Time None Recorded Advance Directives Directive None Recorded Payers Encounter Date Sequence Insurance Name Policy Number Policy Cochran Covered Member ID Cochran Member ID Guarantor Name 10/13/2023 2 [place] [facility] [id number] [facility] [id number] [facility] 10/13/2023 1 [place] [employer] Marlo Rangel [place] [id number] [facility] 02/21/2024 2 [place] [facility] [id number] [facility] [id number] [facility] 02/21/2024 1 [place] [employer] [place] Marlo Rangel [place] [id number] [facility] 02/29/2024 2 [place] [facility] [id number] [facility] [id number] [facility] 02/29/2024 1 [place] [employer] Marlo Rangel [place] [id number] [facility] 03/15/2024 2 [place] [facility] [id number] [facility] [id number] [facility] 03/15/2024 1 [place] [place] Marlo Durán [id number] [facility] Notes Date Note Type Note Provider Name and Address Organization Details Recorded Time 10/13/2023 text/html HPI Notes: Marlo has completed his course of his jackson based chemotherapy appears of had a good response with shrinkage of his primary tumor. He is getting his upcoming PET scan. Other than fatigue he is symptom-free, does not have any chest pain, significant cough or hemoptysis. His chronic PMR symptoms have been well-controlled on prednisone. He has been on 5 mg daily for many months now, no attempts to alter that during his chemo. No recent scalp pain, headache, shoulder girdle pain. He does not have a recurrence of widespread lower extremity pain but he does have in the past month some pain in the right groin mostly if he tries to achieve certain positions. For instance it is hard to bend down to tie his shoe. Never had a specific injury or fall. He is not sure whether to use heat or ice. This happened to him once before and eased up with time alone, so he is not eager to have a lot of workup. His mood is doing pretty well on double antidepressants. I asked him about whether he would want to pursue further treatment if his cancer recurred; although he is cagey about this it seems that he would. I need to be there for my . He did not have that hard time tolerating the chemo but did have 1 bad bout of pneumonia that left him hospitalized. He has already had time to catch up on all his vaccines since he stopped the chemo more than a month ago. Sugar control is excellent, he is still seeing his barrel liner although that is infrequent. Was switched to glargine for his long-acting insulin and also uses Humalog for the intensive dosing. No recent hypoglycemia. No new weakness, numbness, vision change. No chest pain or heaviness, palpitations or syncope. No abdominal pain or GI bleeding. ONESIMO WHITLEY MD [address], [place], [address], [facility]. 10/13/2023 16:16:38 02/21/2024 text/html HPI Notes: Les s here [...] last month, with recent PET scan showing JACQUE. The oncologist have some concern about the possibility of brain metastases, but Marlo does not want to pursue MRI and would not consider treatment of that. He continues to be followed closely by palliative care and he continues to carefully define his limits. No URI, no rhinitis or pharyngitis. ONESIMO WHITLEY MD [address], [place], [address], [facility]. 02/21/2024 17:56:11 02/29/2024 text/html HPI Notes: cc Pneumonia and difficulty hearing Marlo wonders about continuing his Doxycycline as was given 28 but only to take for 7 days. He is feeling a little bit better but continues to have pain in his right chest. Feels about 25% improved. He had seen hematology on 02/23/2024 and they discussed sending the images to Dr. Newsome who has not reached out to Marlo as far as he is aware, has not checked the portal Decreased hearing - feels Marlo's hearing isn't good. He reports his talks to herself and he has trouble discerning when she is talking to herself or him and has given up listening. Has no tinninuts and no one else is complaining. She has been complaining for ever Is down 5 pounds since last visit, has been tapering his prednisone JOSE RODRIGUEZ [address], [place], [address], [facility]. 02/29/2024 13:37:18 03/15/2024 text/html HPI Notes: Follo w-up for right-sided pleuritic chest pain Marlo's pleuritic pain did not resolve after course of antibiotics. His CT showed some consolidative changes distal to the cancer; this was worse than his prior CT and [facility] but not worse than his last CT at [facility]. He never developed fever. He still has [...] his dyspnea. 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 His blood counts have improved a [...] time. ONESIMO WHITLEY MD [address], [place], [address], [facility]. 03/15/2024 16:47:38
--- OUTSIDE RECORDS SUMMARY | 2024-05-03 01:14 | XMS_ITS | Encounter Summary ---
Author Organization [facility] Address [address] [place] [address] Care Team Providers Care Digital Coordinator Name Role Phone Unavailable Primary Care Provider Unavailabl e Encounter Details Date Type Department Care Team (Late st Contact Info) Description 05/18/2022 Lab Requisition [facility] Pathology & Laboratory Medicine - [facility] [address] [place] [address] Outr Resulting Lab, Provider Social History Tobacco [...] Procedure Name Priority Date/Time Associated Diagnosis Comments SPEP, INCLUDES QUANTITATION OF MONOCLONAL SPIKE PERFORMABLE Today 05/18/2022 16:03 EDT SPEP, INCLUDES QUANTITATION OF MONOCLONAL SPIKE Routine 05/18/2022 16:03 EDT PROTEIN, TOTAL Today 05/18/2022 16:03 EDT documented in this encounter Results * (ABNORMAL) SPEP, INCLUDES QUANTITATION OF MONOCLONAL SPIKE PERFORMABLE (05/18/2022 16:03 EDT) Albumin % 50.5(L) 55.8 - 66.1 % 05/19/2022 13:25 EDT [facility] Albumin g/dL 3.1(L) 3.6 - 5.2 g/dL 05/19/2022 13:25 EDT [facility] Alpha-1 % 6.7(H) 2.9 - 4.9 % 05/19/2022 13:25 EDT [facility] Alpha-1 g/dL 0.40 0.15 - 0.40 g/dL 05/19/2022 13:25 [facility] Alpha-2 % 11.9(H) 7.1 - 11.8 % 05/19/2022 13:25 [facility] Alpha-2 g/dL 0.70 0.50 - 1.00 g/dL 05/19/2022 13:25 [facility] Beta % 12.1 8.4 - 13.1 % 05/19/2022 13:25 [facility] Beta g/dL 0.70 0.60 - 1.20 g/dL 05/19/2022 13:25 [facility] Gamma % 18.8 11.1 - 18.8 % 05/19/2022 13:25 [facility] Gamma g/dL 1.10 0.60 - 1.60 g/dL 05/19/2022 13:25 [facility] SPEP Comment No apparent monoclonal protein seen on serum electrophoresis 05/19/2022 13:25 [facility] Comment:See scanned/suppleme ntary report. Total Protein 6.1(L) 6.3 - 8.2 g/dL 05/19/2022 13:25 [facility] Blood VENOUS BLOOD / Unknown 05/18/2022 16:03 EDT 05/18/2022 20:44 EDT Provider Outr Resulting Lab CHEMISTRY & BLOOD GAS ORDERABLES Performing Organization Address City/[facility]/ZIP Co de Phone Number [facility] [address] [place] [address] * PROTEIN, TOTAL (05/18/2022 16:03 EDT) Blood VENOUS BLOOD / Unknown 05/18/2022 16:03 EDT 05/18/2022 20:44 EDT Provider Outr Resulting Lab CHEMISTRY & BLOOD GAS ORDERABLES Performing Organization Address City/[facility]/ZIP Co de Phone Number [facility] [address] [place] [address] documented in this encounter Visit Diagnoses Not on filedocumented in this encounter
--- OUTSIDE RECORDS SUMMARY | 2024-05-03 01:14 | XMS_ITS | Encounter Summary ---
Author Organization [facility] Address [address] [place] [address] Care Team Providers Care Streetcar Operator Name Role Phone Unavailable Primary Care Provider Unavailabl e Encounter Details Date Type Department Care Team (Late st Contact Info) Description 05/06/2023 Lab Requisition [facility] Pathology & Laboratory Medicine - [facility] [address] [place] [address] Outr Resulting Lab, Provider Social History Tobacco [...] Procedure Name Priority Date/Time Associated Diagnosis Comments LEGIONELLA ANTIGEN DETECTION, URINE Routine 05/05/2023 14:00 EDT documented in this encounter Results * LEGIONELLA ANTIGEN DETECTION, URINE (05/05/2023 14:00 EDT) Legionella Antigen Detection Negative Negative 05/06/2023 22:11 EDT [facility] Urine URINE / Unknown 05/05/2023 1 4:00 EDT 05/06/2023 21:39 EDT Provider Outr Resulting Lab MICROBIOLOGY - GENERAL ORDERABLES [facility] [address] [place] [address] documented in this encounter Visit Diagnoses Not on filedocumented in this encounter
--- OUTSIDE RECORDS SUMMARY | 2024-05-03 01:14 | XMS_ITS | Encounter Summary ---
Author Organization [facility] Address [address] [place] [address] Care Team Providers Care Stator Winder Name Role Phone Unavailable Primary Care Provider Unavailabl e Encounter Details Date Type Department Care Team (Late st Contact Info) Description 12/24/2022 Lab Requisition [facility] Pathology & Laboratory Medicine - [facility] [address] [place] [address] Outr Resulting Lab, Provider Social History Tobacco [...] Procedure Name Priority Date/Time Associated Diagnosis Comments PSA TOTAL, DIAGNOSTIC Routine 12/23/2022 16:45 EDT documented in this encounter Results * PSA TOTAL, DIAGNOSTIC (12/23/2022 16:45 EDT) PSA 2.9 <=6.5 ng/mL 12/24/2022 19:37 EDT [facility] Blood VENOUS BLOOD / Unknown 12/23/2022 16:45 EDT 12/24/2022 17:51 EDT Narrative [facility] - 12/24/2022 19:37 EDT NOTE: Serum PSA concentration should not be interpreted as absolute evidence for the presence or absence of malignant disease. Assayed on Siemens ADVIA Centaur XPT using chemiluminescent technology.??Values obtained by using different assay methods cannot be used interchangeably. Provider Outr Resulting Lab CHEMISTRY & BLOOD GAS ORDERABLES [facility] [address] [place] [address] documented in this encounter Visit Diagnoses Not on filedocumented in this encounter
--- OUTSIDE RECORDS SUMMARY | 2024-05-03 01:14 | XMS_ITS | Encounter Summary ---
Author Organization [facility] Address [address] [place] [address] Care Team Providers Care Glass Cutting Machine Operator Name Role Phone Unavailable Primary Care Provider Unavailabl e Encounter Details Date Type Department Care Team (Late st Contact Info) Description 12/28/2022 Lab Requisition [facility] Pathology & Laboratory Medicine - [facility] [address] [place] [address] Outr Resulting Lab, Provider Social History Tobacco [...] Date/Time Associated Diagnosis Comments CORTISOL Routine 12/28/2022 9:40 EDT documented in this encounter Results * CORTISOL (12/28/2022 9:40 EDT) Cortisol 38 See Note ug/dL 12/28/2022 22:52 EDT [facility] Comment: NOTE: Reference Ranges (from OCD IFU): Collected Before 10:00 AM: ??4 - 23 ug/dL Collected After 5:00 PM: ?2 - 14 ug/dL The results of this assay can be falsely elevated due to the consumption of Biotin. Blood VENOUS BLOOD / Unknown 12/28/2022 9:40 EDT 12/28/2022 21:52 EDT Provider Outr Resulting Lab CHEMISTRY & BLOOD GAS ORDERABLES [facility] [address] [place] [address] documented in this encounter Visit Diagnoses Not on filedocumented in this encounter
--- OUTSIDE RECORDS SUMMARY | 2024-05-03 01:14 | XMS_ITS | Continuity of Care Document ---
Author Organization [place] [facility] Address [address] [place] [address] Care Team Providers Care Hides And Skins Colorer Name Role Phone ONESIMO WHITLEY Primary Care Provider Assessment No assessment recorded. Plan of Treatment Reminders Order Date Submit Date Provider Last Modified By Organization Details Last Modified Time Details Appointments Follow Up 30 2023 01:30P M ONESIMO WHITLEY Not available Not available Not available Lab None recorded. Referral audiologi st referral [email or web address] [facility], [address] [place] [address], [place], [address], 04/03/2024 16:51:20 Procedures None recorded. Surgeries None recorded. Imaging None recorded. Medication Orders None recorded. Patient TargetsNo targets recorded. Patient Instructions Encounter Date Encounter Id Patient Instructions Last Modified By Organization Details Last Modified Time 02/29/2024 [id number] Continue your doxycyline x [address] Whitley disagrees I will let you know. I referred you to audiology that will be in [facility] or [place] [facility] [email or web address] Not available 02/29/2024 13:28:38 Reason for Referral Vascular Surgeon Referral for Hea ring loss Referring Physician: Emmie Mendez, Family Medicine, Encounter Date: 02/29/2024 Results Created Date Observation Date Name Description Value Unit Range Abnormal Flag LastModifiedBy Organization Detail LastModifiedTime 02/21/20 24 02/22/2024 elect beth diogr am No observ ation record ed. [email or web address] [facility] [address] [facility] [address], [place], [address], 02/23/2024 09:07:48 02/21/20 elect beth cevallosgr am No observ ation record ed. [email or web address] Not Available 02/22/2024 11:33:11 02/22/20 24 02/22/2024 imagi ng inter preta tion No observ ation record ed. [email or web address] Not Available 02/22/2024 13:45:06 02/22/20 24 02/22/2024 CT, angio gram, chest , w/ contr ast No observ ation record ed. [email or web address] [facility] (Radiology) [address], [place], [address], 02/23/2024 09:07:49 02/22/20 24 02/22/2024 CT imagi ng repor t Patien t Name: Marlo Hernandez Unit #: [id number] Loc: DI Orderi ng Provid er: Primea u,Robe rt E Accoun t #: [id number] Status : REG CLI Primar y Care [...] Index Regist ry (DIR) with the [employer] (ACR). RADIAT ION OPTIMI [...] report in error, please notify us immedi pratik at and return the origin al report to us at the addres s above. Thank- you. [email or web address] [facility] [address] [place], [address] 02/22/2024 13:46:47 Result Notes None recorded. Problems [...] I10; Problem Code Type: ICD-10; Not Available [facility] 3 05:28:35 Erectile dysfunction Active 2009 Problem Code: N52.9; Problem Code Type: ICD-10; Not Available [facility] 3 05:28:35 Constipation Active 2009 Problem Code: K59.00; Problem Code Type: ICD-10; Not Available [facility] 3 05:28:35 Insomnia Active 200911/29/2019 - Comments only - Vanda BEE - - pt takes diazepam every night for this. has been well controlled for many years Problem Code: F51.09; Problem Code Type: ICD-10; Not Available [facility] 3 05:28:35 Not for resuscitation Active 2011 Problem Code: Z66; Problem Code Type: ICD-10; Not Available [facility] 3 05:28:35 Disorder of salivary gland Active 2012 Problem Code: K11.8; Problem Code Type: ICD-10; Not Available [facility] 3 05:28:35 Cellulitis Completed 201604/09/2017 Problem Code: L03.90; Problem Code Type: ICD-10; Not Available [facility] 3 05:28:36 Adult health examination Active 201906/26/2022 - Comments only - Onesimo Whitley MD - He can get the COVID-vaccine and flu shot in mid July Problem Code: Z00.00; Problem Code Type: ICD-10; Not Available [facility] 3 05:28:36 Nasal congestion Completed 202102/01/2022 Problem Code: R09.81; Problem Code Type: ICD-10; Not Available [facility] 3 05:28:36 Acute frontal sinusitis Completed 202102/27/2022 [...] J01.10; Problem Code Type: ICD-10; Not Available [facility] 3 05:28:36 Nervous system and sense organ [...] move forward with any decision. Not Available [facility] 3 05:28:36 Monoplegia of lower limb Active 202104/16/2022 - Comments only - Vanda BEE - /hx of sciatica - [facility] for [facility] /inc mobility - pt declines imaging at this time Problem Code: G83.10; Problem Code Type: ICD-10; Not Available [facility] 3 05:28:36 Peripheral vascular disease Active 2021 Problem Code: I73.9; Problem Code Type: ICD-10; Not Available [facility] 3 05:28:37 Pain in right lower limb [...] M79.604; Problem Code Type: ICD-10; Not Available [facility] 3 05:28:37 Follow-up orthopedic assessment Active 202105/21/2022 [...] Z47.89; Problem Code Type: ICD-10; Not Available [facility] 3 05:28:37 Anemia Active 202109/24/2022 - Comments [...] D64.9; Problem Code Type: ICD-10; Not Available [facility] 3 05:28:37 Major depression, single episode Active [...] F32.9; Problem Code Type: ICD-10; Not Available [facility] 3 05:28:37 Abnormal weight loss Active 2022 Problem Code: R63.4; Problem Code Type: ICD-10; Not Available [facility] 3 05:28:37 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 Problem Code: D46.9; Problem Code Type: ICD-10; Not Available [facility] 3 05:28:38 Polymyalgia rheumatica Active 202201/18/2023 - Comments only - Onesimo Whitley MD - Dramatic response to moderate dose prednisone. Still feels great on 15 mg. We will recheck inflammatory markers tomorrow, as long as these are coming down significantly I am going to reduce further to 12.5 mg. Problem Code: M35.3; Problem Code Type: ICD-10; Not Available [facility] 3 05:28:38 Benign prostatic hyperplasia Active 2022 Problem Code: N40.0; Problem Code Type: ICD-10; Not Available [facility] 3 05:28:38 Solitary nodule of lung Completed [...] by bronchoscopy and I am referring to [facility] radiology at [facility]. We will get brain MRI, PFTs, coags, and refer to Dr. Villanueva as well. 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/13/2023 Problem Code: E27.40; Problem Code Type: ICD-10; Not Available [facility] 3 05:28:44 Angina pectoris Completed 200906/30/2023 Problem Code: 413.9; Problem Code Type: ICD-9; Not Available [facility] 3 05:28:45 Acute upper respiratory infection Completed 201604/16/2022 Problem Code: J06.9; Problem Code Type: ICD-10; Not Available [facility] 3 05:28:45 Impotence of organic origin Completed 200906/30/2023 Problem Code: 607.84; Problem Code Type: ICD-9; Not Available [facility] 3 05:28:46 Tobacco dependence syndrome Completed 200906/30/2023 Problem Code: 305.1; Problem Code Type: ICD-9; Not Available [facility] 3 05:28:46 Mass of parotid gland Completed 201206/30/2023 Not Available [facility] 3 05:28:46 Type 1 diabetes mellitus Completed 200906/30/2023 Problem Code: 250.01; Problem Code Type: ICD-9; Not Available [facility] 3 05:28:48 Persistent insomnia Completed 200906/30/2023 Problem Code: 307.42; Problem Code Type: ICD-9; Not Available [facility] 3 05:28:50 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 MD [address], [place], [address] , [facility] 4 16:14:18 Pleurisy Active [address], [place], [address] , [facility] 4 14:34:26 Hearing loss Active 2023 JOSE RODRIGUEZ [address], [place], [address] , [facility] 4 13:25:44 Dyspnea on exertion Active [address], [place], [address] , [facility] 4 16:38:58 Chronic obstructive pulmonary disease Active [address], [place], [address] , [facility] 4 16:44:25 Notes:*Problem Name: Dni *IC [...] 2009 active Not Available Not Available Not Avyuni aponte Glucagon Emergency Kit 1 mg solution for [...] Organization Details Last Updated DateTime 187.33 cm 24.8 kg/m2 20671.9 4 g 97 [degF] 95 % 95 % 90 /min 18 /min 118 mm[Hg] 60 mm[Hg] WU DNUN LPN [facility] 13:04:21 Social History Question Answer Notes LastModified by Organizat ion Details LastModified Time Tobacco Smoking Status Former Smoker WU DUNN LPN [facility], [facility] 02/29/2024 13:04:55 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 1-5yearssinc elastcigaret te Information not available 02/29/2024 1) Date Of Last VPMS Check? 04/04/2024 [email or web address] Information not available 04/04/2024 2) VPMS Findings No Concerns [email or web address] Information not available 04/04/2024 3) Date Of Last Contract: 05/25/2022 Informed C: 05/25/24 Needs Uds. 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, Family History of: Hypertension: Yes Hyperlipidemia: Yes [...] 50 mcg/0.25mL dose 11/29/2020 completed Not Available [facility] 08/13/20 05:27:52 COVID-19, mRNA, LNP-S, PF, 100 mcg/0.5mL dose or 50 mcg/0.25mL dose 08/17/2021 completed Not Available [facility] 08/13/20 05:27:52 SARS-COV-2 (COVID-19) vaccine, UNSPECIFIED 11/01/2020 completed Not Available [facility] 08/13/2023 05:27:52 influenza, unspecified formulation 07/04/2019 completed Not Available [facility] 08/13/2023 05:27:53 influenza, unspecified formulation 09/20/2012 completed Not Available [facility] 08/13/2023 05:27:53 Past Encounters Encounter ID Performer Location Encounter Start Date Encounter Closed Date Diagnosis/Indication Diagnosis SNOMED-CT Code [id number] ONESIMO WHITLEY MD [address] [address] 02/21/2024 13:59:55 02/21/2024 15:15:08 Pleurisy [id number] ONESIMO WHITLEY MD [address] [address] 02/29/2024 12:56:26 02/29/2024 13:34:27 Hearing loss [id number] Pleurisy [id number] Health Concerns Section Related Observation LastModified by Organization Detai ls LastModified Time None Recorded Concern Status LastModified by Organization Details LastModified Time None Recorded Payers Encounter Date Sequence Insurance Name Policy Number Policy Cochran Covered Member ID Cochran Member ID Guarantor Name 02/29/2024 2 [place] [facility] [id number] Marlo Durán [id number] Marlo Durán 02/29/2024 1 [place] [facility] Marlo Durán [id number] Marlo Durán Notes Date Note Type Note Provider Name and Address Organization Details Recorded Time 02/29/2024 text/html HPI Notes: cc Pneumonia and [...] last visit, has been tapering his prednisone EMMIE MENDEZ, JOSE [address], [place], [address], [facility]. 02/29/2024 13:37:18
--- OUTSIDE RECORDS SUMMARY | 2024-05-03 01:14 | XMS_ITS | Encounter Summary ---
Author Organization [facility] Address [address] [place] [address] Care Team Providers Care Pantry Chef Name Role Phone Unavailable Primary Care Provider Unavailabl e Encounter Details Date Type Department Care Team (Late st Contact Info) Description 05/06/2023 Lab Requisition [facility] Pathology & Laboratory Medicine - [facility] [address] [place] [address] Outr Resulting Lab, Provider Social History Tobacco [...] Procedure Name Priority Date/Time Associated Diagnosis Comments EXPANDED RESPIRATORY VIRAL PANEL, PCR (DOES NOT INCLUDE INFLUENZA OR RSV) Routine 05/06/2023 15:50 EDT documented in this encounter Results * EXPANDED RESPIRATORY VIRAL PANEL, PCR (DOES NOT INCLUDE INFLUENZA OR RSV) (05/06/2023 15:50 EDT) Paraflu Type 1 Rslt (PF1RES) Negative Negative 05/07/2023 0:27 EDT [facility] Paraflu Type 2 Rslt (PF2RES) Negative Negative 05/07/2023 0:27 EDT [facility] Paraflu Type 3 Rslt (PF3RES) Negative Negative 05/07/2023 0:27 EDT [facility] Paraflu Type 4 Rslt Negative Negative 05/07 0:27 EDT [facility] Rhinovirus RNA Rslt (RVRES) Negative Negative 05/07/2023 0:27 EDT [facility] Metapneumovirus RNA Rslt (HMVRES) Negative Negative 05/07/2023 0:27 EDT [facility] Adenovirus DNA Rslt (ADVRES) Negative Negative 05/07/2023 0:27 EDT [facility] Swab ENTIRE NASOPHARYNX / Unknown 05/06/2023 15:50 EDT 05/06/2023 21:39 EDT Provider Outr Resulting Lab MICROBIOLOGY - GENERAL ORDERABLES [facility] [address] [place] [address] documented in this encounter Visit Diagnoses Not on filedocumented in this encounter
--- OUTSIDE RECORDS SUMMARY | 2024-05-03 01:14 | XMS_ITS | Referral Summary ---
Author Organization [facility] Address [address] [place] [address] Care Team Providers Care Inspector Canned Food Reconditioning Name Role Phone Unavailable Primary Care Provider Unavailabl e Social History Tobacco Use Types Packs/Day Years Used Date Smoking Tobacco: Never Assessed Sex and Gender Information Value Date Recorded Sex Assigned at Not on file Gender Identity Not on file Sexual Orientation Not on file Plan of Treatment Not on file
[2024-05-03 09:26] LABS: Absolute Basophil Count 0.01 10^3/uL (0.0-0.2); Absolute Eosinophil Count 0.03 10^3/uL (0.0-0.7); Absolute Lymphocyte Count 0.41 10^3/uL (1.2-3.4); Basophils % 0.2 %; Eosinophils % 0.5 %; HCT 32.5 % (40.0-50.0); HGB 9.6 g/dL (13.5-17.5); Immature Grans % 1.8 %; Lymphocytes % 7.4 %; MCHC 29.5 % (32.0-36.0); MCV 92 fL (80-95); MPV 10.1 fL (8.0-11.0); Monocytes % 23.4 %; Neutrophils % 66.7 %; Platelet Count 113 10^3/uL (130-400); RBC 3.55 10^6/uL (4.36-5.78); RDW 19.8 % (11.8-14.1); RDW-SD 66.4 fL; WBC 5.55 10^3/uL (4.4-10.8)
[2024-05-03 09:45] LABS: ALT 18 U/L (16-63); AST 24 U/L (15-37); Albumin 2.7 g/dL (3.4-5.0); Alkaline Phosphatase 74 U/L (46-116); Anion Gap 6.6 mmol/L (3-11); BUN 22 mg/dL (7-18); Bilirubin, Total 0.47 mg/dL (0.2-1.0); CO2 30.4 mmol/L (21.0-32.0); CREATININE 1.3 mg/dL (0.70-1.30); Chloride 104 mmol/L (98-107); Estimated GFR 55.53 (mL/min/1.73m2); Glucose 106 mg/dL (74-106); Potassium 3.8 mmol/L (3.5-5.1); Sodium 141 mmol/L (136-145); Total Protein 6.9 g/dL (6.4-8.2)
--- NOTE | 2024-05-03 10:20 | DI.CT_ITS ---
Exam(s) CT CHEST W EXAM: CT CHEST W CLINICAL HISTORY: RT UPPER LOBE LUNG CANCER C34.11 TECHNIQUE: Imaging Protocol: Axial computed tomography images with coronal and sagittal reformatted images were created and reviewed CONTRAST MATERIAL: Intravenous: Omnipaque 350 Contrast volume:70 ml. COMPARISON: CT CT CHEST PE CTA from 02/22/2024 FINDINGS: Pulmonary parenchyma: Significant interval worsening consolidation in right upper lobe. Stable appea betina right lower lobe. Underlying emphysematous and fibrotic changes. Mild right sided volume loss. Tracheobronchial tree: No bronchiectasis or mucous plugging. Mediastinum and Miley: Small mediastinal lymph nodes, largest right paratracheal measuring 13 millimet ers. Pleura: Worsening of right pleural effusion but still small. No pneumothorax. Heart: The heart is not dilated. coronary artery calcifications are seen. Mitral annular calcificat ions. Aorta: Thoracic aorta non-dilated. Moderate to severe atherosclerotic changes. Pulmonary arteries: Not optimally opacified. No gross evidence of emboli. Upper abdomen: No acute findings. Bones: Advanced degenerative changes in the spine. No destructive bony lesions. Soft tissues: Unremarkable. IMPRESSION: further worsening of right upper lobe consolidation. Increased size of mediastinal lymph nodes. Mi ld increase in size right pleural effusion. RADIATION DOSE DELIVERED: Total DLP DATA REPOSITORY: All CT scans at this facility are submitted to the National Radiology Data Registry (NRDR) Dose Index Registry (DIR) with the [employer] (ACR). RADIATION OPTIMIZATION: All CT scans at this facility use at least one of these dose optimization te chniques: automated exposure control; mA and/or kV adjustment per patient size (includes targeted exa ms where dose is matched to clinical indication); or iterative reconstruction.
[2024-05-03] MEDS: Omnipaque 350 MG/ML 100 ML BTL IJ (10:24)
[2024-05-03] MEDS: Normal Saline - Diluent 50 ML VIAL IJ (10:25)
== END ==
PROVIDERS: PCP Internal Medicine; Visit Provider Internal Medicine Medical Oncology
DX: D46.9 Myelodysplastic syndrome, unspecified (principal); C34.11 Malignant neoplasm of upper lobe, right bronchus or lung; R59.0 Localized enlarged lymph nodes; J90 Pleural effusion, not elsewhere classified
CPT/HCPCS: 80053; 86850; 86900; 86901; 71260; 85025; J3490

== ENCOUNTER 2024-05-31 02:37 | Outpatient (RCR) | payer MEDICARE, BC, SELFPAY ==
--- OUTSIDE RECORDS SUMMARY | 2024-05-17 02:39 | XMS_ITS | Data Portability ---
Author Organization [place] - [facility], [facility] Address [address] [place] [address] Care Team Providers Care Field Assembly Supervisor Name Role Phone ONESIMO WHITLEY Primary Care Provider [phone] Assessment Encounter Date Assessment Date Assessment LastModified [...] Appointments Follow Up 30 2023 01:30P M Not available Not available Not available Lab None recorded. Referral audiologi st referral [email or web address] [facility], [address] [place], [address], 04/03/2024 16:51:20 Procedures None recorded. Surgeries None recorded. Imaging CT, angiogram , chest, w/ contrast - URGENT: for right -sided pleurisy and dyspnea in lung cancer patient. Recent PET showed JACQUE -- Please call with a CPT Code if PA is being requested 2023 024 [facility] (Radiology), [address] [facility] [place], [address], 02/22/2024 10:55:47 electroca rdiogram 2023 024 [facility], [address] [facility], [facility], [place], [address], 02/21/2024 18:22:31 Medication Orders prednison e 1 mg tablet 2023 024 [place] [address] [facility], [address] [place] [address], [id number], 03/15/2024 14:14:01 doxycycli ne hyclate 100 mg capsule [address], [address], [place], [place], [id number], 03/15/2024 14:12:58 Eliquis 5 mg tablet [address], [address], [place], [place], [id number], 03/15/2024 14:13:05 prednison e 5 mg tablet 2023 024 [facility], [address] [place] [address], [id number], 03/15/2024 16:35:25 diazepam 10 mg tablet 2023 024 [facility], [address] [place] [address], [id number], 03/15/2024 16:35:25 Glucerna 1 Tamara 0.04 gram-1 kcal/mL oral liquid 2023 024 [facility], [address] [place] [address], [id number], 03/15/2024 16:35:25 prednison e 20 mg tablet 06/12/ 2024 06/12/2 024 [facility], [address] [place], [address], 03/15/2024 16:35:25 celecoxib 200 mg capsule 2023 024 [facility], [address] [place], [address], 03/15/2024 16:35:25 Patient TargetsNo targets recorded. Patient Instructions Encounter Date Encounter Id Patient Instructions Last Modified By Organization Details Last Modified Time 02/21/2024 [id number] 1. Get blood devin t at [facility] when you go for CT scan [...] the hospital. Not available 02/21/2024 14:45:19 02/29/2024 [id number] Continue your doxycyline x [address] Whitley disagrees I will let you know. I referred you to audiology that will be in [facility] or [place] [address] Not available 02/29/2024 13:28:38 03/15/2024 [id number] 1. Prednisone 20 mg once daily for 5 days, then resume 5 mg daily 2. Celecoxib is celebrex, 200 mg once per day for pain. 3. Try a flutter valve, called acapella , 10 times in a row , twice per day Not available 03/15/2024 14:58:28 Reason for Referral Consultant Dietitian Referral for Hea ring loss Referring Physician: Emmie Mendez, Family Medicine, Encounter Date: 02/29/2024 Results Created Date Observation Date Name Description Value Unit Range Abnormal Flag LastModifiedBy Organization Detail LastModifiedTime 11/08/19 24 11/08/2023 COMPR EHENS ODELL METAB OLIC PANEL calcium 8.8 mg/dL 8.5-10 .1 normal Not Available [address] [place], [address] 11/08/2023 12:28:05 11/08/19 24 11/08/2023 COMPR EHENS ODELL METAB OLIC PANEL glucose 178 mg/dL 74-106 high Not Available [address] [place], [address] 11/08/2023 12:28:05 11/08/19 24 11/08/2023 COMPR EHENS ODELL METAB OLIC PANEL BUN 28 mg/dL 7-18 high Not Available [address] [place], [address] 11/08/2023 12:28:11/08/19 24 11/08/2023 COMPR EHENS ODELL METAB OLIC PANEL creatinine 1.5 mg/dL 0.70-1 .30 high Not Available [address] [place], [address] 11/08/2023 12:28:05 11/08/19 24 11/08/2023 COMPR EHENS ODELL METAB OLIC PANEL estimated GFR 46.77 mL/min /1.73m 2 Not Available [address] [place], [address] 11/08/2023 12:28:05 11/08/19 24 11/08/2023 COMPR EHENS ODELL METAB OLIC PANEL total protein 6.6 g/dL 6.4-8. 2 normal Not Available [address] [place], [address] 11/08/2023 12:28:11/08/19 24 11/08/2023 COMPR EHENS ODELL METAB OLIC PANEL albumin 2.8 g/dL 3.4-5. 0 low Not Available [address] [place], [address] 11/08/2023 12:28:05 11/08/19 24 11/08/2023 COMPR EHENS ODELL METAB OLIC PANEL bilirubin, total 0.5 mg/dL 0.2-1. 0 normal Not Available [address] [place], [address] 11/08/2023 12:28:05 11/08/19 24 11/08/2023 COMPR EHENS ODELL METAB OLIC PANEL alk phos 87 U/L 46-116 normal Not Available [address] [place], [address] 11/08/2023 12:28:05 11/08/19 24 11/08/2023 COMPR EHENS ODELL METAB OLIC PANEL sodium 134 mmol/ L 136-14 5 low Not Available [address] [place], [address] 11/08/2023 12:28:05 11/08/19 24 11/08/2023 COMPR EHENS ODELL METAB OLIC PANEL potassium 4.7 mmol/ L 3.5-5. 1 normal Not Available [address] [place], [address] 11/08/2023 12:28:05 11/08/19 24 11/08/2023 COMPR EHENS ODELL METAB OLIC PANEL chloride 101 mmol/ L 98-107 normal Not Available [address] [place], [address] 11/08/2023 12:28:05 11/08/19 24 11/08/2023 COMPR EHENS ODELL METAB OLIC PANEL CO2 26.6 mmol/ L 21.0-3 2.0 normal Not Available [address] [place], [address] 11/08/2023 12:28:05 11/08/19 24 11/08/2023 COMPR EHENS ODELL METAB OLIC PANEL anion gap 6.4 mmol/ L 3-11 normal Not Available [address] [place], [address] 11/08/2023 12:28:05 11/08/19 24 11/08/2023 COMPR EHENS ODELL METAB OLIC PANEL AST 24 U/L 15-37 normal Not Available [address] [place], [address] 11/08/2023 12:28:05 11/08/19 24 11/08/2023 COMPR EHENS ODELL METAB OLIC PANEL ALT 29 U/L 16-63 normal Not Available [facility] [address], [address] 11/08/2023 12:28:05 11/08/19 24 11/08/2023 MAGNE SIUM magnesium 1.9 mg/dL 1.8-2. 4 normal Not Available [address] [place], [address] 11/08/2023 12:28:06 11/08/19 24 11/08/2023 COMPL ETE BLOOD COUNT W/DIF F WBC 2.94 10_3/ uL 4.4-10 .8 low Not Available [address] [place], [address] 11/08/2023 12:32:05 11/08/19 24 11/08/2023 COMPL ETE BLOOD COUNT W/DIF F RBC 2.62 10_6/ uL 4.36-5 .78 low Not Available [address] [place], [address] 11/08/2023 12:32:05 11/08/19 24 11/08/2023 COMPL ETE BLOOD COUNT W/DIF F HGB 7.9 g/dL 13.5-1 7.5 low Not Available [address] [place], [address] 11/08/2023 12:32:05 11/08/19 24 11/08/2023 COMPL ETE BLOOD COUNT W/DIF F HCT 25.1 % 40.0-5 0.0 low Not Available [address] [place], [address] 11/08/2023 12:32:05 11/08/19 24 11/08/2023 COMPL ETE BLOOD COUNT W/DIF F MCV 96 fL 80-95 high Not Available [facility] [address] [place], [address] 11/08/2023 12:32:05 11/08/19 24 11/08/2023 COMPL ETE BLOOD COUNT W/DIF F MCH 30.2 pg 27.0-3 3.0 normal Not Available [address] [place], [address] 11/08/2023 12:32:05 11/08/19 24 11/08/2023 COMPL ETE BLOOD COUNT W/DIF F MCHC 31.5 % 32.0-3 6.0 low Not Available [address] [place], [address] 11/08/2023 12:32:05 11/08/19 24 11/08/2023 COMPL ETE BLOOD COUNT W/DIF F RDW 16.5 % 11.8-1 4.1 high Not Available [address] [place], [address] 11/08/2023 12:32:05 11/08/19 24 11/08/2023 COMPL ETE BLOOD COUNT W/DIF F platelet count 40 10_3/ uL 130-40 0 low Not Available [address] [place], [address] 11/08/2023 12:32:05 11/08/19 24 11/08/2023 COMPL ETE BLOOD COUNT W/DIF F MPV 9.4 fL 8.0-11 .0 normal Not Available [address] [place], [address] 11/08/2023 12:32:05 11/08/19 24 11/08/2023 COMPL ETE BLOOD COUNT W/DIF F neutrophils % 74.2 Not Available [address] [place], [address] 11/08/2023 12:32:05 11/08/19 24 11/08/2023 COMPL ETE BLOOD COUNT W/DIF F lymphocytes % 7.1 Not Available [address] [place], [address] 11/08/2023 12:32:05 11/08/19 24 11/08/2023 COMPL ETE BLOOD COUNT W/DIF F monocytes % 15.0 Not Available [address] [place], [address] 11/08/2023 12:32:05 11/08/19 24 11/08/2023 COMPL ETE BLOOD COUNT W/DIF F eosinophils % 0.7 Not Available [address] [place], [address] 11/08/2023 12:32:05 11/08/19 24 11/08/2023 COMPL ETE BLOOD COUNT W/DIF F basophils % 0.3 Not Available [facility] [address] [place], [address] 11/08/2023 12:32:05 11/08/19 24 11/08/2023 COMPL ETE BLOOD COUNT W/DIF F immature grans % 2.7 Not Available [address] [place], [address] 11/08/2023 12:32:05 11/08/19 24 11/08/2023 COMPL ETE BLOOD COUNT W/DIF F nucleated RBC 0.0 % 0.0-0. 3 normal Not Available [address] [place], [address] 11/08/2023 12:32:05 11/08/19 24 11/08/2023 COMPL ETE BLOOD COUNT W/DIF F absolute neutrophil count 2.18 10_3/ uL 1.2-6. 7 normal Not Available [address] [place], [address] 11/08/2023 12:32:05 11/08/19 24 11/08/2023 COMPL ETE BLOOD COUNT W/DIF F absolute lymphocyte count 0.21 10_3/ uL 1.2-3. 4 low Not Available [address] [place], [address] 11/08/2023 12:32:05 11/08/19 24 11/08/2023 COMPL ETE BLOOD COUNT W/DIF F absolute monocyte count 0.44 10_3/ uL 0.1-0. 8 normal Not Available [address] [place], [address] 11/08/2023 12:32:05 11/08/19 24 11/08/2023 COMPL ETE BLOOD COUNT W/DIF F absolute eosinophil count 0.02 10_3/ uL 0.0-0. 7 normal Not Available [address] [place], [address] 11/08/2023 12:32:05 11/08/19 24 11/08/2023 COMPL ETE BLOOD COUNT W/DIF F absolute basophil count 0.01 10_3/ uL 0.0-0. 2 normal Not Available [address] [place], [address] 11/08/2023 12:32:05 11/08/19 24 11/08/2023 COMPL ETE BLOOD COUNT W/DIF F diff comment Diff Review ed Not Available [address] [place], [address] 11/08/2023 12:32:05 11/08/19 24 11/08/2023 COMPL ETE BLOOD COUNT W/DIF F RBC morphology Normal Not Available [address] [place], [address] 11/08/2023 12:32:05 11/08/19 24 11/08/2023 COMPR EHENS ODELL METAB OLIC PANEL calcium 8.8 mg/dL 8.5-10 .1 normal Not Available [address] [place], [address] 11/09/2023 12:39:06 11/08/19 24 11/08/2023 COMPR EHENS ODELL METAB OLIC PANEL glucose 178 mg/dL 74-106 high Not Available [address] [place], [address] 11/09/2023 12:39:06 11/08/19 24 11/08/2023 COMPR EHENS ODELL METAB OLIC PANEL BUN 28 mg/dL 7-18 high Not Available [address] [place], [address] 11/09/2023 12:39:06 11/08/19 24 11/08/2023 COMPR EHENS ODELL METAB OLIC PANEL creatinine 1.5 mg/dL 0.70-1 .30 high Not Available [address] [place], [address] 11/09/2023 12:39:06 11/08/19 24 11/08/2023 COMPR EHENS ODELL METAB OLIC PANEL estimated GFR 46.77 mL/min /1.73m 2 Not Available [address] [place], [address] 11/09/2023 12:39:06 11/08/19 24 11/08/2023 COMPR EHENS ODELL METAB OLIC PANEL total protein 6.6 g/dL 6.4-8. 2 normal Not Available [address] [place], [address] 11/09/2023 12:39:06 11/08/19 24 11/08/2023 COMPR EHENS ODELL METAB OLIC PANEL albumin 2.8 g/dL 3.4-5. 0 low Not Available [address] [place], [address] 11/09/2023 12:39:06 11/08/19 24 11/08/2023 COMPR EHENS ODELL METAB OLIC PANEL bilirubin, total 0.5 mg/dL 0.2-1. 0 normal Not Available [address] [place], [address] 11/09/2023 12:39:06 11/08/19 24 11/08/2023 COMPR EHENS ODELL METAB OLIC PANEL alk phos 87 U/L 46-116 normal Not Available [address] [place], [address] 11/09/2023 12:39:06 11/08/19 24 11/08/2023 COMPR EHENS ODELL METAB OLIC PANEL sodium 134 mmol/ L 136-14 5 low Not Available [address] [place], [address] 11/09/2023 12:39:06 11/08/19 24 11/08/2023 COMPR EHENS ODELL METAB OLIC PANEL potassium 4.7 mmol/ L 3.5-5. 1 normal Not Available [address] [place], [address] 11/09/2023 12:39:06 11/08/19 24 11/08/2023 COMPR EHENS ODELL METAB OLIC PANEL chloride 101 mmol/ L 98-107 normal Not Available [address] [place], [address] 11/09/2023 12:39:06 11/08/19 24 11/08/2023 COMPR EHENS ODELL METAB OLIC PANEL CO2 26.6 mmol/ L 21.0-3 2.0 normal Not Available [address] [place], [address] 11/09/2023 12:39:06 11/08/19 24 11/08/2023 COMPR EHENS ODELL METAB OLIC PANEL anion gap 6.4 mmol/ L 3-11 normal Not Available [address] [place], [address] 11/09/2023 12:39:06 11/08/19 24 11/08/2023 COMPR EHENS ODELL METAB OLIC PANEL AST 24 U/L 15-37 normal Not Available [address] [place], [address] 11/09/2023 12:39:06 11/08/19 24 11/08/2023 COMPR EHENS ODELL METAB OLIC PANEL ALT 29 U/L 16-63 normal Not Available [address] [place], [address] 11/09/2023 12:39:06 11/08/19 24 11/08/2023 MAGNE SIUM magnesium 1.9 mg/dL 1.8-2. 4 normal Not Available [address] [place], [address] 11/09/2023 12:39:07 11/08/19 24 11/08/2023 COMPL ETE BLOOD COUNT W/DIF F WBC 2.94 10_3/ uL 4.4-10 .8 low Not Available [address] [place], [address] 11/09/2023 12:39:09 11/08/19 24 11/08/2023 COMPL ETE BLOOD COUNT W/DIF F RBC 2.62 10_6/ uL 4.36-5 .78 low Not Available [address] [place], [address] 11/09/2023 12:39:09 11/08/19 24 11/08/2023 COMPL ETE BLOOD COUNT W/DIF F HGB 7.9 g/dL 13.5-1 7.5 low Not Available [address] [place], [address] 11/09/2023 12:39:09 11/08/19 24 11/08/2023 COMPL ETE BLOOD COUNT W/DIF F HCT 25.1 % 40.0-5 0.0 low Not Available [address] [place], [address] 11/09/2023 12:39:09 11/08/19 24 11/08/2023 COMPL ETE BLOOD COUNT W/DIF F MCV 96 fL 80-95 high Not Available [address] [place], [address] 11/09/2023 12:39:09 11/08/19 24 11/08/2023 COMPL ETE BLOOD COUNT W/DIF F MCH 30.2 pg 27.0-3 3.0 normal Not Available [address] [place], [address] 11/09/2023 12:39:09 11/08/19 24 11/08/2023 COMPL ETE BLOOD COUNT W/DIF F MCHC 31.5 % 32.0-3 6.0 low Not Available [address] [place], [address] 11/09/2023 12:39:09 11/08/19 24 11/08/2023 COMPL ETE BLOOD COUNT W/DIF F RDW 16.5 % 11.8-1 4.1 high Not Available [address] [place], [address] 11/09/2023 12:39:09 11/08/19 24 11/08/2023 COMPL ETE BLOOD COUNT W/DIF F platelet count 40 10_3/ uL 130-40 0 low Not Available [address] [place], [address] 11/09/2023 12:39:09 11/08/19 24 11/08/2023 COMPL ETE BLOOD COUNT W/DIF F MPV 9.4 fL 8.0-11 .0 normal Not Available [address] [place], [address] 11/09/2023 12:39:09 11/08/19 24 11/08/2023 COMPL ETE BLOOD COUNT W/DIF F neutrophils % 74.2 Not Available [address] [place], [address] 11/09/2023 12:39:09 11/08/19 24 11/08/2023 COMPL ETE BLOOD COUNT W/DIF F lymphocytes % 7.1 Not Available [address] [place], [address] 11/09/2023 12:39:09 11/08/19 24 11/08/2023 COMPL ETE BLOOD COUNT W/DIF F monocytes % 15.0 Not Available [address] [place], [address] 11/09/2023 12:39:09 11/08/19 24 11/08/2023 COMPL ETE BLOOD COUNT W/DIF F eosinophils % 0.7 Not Available [address] [place], [address] 11/09/2023 12:39:09 11/08/19 24 11/08/2023 COMPL ETE BLOOD COUNT W/DIF F basophils % 0.3 Not Available [address] [place], [address] 11/09/2023 12:39:09 11/08/19 24 11/08/2023 COMPL ETE BLOOD COUNT W/DIF F immature grans % 2.7 Not Available [address] [place] [place], [address] 11/09/2023 12:39:09 11/08/19 24 11/08/2023 COMPL ETE BLOOD COUNT W/DIF F nucleated RBC 0.0 % 0.0-0. 3 normal Not Available [address] [place], [address] 11/09/2023 12:39:09 11/08/19 24 11/08/2023 COMPL ETE BLOOD COUNT W/DIF F absolute neutrophil count 2.18 10_3/ uL 1.2-6. 7 normal Not Available [address] [place], [address] 11/09/2023 12:39:09 11/08/19 24 11/08/2023 COMPL ETE BLOOD COUNT W/DIF F absolute lymphocyte count 0.21 10_3/ uL 1.2-3. 4 low Not Available [address] [place], [address] 11/09/2023 12:39:09 11/08/19 24 11/08/2023 COMPL ETE BLOOD COUNT W/DIF F absolute monocyte count 0.44 10_3/ uL 0.1-0. 8 normal Not Available [address] [place], [address] 11/09/2023 12:39:09 11/08/19 24 11/08/2023 COMPL ETE BLOOD COUNT W/DIF F absolute eosinophil count 0.02 10_3/ uL 0.0-0. 7 normal Not Available [address] [place], [address] 11/09/2023 12:39:09 11/08/19 24 11/08/2023 COMPL ETE BLOOD COUNT W/DIF F absolute basophil count 0.01 10_3/ uL 0.0-0. 2 normal Not Available [address] [place], [address] 11/09/2023 12:39:09 11/08/19 24 11/08/2023 COMPL ETE BLOOD COUNT W/DIF F diff comment Diff Review ed Not Available [address] [place], [address] 11/09/2023 12:39:09 11/08/19 24 11/08/2023 COMPL ETE BLOOD COUNT W/DIF F RBC morphology Normal Not Available [address] [place], [address] 11/09/2023 12:39:09 11/25/19 24 11/25/2023 COMPL ETE BLOOD COUNT W/DIF F WBC 2.57 10_3/ uL 4.4-10 .8 low Not Available [address] [place], [address] 11/25/2023 11:42:17 11/25/19 24 11/25/2023 COMPL ETE BLOOD COUNT W/DIF F RBC 2.76 10_6/ uL 4.36-5 .78 low Not Available [address] [place], [address] 11/25/2023 11:42:17 11/25/19 24 11/25/2023 COMPL ETE BLOOD COUNT W/DIF F HGB 8.1 g/dL 13.5-1 7.5 low Not Available [address] [place], [address] 11/25/2023 11:42:17 11/25/19 24 11/25/2023 COMPL ETE BLOOD COUNT W/DIF F HCT 26.8 % 40.0-5 0.0 low Not Available [address] [place], [address] 11/25/2023 11:42:17 11/25/19 24 11/25/2023 COMPL ETE BLOOD COUNT W/DIF F MCV 97 fL 80-95 high Not Available [address] [place], [address] 11/25/2023 11:42:17 11/25/19 24 11/25/2023 COMPL ETE BLOOD COUNT W/DIF F MCH 29.3 pg 27.0-3 3.0 normal Not Available [address] [place], [address] 11/25/2023 11:42:17 11/25/19 24 11/25/2023 COMPL ETE BLOOD COUNT W/DIF F MCHC 30.2 % 32.0-3 6.0 low Not Available [address] [place], [address] 11/25/2023 11:42:17 11/25/19 24 11/25/2023 COMPL ETE BLOOD COUNT W/DIF F RDW 17.8 % 11.8-1 4.1 high Not Available [address] [place], [address] 11/25/2023 11:42:17 11/25/19 24 11/25/2023 COMPL ETE BLOOD COUNT W/DIF F platelet count 35 10_3/ uL 130-40 0 low Not Available [address] [place], [address] 11/25/2023 11:42:17 11/25/19 24 11/25/2023 COMPL ETE BLOOD COUNT W/DIF F MPV 10.7 fL 8.0-11 .0 normal Not Available [address] [place], [address] 11/25/2023 11:42:17 11/25/19 24 11/25/2023 COMPL ETE BLOOD COUNT W/DIF F neutrophils % 68.0 Not Available [address] [place], [address] 11/25/2023 11:42:17 11/25/19 24 11/25/2023 COMPL ETE BLOOD COUNT W/DIF F lymphocytes % 8.6 Not Available [address] [place], [address] 11/25/2023 11:42:17 11/25/19 24 11/25/2023 COMPL ETE BLOOD COUNT W/DIF F monocytes % 18.7 Not Available [address] [place], [address] 11/25/2023 11:42:17 11/25/19 24 11/25/2023 COMPL ETE BLOOD COUNT W/DIF F eosinophils % 1.6 Not Available [address] [place], [address] 11/25/2023 11:42:17 11/25/19 24 11/25/2023 COMPL ETE BLOOD COUNT W/DIF F basophils % 0.4 Not Available [address] [place], [address] 11/25/2023 11:42:17 11/25/19 24 11/25/2023 COMPL ETE BLOOD COUNT W/DIF F immature grans % 2.7 Not Available [address] [place], [address] 11/25/2023 11:42:17 11/25/19 24 11/25/2023 COMPL ETE BLOOD COUNT W/DIF F nucleated RBC 0.0 % 0.0-0. 3 normal Not Available [address] [place], [address] 11/25/2023 11:42:17 11/25/19 24 11/25/2023 COMPL ETE BLOOD COUNT W/DIF F absolute neutrophil count 1.75 10_3/ uL 1.2-6. 7 normal Not Available [address] [place], [address] 11/25/2023 11:42:17 11/25/19 24 11/25/2023 COMPL ETE BLOOD COUNT W/DIF F absolute lymphocyte count 0.22 10_3/ uL 1.2-3. 4 low Not Available [address] [place], [address] 11/25/2023 11:42:17 11/25/19 24 11/25/2023 COMPL ETE BLOOD COUNT W/DIF F absolute monocyte count 0.48 10_3/ uL 0.1-0. 8 normal Not Available [address] [place], [address] 11/25/2023 11:42:17 11/25/19 24 11/25/2023 COMPL ETE BLOOD COUNT W/DIF F absolute eosinophil count 0.04 10_3/ uL 0.0-0. 7 normal Not Available [address] [place], [address] 11/25/2023 11:42:17 11/25/19 24 11/25/2023 COMPL ETE BLOOD COUNT W/DIF F absolute basophil count 0.01 10_3/ uL 0.0-0. 2 normal Not Available [address] [place], [address] 11/25/2023 11:42:17 11/25/19 24 11/25/2023 COMPL ETE BLOOD COUNT W/DIF F diff comment Diff Review ed Not Available [address] [place], [address] 11/25/2023 11:42:17 11/25/19 24 11/25/2023 COMPL ETE BLOOD COUNT W/DIF F RBC morphology See Below Not Available [address] [place], [address] 11/25/2023 11:42:17 11/25/19 24 11/25/2023 COMPL ETE BLOOD COUNT W/DIF F anisocytosis 1+ Not Available [address] [place], [address] 11/25/2023 11:42:17 11/25/19 24 11/25/2023 COMPL ETE BLOOD COUNT W/DIF F hypochromasi a 2+ Not Available [address] [place], [address] 11/25/2023 11:42:17 11/25/19 24 11/25/2023 RETIC ULOCY TE reticulocyte 4.5 % 0.5-2. 4 high Not Available [address] [place], [address] 11/25/2023 11:42:18 11/25/19 24 11/25/2023 COMPR EHENS ODELL METAB OLIC PANEL calcium 9.0 mg/dL 8.5-10 .1 normal Not Available [address] [place], [address] 11/25/2023 11:50:18 11/25/19 24 11/25/2023 COMPR EHENS ODELL METAB OLIC PANEL glucose 84 mg/dL 74-106 normal Not Available [address] [place], [address] 11/25/2023 11:50:18 11/25/19 24 11/25/2023 COMPR EHENS ODELL METAB OLIC PANEL BUN 29 mg/dL 7-18 high Not Available [address] [place], [address] 11/25/2023 11:50:18 11/25/19 24 11/25/2023 COMPR EHENS ODELL METAB OLIC PANEL creatinine 1.6 mg/dL 0.70-1 .30 high Not Available [address] [place], [address] 11/25/2023 11:50:18 11/25/19 24 11/25/2023 COMPR EHENS ODELL METAB OLIC PANEL estimated GFR 43.29 mL/min /1.73m 2 Not Available [address] [place], [address] 11/25/2023 11:50:18 11/25/19 24 11/25/2023 COMPR EHENS ODELL METAB OLIC PANEL total protein 6.9 g/dL 6.4-8. 2 normal Not Available [address] [place], [address] 11/25/2023 11:50:18 11/25/19 24 11/25/2023 COMPR EHENS ODELL METAB OLIC PANEL albumin 2.9 g/dL 3.4-5. 0 low Not Available [address] [place], [address] 11/25/2023 11:50:18 11/25/19 24 11/25/2023 COMPR EHENS ODELL METAB OLIC PANEL bilirubin, total 0.5 mg/dL 0.2-1. 0 normal Not Available [address] [place], [address] 11/25/2023 11:50:18 11/25/19 24 11/25/2023 COMPR EHENS ODELL METAB OLIC PANEL alk phos 102 U/L 46-116 normal Not Available [address] [place], [address] 11/25/2023 11:50:18 11/25/19 24 11/25/2023 COMPR EHENS ODELL METAB OLIC PANEL sodium 137 mmol/ L 136-14 5 normal Not Available [address] [place], [address] 11/25/2023 11:50:18 11/25/19 24 11/25/2023 COMPR EHENS ODELL METAB OLIC PANEL potassium 4.7 mmol/ L 3.5-5. 1 normal Not Available [address] [place], [address] 11/25/2023 11:50:18 11/25/19 24 11/25/2023 COMPR EHENS ODELL METAB OLIC PANEL chloride 104 mmol/ L 98-107 normal Not Available [address] [place], [address] 11/25/2023 11:50:18 11/25/19 24 11/25/2023 COMPR EHENS ODELL METAB OLIC PANEL CO2 28.1 mmol/ L 21.0-3 2.0 normal Not Available [address] [place], [address] 11/25/2023 11:50:18 11/25/19 24 11/25/2023 COMPR EHENS ODELL METAB OLIC PANEL anion gap 4.9 mmol/ L 3-11 normal Not Available [address] [place], [address] 11/25/2023 11:50:18 11/25/19 24 11/25/2023 COMPR EHENS ODELL METAB OLIC PANEL AST 25 U/L 15-37 normal Not Available [address] [place], [address] 11/25/2023 11:50:18 11/25/19 24 11/25/2023 COMPR EHENS ODELL METAB OLIC PANEL ALT 26 U/L 16-63 normal Not Available [address] [place], [address] 11/25/2023 11:50:18 11/25/19 24 11/25/2023 GIL TIN ferritin 459 NG/mL 26-388 high Not Available [address] [place], [address] 11/25/2023 11:50:19 11/29/19 24 11/29/2023 COMPL ETE BLOOD COUNT W/DIF F WBC 2.50 10_3/ uL 4.4-10 .8 low Not Available [address] [place], [address] 11/29/2023 14:48:51 11/29/19 24 11/29/2023 COMPL ETE BLOOD COUNT W/DIF F RBC 2.82 10_6/ uL 4.36-5 .78 low Not Available [address] [place], [address] 11/29/2023 14:48:51 11/29/19 24 11/29/2023 COMPL ETE BLOOD COUNT W/DIF F HGB 8.2 g/dL 13.5-1 7.5 low Not Available [address] [place], [address] 11/29/2023 14:48:51 11/29/19 24 11/29/2023 COMPL ETE BLOOD COUNT W/DIF F HCT 27.3 % 40.0-5 0.0 low Not Available [address] [place], [address] 11/29/2023 14:48:51 11/29/19 24 11/29/2023 COMPL ETE BLOOD COUNT W/DIF F MCV 97 fL 80-95 high Not Available [address] [place], [address] 11/29/2023 14:48:51 11/29/19 24 11/29/2023 COMPL ETE BLOOD COUNT W/DIF F MCH 29.1 pg 27.0-3 3.0 normal Not Available [address] [place], [address] 11/29/2023 14:48:51 11/29/19 24 11/29/2023 COMPL ETE BLOOD COUNT W/DIF F MCHC 30.0 % 32.0-3 6.0 low Not Available [address] [place], [address] 11/29/2023 14:48:51 11/29/19 24 11/29/2023 COMPL ETE BLOOD COUNT W/DIF F RDW 17.8 % 11.8-1 4.1 high Not Available [address] [place], [address] 11/29/2023 14:48:51 11/29/19 24 11/29/2023 COMPL ETE BLOOD COUNT W/DIF F platelet count 33 10_3/ uL 130-40 0 low Not Available [address] [place], [address] 11/29/2023 14:48:51 11/29/19 24 11/29/2023 COMPL ETE BLOOD COUNT W/DIF F MPV 9.7 fL 8.0-11 .0 normal Not Available [address] [place], [address] 11/29/2023 14:48:51 11/29/19 24 11/29/2023 COMPL ETE BLOOD COUNT W/DIF F neutrophils % 68.4 Not Available [address] [place] [facility] [place], [address] 11/29/2023 14:48:51 11/29/19 24 11/29/2023 COMPL ETE BLOOD COUNT W/DIF F lymphocytes % 10.8 Not Available [address] [place], [address] 11/29/2023 14:48:51 11/29/19 24 11/29/2023 COMPL ETE BLOOD COUNT W/DIF F monocytes % 15.6 Not Available [address] [place] [facility] [place], [address] 11/29/2023 14:48:51 11/29/19 24 11/29/2023 COMPL ETE BLOOD COUNT W/DIF F eosinophils % 1.2 Not Available [address] [facility] [place], [address] 11/29/2023 14:48:51 11/29/19 24 11/29/2023 COMPL ETE BLOOD COUNT W/DIF F basophils % 0.0 Not Available [address] [place], [address] 11/29/2023 14:48:51 11/29/19 24 11/29/2023 COMPL ETE BLOOD COUNT W/DIF F immature grans % 4.0 Not Available [address] [place] [facility] [place], [address] 11/29/2023 14:48:51 11/29/19 24 11/29/2023 COMPL ETE BLOOD COUNT W/DIF F nucleated RBC 0.0 % 0.0-0. 3 normal Not Available [address] [place] [facility] [place], [address] 11/29/2023 14:48:51 11/29/19 24 11/29/2023 COMPL ETE BLOOD COUNT W/DIF F absolute neutrophil count 1.71 10_3/ uL 1.2-6. 7 normal Not Available [address] [place] [facility] [place], [address] 11/29/2023 14:48:51 11/29/19 24 11/29/2023 COMPL ETE BLOOD COUNT W/DIF F absolute lymphocyte count 0.27 10_3/ uL 1.2-3. 4 low Not Available [address] [place], [address] 11/29/2023 14:48:51 11/29/19 24 11/29/2023 COMPL ETE BLOOD COUNT W/DIF F absolute monocyte count 0.39 10_3/ uL 0.1-0. 8 normal Not Available [address] [place], [address] 11/29/2023 14:48:51 11/29/19 24 11/29/2023 COMPL ETE BLOOD COUNT W/DIF F absolute eosinophil count 0.03 10_3/ uL 0.0-0. 7 normal Not Available [address] [place], [address] 11/29/2023 14:48:51 11/29/19 24 11/29/2023 COMPL ETE BLOOD COUNT W/DIF F absolute basophil count 0.00 10_3/ uL 0.0-0. 2 normal Not Available [address] [place], [address] 11/29/2023 14:48:51 12/13/19 24 12/13/2023 COMPL ETE BLOOD COUNT W/DIF F WBC 2.77 10_3/ uL 4.4-10 .8 low Not Available [address] [place], [address] 12/13/2023 14:42:44 12/13/19 24 12/13/2023 COMPL ETE BLOOD COUNT W/DIF F RBC 3.14 10_6/ uL 4.36-5 .78 low Not Available [address] [place], [address] 12/13/2023 14:42:44 12/13/19 24 12/13/2023 COMPL ETE BLOOD COUNT W/DIF F HGB 9.0 g/dL 13.5-1 7.5 low Not Available [address] [place], [address] 12/13/2023 14:42:44 12/13/19 24 12/13/2023 COMPL ETE BLOOD COUNT W/DIF F HCT 29.9 % 40.0-5 0.0 low Not Available [address] [place], [address] 12/13/2023 14:42:44 12/13/19 24 12/13/2023 COMPL ETE BLOOD COUNT W/DIF F MCV 95 fL 80-95 normal Not Available [place] [address] [place], [address] 12/13/2023 14:42:44 12/13/19 24 12/13/2023 COMPL ETE BLOOD COUNT W/DIF F MCH 28.7 pg 27.0-3 3.0 normal Not Available [address] [place], [address] 12/13/2023 14:42:44 12/13/19 24 12/13/2023 COMPL ETE BLOOD COUNT W/DIF F MCHC 30.1 % 32.0-3 6.0 low Not Available [address] [place], [address] 12/13/2023 14:42:44 12/13/19 24 12/13/2023 COMPL ETE BLOOD COUNT W/DIF F RDW 18.3 % 11.8-1 4.1 high Not Available [address] [place], [address] 12/13/2023 14:42:44 12/13/19 24 12/13/2023 COMPL ETE BLOOD COUNT W/DIF F platelet count 52 10_3/ uL 130-40 0 low Not Available [address] [place], [address] 12/13/2023 14:42:44 12/13/19 24 12/13/2023 COMPL ETE BLOOD COUNT W/DIF F MPV 8.6 fL 8.0-11 .0 normal Not Available [address] [place], [address] 12/13/2023 14:42:44 12/13/19 24 12/13/2023 COMPL ETE BLOOD COUNT W/DIF F neutrophils % 64.2 Not Available [address] [place], [address] 12/13/2023 14:42:44 12/13/19 24 12/13/2023 COMPL ETE BLOOD COUNT W/DIF F lymphocytes % 10.5 Not Available [address] [place], [address] 12/13/2023 14:42:44 12/13/19 24 12/13/2023 COMPL ETE BLOOD COUNT W/DIF F monocytes % 22.0 Not Available [address] [place], [address] 12/13/2023 14:42:44 12/13/19 24 12/13/2023 COMPL ETE BLOOD COUNT W/DIF F eosinophils % 0.4 Not Available [address] [place], [address] 12/13/2023 14:42:44 12/13/19 24 12/13/2023 COMPL ETE BLOOD COUNT W/DIF F basophils % 0.4 Not Available [address] [place], [address] 12/13/2023 14:42:44 12/13/19 24 12/13/2023 COMPL ETE BLOOD COUNT W/DIF F immature grans % 2.5 Not Available [address] [place], [address] 12/13/2023 14:42:44 12/13/19 24 12/13/2023 COMPL ETE BLOOD COUNT W/DIF F nucleated RBC 0.0 % 0.0-0. 3 normal Not Available [address] [place], [address] 12/13/2023 14:42:44 12/13/19 24 12/13/2023 COMPL ETE BLOOD COUNT W/DIF F absolute neutrophil count 1.78 10_3/ uL 1.2-6. 7 normal Not Available [address] [place], [address] 12/13/2023 14:42:44 12/13/19 24 12/13/2023 COMPL ETE BLOOD COUNT W/DIF F absolute lymphocyte count 0.29 10_3/ uL 1.2-3. 4 low Not Available [address] [place], [address] 12/13/2023 14:42:44 12/13/19 24 12/13/2023 COMPL ETE BLOOD COUNT W/DIF F absolute monocyte count 0.61 10_3/ uL 0.1-0. 8 normal Not Available [address] [place], [address] 12/13/2023 14:42:44 12/13/19 24 12/13/2023 COMPL ETE BLOOD COUNT W/DIF F absolute eosinophil count 0.01 10_3/ uL 0.0-0. 7 normal Not Available [address] [place], [address] 12/13/2023 14:42:44 12/13/19 24 12/13/2023 COMPL ETE BLOOD COUNT W/DIF F absolute basophil count 0.01 10_3/ uL 0.0-0. 2 normal Not Available [address] [place], [address] 12/13/2023 14:42:44 12/13/19 24 12/13/2023 COMPL ETE BLOOD COUNT W/DIF F diff comment Diff Review ed Not Available [address] [place], [address] 12/13/2023 14:42:44 12/13/19 24 12/13/2023 COMPL ETE BLOOD COUNT W/DIF F RBC morphology Normal Not Available [address] [place], [address] 12/13/2023 14:42:44 12/13/19 24 12/13/2023 GIL TIN ferritin 469 NG/mL 26-388 high Not Available [place] [address] [place], [address] 12/13/2023 14:51:44 12/27/19 24 12/27/2023 COMPL ETE BLOOD COUNT W/DIF F WBC 3.50 10_3/ uL 4.4-10 .8 low Not Available [address] [place], [address] 12/27/2023 13:00:25 12/27/19 24 12/27/2023 COMPL ETE BLOOD COUNT W/DIF F RBC 3.19 10_6/ uL 4.36-5 .78 low Not Available [address] [place], [address] 12/27/2023 13:00:25 12/27/19 24 12/27/2023 COMPL ETE BLOOD COUNT W/DIF F HGB 9.0 g/dL 13.5-1 7.5 low Not Available [address] [place], [address] 12/27/2023 13:00:25 12/27/19 24 12/27/2023 COMPL ETE BLOOD COUNT W/DIF F HCT 30.9 % 40.0-5 0.0 low Not Available [address] [place], [address] 12/27/2023 13:00:25 12/27/19 24 12/27/2023 COMPL ETE BLOOD COUNT W/DIF F MCV 97 fL 80-95 high Not Available [address] [place], [address] 12/27/2023 13:00:25 12/27/19 24 12/27/2023 COMPL ETE BLOOD COUNT W/DIF F MCH 28.2 pg 27.0-3 3.0 normal Not Available [address] [place], [address] 12/27/2023 13:00:25 12/27/19 24 12/27/2023 COMPL ETE BLOOD COUNT W/DIF F MCHC 29.1 % 32.0-3 6.0 low Not Available [address] [place], [address] 12/27/2023 13:00:25 12/27/19 24 12/27/2023 COMPL ETE BLOOD COUNT W/DIF F RDW 18.2 % 11.8-1 4.1 high Not Available [address] [place], [address] 12/27/2023 13:00:25 12/27/19 24 12/27/2023 COMPL ETE BLOOD COUNT W/DIF F platelet count 52 10_3/ uL 130-40 0 low Not Available [address] [place], [address] 12/27/2023 13:00:25 12/27/19 24 12/27/2023 COMPL ETE BLOOD COUNT W/DIF F MPV 9.8 fL 8.0-11 .0 normal Not Available [address] [place], [address] 12/27/2023 13:00:25 12/27/19 24 12/27/2023 COMPL ETE BLOOD COUNT W/DIF F neutrophils % 68.0 Not Available [address] [place], [address] 12/27/2023 13:00:25 12/27/19 24 12/27/2023 COMPL ETE BLOOD COUNT W/DIF F lymphocytes % 9.4 Not Available [address] [place], [address] 12/27/2023 13:00:25 12/27/19 24 12/27/2023 COMPL ETE BLOOD COUNT W/DIF F monocytes % 18.9 Not Available [address] [place], [address] 12/27/2023 13:00:25 12/27/19 24 12/27/2023 COMPL ETE BLOOD COUNT W/DIF F eosinophils % 1.4 Not Available [address] [place], [address] 12/27/2023 13:00:25 12/27/19 24 12/27/2023 COMPL ETE BLOOD COUNT W/DIF F basophils % 0.3 Not Available [address] [place], [address] 12/27/2023 13:00:25 12/27/19 24 12/27/2023 COMPL ETE BLOOD COUNT W/DIF F immature grans % 2.0 Not Available [address] [place], [address] 12/27/2023 13:00:25 12/27/19 24 12/27/2023 COMPL ETE BLOOD COUNT W/DIF F nucleated RBC 0.0 % 0.0-0. 3 normal Not Available [address] [place], [address] 12/27/2023 13:00:25 12/27/19 24 12/27/2023 COMPL ETE BLOOD COUNT W/DIF F absolute neutrophil count 2.38 10_3/ uL 1.2-6. 7 normal Not Available [address] [place], [address] 12/27/2023 13:00:25 12/27/19 24 12/27/2023 COMPL ETE BLOOD COUNT W/DIF F absolute lymphocyte count 0.33 10_3/ uL 1.2-3. 4 low Not Available [address] [place], [address] 12/27/2023 13:00:25 12/27/19 24 12/27/2023 COMPL ETE BLOOD COUNT W/DIF F absolute monocyte count 0.66 10_3/ uL 0.1-0. 8 normal Not Available [address] [place], [address] 12/27/2023 13:00:25 12/27/19 24 12/27/2023 COMPL ETE BLOOD COUNT W/DIF F absolute eosinophil count 0.05 10_3/ uL 0.0-0. 7 normal Not Available [address] [place], [address] 12/27/2023 13:00:25 12/27/19 24 12/27/2023 COMPL ETE BLOOD COUNT W/DIF F absolute basophil count 0.01 10_3/ uL 0.0-0. 2 normal Not Available [address] [place], [address] 12/27/2023 13:00:25 12/27/19 24 12/27/2023 COMPL ETE BLOOD COUNT W/DIF F diff comment Diff Review ed Not Available [address] [place], [address] 12/27/2023 13:00:25 12/27/19 24 12/27/2023 COMPL ETE BLOOD COUNT W/DIF F RBC morphology Normal Not Available [address] [place] [place], [address] 12/27/2023 13:00:25 01/10/20 24 01/10/2024 COMPL ETE BLOOD COUNT W/DIF F WBC 3.57 10_3/ uL 4.4-10 .8 low Not Available [address] [place], [address] 01/10/2024 13:12:10 01/10/20 24 01/10/2024 COMPL ETE BLOOD COUNT W/DIF F RBC 3.16 10_6/ uL 4.36-5 .78 low Not Available [address] [place], [address] 01/10/2024 13:12:10 01/10/20 24 01/10/2024 COMPL ETE BLOOD COUNT W/DIF F HGB 8.9 g/dL 13.5-1 7.5 low Not Available [address] [place], [address] 01/10/2024 13:12:10 01/10/20 24 01/10/2024 COMPL ETE BLOOD COUNT W/DIF F HCT 30.0 % 40.0-5 0.0 low Not Available [address] [place], [address] 01/10/2024 13:12:10 01/10/20 24 01/10/2024 COMPL ETE BLOOD COUNT W/DIF F MCV 95 fL 80-95 normal Not Available [address] [place], [address] 01/10/2024 13:12:10 01/10/20 24 01/10/2024 COMPL ETE BLOOD COUNT W/DIF F MCH 28.2 pg 27.0-3 3.0 normal Not Available [address] [place], [address] 01/10/2024 13:12:10 01/10/20 24 01/10/2024 COMPL ETE BLOOD COUNT W/DIF F MCHC 29.7 % 32.0-3 6.0 low Not Available [address] [place], [address] 01/10/2024 13:12:10 01/10/20 24 01/10/2024 COMPL ETE BLOOD COUNT W/DIF F RDW 18.2 % 11.8-1 4.1 high Not Available [address] [place], [address] 01/10/2024 13:12:10 01/10/20 24 01/10/2024 COMPL ETE BLOOD COUNT W/DIF F platelet count 65 10_3/ uL 130-40 0 low Not Available [address] [place], [address] 01/10/2024 13:12:10 01/10/20 24 01/10/2024 COMPL ETE BLOOD COUNT W/DIF F MPV 9.6 fL 8.0-11 .0 normal Not Available [address] [place], [address] 01/10/2024 13:12:10 01/10/20 24 01/10/2024 COMPL ETE BLOOD COUNT W/DIF F neutrophils % 69.0 Not Available [address] [place], [address] 01/10/2024 13:12:10 01/10/20 24 01/10/2024 COMPL ETE BLOOD COUNT W/DIF F lymphocytes % 8.1 Not Available [address] [place], [address] 01/10/2024 13:12:10 01/10/20 24 01/10/2024 COMPL ETE BLOOD COUNT W/DIF F monocytes % 19.6 Not Available [address] [place], [address] 01/10/2024 13:12:10 01/10/20 24 01/10/2024 COMPL ETE BLOOD COUNT W/DIF F eosinophils % 0.8 Not Available [address] [place], [address] 01/10/2024 13:12:10 01/10/20 24 01/10/2024 COMPL ETE BLOOD COUNT W/DIF F basophils % 0.0 Not Available [address] [place], [address] 01/10/2024 13:12:10 01/10/20 24 01/10/2024 COMPL ETE BLOOD COUNT W/DIF F immature grans % 2.5 Not Available [address] [place], [address] 01/10/2024 13:12:10 01/10/20 24 01/10/2024 COMPL ETE BLOOD COUNT W/DIF F nucleated RBC 0.0 % 0.0-0. 3 normal Not Available [address] [place], [address] 01/10/2024 13:12:10 01/10/20 24 01/10/2024 COMPL ETE BLOOD COUNT W/DIF F absolute neutrophil count 2.46 10_3/ uL 1.2-6. 7 normal Not Available [address] [place], [address] 01/10/2024 13:12:10 01/10/20 24 01/10/2024 COMPL ETE BLOOD COUNT W/DIF F absolute lymphocyte count 0.29 10_3/ uL 1.2-3. 4 low Not Available [address] [place], [address] 01/10/2024 13:12:10 01/10/20 24 01/10/2024 COMPL ETE BLOOD COUNT W/DIF F absolute monocyte count 0.70 10_3/ uL 0.1-0. 8 normal Not Available [address] [place], [address] 01/10/2024 13:12:10 01/10/20 24 01/10/2024 COMPL ETE BLOOD COUNT W/DIF F absolute eosinophil count 0.03 10_3/ uL 0.0-0. 7 normal Not Available [address] [place], [address] 01/10/2024 13:12:10 01/10/20 24 01/10/2024 COMPL ETE BLOOD COUNT W/DIF F absolute basophil count 0.00 10_3/ uL 0.0-0. 2 normal Not Available [address] [place], [address] 01/10/2024 13:12:10 01/10/20 24 01/10/2024 COMPL ETE BLOOD COUNT W/DIF F diff comment Diff Review ed Not Available [address] [place], [address] 01/10/2024 13:12:10 01/10/20 24 01/10/2024 COMPL ETE BLOOD COUNT W/DIF F RBC morphology See Below Not Available [address] [place], [address] 01/10/2024 13:12:10 01/10/20 24 01/10/2024 COMPL ETE BLOOD COUNT W/DIF F hypochromasi a 2+ Not Available [address] [place], [address] 01/10/2024 13:12:10 01/26/20 24 01/26/2024 COMPL ETE BLOOD COUNT W/DIF F WBC 3.42 10_3/ uL 4.4-10 .8 low Not Available [address] [place], [address] 01/26/2024 14:40:56 01/26/20 24 01/26/2024 COMPL ETE BLOOD COUNT W/DIF F RBC 3.43 10_6/ uL 4.36-5 .78 low Not Available [address] [place], [address] 01/26/2024 14:40:56 01/26/20 24 01/26/2024 COMPL ETE BLOOD COUNT W/DIF F HGB 9.4 g/dL 13.5-1 7.5 low Not Available [address] [place], [address] 01/26/2024 14:40:56 01/26/20 24 01/26/2024 COMPL ETE BLOOD COUNT W/DIF F HCT 32.1 % 40.0-5 0.0 low Not Available [address] [place], [address] 01/26/2024 14:40:56 01/26/20 24 01/26/2024 COMPL ETE BLOOD COUNT W/DIF F MCV 94 fL 80-95 normal Not Available [address] [place], [address] 01/26/2024 14:40:56 01/26/20 24 01/26/2024 COMPL ETE BLOOD COUNT W/DIF F MCH 27.4 pg 27.0-3 3.0 normal Not Available [address] [place], [address] 01/26/2024 14:40:56 01/26/2001/26/2024 COMPL ETE BLOOD COUNT W/DIF F MCHC 29.3 % 32.0-3 6.0 low Not Available [address] [place], [address] 01/26/2024 14:40:56 01/26/2001/26/2024 COMPL ETE BLOOD COUNT W/DIF F RDW 18.1 % 11.8-1 4.1 high Not Available [address] [place], [address] 01/26/2024 14:40:56 01/26/20 24 01/26/2024 COMPL ETE BLOOD COUNT W/DIF F platelet count 74 10_3/ uL 130-40 0 low Not Available [address] [place], [address] 01/26/2024 14:40:56 01/26/20 24 01/26/2024 COMPL ETE BLOOD COUNT W/DIF F MPV 9.6 fL 8.0-11 .0 normal Not Available [address] [place], [address] 01/26/2024 14:40:56 01/26/20 24 01/26/2024 COMPL ETE BLOOD COUNT W/DIF F neutrophils % 69.8 Not Available [address] [place], [address] 01/26/2024 14:40:56 01/26/20 24 01/26/2024 COMPL ETE BLOOD COUNT W/DIF F lymphocytes % 8.8 Not Available [address] [place], [address] 01/26/2024 14:40:56 01/26/20 24 01/26/2024 COMPL ETE BLOOD COUNT W/DIF F monocytes % 17.0 Not Available Adam felix [address] [place], [address] 01/26/2024 14:40:56 01/26/2001/26/2024 COMPL ETE BLOOD COUNT W/DIF F eosinophils % 1.8 Not Available [address] [place], [address] 01/26/2024 14:40:56 01/26/20 24 01/26/2024 COMPL ETE BLOOD COUNT W/DIF F basophils % 0.3 Not Available Adam [email or web address] [address] [place], [address] 01/26/2024 14:40:56 01/26/20 24 01/26/2024 COMPL ETE BLOOD COUNT W/DIF F immature grans % 2.3 Not Available [address] [place], [address] 01/26/2024 14:40:56 01/26/20 24 01/26/2024 COMPL ETE BLOOD COUNT W/DIF F nucleated RBC 0.0 % 0.0-0. 3 normal Not Available [address] [place], [address] 01/26/2024 14:40:56 01/26/20 24 01/26/2024 COMPL ETE BLOOD COUNT W/DIF F absolute neutrophil count 2.39 10_3/ uL 1.2-6. 7 normal Not Available [address] [place], [address] 01/26/2024 14:40:56 01/26/20 24 01/26/2024 COMPL ETE BLOOD COUNT W/DIF F absolute lymphocyte count 0.30 10_3/ uL 1.2-3. 4 low Not Available [address] [place], [address] 01/26/2024 14:40:56 01/26/20 24 01/26/2024 COMPL ETE BLOOD COUNT W/DIF F absolute monocyte count 0.58 10_3/ uL 0.1-0. 8 normal Not Available [address] [place], [address] 01/26/2024 14:40:56 01/26/20 24 01/26/2024 COMPL ETE BLOOD COUNT W/DIF F absolute eosinophil count 0.06 10_3/ uL 0.0-0. 7 normal Not Available [address] [place], [id number] 01/26/2024 14:40:56 01/26/20 24 01/26/2024 COMPL ETE BLOOD COUNT W/DIF F absolute basophil count 0.01 10_3/ uL 0.0-0. 2 normal Not Available [address] [place], [address] 01/26/2024 14:40:56 01/26/20 24 01/26/2024 COMPL ETE BLOOD COUNT W/DIF F diff comment Diff Review ed Not Available [address] [place], [address] 01/26/2024 14:40:56 01/26/2001/26/2024 COMPL ETE BLOOD COUNT W/DIF F RBC morphology Normal Not Available [address] [place], [address] 01/26/2024 14:40:56 02/09/20 24 02/09/2024 COMPL ETE BLOOD COUNT W/DIF F WBC 3.63 10_3/ uL 4.4-10 .8 low Not Available [address] [place], [address] 02/09/2024 14:11:16 02/09/2002/09/2024 COMPL ETE BLOOD COUNT W/DIF F RBC 3.42 10_6/ uL 4.36-5 .78 low Not Available [address] [place], [address] 02/09/2024 14:11:16 02/09/20 24 02/09/2024 COMPL ETE BLOOD COUNT W/DIF F HGB 9.5 g/dL 13.5-1 7.5 low Not Available [address] [place], [address] 02/09/2024 14:11:16 02/09/20 24 02/09/2024 COMPL ETE BLOOD COUNT W/DIF F HCT 31.6 % 40.0-5 0.0 low Not Available [address] [place], [address] 02/09/2024 14:11:16 02/09/20 24 02/09/2024 COMPL ETE BLOOD COUNT W/DIF F MCV 92 fL 80-95 normal Not Available [facility] [address], [address] 02/09/2024 14:11:16 02/09/20 24 02/09/2024 COMPL ETE BLOOD COUNT W/DIF F MCH 27.8 pg 27.0-3 3.0 normal Not Available [address] [place], [address] 02/09/2024 14:11:16 02/09/20 24 02/09/2024 COMPL ETE BLOOD COUNT W/DIF F MCHC 30.1 % 32.0-3 6.0 low Not Available [address] [place], [address] 02/09/2024 14:11:16 02/09/20 24 02/09/2024 COMPL ETE BLOOD COUNT W/DIF F RDW 17.7 % 11.8-1 4.1 high Not Available [address] [place], [address] 02/09/2024 14:11:16 02/09/20 24 02/09/2024 COMPL ETE BLOOD COUNT W/DIF F platelet count 82 10_3/ uL 130-40 0 low Not Available [address] [place], [address] 02/09/2024 14:11:16 02/09/20 24 02/09/2024 COMPL ETE BLOOD COUNT W/DIF F MPV 9.6 fL 8.0-11 .0 normal Not Available [address] [place], [address] 02/09/2024 14:11:16 02/09/20 24 02/09/2024 COMPL ETE BLOOD COUNT W/DIF F neutrophils % 68.5 % Not Available [address] [place], [address] 02/09/2024 14:11:16 02/09/20 24 02/09/2024 COMPL ETE BLOOD COUNT W/DIF F lymphocytes % 8.3 % Not Available [address] [place], [address] 02/09/2024 14:11:16 02/09/20 24 02/09/2024 COMPL ETE BLOOD COUNT W/DIF F monocytes % 19.3 % Not Available [address] [place], [address] 02/09/2024 14:11:16 02/09/20 24 02/09/2024 COMPL ETE BLOOD COUNT W/DIF F eosinophils % 1.1 % Not Available [address] [place], [address] 02/09/2024 14:11:16 02/09/20 24 02/09/2024 COMPL ETE BLOOD COUNT W/DIF F basophils % 0.3 % Not Available [address] [place], [address] 02/09/2024 14:11:16 02/09/20 24 02/09/2024 COMPL ETE BLOOD COUNT W/DIF F immature grans % 2.5 % Not Available [address] [place], [address] 02/09/2024 14:11:16 02/09/20 24 02/09/2024 COMPL ETE BLOOD COUNT W/DIF F nucleated RBC 0.0 % 0.0-0. 3 normal Not Available [address] [place], [address] 02/09/2024 14:11:16 02/09/20 24 02/09/2024 COMPL ETE BLOOD COUNT W/DIF F absolute neutrophil count 2.49 10_3/ uL 1.2-6. 7 normal Not Available [address] [place] [place], [id number] 02/09/2024 14:11:16 02/09/20 24 02/09/2024 COMPL ETE BLOOD COUNT W/DIF F absolute lymphocyte count 0.30 10_3/ uL 1.2-3. 4 low Not Available [address] [place], [address] 02/09/2024 14:11:16 02/09/20 24 02/09/2024 COMPL ETE BLOOD COUNT W/DIF F absolute monocyte count 0.70 10_3/ uL 0.1-0. 8 normal Not Available [address] [place], [address] 02/09/2024 14:11:16 02/09/20 24 02/09/2024 COMPL ETE BLOOD COUNT W/DIF F absolute eosinophil count 0.04 10_3/ uL 0.0-0. 7 normal Not Available [address] [place], [address] 02/09/2024 14:11:16 02/09/20 24 02/09/2024 COMPL ETE BLOOD COUNT W/DIF F absolute basophil count 0.01 10_3/ uL 0.0-0. 2 normal Not Available [address] [place], [address] 02/09/2024 14:11:16 02/09/20 24 02/09/2024 COMPL ETE BLOOD COUNT W/DIF F diff comment Diff Review ed Not Available [address] [place], [address] 02/09/2024 14:11:16 02/09/20 24 02/09/2024 COMPL ETE BLOOD COUNT W/DIF F RBC morphology Normal Not Available [address] [place], [address] 02/09/2024 14:11:16 02/22/20 24 02/22/2024 CREAT ININE creatinine 1.5 mg/dL 0.70-1 .30 high Not Available [address] [place], [address] 02/22/2024 12:43:50 02/22/20 24 02/22/2024 CREAT ININE estimated GFR 46.77 mL/min /1.73m 2 Not Available [address] [place], [address] 02/22/2024 12:43:50 02/23/20 24 02/23/2024 COMPL ETE BLOOD COUNT W/DIF F WBC 3.32 10_3/ uL 4.4-10 .8 low Not Available [address] [place], [address] 02/23/2024 12:47:08 02/23/20 24 02/23/2024 COMPL ETE BLOOD COUNT W/DIF F RBC 3.37 10_6/ uL 4.36-5 .78 low Not Available [address] [place], [address] 02/23/2024 12:47:08 02/23/20 24 02/23/2024 COMPL ETE BLOOD COUNT W/DIF F HGB 9.0 g/dL 13.5-1 7.5 low Not Available [address] [place], [address] 02/23/2024 12:47:08 02/23/20 24 02/23/2024 COMPL ETE BLOOD COUNT W/DIF F HCT 30.2 % 40.0-5 0.0 low Not Available [address] [place], [address] 02/23/2024 12:47:08 02/23/20 24 02/23/2024 COMPL ETE BLOOD COUNT W/DIF F MCV 90 fL 80-95 normal Not Available [address] [place], [address] 02/23/2024 12:47:08 02/23/20 24 02/23/2024 COMPL ETE BLOOD COUNT W/DIF F MCH 26.7 pg 27.0-3 3.0 low Not Available [address] [place], [address] 02/23/2024 12:47:08 02/23/20 24 02/23/2024 COMPL ETE BLOOD COUNT W/DIF F MCHC 29.8 % 32.0-3 6.0 low Not Available [address] [place], [address] 02/23/2024 12:47:08 02/23/20 24 02/23/2024 COMPL ETE BLOOD COUNT W/DIF F RDW 18.1 % 11.8-1 4.1 high Not Available [address] [place], [address] 02/23/2024 12:47:08 02/23/20 24 02/23/2024 COMPL ETE BLOOD COUNT W/DIF F platelet count 97 10_3/ uL 130-40 0 low Not Available [address] [place], [address] 02/23/2024 12:47:08 02/23/20 24 02/23/2024 COMPL ETE BLOOD COUNT W/DIF F MPV 9.6 fL 8.0-11 .0 normal Not Available [address] [place], [address] 02/23/2024 12:47:08 02/23/20 24 02/23/2024 COMPL ETE BLOOD COUNT W/DIF F neutrophils % 63.6 % Not Available [address] [place] [place], [address] 02/23/2024 12:47:08 02/23/20 24 02/23/2024 COMPL ETE BLOOD COUNT W/DIF F lymphocytes % 10.8 % Not Available [address] [place] [place], [address] 02/23/2024 12:47:08 02/23/20 24 02/23/2024 COMPL ETE BLOOD COUNT W/DIF F monocytes % 20.2 % Not Available [address] [place], [address] 02/23/2024 12:47:08 02/23/20 24 02/23/2024 COMPL ETE BLOOD COUNT W/DIF F eosinophils % 1.5 % Not Available [address] [place] [place], [address] 02/23/2024 12:47:08 02/23/20 24 02/23/2024 COMPL ETE BLOOD COUNT W/DIF F basophils % 0.3 % Not Available [address] [place], [address] 02/23/2024 12:47:08 02/23/20 24 02/23/2024 COMPL ETE BLOOD COUNT W/DIF F immature grans % 3.6 % Not Available [address] [place] [place], [address] 02/23/2024 12:47:08 02/23/20 24 02/23/2024 COMPL ETE BLOOD COUNT W/DIF F nucleated RBC 0.0 % 0.0-0. 3 normal Not Available [address] [place], [address] 02/23/2024 12:47:08 02/23/20 24 02/23/2024 COMPL ETE BLOOD COUNT W/DIF F absolute neutrophil count 2.11 10_3/ uL 1.2-6. 7 normal Not Available [address] [place], [address] 02/23/2024 12:47:08 02/23/20 24 02/23/2024 COMPL ETE BLOOD COUNT W/DIF F absolute lymphocyte count 0.36 10_3/ uL 1.2-3. 4 low Not Available [address] [place], [address] 02/23/2024 12:47:08 02/23/20 24 02/23/2024 COMPL ETE BLOOD COUNT W/DIF F absolute monocyte count 0.67 10_3/ uL 0.1-0. 8 normal Not Available [address] [place], [address] 02/23/2024 12:47:08 02/23/20 24 02/23/2024 COMPL ETE BLOOD COUNT W/DIF F absolute eosinophil count 0.05 10_3/ uL 0.0-0. 7 normal Not Available [address] [place], [address] 02/23/2024 12:47:08 02/23/20 24 02/23/2024 COMPL ETE BLOOD COUNT W/DIF F absolute basophil count 0.01 10_3/ uL 0.0-0. 2 normal Not Available [address] [place], [address] 02/23/2024 12:47:08 03/08/20 24 03/08/2024 COMPL ETE BLOOD COUNT W/DIF F WBC 4.13 10_3/ uL 4.4-10 .8 low Not Available [address] [place], [address] 03/08/2024 13:40:56 03/08/20 24 03/08/2024 COMPL ETE BLOOD COUNT W/DIF F RBC 3.56 10_6/ uL 4.36-5 .78 low Not Available [address] [place], [address] 03/08/2024 13:40:56 03/08/20 24 03/08/2024 COMPL ETE BLOOD COUNT W/DIF F HGB 9.3 g/dL 13.5-1 7.5 low Not Available [address] [place], [address] 03/08/2024 13:40:56 03/08/20 24 03/08/2024 COMPL ETE BLOOD COUNT W/DIF F HCT 31.8 % 40.0-5 0.0 low Not Available [address] [place], [address] 03/08/2024 13:40:56 03/08/20 24 03/08/2024 COMPL ETE BLOOD COUNT W/DIF F MCV 89 fL 80-95 normal Not Available [address] [place], [address] 03/08/2024 13:40:56 03/08/20 24 03/08/2024 COMPL ETE BLOOD COUNT W/DIF F MCH 26.1 pg 27.0-3 3.0 low Not Available [address] [place], [address] 03/08/2024 13:40:56 03/08/20 24 03/08/2024 COMPL ETE BLOOD COUNT W/DIF F MCHC 29.2 % 32.0-3 6.0 low Not Available [address] [place], [address] 03/08/2024 13:40:56 03/08/20 24 03/08/2024 COMPL ETE BLOOD COUNT W/DIF F RDW 18.3 % 11.8-1 4.1 high Not Available [address] [place], [address] 03/08/2024 13:40:56 03/08/20 24 03/08/2024 COMPL ETE BLOOD COUNT W/DIF F platelet count 106 10_3/ uL 130-40 0 low Not Available [address] [place], [address] 03/08/2024 13:40:56 03/08/20 24 03/08/2024 COMPL ETE BLOOD COUNT W/DIF F MPV 8.8 fL 8.0-11 .0 normal Not Available [address] [place], [address] 03/08/2024 13:40:56 03/08/20 24 03/08/2024 COMPL ETE BLOOD COUNT W/DIF F neutrophils % 69.5 % Not Available [address] [place], [address] 03/08/2024 13:40:56 03/08/20 24 03/08/2024 COMPL ETE BLOOD COUNT W/DIF F lymphocytes % 10.2 % Not Available [address] [place], [address] 03/08/2024 13:40:56 03/08/20 24 03/08/2024 COMPL ETE BLOOD COUNT W/DIF F monocytes % 17.9 % Not Available [address] [facility] [place], [address] 03/08/2024 13:40:56 03/08/20 24 03/08/2024 COMPL ETE BLOOD COUNT W/DIF F eosinophils % 0.5 % Not Available [address] [place], [address] 03/08/2024 13:40:56 03/08/20 24 03/08/2024 COMPL ETE BLOOD COUNT W/DIF F basophils % 0.0 % Not Available [address] [place], [address] 03/08/2024 13:40:56 03/08/20 24 03/08/2024 COMPL ETE BLOOD COUNT W/DIF F immature grans % 1.9 % Not Available [address] [facility] [place], [address] 03/08/2024 13:40:56 03/08/20 24 03/08/2024 COMPL ETE BLOOD COUNT W/DIF F nucleated RBC 0.0 % 0.0-0. 3 normal Not Available [address] [place], [address] 03/08/2024 13:40:56 03/08/20 24 03/08/2024 COMPL ETE BLOOD COUNT W/DIF F absolute neutrophil count 2.87 10_3/ uL 1.2-6. 7 normal Not Available [address] [place], [address] 03/08/2024 13:40:56 03/08/20 24 03/08/2024 COMPL ETE BLOOD COUNT W/DIF F absolute lymphocyte count 0.42 10_3/ uL 1.2-3. 4 low Not Available [address] [place], [address] 03/08/2024 13:40:56 03/08/20 24 03/08/2024 COMPL ETE BLOOD COUNT W/DIF F absolute monocyte count 0.74 10_3/ uL 0.1-0. 8 normal Not Available [address] [place], [address] 03/08/2024 13:40:56 03/08/20 24 03/08/2024 COMPL ETE BLOOD COUNT W/DIF F absolute eosinophil count 0.02 10_3/ uL 0.0-0. 7 normal Not Available [address] [place], [address] 03/08/2024 13:40:56 03/08/20 24 03/08/2024 COMPL ETE BLOOD COUNT W/DIF F absolute basophil count 0.00 10_3/ uL 0.0-0. 2 normal Not Available [address] [place], [address] 03/08/2024 13:40:56 03/22/20 24 03/22/2024 COMPL ETE BLOOD COUNT W/DIF F WBC 6.29 10_3/ uL 4.4-10 .8 normal Not Available [address] [place], [address] 03/22/2024 12:22:12 03/22/20 24 03/22/2024 COMPL ETE BLOOD COUNT W/DIF F RBC 3.58 10_6/ uL 4.36-5 .78 low Not Available [address] [place], [address] 03/22/2024 12:22:12 03/22/20 24 03/22/2024 COMPL ETE BLOOD COUNT W/DIF F HGB 9.3 g/dL 13.5-1 7.5 low Not Available [address] [place], [address] 03/22/2024 12:22:12 03/22/20 24 03/22/2024 COMPL ETE BLOOD COUNT W/DIF F HCT 32.7 % 40.0-5 0.0 low Not Available [address] [place], [address] 03/22/2024 12:22:12 03/22/20 24 03/22/2024 COMPL ETE BLOOD COUNT W/DIF F MCV 91 fL 80-95 normal Not Available [address] [place], [address] 03/22/2024 12:22:12 03/22/20 24 03/22/2024 COMPL ETE BLOOD COUNT W/DIF F MCH 26.0 pg 27.0-3 3.0 low Not Available [address] [place], [address] 03/22/2024 12:22:12 03/22/20 24 03/22/2024 COMPL ETE BLOOD COUNT W/DIF F MCHC 28.4 % 32.0-3 6.0 low Not Available [address] [place], [address] 03/22/2024 12:22:12 03/22/20 24 03/22/2024 COMPL ETE BLOOD COUNT W/DIF F RDW 19.3 % 11.8-1 4.1 high Not Available [address] [place], [address] 03/22/2024 12:22:12 03/22/20 24 03/22/2024 COMPL ETE BLOOD COUNT W/DIF F platelet count 122 10_3/ uL 130-40 0 low Not Available [address] [place], [address] 03/22/2024 12:22:12 03/22/20 24 03/22/2024 COMPL ETE BLOOD COUNT W/DIF F MPV 9.4 fL 8.0-11 .0 normal Not Available [address] [place], [address] 03/22/2024 12:22:12 03/22/20 24 03/22/2024 COMPL ETE BLOOD COUNT W/DIF F neutrophils % 77.8 % Not Available [address] [place], [address] 03/22/2024 12:22:12 03/22/20 24 03/22/2024 COMPL ETE BLOOD COUNT W/DIF F lymphocytes % 5.6 % Not Available [address] [place], [address] 03/22/2024 12:22:12 03/22/20 24 03/22/2024 COMPL ETE BLOOD COUNT W/DIF F monocytes % 12.2 % Not Available [address] [place] [facility] [place], [address] 03/22/2024 12:22:12 03/22/20 24 03/22/2024 COMPL ETE BLOOD COUNT W/DIF F eosinophils % 0.2 % Not Available [address] [facility] [place], [address] 03/22/2024 12:22:12 03/22/20 24 03/22/2024 COMPL ETE BLOOD COUNT W/DIF F basophils % 0.2 % Not Available [address] [place], [address] 03/22/2024 12:22:12 03/22/20 24 03/22/2024 COMPL ETE BLOOD COUNT W/DIF F immature grans % 4.0 % Not Available [address] [place], [address] 03/22/2024 12:22:12 03/22/20 24 03/22/2024 COMPL ETE BLOOD COUNT W/DIF F nucleated RBC 0.0 % 0.0-0. 3 normal Not Available [address] [place], [address] 03/22/2024 12:22:12 03/22/20 24 03/22/2024 COMPL ETE BLOOD COUNT W/DIF F absolute neutrophil count 4.90 10_3/ uL 1.2-6. 7 normal Not Available [address] [place], [address] 03/22/2024 12:22:12 03/22/20 24 03/22/2024 COMPL ETE BLOOD COUNT W/DIF F absolute lymphocyte count 0.35 10_3/ uL 1.2-3. 4 low Not Available [address] [place], [address] 03/22/2024 12:22:12 03/22/20 24 03/22/2024 COMPL ETE BLOOD COUNT W/DIF F absolute monocyte count 0.77 10_3/ uL 0.1-0. 8 normal Not Available [address] [place], [address] 03/22/2024 12:22:12 03/22/20 24 03/22/2024 COMPL ETE BLOOD COUNT W/DIF F absolute eosinophil count 0.01 10_3/ uL 0.0-0. 7 normal Not Available [address] [place], [address] 03/22/2024 12:22:12 03/22/20 24 03/22/2024 COMPL ETE BLOOD COUNT W/DIF F absolute basophil count 0.01 10_3/ uL 0.0-0. 2 normal Not Available [address] [place], [address] 03/22/2024 12:22:12 04/05/20 24 04/05/2024 COMPL ETE BLOOD COUNT W/DIF F WBC 5.47 10_3/ uL 4.4-10 .8 normal Not Available [address] [place], [address] 04/05/2024 12:13:59 04/05/20 24 04/05/2024 COMPL ETE BLOOD COUNT W/DIF F RBC 3.55 10_6/ uL 4.36-5 .78 low Not Available [address] [place], [address] 04/05/2024 12:13:59 04/05/20 24 04/05/2024 COMPL ETE BLOOD COUNT W/DIF F HGB 9.4 g/dL 13.5-1 7.5 low Not Available [address] [place], [address] 04/05/2024 12:13:59 04/05/20 24 04/05/2024 COMPL ETE BLOOD COUNT W/DIF F HCT 32.4 % 40.0-5 0.0 low Not Available [address] [place], [address] 04/05/2024 12:13:59 04/05/20 24 04/05/2024 COMPL ETE BLOOD COUNT W/DIF F MCV 91 fL 80-95 normal Not Available [address] [place], [address] 04/05/2024 12:13:59 04/05/20 24 04/05/2024 COMPL ETE BLOOD COUNT W/DIF F MCH 26.5 pg 27.0-3 3.0 low Not Available [address] [place], [address] 04/05/2024 12:13:59 04/05/20 24 04/05/2024 COMPL ETE BLOOD COUNT W/DIF F MCHC 29.0 % 32.0-3 6.0 low Not Available [address] [place], [address] 04/05/2024 12:13:59 04/05/20 24 04/05/2024 COMPL ETE BLOOD COUNT W/DIF F RDW 20.7 % 11.8-1 4.1 high Not Available [address] [place], [address] 04/05/2024 12:13:59 04/05/20 24 04/05/2024 COMPL ETE BLOOD COUNT W/DIF F platelet count 105 10_3/ uL 130-40 0 low Not Available [address] [place], [address] 04/05/2024 12:13:59 04/05/20 24 04/05/2024 COMPL ETE BLOOD COUNT W/DIF F MPV 9.0 fL 8.0-11 .0 normal Not Available [address] [place], [address] 04/05/2024 12:13:59 04/05/20 24 04/05/2024 COMPL ETE BLOOD COUNT W/DIF F neutrophils % 81.7 % Not Available [address] [place], [address] 04/05/2024 12:13:59 04/05/20 24 04/05/2024 COMPL ETE BLOOD COUNT W/DIF F lymphocytes % 4.6 % Not Available [address] [place], [address] 04/05/2024 12:13:59 04/05/20 24 04/05/2024 COMPL ETE BLOOD COUNT W/DIF F monocytes % 11.5 % Not Available [address] [place], [address] 04/05/2024 12:13:59 04/05/20 24 04/05/2024 COMPL ETE BLOOD COUNT W/DIF F eosinophils % 0.4 % Not Available [address] [place], [address] 04/05/2024 12:13:59 04/05/20 24 04/05/2024 COMPL ETE BLOOD COUNT W/DIF F basophils % 0.2 % Not Available [address] [place], [address] 04/05/2024 12:13:59 04/05/20 24 04/05/2024 COMPL ETE BLOOD COUNT W/DIF F immature grans % 1.6 % Not Available [address] [place], [address] 04/05/2024 12:13:59 04/05/20 24 04/05/2024 COMPL ETE BLOOD COUNT W/DIF F nucleated RBC 0.0 % 0.0-0. 3 normal Not Available [address] [place], [address] 04/05/2024 12:13:59 04/05/20 24 04/05/2024 COMPL ETE BLOOD COUNT W/DIF F absolute neutrophil count 4.47 10_3/ uL 1.2-6. 7 normal Not Available [address] [place], [address] 04/05/2024 12:13:59 04/05/20 24 04/05/2024 COMPL ETE BLOOD COUNT W/DIF F absolute lymphocyte count 0.25 10_3/ uL 1.2-3. 4 low Not Available [address] [place], [address] 04/05/2024 12:13:59 04/05/20 24 04/05/2024 COMPL ETE BLOOD COUNT W/DIF F absolute monocyte count 0.63 10_3/ uL 0.1-0. 8 normal Not Available [address] [place], [address] 04/05/2024 12:13:59 04/05/20 24 04/05/2024 COMPL ETE BLOOD COUNT W/DIF F absolute eosinophil count 0.02 10_3/ uL 0.0-0. 7 normal Not Available [address] [place], [address] 04/05/2024 12:13:59 04/05/20 24 04/05/2024 COMPL ETE BLOOD COUNT W/DIF F absolute basophil count 0.01 10_3/ uL 0.0-0. 2 normal Not Available [address] [place], [address] 04/05/2024 12:13:59 04/19/20 24 04/19/2024 COMPL ETE BLOOD COUNT W/DIF F WBC 5.82 10_3/ uL 4.4-10 .8 normal Not Available [address] [place], [address] 04/19/2024 11:48:37 04/19/20 24 04/19/2024 COMPL ETE BLOOD COUNT W/DIF F RBC 3.45 10_6/ uL 4.36-5 .78 low Not Available [address] [place], [address] 04/19/2024 11:48:37 04/19/20 24 04/19/2024 COMPL ETE BLOOD COUNT W/DIF F HGB 9.3 g/dL 13.5-1 7.5 low Not Available [address] [place], [address] 04/19/2024 11:48:37 04/19/20 24 04/19/2024 COMPL ETE BLOOD COUNT W/DIF F HCT 30.9 % 40.0-5 0.0 low Not Available [address] [place], [address] 04/19/2024 11:48:37 04/19/20 24 04/19/2024 COMPL ETE BLOOD COUNT W/DIF F MCV 90 fL 80-95 normal Not Available [address] [place], [address] 04/19/2024 11:48:37 04/19/20 24 04/19/2024 COMPL ETE BLOOD COUNT W/DIF F MCH 27.0 pg 27.0-3 3.0 normal Not Available [address] [place], [address] 04/19/2024 11:48:37 04/19/20 24 04/19/2024 COMPL ETE BLOOD COUNT W/DIF F MCHC 30.1 % 32.0-3 6.0 low Not Available [address] [place], [address] 04/19/2024 11:48:37 04/19/20 24 04/19/2024 COMPL ETE BLOOD COUNT W/DIF F RDW 20.0 % 11.8-1 4.1 high Not Available [address] [place], [address] 04/19/2024 11:48:37 04/19/20 24 04/19/2024 COMPL ETE BLOOD COUNT W/DIF F platelet count 109 10_3/ uL 130-40 0 low Not Available [address] [place], [address] 04/19/2024 11:48:37 04/19/20 24 04/19/2024 COMPL ETE BLOOD COUNT W/DIF F MPV 9.5 fL 8.0-11 .0 normal Not Available [address] [place], [address] 04/19/2024 11:48:37 04/19/20 24 04/19/2024 COMPL ETE BLOOD COUNT W/DIF F neutrophils % 71.0 % Not Available [address] [place], [address] 04/19/2024 11:48:37 04/19/20 24 04/19/2024 COMPL ETE BLOOD COUNT W/DIF F lymphocytes % 6.7 % Not Available [address] [place], [address] 04/19/2024 11:48:37 04/19/20 24 04/19/2024 COMPL ETE BLOOD COUNT W/DIF F monocytes % 20.4 % Not Available [address] [place], [address] 04/19/2024 11:48:37 04/19/20 24 04/19/2024 COMPL ETE BLOOD COUNT W/DIF F eosinophils % 0.2 % Not Available [address] [place], [address] 04/19/2024 11:48:37 04/19/20 24 04/19/2024 COMPL ETE BLOOD COUNT W/DIF F basophils % 0.0 % Not Available [address] [place], [address] 04/19/2024 11:48:37 04/19/20 24 04/19/2024 COMPL ETE BLOOD COUNT W/DIF F immature grans % 1.7 % Not Available [address] [place], [address] 04/19/2024 11:48:37 04/19/20 24 04/19/2024 COMPL ETE BLOOD COUNT W/DIF F nucleated RBC 0.0 % 0.0-0. 3 normal Not Available [address] [place], [address] 04/19/2024 11:48:37 04/19/20 24 04/19/2024 COMPL ETE BLOOD COUNT W/DIF F absolute neutrophil count 4.13 10_3/ uL 1.2-6. 7 normal Not Available [address] [place], [address] 04/19/2024 11:48:37 04/19/20 24 04/19/2024 COMPL ETE BLOOD COUNT W/DIF F absolute lymphocyte count 0.39 10_3/ uL 1.2-3. 4 low Not Available [address] [place], [address] 04/19/2024 11:48:37 04/19/20 24 04/19/2024 COMPL ETE BLOOD COUNT W/DIF F absolute monocyte count 1.19 10_3/ uL 0.1-0. 8 high Not Available [address] [place], [address] 04/19/2024 11:48:37 04/19/20 24 04/19/2024 COMPL ETE BLOOD COUNT W/DIF F absolute eosinophil count 0.01 10_3/ uL 0.0-0. 7 normal Not Available [address] [place], [address] 04/19/2024 11:48:37 04/19/20 24 04/19/2024 COMPL ETE BLOOD COUNT W/DIF F absolute basophil count 0.00 10_3/ uL 0.0-0. 2 normal Not Available [address] [place], [id number] 04/19/2024 11:48:37 05/03/20 24 05/03/2024 COMPL ETE BLOOD COUNT W/DIF F WBC 5.55 10_3/ uL 4.4-10 .8 normal Not Available [address] [place], [id number] 05/03/2024 09:30:25 05/03/20 24 05/03/2024 COMPL ETE BLOOD COUNT W/DIF F RBC 3.55 10_6/ uL 4.36-5 .78 low Not Available [address] [place], [id number] 05/03/2024 09:30:25 05/03/20 24 05/03/2024 COMPL ETE BLOOD COUNT W/DIF F HGB 9.6 g/dL 13.5-1 7.5 low Not Available [address] [place], [id number] 05/03/2024 09:30:25 05/03/20 24 05/03/2024 COMPL ETE BLOOD COUNT W/DIF F HCT 32.5 % 40.0-5 0.0 low Not Available [address] [place], [id number] 05/03/2024 09:30:25 05/03/20 24 05/03/2024 COMPL ETE BLOOD COUNT W/DIF F MCV 92 fL 80-95 normal Not Available [address] [place], [id number] 05/03/2024 09:30:25 05/03/20 24 05/03/2024 COMPL ETE BLOOD COUNT W/DIF F MCH 27.0 pg 27.0-3 3.0 normal Not Available [address] [place], [id number] 05/03/2024 09:30:25 05/03/20 24 05/03/2024 COMPL ETE BLOOD COUNT W/DIF F MCHC 29.5 % 32.0-3 6.0 low Not Available [address] [place], [id number] 05/03/2024 09:30:25 05/03/20 24 05/03/2024 COMPL ETE BLOOD COUNT W/DIF F RDW 19.8 % 11.8-1 4.1 high Not Available [address] [place], [id number] 05/03/2024 09:30:25 05/03/20 24 05/03/2024 COMPL ETE BLOOD COUNT W/DIF F platelet count 113 10_3/ uL 130-40 0 low Not Available [address] [place], [id number] 05/03/2024 09:30:25 05/03/20 24 05/03/2024 COMPL ETE BLOOD COUNT W/DIF F MPV 10.1 fL 8.0-11 .0 normal Not Available [address] [place], [id number] 05/03/2024 09:30:25 05/03/20 24 05/03/2024 COMPL ETE BLOOD COUNT W/DIF F neutrophils % 66.7 % Not Available [address] [place], [id number] 05/03/2024 09:30:25 05/03/20 24 05/03/2024 COMPL ETE BLOOD COUNT W/DIF F lymphocytes % 7.4 % Not Available [address] [place], [id number] 05/03/2024 09:30:25 05/03/20 24 05/03/2024 COMPL ETE BLOOD COUNT W/DIF F monocytes % 23.4 % Not Available [address] [place], [id number] 05/03/2024 09:30:25 05/03/20 24 05/03/2024 COMPL ETE BLOOD COUNT W/DIF F eosinophils % 0.5 % Not Available [address] [place], [id number] 05/03/2024 09:30:25 05/03/20 24 05/03/2024 COMPL ETE BLOOD COUNT W/DIF F basophils % 0.2 % Not Available [address] [place], [id number] 05/03/2024 09:30:25 05/03/20 24 05/03/2024 COMPL ETE BLOOD COUNT W/DIF F immature grans % 1.8 % Not Available [address] [place], [id number] 05/03/2024 09:30:25 05/03/20 24 05/03/2024 COMPL ETE BLOOD COUNT W/DIF F nucleated RBC 0.0 % 0.0-0. 3 normal Not Available [address] [place], [id number] 05/03/2024 09:30:25 05/03/20 24 05/03/2024 COMPL ETE BLOOD COUNT W/DIF F absolute neutrophil count 3.70 10_3/ uL 1.2-6. 7 normal Not Available [address] [place], [id number] 05/03/2024 09:30:25 05/03/20 24 05/03/2024 COMPL ETE BLOOD COUNT W/DIF F absolute lymphocyte count 0.41 10_3/ uL 1.2-3. 4 low Not Available [address] [place], [id number] 05/03/2024 09:30:25 05/03/20 24 05/03/2024 COMPL ETE BLOOD COUNT W/DIF F absolute monocyte count 1.30 10_3/ uL 0.1-0. 8 high Not Available [address] [place], [id number] 05/03/2024 09:30:25 05/03/20 24 05/03/2024 COMPL ETE BLOOD COUNT W/DIF F absolute eosinophil count 0.03 10_3/ uL 0.0-0. 7 normal Not Available [address] [place], [id number] 05/03/2024 09:30:25 05/03/20 24 05/03/2024 COMPL ETE BLOOD COUNT W/DIF F absolute basophil count 0.01 10_3/ uL 0.0-0. 2 normal Not Available [address] [place], [id number] 05/03/2024 09:30:25 05/03/20 24 05/03/2024 COMPR EHENS ODELL METAB OLIC PANEL calcium 9.0 mg/dL 8.5-10 .1 normal Not Available [address] [place], [address] 05/03/2024 09:48:27 05/03/20 24 05/03/2024 COMPR EHENS ODELL METAB OLIC PANEL glucose 106 mg/dL 74-106 normal Not Available [address] [place], [address] 05/03/2024 09:48:27 05/03/20 24 05/03/2024 COMPR EHENS ODELL METAB OLIC PANEL BUN 22 mg/dL 7-18 high Not Available [address] [place], [address] 05/03/2024 09:48:27 05/03/20 24 05/03/2024 COMPR EHENS ODELL METAB OLIC PANEL creatinine 1.3 mg/dL 0.70-1 .30 normal Not Available [address] [place], [address] 05/03/2024 09:48:27 05/03/20 24 05/03/2024 COMPR EHENS ODELL METAB OLIC PANEL estimated GFR 55.53 mL/min /1.73m 2 Not Available [address] [place], [address] 05/03/2024 09:48:27 05/03/20 24 05/03/2024 COMPR EHENS ODELL METAB OLIC PANEL total protein 6.9 g/dL 6.4-8. 2 normal Not Available [address] [place], [address] 05/03/2024 09:48:27 05/03/20 24 05/03/2024 COMPR EHENS ODELL METAB OLIC PANEL albumin 2.7 g/dL 3.4-5. 0 low Not Available [address] [place], [address] 05/03/2024 09:48:27 05/03/20 24 05/03/2024 COMPR EHENS ODELL METAB OLIC PANEL bilirubin, total 0.47 mg/dL 0.2-1. 0 normal Not Available [address] [place], [address] 05/03/2024 09:48:27 05/03/20 24 05/03/2024 COMPR EHENS ODELL METAB OLIC PANEL alk phos 74 U/L 46-116 normal Not Available [address] [place], [address] 05/03/2024 09:48:27 05/03/20 24 05/03/2024 COMPR EHENS ODELL METAB OLIC PANEL sodium 141 mmol/ L 136-14 5 normal Not Available [address] [place], [address] 05/03/2024 09:48:27 05/03/20 24 05/03/2024 COMPR EHENS ODELL METAB OLIC PANEL potassium 3.8 mmol/ L 3.5-5. 1 normal Not Available [address] [place], [address] 05/03/2024 09:48:27 05/03/20 24 05/03/2024 COMPR EHENS ODELL METAB OLIC PANEL chloride 104 mmol/ L 98-107 normal Not Available [address] [place], [address] 05/03/2024 09:48:27 05/03/20 24 05/03/2024 COMPR EHENS ODELL METAB OLIC PANEL CO2 30.4 mmol/ L 21.0-3 2.0 normal Not Available [address] [place], [address] 05/03/2024 09:48:27 05/03/20 24 05/03/2024 COMPR EHENS ODELL METAB OLIC PANEL anion gap 6.6 mmol/ L 3-11 normal Not Available [address] [place], [address] 05/03/2024 09:48:27 05/03/20 24 05/03/2024 COMPR EHENS ODELL METAB OLIC PANEL AST 24 U/L 15-37 normal Not Available [address] [place], [address] 05/03/2024 09:48:27 05/03/20 24 05/03/2024 COMPR EHENS ODELL METAB OLIC PANEL ALT 18 U/L 16-63 normal Not Available [address] [place], [address] 05/03/2024 09:48:27 05/03/20 24 05/03/2024 G B O Positi ve Not Available [address] [place], [address] 05/03/2024 10:09:31 05/03/20 24 05/03/2024 G abs NEGATI VE Not Available [address] [place], [address] 05/03/2024 10:09:31 11/08/19 24 11/08/2023 CT imagi ng repor t Patiron t Name: Marlo Hernandez Unit #: [id number] Loc: DI Orderi ng Provid er: Fuld,A lexand er O Accoun t #: [id number] Status : REG CLI Primar y Care Provid er: Sergei Yancey rt E Date of Exam: Sex: M [...] not previo usly presen t (serie s 2/imag e 32). No new additi onal right [...] facili ty are submit katelin to the [facility] al Radiol ogy Data Regist ry (NRDR) [...] 0.00 mGy-cm Ordere d By: Nichol Newsome CC: ------ ------ ------ ------ ------ ------ ------ ------ ------ ------ ------ ------ ---- Dictat ed By: Isaac Montoya M.D. 1314 1314 Transc ribed By: Lindsay FUENTES,Ellis luis 1314 This is privil eged, confid ential inform ation intend ed only for the provid er named. Any use or distri bution by any person other than this provid er is strict ly prohib ited. If you receiv e this report in error, please notify us immedi ately at [phone] and return the origin al report to us at the addres s above. Thank- you. [facility] [address], [place], [address] 11/08/2023 16:22:47 11/08/19 24 11/08/2023 ED visit note ED Visit Note GENARO Alexandra NAME: Marlo Hernandez UNIT #: [id number] ADMITT ING PROVID ER: Niko Stallworth MARKETING SALES REPRESENTATIVE ACCOUN T #: [id number] PRIMAR Y CARE PROVID ER: GIFTY Estrella MD,LOUISE ERT E DATE OF ADMIT : : 1944 HPI Genera l Mode of arriva l: ambula tory . Date/T estrellita Provid er Initia katelin Docume ntatio n: 13:18 . Limita tions to Docume ntatio n: no limita tions . Inform ation obtain ed by: genaro alexandra and RN notes review ed . Histor y of Nigel Delgado s 78 year old M nigel ts to the emerge ncy depart ment with the chief compla int of Left leg lacera tion, descri bed as modera lizzeth, Genaro alexandra starte d experi encing this [...] 4 Review of System s Integu mentar y/Moseley sts Skin/B reast: Report s as per HPI and Report s wounds Exam Const Genera l: gem ative and no acute distre ss [place] ation: alert, awake and orient ed x3 [...] 13:00 Pain Level 2 13:11 Medica l Carolai on Making 4 cm skin lacera tion/s kin tear to left lower leg to the anteri or surfac e. No other injury or trauma . Wound was thorou ghly rinsed and irriga katelin, approx imated with Steri- Strips and skin adhesi ve. Genaro t's tetanu s update d. Genaro alexandra advise [...] docume ntatio n was genera katelin using Heetch ion system , please disreg luis any odditi es of phrase or misspe llings . Qualit y:SDOH Health Relate d Social Needs: 2 No Data to Displa y PFSH All Active Proble ms (Revie wed @ 16:55 by Jaclyn Stallworth, MARKETING SALES REPRESENTATIVE) Skin tear of left lower leg withou [...] dy gait when walkin g (Acute ) Dynamometer Tester al hemorr hoids (Acute ) Benzod iazepi [...] (Revie wed @ 16:55 by Jaclyn Stallworth, MARKETING SALES REPRESENTATIVE) Goals of care, counse ling/d iscuss ion Hx of hyperl ipidem ia HTN (hyper tensio n) Diabet es Anxiet y Surgic al Histor y (Revie wed @ 16:55 by Jaclyn Stallworth, MARKETING SALES REPRESENTATIVE) Finger tip amputa tion Histor y of tonsil lectom y Histor y of catara ct surger y Family Histor y (Revie wed @ 16:55 by Jaclyn Stallworth, MARKETING SALES REPRESENTATIVE) Father Deceas ed, in his early 80s [...] (Revie wed @ 16:55 by Jaclyn Stallworth, MARKETING SALES REPRESENTATIVE) 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 He lives with his , Ngoc; their son, Carlton , lives [facility]. 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 He contin ues to smoke and is not intere sted in quitGient. He does see Dr Mattie fuentes for his recurr ent hemorr hoids and GI bleedi ng. If he has colon cancer , he [...] rt E ED Provid er: Niko Stallworth olas Home Meds and New Rx's Prescr iption [...] TIMES A DAY DIRECT ED BY PROVID MONY Bartlett rge Instru ctions Instru ctions : Skin [...] - (As needed for reasse ssment ) Discha rge Data Discha rge Date/T estrellita-TO BE ENTERE D AT DEPART URE: 14:03 cc: LOUISE YANCEY MD ERT E ------ ------ ------ ------ ------ ------ ------ ------ ------ ------ ------ --- Dictat ed by: MELVIN Radford NP, JACLYN Dictat ed: Time: 1353 Date: 1658 Date: Date: Transc ribed Date: Transc ribed Time: 135 By: CARMELO This is privil eged, confid ential inform ation, intend ed only for the provid er named. Any use or distri bution by any person other than this provid er is strict ly prohib ited. If you receiv e this report in error, please notify us immedi valentinaly at [phone] and return the origin al report to us at the addres s above. Thank you. [facility] [address], [place], [address] 11/08/2023 18:04:05 02/21/20 24 02/22/2024 elect beth carr am No observ ation record ed. [email or web address] [facility] [address], [place], [address], 02/23/2024 09:07:48 02/21/20 elect beth carr am No observ ation record ed. [email or web address] Not Available 02/22/2024 11:33:11 02/22/20 24 02/22/2024 imagi ng inter preta tion No observ ation record ed. [email or web address] Not Available 02/22/2024 13:45:06 02/22/20 24 02/22/2024 CT, angio gram, chest , w/ contr ast No observ ation record ed. [email or web address] [facility] (Radiology) [address] , [place], [address], 02/23/2024 09:07:49 02/22/20 24 02/22/2024 CT imagi ng repor t Patien t Name: Marlo Hernandez Unit #: [id number] Loc: DI Orderi ng Provid er: Primea u,Robe rt E Accoun t #: [id number] Status : REG CLI Primar [...] tion); or iterat odell recons tructi on. 0521-0 009: Total DLP [...] error, please notify us immedi pratik at [phone] and return the origin al report to us at the addres s above. Thank- you. [email or web address] [facility] [address], [place], [address] 02/22/2024 13:46:47 05/03/20 24 05/03/2024 CT imagi ng repor t Patien t Name: Marlo Hernandez Unit #: [id number] Loc: DI Orderi ng Provid er: Jerod,Nichol lexand er O Accoun t #: [id number] Status : REG CLI Primar y Care Provid er: Gifty uSergei rt E Date of Exam: Sex: M : 1944 Age: 78 Exam(s ) a CT:CT chest w Exam(s ) CT CHEST W EXAM: CT CHEST W CLINIC AL HISTOR Y: RT UPPER LOBE LUNG CANCER C34.11 TECHNI QUE: Imagin g Protoc ol: Axial comput ed tomogr aphy images with badillo l and sagitt al reform atted images were create d and review ed CONTRA ST MATERI AL: Intrav enous: Omnipa que [address] volume :70 ml. COMPAR DOUG: CT CT CHEST PE CTA from 2023 FINDIN GS: Pulmon bert parenc hyma: Signif icant interv al worsen ing consol idatio n in right upper lobe. Stable appear ance right lower lobe. Underl wilber emphys ematou s and fibrot ic change s. Mild right sided volume loss. Trache obronc hial tree: No bronch iectas is or mucous pluggi ng. Medias tinum and Miley: Small medias tinal lymph nodes, larges t right paratr acheal measur ing 13 millim eters. Pleura : Worsen ing of right pleura l effusi on but still small. No pneumo thorax . Heart: The heart is not dilate d. badillo ry artery calcif icatio ns are seen. Mitral annula r calcif icatio ns. Aorta: Thorac ic aorta non-di lated. Modera te to severe athero sclero tic change s. Pulmon bert arteri es: Not optima lly opacif ied. No gross eviden ce of emboli . Upper abdome n: No acute findin gs. Bones: Advanc ed degene rative change s in the spine. No destru ctive bony lesion s. Soft tissue s: Unrema rkable . IMPRES PATRICK: furthe r worsen ing of right upper lobe consol idatio n. Increa sed size of medias tinal lymph nodes. Mild increa se in size right pleura l effusi on. RADIAT ION DOSE DELIVE RED: Total DLP DATA REPOSI TORY: All CT scans at this facili ty are submit katelin to the [facility] al Radiol ogy Data Regist ry (NRDR) [...] tion); or iterat odell recons tructi on. 003: Total DLP = 0.00 mGy-cm Ordere d By: Nichol Newsome er O CC: ------ ------ ------ ------ ------ ------ ------ ------ ------ ------ ------ ------ ---- Dictat ed By: Daja Brar 111 111 Transc ribed By: Janet Freitas 111 This is privil eged, confid ential inform ation intend ed only for the provid er named. Any use or distri bution by any person other than this provid er is strict ly prohib ited. If you receiv e this report in error, please notify us immedi ately at and return the origin al report to us at the addres s above. Thank- you. [facility] [address], [place], [address] 05/05/2024 07:24:10 Result Notes None recorded. Problems Name Status [...] E78.5; Problem Code Type: ICD-10; Not Available [facility] 3 05:28:34 Essential hypertension Active 200905/21/2022 - [...] F51.09; Problem Code Type: ICD-10; Not Available [facility] 3 05:28:35 Not for resuscitation Active 2011 Problem Code: Z66; Problem Code Type: ICD-10; Not Available [facility] 3 05:28:35 Disorder of salivary gland Active 2012 Problem Code: K11.8; Problem Code Type: ICD-10; Not Available [facility] 3 05:28:35 Cellulitis Completed 201604/09/2017 Problem Code: L03.90; Problem Code Type: ICD-10; Not Available [facility] 3 05:28:36 Adult health examination Active 201906/26/2022 - Comments only - Onesimo Whitley MD - He can get the COVID-vaccine and flu shot in mid July Problem Code: Z00.00; Problem Code Type: ICD-10; Not Available [facility] 3 05:28:36 Nasal congestion Completed 202102/01/2022 Problem Code: R09.81; Problem Code Type: ICD-10; Not Available [facility] 3 05:28:36 Acute frontal [...] J01.10; Problem Code Type: ICD-10; Not Available [facility] 3 05:28:36 Nervous system [...] move forward with any decision. Not Available [facility] 3 05:28:36 Monoplegia of lower limb Active 202104/16/2022 - Comments only - Vanda BEE - /hx of sciatica - [facility] for [facility] /inc mobility - pt declines imaging at this time Problem Code: G83.10; Problem Code Type: ICD-10; Not Available [facility] 3 05:28:36 Peripheral vascular disease Active 2021 Problem Code: I73.9; Problem Code Type: ICD-10; Not Available [facility] 3 05:28:37 Pain in [...] M79.604; Problem Code Type: ICD-10; Not Available [facility] 3 05:28:37 Follow-up orthopedic [...] Z47.89; Problem Code Type: ICD-10; Not Available [facility] 3 05:28:37 Anemia Active 202109/24/2022 - Comments [...] D46.9; Problem Code Type: ICD-10; Not Available [facility] 05:28:38 Polymyalgia rheumatica Active 202201/18/2023 - Comments only - Onesimo Whitley MD - Dramatic response to moderate dose prednisone. Still feels great on 15 mg. We will recheck inflammatory markers tomorrow, as long as these are coming down significantly I am going to reduce further to 12.5 mg. Problem Code: M35.3; Problem Code Type: ICD-10; Not Available [facility] 3 05:28:38 Benign prostatic hyperplasia Active 2022 Problem Code: N40.0; Problem Code Type: ICD-10; Not Available [facility] 05:28:38 Solitary nodule of lung Completed 202210/13/2023 [...] by bronchoscopy and I am referring to [facility] radiology at [facility]. We will get brain MRI, PFTs, coags, and refer to Dr. Villanueva as well. Problem Code: R91.1; Problem Code Type: ICD-10; Removal Reason: [facility] ONESIMO WHITLEY MD [facility] [address], [place], [address] , [facility] 4 16:13:37 Adrenal cortical hypofunction Completed 202201/13/2023 Problem Code: E27.40; Problem Code Type: ICD-10; Not Available [facility] 05:28:44 Angina pectoris Completed 200906/30/2023 Problem Code: 413.9; Problem Code Type: ICD-9; Not Available [facility] 05:28:45 Acute upper respiratory infection Completed 201604/16/2022 Problem Code: J06.9; Problem Code Type: ICD-10; Not Available [facility] 3 05:28:45 Impotence of organic origin Completed 200906/30/2023 Problem Code: 607.84; Problem Code Type: ICD-9; Not Available [facility] 3 05:28:46 Tobacco dependence syndrome Completed 200906/30/2023 Problem Code: 305.1; Problem Code Type: ICD-9; Not Available [facility] 3 05:28:46 Mass of parotid gland Completed 201206/30/2023 Not Available [facility] 3 05:28:46 Type 1 diabetes mellitus Completed 200906/30/2023 Problem Code: 250.01; Problem Code Type: ICD-9; Not Available [facility] 3 05:28:48 Persistent insomnia Completed 200906/30/2023 Problem Code: 307.42; Problem Code Type: ICD-9; Not Available [facility] 3 05:28:50 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, good response to Taxol/platinu , [facility] [address], [place], [address] , [facility] 4 16:14:18 Pleurisy Active [address], [place], [address] , [facility] 4 14:34:26 Hearing loss Active [address], [facility] [address] , [facility] 4 13:25:44 Dyspnea on exertion Active [address], [place], [address] , [facility] 4 16:38:58 Chronic obstructive pulmonary disease Active [address], [place], [address] , [facility]. 16:44:25 Notes:*Problem Name: Dni *IC D-10 Codes: *Problem Status: inactive *Comments: *Note Date: 08/18/2012 *Problem Name: Dni *ICD-10 Codes: *Problem Status: inactive *Comments: *Problem Code Type: CPT *Note Date: 08/18/2012 Problem Notes None recorded. Procedures Surgical History None recorded. Imaging Results Imaging Date Name Status LastModified by Organization Details LastModified Time 11/08/2023 CT imaging report completed [email or web address] [place], [address] 11/08/2023 16:22:47 11/08/2023 ED visit note completed [email or web address] [address] [place], [address] 11/08/2023 18:04:05 02/22/2024 electrocardiogram completed [email or web address] [facility] [address], [place], [address], 02/23/2024 09:07:48 02/21/2024 electrocardiogram completed [email or web address] Informa tion not available 02/22/2024 11:33:11 02/22/2024 imaging interpretation completed [email or web address] Information not available 02/22/2024 13:45:06 02/22/2024 CT, angiogram, chest, w/ contrast completed [address] (Radiology) [address] [place] [address] [place], [address], 02/23/2024 09:07:49 02/22/2024 CT imaging report completed [email or web address] [place], [address] 02/22/2024 13:46:47 05/03/2024 CT imaging report completed [address] [place], [address] 05/05/2024 07:24:10 Procedure Notes None recorded. Medical Equipment None [...] Insulin 100 unit/mL subcutane ous solution INJECT 8 TO 12 UNITS UNDER THE SKIN TWICE DAILY DIRECTED BY PROVIDER . DISCARD VIAL 28 DAYS AFTER OPENING active Not Available Not Available No t Available Klor-Con 20 mEq oral packet Take 1 [...] Updated DateTime 4 187.325 cm 25.4 kg/m2 08361.9 g 96 % 96 % 68 /min 16 /min 128 mm[Hg] 74 mm[Hg] ABDULLAHI ESTRELLA RN MS - [facility]. 4 13:32:03 Date Recorded Body height Body mass index (BMI) Body weight Oxygen saturation Oxygen saturation in Arterial blood by Pulse oximetry Heart rate Body temperature Systolic blood pressure Diastolic blood pressure Provider Name and Address Organization Details Last Updated DateTime 4 187.325 cm 25 kg/m2 89168.7 3 g 93 % 93 % 72 /min 98.6 [degF] 118 mm[Hg] 46 mm[Hg] GUERDA LARA RN [facility] 4 14:06:58 Date Recorded Body height Body mass index (BMI) Body weight Body temperature Oxygen saturation Oxygen saturation in Arterial blood by Pulse oximetry Heart rate Respiratory rate Systolic blood pressure Diastolic blood pressure Provider Name and Address Organization Details Last Updated DateTime 4 187.33 cm 24.8 kg/m2 23579.9 4 g 97 [degF] 95 % 95 % 90 /min 18 /min 118 mm[Hg] 60 mm[Hg] WU DUNN LPN [facility] 13:04:21 Date Recorded Body height Body mass index (BMI) Body weight Body temperature Oxygen saturation Oxygen saturation in Arterial blood by Pulse oximetry Heart rate Respiratory rate Systolic blood pressure Diastolic blood pressure Provider Name and Address Organization Details Last Updated DateTime 4 187.33 cm 25.1 kg/m2 28203.9 2 g 97.8 [degF] 98 % 98 % 68 /min 18 /min 112 mm[Hg] 60 mm[Hg] WU DUNN LPN [facility] 4 14:10:47 Social History Question Answer Notes LastModified by Organizat ion Details LastModified Time Tobacco Smoking Status Former Smoker WU DUNN LPN [facility] 02/29/2024 13:04:55 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 1-5yearssinc elastcigaret te Information not available 02/29/2024 1) Date Of Last VPMS Check? 04/04/2024 Information not available 04/04/2024 2) VPMS Findings No Concerns [email or web address] Information not available 04/04/2024 3) Date Of Last Contract: 05/25/2022 Informed C: 05/25/24 Needs Uds. [email or web address] Information not available 04/04/2024 What Was The [...] son , healthy, born in 1985, sound assistant, Family History of: Hypertension: Yes Hyperlipidemia: Yes [...] 50 mcg/0.25mL dose 11/29/2020 completed Not Available [facility] 08/13/20 05:27:52 COVID-19, mRNA, LNP-S, PF, 100 mcg/0.5mL dose or 50 mcg/0.25mL dose 08/17/2021 completed Not Available [facility] 08/13/20 05:27:52 SARS-COV-2 (COVID-19) vaccine, UNSPECIFIED 11/01/2020 completed Not Available [facility] 08/13/2023 05:27:52 influenza, unspecified formulation 07/04/2019 completed Not Available [facility] 08/13/2023 05:27:53 influenza, unspecified formulation 09/20/2012 completed Not Available [facility] 08/13/2023 05:27:53 Past Encounters Encounter ID Performer Location Encounter Start Date Encounter Closed Date Diagnosis/Indication Diagnosis SNOMED-CT Code [id number] ONESIMO WHITLEY MD [address] [address] 10/13/2023 13:17:29 10/13/2023 15:07:37 Major depression, single episode 06537962 Polymyalgi a rheumatica 44317654 Type 1 federico betes mellitus without complication 010979533 Small cell carcinoma of lung 554689418 Inguinal pain 070839167 [id number] ONESIMO WHITLEY MD [address] [address] 02/21/2024 13:59:55 02/21/2024 15:15:08 Pleurisy [id number] ONESIMO WHITLEY MD [address] [address] 02/29/2024 12:56:26 02/29/2024 13:34:27 Hearing loss 60664024 Pleurisy 430163428 [id number] ONESIMO WHITLEY MD [address] [address] 03/15/2024 13:55:39 03/15/2024 15:04:48 Pleurisy 839787153 Insomnia 092742155 Essential hypertension 75107899 Myelodyspl astic syndrome (clinical) 322297047 Polymyalgi a rheumatica 38228332 Type 1 federico betes mellitus without complication 363873528 Small cell carcinoma of lung 757713871 Chronic ob structive pulmonary disease 97693601 Health Concerns Section Related Observation LastModified by Organization Detai ls LastModified Time None Recorded Concern Status LastModified by Organization Details LastModified Time None Recorded Advance Directives Directive None Recorded Payers Encounter Date Sequence Insurance Name Policy Number Policy Cochran Covered Member ID Cochran Member ID Guarantor Name 10/13/2023 2 [place] [facility] [id number] [facility] [id number] [facility] 10/13/2023 1 [place] [facility] Marlo Rangel Leeanna [id number] [facility] 02/21/2024 2 [place] [facility] [id number] [facility] [id number] [place] [facility] 02/21/2024 1 [place] Marlo Durán [id number] [facility] 02/29/2024 2 [place] [facility] [id number] Marlo Durán [id number] Marlo Durán 02/29/2024 1 [place] [facility] Marlo Durán [id number] Marlo Durán 03/15/2024 2 [place] [facility] [id number] Marlo Durán [id number] Marlo Durán 03/15/2024 1 [place] 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 Was switched to glargine for his long-acting insulin and also uses Humalog for the intensive dosing. No recent hypoglycemia. No new weakness, numbness, vision change. No chest pain or heaviness, palpitations or syncope. No abdominal pain or GI bleeding. ONESIMO WHITLEY MD [address], [place], [address], [facility]. 10/13/2023 16:16:38 02/21/2024 text/html HPI Notes: Les [...] pharyngitis. ONESIMO WHITLEY MD [address], [place], [address], [facility]. 02/21/2024 17:56:11 02/29/2024 text/html HPI Notes: cc [...] his prednisone JOSE RODRIGUEZ [address], [place], [address], [facility]. 02/29/2024 13:37:18 03/15/2024 text/html HPI Notes: Cristal w-up for right-sided pleuritic chest pain Marlo's pleuritic pain did not resolve after course of antibiotics. His CT showed some consolidative changes distal to the cancer; this was worse than his prior CT and [facility] but not worse than his last CT at [facility]. He never developed fever. He still has [...] his dyspnea. 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 His blood counts have improved a [...] he is significantly depressed at this time. MD [address], [place], [address], [facility], [facility]. 03/15/2024 16:47:38
--- OUTSIDE RECORDS SUMMARY | 2024-05-17 02:40 | XMS_ITS | Clinical Summary ---
Author Organization [facility] Address [address] [place] [address] Care Team Providers Care Lead Person Name Role Phone Unavailable Primary Care Provider [...]
--- OUTSIDE RECORDS SUMMARY | 2024-05-17 02:40 | XMS_ITS | Encounter Summary ---
Author Organization [facility] Address [address] [place] [address] Care Team Providers Care Lead Worker Of Housekeeping And Laundry Name Role Phone Unavailable Primary Care Provider Unavailabl e Encounter Details Date Type Department Care Team (Late st Contact Info) Description 12/28/2022 Lab Requisition [facility] Pathology & Laboratory Medicine - [facility] [address] [place] [address] Outr Resulting Lab, Provider Social History Tobacco [...] 38 See Note ug/dL 12/28/2022 22:52 EDT [facility] Comment: NOTE: Reference Ranges (from OCD IFU): Collected Before 10:00 AM: ??4 - 23 ug/dL Collected After 5:00 PM: ?2 - 14 ug/dL The results of this assay can be falsely elevated due to the consumption of Biotin. Blood VENOUS BLOOD / Unknown 12/28/2022 9:40 EDT 12/28/2022 21:52 EDT Provider Outr Resulting Lab CHEMISTRY & BLOOD GAS ORDERABLES [facility] [address] [place] [address] documented in this encounter Visit Diagnoses Not on filedocumented in this encounter
--- OUTSIDE RECORDS SUMMARY | 2024-05-17 02:40 | XMS_ITS | Encounter Summary ---
Author Organization [facility] Address [address] [place] [address] Care Team Providers Care Therapeutic Specialist Name Role Phone Unavailable Primary Care Provider Unavailabl e Encounter Details Date Type Department Care Team (Late st Contact Info) Description 05/18/2022 Lab Requisition [facility] Pathology & Laboratory Medicine - [facility] [address] [place] [address] Outr Resulting Lab, Provider Social History Tobacco [...] 55.8 - 66.1 % 05/19/2022 13:25 EDT [facility] Albumin g/dL 3.1(L) 3.6 - 5.2 g/dL 05/19/2022 13:25 EDT [facility] Alpha-1 % 6.7(H) 2.9 - 4.9 % 05/19/2022 13:25 EDT [facility] Alpha-1 g/dL 0.40 0.15 - 0.40 g/dL 05/19/2022 13:25 [facility] Alpha-2 % 11.9(H) 7.1 - 11.8 % 05/19/2022 13:25 [facility] Alpha-2 g/dL 0.70 0.50 - 1.00 g/dL 05/19/2022 13:25 [facility] Beta % 12.1 8.4 - 13.1 % 05/19/2022 13:25 [facility] Beta g/dL 0.70 0.60 - 1.20 g/dL 05/19/2022 13:25 [facility] Gamma % 18.8 11.1 - 18.8 % 05/19/2022 13:25 [facility] Gamma g/dL 1.10 0.60 - 1.60 g/dL 05/19/2022 13:25 [facility] SPEP Comment No apparent monoclonal protein seen on serum electrophoresis 05/19/2022 13:25 [facility] Comment:See scanned/suppleme ntary report. Total Protein 6.1(L) 6.3 - 8.2 g/dL 05/19/2022 13:25 [facility] Blood VENOUS BLOOD / Unknown 05/18/2022 16:03 EDT 05/18/2022 20:44 EDT Provider Outr Resulting Lab CHEMISTRY & BLOOD GAS ORDERABLES Performing Organization Address City/[facility]/ZIP Co de Phone Number [facility] [address] [place] [address] * PROTEIN, TOTAL (05/18/2022 16:03 EDT) Blood VENOUS BLOOD / Unknown 05/18/2022 16:03 EDT 05/18/2022 20:44 EDT Provider Outr Resulting Lab CHEMISTRY & BLOOD GAS ORDERABLES Performing Organization Address City/[facility]/ZIP Co de Phone Number [facility] [address] [place] [address] documented in this encounter Visit Diagnoses Not on filedocumented in this encounter
--- OUTSIDE RECORDS SUMMARY | 2024-05-17 02:40 | XMS_ITS | Encounter Summary ---
Author Organization [facility] Address [address] [place] [address] Care Team Providers Care Integrated Circuit Fabricator Name Role Phone Unavailable Primary Care Provider Unavailabl e Encounter Details Date Type Department Care Team (Late st Contact Info) Description 12/28/2022 Lab Requisition [facility] Pathology & Laboratory Medicine - [facility] [address] [place] [address] Outr Resulting Lab, Provider Social History Tobacco [...] 20 See Note ug/dL 12/28/2022 22:53 EDT [facility] Comment: NOTE: Reference Ranges (from OCD IFU): Collected Before 10:00 AM: ??4 - 23 ug/dL Collected After 5:00 PM: ?2 - 14 ug/dL The results of this assay can be falsely elevated due to the consumption of Biotin. Blood VENOUS BLOOD / Unknown 12/28/2022 8:30 EDT 12/28/2022 21:52 EDT Provider Outr Resulting Lab CHEMISTRY & BLOOD GAS ORDERABLES [facility] [address] [place] [address] documented in this encounter Visit Diagnoses Not on filedocumented in this encounter
--- OUTSIDE RECORDS SUMMARY | 2024-05-17 02:40 | XMS_ITS | Continuity of Care Document ---
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 Patient Instructions Encounter Date Encounter Id Patient Instructions Last Modified By Organization Details Last Modified Time 03/15/2024 [id number] 1. Prednisone 20 mg once daily for 5 days, then resume 5 mg daily 2. Celecoxib is celebrex, 200 mg once per day for pain. 3. Try a flutter valve, called acapella , 10 times in a row , twice per day Not available 03/15/2024 14:58:28 Reason for Referral Legal Word Processor Referral for Hea ring loss Referring Physician: Emmie Mendez, Family Medicine, Encounter Date: 02/29/2024 Results Created Date Observation Date Name Description Value Unit Range Abnormal Flag LastModifiedBy Organization Detail LastModifiedTime 02/21/2002/22/2024 reid carr am No observ ation record ed. [email or web address] [facility] [address], [place], [address], 02/23/2024 09:07:48 02/21/20 elect beth carr am No observ ation record ed. [email or web address] Not Available 02/22/2024 11:33:11 02/22/20 24 02/22/2024 imagi ng inter preta tion No observ ation record ed. [email or web address] Not Available 02/22/2024 13:45:06 02/22/20 24 02/22/2024 CT, angio gram, chest , w/ contr ast No observ ation record ed. [facility] (Radiology) [address] , [place], [address], 02/23/2024 09:07:49 02/22/20 24 02/22/2024 CT imagi ng repor t Patien t Name: Marlo Hernandez Unit #: [id number] Loc: DI Orderi ng Provid er: Primea u,Robe rt E Accoun t #: [id number] Status : REG CLI Primar y [...] Heart: The heart is mildly dilate d. abdillo ry artery calcif icatio ns are seen. [...] at the addres s above. Thank- you. [email or web address] [facility] [address] [place], [address] 02/22/2024 13:46:47 05/03/20 24 05/03/2024 CT imagi ng repor t Patien t Name: Marlo Hernandez Unit #: [id number] Loc: DI Orderi ng Provid er: Jerod,Nichol lexand er O Accoun t #: [id number] Status : REG CLI Primar y Care Provid er: Primea u,Joele rt E Date of Exam: Sex: M [...] tissue s: Unrema rkable . IMPRES QUAN: furthe r worsen ing of right upper lobe consol idatio n. Increa sed size of medias tinal lymph nodes. Mild increa se in size right pleura l effusi on. RADIAT ION DOSE DELIVE RED: Total DLP DATA REPOSI TORY: All CT scans at this facili ty are submit katelin to the [facility] al Radiol ogy Data Regist [...] tion); or iterat jeff recons tructi on. 0731-0 003: Total DLP = 0.00 mGy-cm Ordere [...] at the addres s above. Thank- you. [facility] [address], [place], [address] 05/05/2024 07:24:10 Result Notes None recorded. Problems [...] E10.9; Problem Code Type: ICD-10; Not Available [facility] 3 05:28:34 Nicotine dependence Active 200911/29/2019 - [...] E78.5; Problem Code Type: ICD-10; Not Available [facility] 3 05:28:34 Essential hypertension Active 200905/21/2022 - [...] F51.09; Problem Code Type: ICD-10; Not Available [facility] 3 05:28:35 Not for resuscitation Active 2011 Problem Code: Z66; Problem Code Type: ICD-10; Not Available [facility] 3 05:28:35 Disorder of salivary gland Active 2012 Problem Code: K11.8; Problem Code Type: ICD-10; Not Available [facility] 3 05:28:35 Cellulitis Completed 201604/09/2017 Problem Code: L03.90; Problem Code Type: ICD-10; Not Available [facility] 3 05:28:36 Adult health examination Active 201906/26/2022 - Comments only - Onesimo Whitley MD - He can get the COVID-vaccine and flu shot in mid July Problem Code: Z00.00; Problem Code Type: ICD-10; Not Available [facility] 3 05:28:36 Nasal congestion Completed 202102/01/2022 Problem Code: R09.81; Problem Code Type: ICD-10; Not Available [facility] 3 05:28:36 Acute frontal sinusitis Completed 202102/27/2022 [...] J01.10; Problem Code Type: ICD-10; Not Available [facility] 3 05:28:36 Nervous system and sense organ [...] move forward with any decision. 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 - Comments only - Vanda BEE - /hx of sciatica - referral to [facility] for strengthening /inc mobility - pt declines imaging at this time Problem Code: G83.10; Problem Code Type: ICD-10; Not Available [facility] 3 05:28:36 Peripheral vascular disease Active 2021 Problem Code: I73.9; Problem Code Type: ICD-10; Not Available [facility] 3 05:28:37 Pain in right lower limb [...] M79.604; Problem Code Type: ICD-10; Not Available [facility] 3 05:28:37 Follow-up orthopedic assessment Active 202105/21/2022 [...] D46.9; Problem Code Type: ICD-10; Not Available [facility] 3 05:28:38 Polymyalgia rheumatica Active 202201/18/2023 - Comments only - Onesimo Whitley MD - Dramatic response to moderate dose prednisone. Still feels great on 15 mg. We will recheck inflammatory markers tomorrow, as long as these are coming down significantly I am going to reduce further to 12.5 mg. Problem Code: M35.3; Problem Code Type: ICD-10; Not Available [facility] 3 05:28:38 Benign prostatic hyperplasia Active 2022 Problem Code: N40.0; Problem Code Type: ICD-10; Not Available [facility] 05:28:38 Solitary nodule of lung Completed 202210/13/2023 [...] by bronchoscopy and I am referring to [facility] radiology at [facility]. We will get brain MRI, PFTs, coags, and refer to Dr. Villanueva as well. Problem Code: R91.1; Problem Code Type: ICD-10; Removal Reason: [facility] ONESIMO WHITLEY MD [facility] [address], [place], [address] , [facility] 4 16:13:37 Adrenal cortical hypofunction Completed 202201/13/2023 Problem Code: E27.40; Problem Code Type: ICD-10; Not Available [facility] 3 05:28:44 Angina pectoris Completed 200906/30/2023 Problem Code: 413.9; Problem Code Type: ICD-9; Not Available [facility] 3 05:28:45 Acute upper respiratory infection Completed 201604/16/2022 Problem Code: J06.9; Problem Code Type: ICD-10; Not Available [facility] 3 05:28:45 Impotence of organic origin Completed 200906/30/2023 Problem Code: 607.84; Problem Code Type: ICD-9; Not Available [facility] 3 05:28:46 Tobacco dependence syndrome Completed 200906/30/2023 Problem Code: 305.1; Problem Code Type: ICD-9; Not Available [facility] 3 05:28:46 Mass of parotid gland Completed 201206/30/2023 Not Available [facility] 3 05:28:46 Type 1 diabetes mellitus Completed 200906/30/2023 Problem Code: 250.01; Problem Code Type: ICD-9; Not Available [facility] 3 05:28:48 Persistent insomnia Completed 200906/30/2023 Problem Code: 307.42; Problem Code Type: ICD-9; Not Available [facility] 3 05:28:50 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, good response to Taxol/platinu , [facility] MD [address], [place], [address] , [facility] 4 16:14:18 Pleurisy Active [address], [place], [address] , [facility] 4 14:34:26 Hearing loss Active [address], [place], [address] , [facility] 4 13:25:44 Dyspnea on exertion Active [address], [place], [address] , [facility] 4 16:38:58 Chronic obstructive pulmonary disease Active [address], [place], [address] , [facility]. 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 1-5yearssinc elastcigaret te Information not available 02/29/2024 1) Date Of Last VPMS Check? 04/04/2024 [email or web address] Information not available 04/04/2024 2) VPMS Findings No Concerns [email or web address] Information not available 04/04/2024 3) Date Of Last Contract: 05/25/2022 Informed C: 05/25/24 Needs Uds. 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, Family History of: Hypertension: Yes Hyperlipidemia: [...] 50 mcg/0.25mL dose 11/29/2020 completed Not Available [facility] 08/13/20 05:27:52 COVID-19, mRNA, LNP-S, PF, 100 mcg/0.5mL dose or 50 mcg/0.25mL dose 08/17/2021 completed Not Available [facility] 08/13/20 05:27:52 SARS-COV-2 (COVID-19) vaccine, UNSPECIFIED 11/01/2020 completed Not Available [facility] 08/13/2023 05:27:52 influenza, unspecified formulation 07/04/2019 completed Not Available [facility] 08/13/2023 05:27:53 influenza, unspecified formulation 09/20/2012 completed Not Available [facility] 08/13/2023 05:27:53 Past Encounters Encounter ID Performer Location Encounter Start Date Encounter Closed Date Diagnosis/Indication Diagnosis SNOMED-CT Code [id number] ONESIMO WHITLEY MD [address] [address] 02/21/2024 13:59:55 02/21/2024 15:15:08 Pleurisy [id number] ONESIMO WHITLEY MD [address] [address] 02/29/2024 12:56:26 02/29/2024 13:34:27 Hearing loss 20190545 Pleurisy [id number] ONESIMO WHITLEY MD [address] [address] 03/15/2024 13:55:39 03/15/2024 15:04:48 Pleurisy 123610671 Insomnia 987750370 Essential hypertension 59285170 Myelodyspl astic syndrome (clinical) 818646086 Polymyalgi a rheumatica 15023513 Type 1 federico betes mellitus without complication 046816754 Small cell carcinoma of lung 180885244 Chronic ob structive pulmonary disease 50756282 Health Concerns Section Related Observation LastModified by Organization Detai ls LastModified Time None Recorded Concern Status LastModified by Organization Details LastModified Time None Recorded Payers Encounter Date Sequence Insurance Name Policy Number Policy Cochran Covered Member ID Cochran Member ID Guarantor Name 03/15/2024 2 [place] [facility] [id number] Marlo Durán [id number] Marlo Durán 03/15/2024 1 [place] [facility] [employer] Marlo Durán [id number] Marlo Durán Notes Date Note Type Note Provider Name and Address Organization Details Recorded Time 03/15/2024 text/html HPI Notes: Follow-up for right-sided pleuritic chest pain Marlo's pleuritic pain did not resolve after course of antibiotics. His CT showed some consolidative changes distal to the cancer; this was worse than his prior CT and [facility] but not worse than his last CT at [facility]. He never developed fever. He still [...] his dyspnea. He has not seen a chip mucker recently. His blood counts have improved a [...] time. ONESIMO WHITLEY MD [address], [place], [address], [facility]. 03/15/2024 16:47:38
--- OUTSIDE RECORDS SUMMARY | 2024-05-17 02:40 | XMS_ITS | Continuity of Care Document ---
Author Organization [facility] Address [address] [place] [address] Care Team Providers Care Supervisor [employer] Name Role Phone ONESIMO WHITLEY Primary Care Provider Assessment No assessment recorded. Plan of Treatment Reminders Order Date Submit Date Provider Last Modified By Organization Details Last Modified Time Details Appointments Follow Up 30 2023 01:30P M Not available Not available Not available Lab None recorded. Referral audiologi st referral [address] [facility], [address] [place] [address], [place], [address], 04/03/2024 16:51:20 Procedures None recorded. Surgeries None recorded. Imaging None recorded. Medication Orders None recorded. Patient TargetsNo targets recorded. Patient Instructions Encounter Date Encounter Id Patient Instructions Last Modified By Organization Details Last Modified Time 02/29/2024 [id number] Continue your doxycyline x [address] Whitley disagrees I will let you know. I referred you to audiology that will be in [facility] or [place] or [facility] [email or web address] Not available 02/29/2024 13:28:38 Reason for Referral Animal Doctor Referral for Hea ring loss Referring Physician: Emmie Mendez, Family Medicine, Encounter Date: 02/29/2024 Results Created Date Observation Date Name Description Value Unit Range Abnormal Flag LastModifiedBy Organization Detail LastModifiedTime 02/21/20 24 02/22/2024 elect beth carr am No observ ation record ed. [email or web address] [facility] [address], [place], [address], 02/23/2024 09:07:48 02/21/20 elect beth carr am No observ ation record ed. [email or web address] Not Available 02/22/2024 11:33:11 02/22/20 24 02/22/2024 imagi ng inter preta tion No observ ation record ed. [email or web address] Not Available 02/22/2024 13:45:06 02/22/20 24 02/22/2024 CT, angio gram, chest , w/ contr ast No observ ation record ed. [email or web address] [facility] (Radiology) [address], [place], [address], 02/23/2024 09:07:49 02/22/20 24 02/22/2024 CT imagi ng repor t Patien t Name: Marlo Hernandez Unit #: [id number] Loc: DI Orderi ng Provid er: Primea u,Robe rt E Accoun t #: [id number] Status : REG CLI Primar [...] error, please notify us immedi ately at [phone] and return the origin al report to us at the addres s above. Thank- you. [email or web address] [facility] [address], [place], [address] 02/22/2024 13:46:47 05/03/20 24 05/03/2024 CT imagi ng repor t Genaro t Name: Marlo Hernandez Unit #: [id number] Loc: DI Orderi ng Provid er: Nichol Newsome lexand er O Accoun t #: [id number] Status : REG CLI Primar [...] tion); or iterat jeff recons tructi on. 730- 003: Total DLP = 0.00 mGy-cm Ordere d By: Nichol Newsome CC: ------ ------ ------ ------ ------ ------ ------ ------ ------ ------ ------ ------ ---- Dictat ed By: Daja Brar [id number] Transc ribed By: Janet Freitas 1112 This is privil eged, confid ential inform ation intend ed only for the provid er named. Any use or distri bution by any person other than this provid er is strict ly prohib ited. If you receiv e this report in error, please notify us immedi ately at and return the origin al report to us at the addres s above. Thank- you. [facility] [address], [place], [address] 05/05/2024 07:24:10 Result Notes None recorded. Problems [...] E10.9; Problem Code Type: ICD-10; Not Available [facility] 3 05:28:34 Nicotine dependence Active 200911/29/2019 - Comments only - Vanda BEE - - pt doesnt want to quit Problem Code: F17.209; Problem Code Type: ICD-10; Not Available [facility] 3 05:28:34 Hyperlipidemi a Active 200905/21/2022 - Comments only - Onesimo Whitley MD - If we come up with no other explanation for his elevated inflammatory markers I will have him stop simvastatin. Problem Code: E78.5; Problem Code Type: ICD-10; Not Available [facility] 3 05:28:34 Essential hypertension Active 200905/21/2022 - Comments only - Onesimo Whitley MD - Good control Problem Code: I10; Problem Code Type: ICD-10; Not Available [facility] 3 05:28:35 Erectile dysfunction Active 2009 Problem Code: N52.9; Problem Code Type: ICD-10; Not Available [facility] 3 05:28:35 Constipation Active 2009 Problem Code: K59.00; Problem Code Type: ICD-10; Not Available [facility] 3 05:28:35 Insomnia Active 200911/29/2019 - Comments only - Vanda BEE - - pt takes diazepam every night for this. has been well controlled for many years Problem Code: F51.09; Problem Code Type: ICD-10; Not Available [facility] 3 05:28:35 Not for resuscitation Active 2011 Problem Code: Z66; Problem Code Type: ICD-10; Not Available [facility] 3 05:28:35 Disorder of salivary gland Active 2012 Problem Code: K11.8; Problem Code Type: ICD-10; Not Available [facility] 3 05:28:35 Cellulitis Completed 201604/09/2017 Problem Code: L03.90; Problem Code Type: ICD-10; Not Available [facility] 3 05:28:36 Adult health examination Active 201906/26/2022 - Comments only - Onesimo Whitley MD - He can get the COVID-vaccine and flu shot in mid July Problem Code: Z00.00; Problem Code Type: ICD-10; Not Available [facility] 3 05:28:36 Nasal congestion Completed 202102/01/2022 Problem Code: R09.81; Problem Code Type: ICD-10; Not Available [facility] 3 05:28:36 Acute frontal sinusitis Completed [...] J01.10; Problem Code Type: ICD-10; Not Available [facility] 3 05:28:36 Nervous system and sense [...] move forward with any decision. Not Available [facility] 3 05:28:36 Monoplegia of lower limb Active 202104/16/2022 - Comments only - Vanda BEE - /hx of sciatica - referral to [facility] PT for strengthening /inc mobility - pt declines imaging at this time Problem Code: G83.10; Problem Code Type: ICD-10; Not Available [facility] 3 05:28:36 Peripheral vascular disease Active 2021 Problem Code: I73.9; Problem Code Type: ICD-10; Not Available [facility] 3 05:28:37 Pain in right lower limb [...] M79.604; Problem Code Type: ICD-10; Not Available [facility] 3 05:28:37 Follow-up orthopedic assessment Active [...] Z47.89; Problem Code Type: ICD-10; Not Available [facility] 3 05:28:37 Anemia Active 202109/24/2022 - [...] D64.9; Problem Code Type: ICD-10; Not Available [facility] 3 05:28:37 Major depression, single episode [...] R63.4; Problem Code Type: ICD-10; Not Available [facility] 3 05:28:37 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 Problem Code: D46.9; Problem Code Type: ICD-10; Not Available [facility] 3 05:28:38 Polymyalgia rheumatica Active 202201/18/2023 - Comments only - Onesimo Whitley MD - Dramatic response to moderate dose prednisone. Still feels great on 15 mg. We will recheck inflammatory markers tomorrow, as long as these are coming down significantly I am going to reduce further to 12.5 mg. Problem Code: M35.3; Problem Code Type: ICD-10; Not Available [facility] 3 05:28:38 Benign prostatic hyperplasia Active 2022 Problem Code: N40.0; Problem Code Type: ICD-10; Not Available [facility] 3 05:28:38 Solitary nodule of lung Completed [...] bronchoscopy [facility]. We will get brain MRI, PFTs, coags, and refer to Dr. Villanueva as well. Problem Code: R91.1; Problem Code Type: ICD-10; Removal Reason: [facility] MD [address], [place], [address] , [facility] 4 16:13:37 Adrenal cortical hypofunction Completed 202201/13/2023 Problem Code: E27.40; Problem Code Type: ICD-10; Not Available [facility] 3 05:28:44 Angina pectoris Completed 200906/30/2023 Problem Code: 413.9; Problem Code Type: ICD-9; Not Available [facility] 3 05:28:45 Acute upper respiratory infection Completed 201604/16/2022 Problem Code: J06.9; Problem Code Type: ICD-10; Not Available [facility] 3 05:28:45 Impotence of organic origin Completed 200906/30/2023 Problem Code: 607.84; Problem Code Type: ICD-9; Not Available [facility] 3 05:28:46 Tobacco dependence syndrome Completed 200906/30/2023 Problem Code: 305.1; Problem Code Type: ICD-9; Not Available [facility] 3 05:28:46 Mass of parotid gland Completed 201206/30/2023 Not Available [facility] 3 05:28:46 Type 1 diabetes mellitus Completed 200906/30/2023 Problem Code: 250.01; Problem Code Type: ICD-9; Not Available [facility] 3 05:28:48 Persistent insomnia Completed 200906/30/2023 Problem Code: 307.42; Problem Code Type: ICD-9; Not Available [facility] 3 05:28:50 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, good response to Taxol/platinu cory, [facility] MD [address], [place], [address] , [facility] 4 16:14:18 Pleurisy Active [address], [place], [address] , [facility]. 4 14:34:26 Hearing loss Active [address], [place], [address] , [facility] 4 13:25:44 Dyspnea on exertion Active [address], [facility] [address] [facility] 4 16:38:58 Chronic obstructive pulmonary disease Active [address], [facility] [address] , [facility] 4 16:44:25 Notes:*Problem Name: Dni *IC D-10 [...] Updated DateTime 4 187.33 cm 24.8 kg/m2 91008.9 4 g 97 [degF] 95 % 95 % 90 /min 18 /min 118 mm[Hg] 60 mm[Hg] WU DUNN LPN [facility] 13:04:21 Social History Question Answer Notes LastModified by Organizat ion Details LastModified Time Tobacco Smoking Status Former Smoker WU DUNN LPN [facility] 02/29/2024 13:04:55 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 1-5yearssinc elastcigaret te Information not available 02/29/2024 1) Date Of Last VPMS Check? 04/04/2024 [email or web address] Information not available 04/04/2024 2) VPMS Findings No Concerns [email or web address] Information not available 04/04/2024 3) Date Of Last Contract: 05/25/2022 Informed C: 05/25/24 Needs Uds. 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, Family History of: Hypertension: Yes Hyperlipidemia: Yes [...] 50 mcg/0.25mL dose 11/29/2020 completed Not Available [facility] 08/13/20 05:27:52 COVID-19, mRNA, LNP-S, PF, 100 mcg/0.5mL dose or 50 mcg/0.25mL dose 08/17/2021 completed Not Available [facility] 08/13/20 05:27:52 SARS-COV-2 (COVID-19) vaccine, UNSPECIFIED 11/01/2020 completed Not Available [facility] 08/13/2023 05:27:52 influenza, unspecified formulation 07/04/2019 completed Not Available [facility] 08/13/2023 05:27:53 influenza, unspecified formulation 09/20/2012 completed Not Available [facility] 08/13/2023 05:27:53 Past Encounters Encounter ID Performer Location Encounter Start Date Encounter Closed Date Diagnosis/Indication Diagnosis SNOMED-CT Code [id number] ONESIMO WHITLEY MD [address] [address] 02/21/2024 13:59:55 02/21/2024 15:15:08 Pleurisy [id number] ONESIMO WHITLEY MD [address] [address] 02/29/2024 12:56:26 02/29/2024 13:34:27 Hearing loss [id number] Pleurisy [id number] Health Concerns Section Related Observation LastModified by Organization Detai ls LastModified Time None Recorded Concern Status LastModified by Organization Details LastModified Time None Recorded Payers Encounter Date Sequence Insurance Name Policy Number Policy Cochran Covered Member ID Cochran Member ID Guarantor Name 02/29/2024 2 [place] [facility] [id number] Marlo Durán [id number] Marlo Durán 02/29/2024 1 [place] [facility] Marlo Durán [id number] Marlo Durán Notes Date Note Type [...] prednisone EMMIE MENDEZ, JOSE [address] [place], [address], [facility]. 02/29/2024 13:37:18
--- OUTSIDE RECORDS SUMMARY | 2024-05-17 02:40 | XMS_ITS | Encounter Summary ---
Author Organization [facility] Address [address] [place] [address] Care Team Providers Care Drainlayer Name Role Phone Unavailable Primary Care Provider Unavailabl e Encounter Details Date Type Department Care Team (Late st Contact Info) Description 05/06/2023 Lab Requisition [facility] Pathology & Laboratory Medicine - [facility] [address] [place] [address] Outr Resulting Lab, Provider Social History Tobacco [...] Rslt (PF1RES) Negative Negative 05/07/2023 0:27 EDT [facility] Paraflu Type 2 Rslt (PF2RES) Negative Negative 05/07/2023 0:27 EDT [facility] Paraflu Type 3 Rslt (PF3RES) Negative Negative 05/07/2023 0:27 EDT [facility] Paraflu Type 4 Rslt Negative Negative 05/07 0:27 EDT [facility] Rhinovirus RNA Rslt (RVRES) Negative Negative 05/07/2023 0:27 EDT [facility] Metapneumovirus RNA Rslt (HMVRES) Negative Negative 05/07/2023 0:27 EDT [facility] Adenovirus DNA Rslt (ADVRES) Negative Negative 05/07/2023 0:27 EDT [facility] Swab ENTIRE NASOPHARYNX / Unknown 05/06/2023 15:50 EDT 05/06/2023 21:39 EDT Provider Outr Resulting Lab MICROBIOLOGY - GENERAL ORDERABLES [facility] [address] [place] [address] documented in this encounter Visit Diagnoses Not on filedocumented in this encounter
--- OUTSIDE RECORDS SUMMARY | 2024-05-17 02:40 | XMS_ITS | Referral Summary ---
Author Organization [facility] Address [address] [place] [address] Care Team Providers Care Energy Control Officer Name Role Phone Unavailable Primary Care Provider Unavailabl e Social History Tobacco Use Types Packs/Day Years Used Date Smoking Tobacco: Never Assessed Sex and Gender Information Value Date Recorded Sex Assigned at Not on file Gender Identity Not on file Sexual Orientation Not on file Plan of Treatment Not on file
--- OUTSIDE RECORDS SUMMARY | 2024-05-17 02:40 | XMS_ITS | Encounter Summary ---
Author Organization [facility] Address [address] [place] [address] Care Team Providers Care Sql Ssrs Developer Name Role Phone Unavailable Primary Care Provider Unavailabl e Encounter Details Date Type Department Care Team (Late st Contact Info) Description 12/24/2022 Lab Requisition [facility] Pathology & Laboratory Medicine - [facility] [address] [place] [address] Outr Resulting Lab, Provider Social History Tobacco [...] PSA 2.9 <=6.5 ng/mL 12/24/2022 19:37 EDT [facility] Blood VENOUS BLOOD / Unknown 12/23/2022 16:45 EDT 12/24/2022 17:51 EDT Narrative [facility] - 12/24/2022 19:37 EDT NOTE: Serum PSA concentration should not be interpreted as absolute evidence for the presence or absence of malignant disease. Assayed on Siemens ADVIA Centaur XPT using chemiluminescent technology.??Values obtained by using different assay methods cannot be used interchangeably. Provider Outr Resulting Lab CHEMISTRY & BLOOD GAS ORDERABLES [facility] [address] [place] [address] documented in this encounter Visit Diagnoses Not on filedocumented in this encounter
--- OUTSIDE RECORDS SUMMARY | 2024-05-17 02:40 | XMS_ITS | Continuity of Care Document ---
Author Organization [place] - [facility], [facility], [facility] Address [address] [place] [address] Care Team Providers Care Ticket Writer Name Role Phone ONESIMO WHITLEY Primary Care Provider [phone] Assessment No assessment recorded. Plan of Treatment [...] if PA is being requested 2023 024 [facility] (Radiology), [address] [place] [address] , [place], [address], 02/22/2024 10:55:47 electroca rdiogram 2023 024 [facility], [address], [place], [address], 02/21/2024 18:22:31 Medication Orders doxycycli ne hyclate 100 mg capsule [address], [address], [place], [place], [id number], 03/15/2024 14:12:58 Eliquis 5 mg tablet [address], [address] , [place], [place], [id number], 03/15/2024 14:13:05 Patient TargetsNo targets recorded. Patient Instructions Encounter Date Encounter Id Patient Instructions Last Modified By Organization Details Last Modified Time 02/21/2024 [id number] 1. Get blood devin t at [facility] when you go for CT scan [...] Not available 02/21/2024 14:45:[address] Machine Operator Referral for Hea ring loss Referring Physician: Emmie Mendez, Family Medicine, Encounter Date: 02/29/2024 Results Created Date Observation Date Name Description Value Unit Range Abnormal Flag LastModifiedBy Organization Detail LastModifiedTime 02/21/20 24 02/22/2024 elect rocar diogr am No observ ation record ed. [email or web address] [facility] [address] [address], [place], [address], 02/23/2024 09:07:48 02/21/20 elect rocar diogr am No observ ation record ed. [email or web address] Not Available 02/22/2024 11:33:11 02/22/20 24 02/22/2024 imagi ng inter preta tion No observ ation record ed. [email or web address] Not Available 02/22/2024 13:45:06 02/22/20 24 02/22/2024 CT, angio gram, chest , w/ contr ast No observ ation record ed. [facility] (Radiology) [address] , [place], [address], 02/23/2024 09:07:49 05/21/02/22/2024 CT imagi ng repor t Patien t Name: Marlo Hernandez Unit #: [id number] Loc: DI Orderi ng Provid er: Primea u,Joele rt E Accoun t #: [id number] Status : REG CLI Primar [...] at the addres s above. Thank- you. [email or web address] [facility] [address] [place], [address] 02/22/2024 13:46:47 05/03/20 24 05/03/2024 CT imagi ng repor t Patien t Name: Marlo Hernandez Unit #: [id number] Loc: DI Orderi ng Provid er: Nichol Newsome lexand er O Accoun t #: [id number] Status : REG CLI Primar [...] ZATION : [facility] use at least one of these dose optimi zation techni ques: automa katelin exposu re contro l; mA and/or kV adjust ment per patien t size (inclu vinay target ed exams where dose is matche d to clinic al indica tion); or iterat jeff recons tructi on. 003: Total DLP = 0.00 mGy-cm Ordere d By: Nicohl Newsome [facility] er O CC: ------ ------ ------ ------ ------ ------ ------ ------ ------ ------ ------ ------ ---- Dictat ed By: Daja Brar [id number] Transc ribed By: Janet Freitas 1112 This is privil eged, confid ential inform ation intend ed only for the provid er named. Any use or distri bution by any person other than this [facility] is strict ly prohib ited. If you receiv e this report in error, please notify us immedi ately at and return the origin al report to us at the addres s above. Thank- you. [facility] [address] [place], [address] 05/05/2024 07:24:10 Result Notes None recorded. Problems [...] K11.8; Problem Code Type: ICD-10; Not Available [facility] 3 05:28:35 Cellulitis Completed 201604/09/2017 Problem Code: L03.90; Problem Code Type: ICD-10; Not Available [facility] 3 05:28:36 Adult health examination Active 201906/26/2022 - Comments only - Onesimo Whitley MD - He can get the COVID-vaccine and flu shot in mid July Problem Code: Z00.00; Problem Code Type: ICD-10; Not Available [facility] 3 05:28:36 Nasal congestion Completed 202102/01/2022 Problem Code: R09.81; Problem Code Type: ICD-10; Not Available [facility] 3 05:28:36 Acute frontal sinusitis Completed 202102/27/2022 [...] J01.10; Problem Code Type: ICD-10; Not Available [facility] 3 05:28:36 Nervous system and sense organ [...] move forward with any decision. Not Available [facility] 3 05:28:36 Monoplegia of lower limb Active 202104/16/2022 - Comments only - Vanda BEE - /hx of sciatica - referral to [facility] PT for strengthening /inc mobility - pt declines imaging at this time Problem Code: G83.10; Problem Code Type: ICD-10; Not Available [facility] 3 05:28:36 Peripheral vascular disease Active 2021 Problem Code: I73.9; Problem Code Type: ICD-10; Not Available [facility] 3 05:28:37 Pain in right lower limb [...] M79.604; Problem Code Type: ICD-10; Not Available [facility] 3 05:28:37 Follow-up orthopedic assessment Active 202105/21/2022 [...] Z47.89; Problem Code Type: ICD-10; Not Available [facility] 3 05:28:37 Anemia Active 202109/24/2022 - Comments [...] D64.9; Problem Code Type: ICD-10; Not Available [facility] 3 05:28:37 Major depression, single episode Active [...] F32.9; Problem Code Type: ICD-10; Not Available [facility] 3 05:28:37 Abnormal weight loss Active 2022 Problem Code: R63.4; Problem Code Type: ICD-10; Not Available [facility] 05:28:37 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 Problem Code: D46.9; Problem Code Type: ICD-10; Not Available [facility] 05:28:38 Polymyalgia rheumatica Active 202201/18/2023 - Comments only - Onesimo Whitley MD - Dramatic response to moderate dose prednisone. Still feels great on 15 mg. We will recheck inflammatory markers tomorrow, as long as these are coming down significantly I am going to reduce further to 12.5 mg. Problem Code: M35.3; Problem Code Type: ICD-10; Not Available [facility] 3 05:28:38 Benign prostatic hyperplasia Active 2022 Problem Code: N40.0; Problem Code Type: ICD-10; Not Available [facility] 3 05:28:38 Solitary nodule of lung Completed [...] bronchoscopy and I am referring to [facility] radiology at [facility]. We will get brain MRI, PFTs, coags, and refer to Dr. Villanueva as well. Problem Code: R91.1; Problem Code Type: ICD-10; Removal Reason: [facility] ONESIMO WHITLEY MD [address], [place], [address] , [facility] 4 16:13:37 Adrenal cortical hypofunction Completed 202201/13/2023 Problem Code: E27.40; Problem Code Type: ICD-10; Not Available [facility] 3 05:28:44 Angina pectoris Completed 200906/30/2023 Problem Code: 413.9; Problem Code Type: ICD-9; Not Available [facility] 3 05:28:45 Acute upper respiratory infection Completed 201604/16/2022 Problem Code: J06.9; Problem Code Type: ICD-10; Not Available [facility] 3 05:28:45 Impotence of organic origin Completed 200906/30/2023 Problem Code: 607.84; Problem Code Type: ICD-9; Not Available [facility] 3 05:28:46 Tobacco dependence syndrome Completed 200906/30/2023 Problem Code: 305.1; Problem Code Type: ICD-9; Not Available [facility] 3 05:28:46 Mass of parotid gland Completed 201206/30/2023 Not Available [facility] 3 05:28:46 Type 1 diabetes mellitus Completed 200906/30/2023 Problem Code: 250.01; Problem Code Type: ICD-9; Not Available [facility] 3 05:28:48 Persistent insomnia Completed 200906/30/2023 Problem Code: 307.42; Problem Code Type: ICD-9; Not Available [facility] 3 05:28:50 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, good response to Taxol/platinu cory [facility] MD [address], [address] 4 16:14:18 Pleurisy Active [address], [address] 4 14:34:26 Hearing loss Active [address], [address] 4 13:25:44 Dyspnea on exertion Active [address], [address] 4 16:38:58 Chronic obstructive pulmonary disease Active [address], [address] 4 16:44:25 Notes:*Problem Name: Dni *IC D-10 Codes: *Problem Status: inactive *Comments: *Note Date: 08/18/2012 *Problem Name: Dni *ICD-10 Codes: *Problem Status: inactive *Comments: *Problem Code Type: CPT *Note Date: 08/18/2012 Problem Notes None recorded. Procedures Surgical History None recorded. Imaging Results Imaging Date Name Status LastModified by Organization Details LastModified Time 02/22/2024 electrocardiogram completed [facility] [address], [place], [address], 02/23/2024 09:07:48 Procedure Notes None recorded. 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 1-5yearssinc elastcigaret te Information not available 02/29/2024 1) Date Of Last VPMS Check? 04/04/2024 [email or web address] Information not available 04/04/2024 2) VPMS Findings No Concerns Information not available 04/04/2024 3) Date Of Last Contract: 05/25/2022 Informed C: 05/25/24 Needs Uds. 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 Immunizations Vaccine Type Date Status Provider Name and Address Organization Details Recorded Time COVID-19, mRNA, LNP-S, PF, 100 mcg/0.5mL dose or 50 mcg/0.25mL dose 11/29/2020 completed Not Available [facility] 08/13/20 05:27:52 COVID-19, mRNA, LNP-S, PF, 100 mcg/0.5mL dose or 50 mcg/0.25mL dose 08/17/2021 completed Not Available [facility] 08/13/20 05:27:52 SARS-COV-2 (COVID-19) vaccine, UNSPECIFIED 11/01/2020 completed Not Available [facility] 08/13/2023 05:27:52 influenza, unspecified formulation 07/04/2019 completed Not Available [facility] 08/13/2023 05:27:53 influenza, unspecified formulation 09/20/2012 completed Not Available [facility] 08/13/2023 05:27:53 Past Encounters Encounter ID Performer Location Encounter Start Date Encounter Closed Date Diagnosis/Indication Diagnosis SNOMED-CT Code [id number] ONESIMO WHITLEY MD [address] [address] 02/21/2024 13:59:55 02/21/2024 15:15:08 Pleurisy [id number] Health Concerns Section Related Observation LastModified by Organization Detai ls LastModified Time None Recorded Concern Status LastModified by Organization Details LastModified Time None Recorded Payers Encounter Date Sequence Insurance Name Policy Number Policy Cochran Covered Member ID Cochran Member ID Guarantor Name 02/21/2024 2 [place] [facility] [id number] Marlo Durán [id number] Marlo Durán 02/21/2024 1 [place] [employer] Marlo Multani Leeanna [id number] Marlo Durán Notes Date Note Type [...] pharyngitis. ONESIMO WHITLEY MD [address], [place], [address], [facility]. 02/21/2024 17:56:11
--- OUTSIDE RECORDS SUMMARY | 2024-05-17 02:40 | XMS_ITS | Encounter Summary ---
Author Organization [facility] Address [address] [place] [address] Care Team Providers Care Inspector Purchased Parts Name Role Phone Unavailable Primary Care Provider Unavailabl e Encounter Details Date Type Department Care Team (Late st Contact Info) Description 05/06/2023 Lab Requisition [facility] Pathology & Laboratory Medicine - [facility] [address] [place] [address] Outr Resulting Lab, Provider Social History Tobacco [...] Antigen Detection Negative Negative 05/06/2023 22:11 EDT [facility] Urine URINE / Unknown 05/05/2023 1 4:00 EDT 05/06/2023 21:39 EDT Provider Outr Resulting Lab MICROBIOLOGY - GENERAL ORDERABLES [facility] [address] [place] [address] documented in this encounter Visit Diagnoses Not on filedocumented in this encounter
[2024-05-17 12:26] LABS: Abs Immature Grans 0.14 10^3/uL (0.0-0.06); Absolute Basophil Count 0.01 10^3/uL (0.0-0.2); Absolute Eosinophil Count 0.02 10^3/uL (0.0-0.7); Absolute Lymphocyte Count 0.34 10^3/uL (1.2-3.4); Absolute Monocyte Count 1.18 10^3/uL (0.1-0.8); Absolute Neutrophil Count 6.55 10^3/uL (1.2-6.7); Basophils % 0.1 %; Eosinophils % 0.2 %; HCT 35.1 % (40.0-50.0); HGB 10.3 g/dL (13.5-17.5); Immature Grans % 1.7 %; Lymphocytes % 4.1 %; MCH 26.9 pg (27.0-33.0); MCHC 29.3 % (32.0-36.0); MCV 92 fL (80-95); MPV 9.5 fL (8.0-11.0); Monocytes % 14.3 %; Neutrophils % 79.6 %; Platelet Count 116 10^3/uL (130-400); RBC 3.83 10^6/uL (4.36-5.78); RDW 19.8 % (11.8-14.1); RDW-SD 65.4 fL; WBC 8.24 10^3/uL (4.4-10.8)
[2024-05-31 11:06] LABS: Abs Immature Grans 0.11 10^3/uL (0.0-0.06); Absolute Basophil Count 0.01 10^3/uL (0.0-0.2); Absolute Eosinophil Count 0.01 10^3/uL (0.0-0.7); Absolute Lymphocyte Count 0.26 10^3/uL (1.2-3.4); Absolute Monocyte Count 0.69 10^3/uL (0.1-0.8); Absolute Neutrophil Count 8.87 10^3/uL (1.2-6.7); Basophils % 0.1 %; Eosinophils % 0.1 %; HCT 33.1 % (40.0-50.0); HGB 9.8 g/dL (13.5-17.5); Immature Grans % 1.1 %; Lymphocytes % 2.6 %; MCH 27.5 pg (27.0-33.0); MCHC 29.6 % (32.0-36.0); MCV 93 fL (80-95); MPV 9.5 fL (8.0-11.0); Monocytes % 6.9 %; Neutrophils % 89.2 %; Platelet Count 112 10^3/uL (130-400); RBC 3.57 10^6/uL (4.36-5.78); RDW 18.7 % (11.8-14.1); RDW-SD 64.2 fL; WBC 9.95 10^3/uL (4.4-10.8)
== END 2024-06-03 23:59 | disposition home or self-care (01) ==
LOC: INF 02:37
PROVIDERS: PCP Internal Medicine; Visit Provider Internal Medicine Hematology & Oncology
DX: D46.9 Myelodysplastic syndrome, unspecified (principal)
CPT/HCPCS: 36415; 85025